=== PATIENT | male | born 1950 | race Caucasian/White ===

== ENCOUNTER → 2018-07-01 | Day surgery (SDC) | payer MEDICARE, OTHER ==
[~2018-07-01] MED LIST: ASPI-630 PO; ATEN50TA PO; IV RINGERS,LACTATED 1000ML 1,000 ML IV SCH; LIDOCAINE 1% PF 2 ML VIAL. ID PRN; LISI1TAB3 PO; METF500T16 PO; MIDAZOLAM HCL/PF 2 MG/2 ML VIAL. IV PRN; PROPOFOL 40 ML IV ONE; fentaNYL PF VIAL 100 MCG/2 ML VIAL IV PRN
--- NOTE | 2018-07-01 09:14 | HP ---
ADMIT DATE: 07/01/2018 REFERRING PHYSICIAN: Hiren Dickerson. HISTORY OF PRESENT ILLNESS: A 68-year-old male with past medical history significant for diabetes, hypertension, history of colonic polyps, seen for interval colon exam. Last exam was back in 2011. Bowel habits are regular without diarrhea or constipation. There has been no melena and/or hematochezia. Family history is positive for colon cancer with his father. He is otherwise without additional complaints. PAST MEDICAL HISTORY: Colonic polyps, diabetes, hypertension. ALLERGIES: None. MEDICATIONS: Include aspirin, atenolol, lisinopril, hydrochlorothiazide, metformin. SOCIAL HISTORY: Nonsmoker, social drinker. FAMILY HISTORY: Significant for colon cancer with his father. PAST SURGICAL HISTORY: Noncontributory. REVIEW OF SYSTEMS: Per records. PHYSICAL EXAMINATION: GENERAL: Reveals a well-nourished, well-developed male, who is alert and cooperative, no acute distress. VITAL SIGNS: Temperature 98.5, pulse 86, respirations 20. HEENT: Normocephalic and atraumatic head. Pupils and extraocular movements are not tested. Sclerae anicteric. NECK: Supple. LUNGS: Clear. CARDIOVASCULAR: Reveals S1, S2 without S3, S4 or appreciable murmur. ABDOMEN: Soft abdomen, normal bowel sounds without appreciable hepatosplenomegaly. EXTREMITIES: Reveal no cyanosis, clubbing or edema. IMPRESSION: History of colonic polyps, family history of colon cancer. Surveillance exam is warranted at this time. Risks and benefits have been previously discussed including risk of hemorrhage and perforation and is willing to proceed. NICKOLAS AUGUSTINE MD DR: SIM/kathy JOB#: [id number] / [id number] HIREN Acevedo RECORDS, MEDICAL
[2018-07-01 09:26] VITALS: BP 107/62
--- NOTE | 2018-07-02 12:10 | PATHOLOGY ---
[facility] Accession Number: [id number] . 01 Material submitted: . SIGMOID POLYP BIOPSY . 01 Clinical history: . Screening, Hx colon polyps . 02 Diagnosis: Colon biopsies, sigmoid polyp: - Hyperplastic polyp. [facility]/07/02/2018 . 02 Comment: There are no adenomatous changes or evidence of malignancy. (JPM:[facility] 07/02/2018) . 02 Electronically signed: . Renan Watters MD, Pathologist NPI- [id number] . 01 Gross description: . Received in formalin labeled "Dreorosi Jr, Jean, sigmoid polyp BX," are 2 segments of sim soft tissue measuring 0.9 x 0.3 x 0.2 cm in aggregate dimensions and ranging from 0.4 to 0.5 cm in maximum dimension. The specimen is submitted entirely in cassette A1. ([facility]; 07/01/2018) TOB/TOB . 02 Pathologist provided ICD-10: K63.5 . 02 CPT . 784949 Specimen Comment: A courtesy copy of this report has been sent to Specimen Comment: [phone], . Specimen Comment: Report sent to / DR PERKINS Performed at: 01 [facility] [address], [place], [place] [id number] MD Jero Johnson MD Phone: [phone] Performed at: 02 [facility] [address], [place] [id number] MD Renan Watters MD Phone: [phone]
== END | disposition home or self-care (01) ==
LOC: SURG 07:57
PROVIDERS: ATTEND Internal Medicine Gastroenterology
DX: Z12.11 Encounter for screening for malignant neoplasm of colon (principal); K63.5 Polyp of colon; K57.30 Diverticulosis of large intestine without perforation or abscess without bleeding; K64.0 First degree hemorrhoids; I10 Essential (primary) hypertension; E11.9 Type 2 diabetes mellitus without complications; Z80.0 Family history of malignant neoplasm of digestive organs; Z86.010 Personal history of colon polyps; Z79.82 Long term (current) use of aspirin; Z79.899 Other long term (current) drug therapy; Z79.84 Long term (current) use of oral hypoglycemic drugs
CPT/HCPCS: 45380; 88305; J2704

== ENCOUNTER 2020-06-30 22:00 | Inpatient (IN) | payer MEDICARE, OTHER ==
[~2020-06-30] VITALS: Ht 177.8 cm; Wt 93.5 kg
[~2020-06-30 22:00] MED LIST changes: -IV RINGERS,LACTATED 1000ML 1,000 ML IV SCH; -LIDOCAINE 1% PF 2 ML VIAL. ID PRN; +LISI1TAB23 PO; -LISI1TAB3 PO; -MIDAZOLAM HCL/PF 2 MG/2 ML VIAL. IV PRN; -PROPOFOL 40 ML IV ONE; +ceFAZolin 2GM PREMIX 2 GM/50 ML BAG IV ONE; -fentaNYL PF VIAL 100 MCG/2 ML VIAL IV PRN
[2020-06-30 22:10] VITALS: BP 118/79
[2020-06-30] MEDS ORDERED: ACETAMINOPHEN 325 MG TABLET. PO PRN (22:15)
[2020-06-30] MEDS ORDERED: CALCIUM CARBONATE 500 MG TAB.CHEW PO PRN (22:15)
[2020-06-30] MEDS ORDERED: BISACODYL 10 MG SUPP.RECT. PR PRN (22:15)
[2020-06-30] MEDS ORDERED: hydrALAZINE 20 MG/ML VIAL. IVP PRN (22:15)
[2020-06-30] MEDS ORDERED: ASPIRIN RECTAL 300 MG SUPP. PR PRN (22:15)
[2020-06-30] MEDS ORDERED: IV RINGERS,LACTATED 1000ML 1,000 ML IV SCH (22:30)
[2020-06-30] MEDS ORDERED: ONDANSETRON PF 4 MG/2 ML VIAL. IVP PRN (22:30)
[2020-06-30] MEDS: FAMOTIDINE 20 MG TABLET. PO SCH (22:30)
[2020-06-30] MEDS: SENNOSIDES/DOCUSATE 8.6/50MG TABLET. PO SCH (22:30)
--- NOTE | 2020-06-30 22:30 | NUR ---
Admission Note At 2200, pt admitted to room 508 via EMS cart from [facility] ER. Pt is A/Ox4, tele monitor applied, pt oriented to room and call light. Explained POC. Pt milind. At 2240, NIH stroke scale performed, score = 0. Assessment and history done at this time as well. Pt denies pain or other needs. SCD's placed as ordered. Bed alarm on, pt instructed to call if need to get OOB. Pt vu. Will monitor.
[2020-06-30] MEDS ORDERED: DEXTROSE 50% 25 GM / 50ML DISP.SYRIN. IV PRN (22:45)
[2020-06-30] MEDS: ATORVASTATIN CALCIUM 40 MG TABLET. PO SCH (23:43)
[2020-06-30] MEDS: METOPROLOL TART IMMED RELEASE 25 MG TABLET. PO SCH (23:44)
[2020-07-01 03:00] VITALS: BP 110/67
[2020-07-01 07:00] VITALS: BP 125/64
[2020-07-01] MEDS: INSULIN LISPRO 300 UNITS/3 ML VIAL. SQ SCH ×4 (08:00→21:00)
[2020-07-01] MEDS: METOPROLOL TART IMMED RELEASE 25 MG TABLET. PO SCH ×2 (08:20→21:02)
[2020-07-01] MEDS: FAMOTIDINE 20 MG TABLET. PO SCH ×2 (08:20→21:00)
[2020-07-01] MEDS: ASPIRIN ENTERIC COATED 325 MG TABLET.DR. PO SCH (08:20)
[2020-07-01] MEDS: SENNOSIDES/DOCUSATE 8.6/50MG TABLET. PO SCH ×2 (08:20→21:02)
--- NOTE | 2020-07-01 09:32 | RAD ---
PQRS Compliance Statement - Stenosis calculations for CT, MR and conventional angiography are based u david measurement of the distal ICA diameter in accordance with the NASCET methodology. Stenosis calcu lations for carotid ultrasound studies are derived from validated velocity criteria which are known t o correlate with the NASCET methodology. Duplex ultrasound carotid arteries. HISTORY: Multiple brain lesions, headaches, dizziness, possible multifocal CVAs versus metastatic dis ease. Duplex ultrasound was used to evaluate the carotid arteries. Real-time imaging, color-flow imaging an d Doppler were utilized for evaluation. There is no significant plaque at the right carotid bifurcati on. Peak velocity in the right internal carotid artery was 79 cm/s with end-diastolic velocity of 27 cm/s and a systolic velocity ratio of 0.75. There is antegrade flow in the right vertebral. There is no significant plaque at the left carotid bifurcation. Peak velocity in the left internal ca rotid artery was 82 centimeters per second with an end-diastolic velocity of 17 cm/s and a systolic v elocity ratio of 0.8. There is antegrade flow in the left vertebral. IMPRESSION: 1. No hemodynamically significant stenosis noted at the carotid bifurcations. 2. Antegrade flow in each vertebral. Electronically signed by: Tahir Littlejohn MD (07/01/2020 9:29 AM) [facility]
--- NOTE | 2020-07-01 09:58 | PDOC1 ---
History and Physical Date of Admission Date of Admission 07/01/2020 Identification/Chief Complaint Chief Complaint Altered mental status Source Source: Chart review, Patient History of Present Illness History of Present Illness Patient is a 70 year old male with past medical history of diabetes who was in his usual state of health until approximately 5 days prior to his admission when he started complaining of sensation of fogginess in his mind. Patient also complained of headache according to his daughter who is at bedside helping with the history taking. He also had some hearing loss worse than usual over his right ear and patient seeks attention to his doctor and had a cleanout done more or less 2 days prior to his admission and evaluation at [place]. Patient denies any headaches no loss of vision he recently had his prescription change and apparently his securities settlement processor told him that they need to do some changes since its "too strong in "of a prescription. Patient denies any vision loss no dysphagia odynophagia no slurred speech no hemiparesis no hemiplegia, no chest pain palpitations or shortness of breath, no neck stiffness noticed no fever or chills no meningismus no abdominal pain nausea vomiting or diarrhea. The patient has had proper oral intake over the last couple days. Orthostatic at outside facility were recorded as folllows blood pressures as follows lying: Heart rate 70, 137/79, sitting: Heart rate 72, 131/80, standing: Heart rate 70, 113/73, Outside facility H&P is as follows: Patient is a 70-year-old male patient presents emergency department complaining that he has felt lightheaded for the past week or so. Patient also states that he feels like he cannot hear very well and describes that it seems his right ear is plugged up and his left ear is only partially plugged up. Patient reports that his hearing loss for the past week as well. Patient's son states that he was with him a few days ago and noticed that the patient had been speaking l ouder than normal. The patient's son also reports that he has noticed some periods of confusion from the patient over the last day or 2. Patient reports seeing his eye doctor yesterday and stated his eye doctor told him that he needs a different prescription for his eyes stating that his eyes are getting better now and this could have caused some of his dizziness sensations because he is wearing his old glasses. Patient reports taking daily puffs of albuterol, takes Metformin 500 mg twice daily, and takes an unknown dose of lisinopril daily. Patient reports that he seen his primary care provider RADHA Dickerson this past week who took labs but has not gotten back with him yet. Patient denies any other physical complaints or physical symptoms. Patient son is at bedside and provided partial HPI. We were asked to admit the patient for neurological evaluation and higher level of care. He is in hemodynamically stable condition plan of care has been explained detail all of his concerns were addressed to the best of my abilities Past Medical History Endocrine: Diabetes Family History Family History: No Significant Social History Smoke: No ALCOHOL: none Drugs: None Current Medications Current Medications Current Medications Medications (Trade) Dose Ordered Sig/Desiree Start Time Stop Time Status Last Admin Dose Admin Acetaminophen (Tylenol) 650 mg PRN Q6HRS PRN 06/30/20 22:15 Aspirin (Aspirin Rectal Supp) 300 mg PRN DAILY PRN 06/30/20 22:15 Aspirin (Ecotrin) 325 mg DAILYWBKFT 07/01/20 08:00 07/01/20 08:20 325 MG Atorvastatin Calcium (Lipitor) 80 mg QHS 06/30/20 22:30 06/30/20 23:43 80 MG Bisacodyl (Dulcolax Supp) 10 mg PRN DAILY PRN 06/30/20 22:15 Calcium Carbonate/ Glycine (Tums) 500 mg PRN Q3HRS PRN 06/30/20 22:15 Dextrose (Dextrose 50%-Water Syringe) 12.5 gm PRN Q15MIN PRN 06/30/20 22:45 Famotidine (Pepcid) 20 mg BID 06/30/20 22:30 07/01/20 08:20 20 MG Hydralazine HCl (Apresoline Inj) 10 mg PRN Q4HRS PRN 06/30/20 22:15 Insulin Human Lispro (HumaLOG) 0-7 UNITS TIDWMEALHC 07/01/20 08:00 Metoprolol Tartrate (Lopressor) 25 mg BID 06/30/20 22:30 07/01/20 08:20 25 MG Ondansetron HCl (Zofran) 4 mg PRN Q6HRS PRN 06/30/20 22:30 Ringer's Solution 1,000 ml @ 100 mls/hr Q10H 06/30/20 22:30 07/01/20 08:29 DC 06/30/20 23:44 100 MLS/HR Senna/Docusate Sodium (Senna Plus) 1 tab BID 06/30/20 22:30 07/01/20 08:20 1 TAB Allergies Allergies Allergies Coded Allergies Type Severity Reaction Last Updated Verified No Known Drug Allergies 07/01/18 No ROS Review of System 14 body systems of review of systems have been reviewed. See HPI for pertinent positives and negative responses, otherwise all other systems are negative, nonpertinent or noncontributory. Physical Exam Physical Exam Constitutional: Well developed, well nourished, no acute distress, non-toxic appearance. HENT: Normocephalic, atraumatic, bilateral external ears normal, oropharynx moist, no oral exudates, nose normal. Bilateral cerumen impaction, unable to appreciate visualization of tympanic membrane of either ear. Eyes: PERRLA, EOMI, conjunctiva normal, no discharge. Neck: Normal range of motion, no tenderness, supple, no stridor. Cardiovascular:Heart rate regular rhythm, no murmur Lungs & Thorax: Bilateral breath sounds clear to auscultation Abdomen: Bowel sounds normal, soft, no tenderness, no masses, no pulsatile masses. Skin: Warm, dry, no erythema, no rash. Back: No tenderness, no CVA tenderness. Extremities: No tenderness, no cyanosis, no clubbing, ROM intact, no edema. Neurologic: Alert and oriented X 3, normal motor function, normal sensory function, no focal deficits noted. NIHSS score 0, negative Rocío-Hallpike maneuver. patient did not complain of dizziness or other neuro deficits during orthostatic blood pressures. Psychologic: Affect normal, judgement normal, mood normal. Vitals Vitals Vital Signs Date Time Temp Pulse Resp B/P (MAP) Pulse Ox O2 Delivery O2 Flow Rate FiO2 07/01/20 08:20 68 125/64 07/01/20 07:00 98.0 16 98 Room Air 98.0 Labs Labs Laboratory Tests Test 07/01/20 07:43 Glucose (Fingerstick) 140 mg/dL (70-99) Laboratory Tests Test 07/01/20 07:43 Glucose (Fingerstick) 140 mg/dL (70-99) Images Images IMAGING REPORT Signed PATIENT: AL COOPERCOUNT: [id number] : 1950 LOCATION: ER AGE: 70 SEX: M EXAM STATUS: PRE ER ORD. PHYSICIAN: AWA MOORE APRN REASON: LIGHTHEADED WITH HEADACHE ONSET A FEW WEEKS AGO PROCEDURE: CT HEAD WO CONTRAST STUDY: CT head without contrast INDICATION: Lightheadedness. Headache. COMPARISON: None. TECHNIQUE: Axial CT imaging through the head without the use of intravenous contrast. Sagittal and coronal reformats were obtained. One or more of the following individualized dose reduction techniques were utilized for this examination: 1. Automated exposure control 2. Adjustment of the mA and/or kV according to patient size 3. Use of iterative reconstruction technique. FINDINGS: Multifocal parenchymal low-attenuation involving both cerebral hemispheres and most pronounced within the posterior right temporal lobe and bilateral occipital lobes. Much of this low-attenuation is subcortical but there is some cortical involvement such as left occipital. Asymmetric low attenuation and soft tissue prominence involving and adjacent to the right aspect of the splenium of the corpus callosum with associated localized effacement of the right lateral ventricle, image 17 series 2. The left lateral ventricule is more prominent than the right but there is no shift and only minimal asymmetry of the temporal horns. There appears to be faint low-attenuation within the left aspect of the midbrain on image 11 series 2. No acute intracranial hemorrhage. No focal calvarial abnormality. IMPRESSION: Abnormal cortical and subcortical low-attenuation at several locations throug hout both cerebral hemispheres. The right aspect of the splenium of the corpus callosum is asymmetrically prominent relative to the left and there is partial effacement of the adjacent right lateral ventricle. Possible low-attenuation within the left aspect of the midbrain (image 11 series 2). Multifocal infarcts need to be excluded but the distribution is unusual as is the provided history for ischemic events. Metastatic disease should be considered and MRI with and without contrast will allow for differentiation. EKG EKG EKG performed 1723 by [facility] shows a normal sinus rhythm with a heart rate of 71 bpm, NC interval 0.160, QTc interval 0.431, no acute STEMI, no ACS, no acute ischemia noted, EKG interpreted by ED attending physician Dr. Lewis (AWA MOORE APRN) VTE Prophylaxis Ordered VTE Prophylaxis Devices: Yes VTE Pharmacological Prophylaxi: No Assessment/Plan Assessment/Plan Assessment and plan Abnormal CAT scan History of diabetes mellitus type 2 Overweight with a BMI of 29 Hearing impaired History of essential hypertension We will resume home medications once available for review Hold Metformin Neurology consultation has been requested Further imaging studies as per security system sales consultant Fall precaution Further commendations based on the clinical course DVT prophylaxis Lovenox Course & Med Decision Making Course & Med Decision Making Pertinent Labs and Imaging studies reviewed. (See chart for details) 70-year-old patient presents emergency department with complaints of dizziness, hard of hearing over the past week. The patient's son was at bedside and also gave concerns of the patient has had an acute change of mental status noting that he has been forgetful for the past day or so. The patient does have a history of diabetes, fingerstick blood sugar was performed equaling 113. An immediate bedside NIHSS was performed equaling 0. Serum labs and imaging of the head was ordered. Pending at this time Patient is orthostatic blood pressures concerning for dehydration, 1 L normal saline bolus initiated. Patient serum labs were equivocal, however CT head was concerning for abnormal cortical and subcortical low attenuation in several locations throughout the cerebral hemispheres. Multiple infarcts need to be excluded per house radiologist interpretation. Recommended MRI with and without contrast. House radiologist Dr. Martino spoke with the ED attending Dr. Lewis on the phone regarding this abnormal CT. Related to the abnormal CT, ED attending Dr. Lewis recommended I contact inpatient services for admission to [facility] for follow-up of abnormal head CT. Discussed case with [facility] inpatient physician Dr. Simpson who agreed to assume patient care and transfer from [facility] emergency department to [facility] inpatient med telemetry unit. Discussed admission to [facility] under the care of Dr. Simpson with patient who is amendable to this plan. Transfer forms initiated awaiting transfer from [facility] ER to [facility]. Discussed with patient past medical history regarding cancer screening. Patient states that he has had a normal colonoscopy starting at age 52, again at age 62, and again at age 67. Patient also reports that he has had yearly physicals with his primary care provider who does a manual prostate exam along with PSA testing, patient reports that his primary care provider has not told him of any abnormalities with either of these tests. Patient does reveal being a smoker greater than 50 years ago when he was in the [employer] and considered himself a recreational smoker and smoked only a few cigarettes per week or month while he was in the [employer]. (AWA MOORE APRN) Course & Med Decision Making I oversaw on the above date of service of this patient and discussed the care with the OUTPATIENT FACILITY PHYSICAL THERAPIST. I reviewed the case, saw patient he was hemodynamically stable but with concerning CT head imaging findings that require continued work-up in an inpatient setting. Patient to be transferred to facility with neurologist/MRI capabilities. I agree with the findings, plan of care, and disposition as documented. Justifications for Admission TIA Indications Persistent neurologic signs?: Yes Justification for admission: There is persistence of patient's focal neurologic signs or symptoms or there is concern for recurrence of patient's neurological signs and symptoms. Other Justification ROSEANNA GUZMAN MD Jul 01, 2020 09:58
[2020-07-01 10:09] LABS: BASO # 0.1 x10^3/uL (0.0-0.2); BASO % 1 % (0-3); EOS # 0.3 x10^3/uL (0.0-0.7); EOS % 3 % (0-3); HEMOGLOBIN 13.7 g/dL (13.0-17.5); LYMPH # 1.4 x10^3/uL (1.0-4.8); LYMPH % 15 % (24-48); MEAN CORPUSCULAR HEMOGLOBIN 33 pg (25-35); MEAN CORPUSCULAR HGB CONC 35 g/dL (31-37); MEAN CORPUSCULAR VOLUME 95 fL (79-100); MONO # 0.5 x10^3/uL (0.0-1.1); MONO % 6 % (0-9); NEUT # 7.1 x10^3/uL (1.8-7.7); NEUT % 76 % (31-73); PLATELET COUNT 280 x10^3/uL (140-400); RED CELL DISTRIBUTION WIDTH 13.9 % (11.5-14.5); WHITE BLOOD COUNT 9.3 x10^3/uL (4.0-11.0)
[2020-07-01 10:23] LABS: ALBUMIN/GLOBULIN RATIO 0.8 (1.0-1.7); CALCIUM 8.3 mg/dL (8.5-10.1); CREATININE 1.1 mg/dL (0.7-1.3); GFR 66.6; POTASSIUM 4.1 mmol/L (3.5-5.1); TOTAL BILIRUBIN 0.6 mg/dL (0.2-1.0); TOTAL PROTEIN 6.7 g/dL (6.4-8.2)
[2020-07-01 10:31] LABS: CHOLESTEROL/HDL RATIO 6.7
[2020-07-01 11:00] VITALS: BP 124/83
[2020-07-01 15:00] VITALS: BP 111/71
[2020-07-01 19:00] VITALS: BP 113/68
[2020-07-01] MEDS: ATORVASTATIN CALCIUM 40 MG TABLET. PO SCH (21:03)
--- NOTE | 2020-07-01 21:13 | PDOC2 ---
CONSULT Date of Consult Date of Consult DATE: 07/01/20 TIME: 21:13 Reason for Consult Reason for Consult: Diziness Identification/Chief Complaint Chief Complaint Dizziness History of Present Illness Reason for Visit: This patient is 70-year-old man with past medical history of multiple medical problems information obtained from patient, patient's multiple family members at bedside. They report patient was not feeling well over 1 week prior to presentation patient was having some episode of lightheaded, dizziness. Patient was also having some difficulty with his ears. Patient was having some difficulty hearing he had wax removal from his year. Patient currently denies any complaint of headache nausea or vomiting chest pain shortness of breath. Patient denied any focal extremity weakness. Patient does have some history of memory and difficulty with word finding, he will be forgetful. Patient currently denies any complaint of fever headache chest pain shortness of breath. Past Medical History Endocrine: Diabetes Family History Family History: No Significant Social History No ALCOHOL: none Drugs: None Current Medications Current Medications Current Medications Ringer's Solution 1,000 ml @ 100 mls/hr Q10H IV Last administered on 06/30/20at 23:44; Start 06/30/20 at 22:30; Stop 07/01/20 at 08:29; Status DC Ondansetron HCl (Zofran) 4 mg PRN Q6HRS PRN IVP NAUSEA/VOMITING; Start 06/30/20 at 22:30 Calcium Carbonate/ Glycine (Tums) 500 mg PRN Q3HRS PRN PO UPSET STOMACH; Start 06/30/20 at 22:15 Acetaminophen (Tylenol) 650 mg PRN Q6HRS PRN PO Headaches, Temp > 101.5F; Start 06/30/20 at 22:15 Senna/Docusate Sodium (Senna Plus) 1 tab BID PO Last administered on 07/01/20at 21:02; Start 06/30/20 at 22:30 Bisacodyl (Dulcolax Supp) 10 mg PRN DAILY PRN SD CONSTIPATION; Start 06/30/20 at 22:15 Atorvastatin Calcium (Lipitor) 80 mg QHS PO Last administered on 07/01/20at 21:03; Start 06/30/20 at 22:30 Famotidine (Pepcid) 20 mg BID PO Last administered on 07/01/20at 08:20; Start 06/30/20 at 22:30 Aspirin (Ecotrin) 325 mg DAILYWBKFT PO Last administered on 07/01/20at 08:20; Start 07/01/20 at 08:00 Aspirin (Aspirin Rectal Supp) 300 mg PRN DAILY PRN SD IF UNABLE TO TAKE PO; Start 06/30/20 at 22:15 Metoprolol Tartrate (Lopressor) 25 mg BID PO Last administered on 07/01/20at 21:02; Start 06/30/20 at 22:30 Hydralazine HCl (Apresoline Inj) 10 mg PRN Q4HRS PRN IVP ELEVATED BP, SEE COMMENTS; Start 06/30/20 at 22:15 Insulin Human Lispro (HumaLOG) 0-7 UNITS TIDWMEALHC SQ ; Start 07/01/20 at 08:00 Dextrose (Dextrose 50%-Water Syringe) 12.5 gm PRN Q15MIN PRN IV SEE COMMENTS; Start 06/30/20 at 22:45 Active Scripts Active Reported Aspirin 81 Mg Tab.chew 81 Mg PO DAILY Metformin Hcl 500 Mg Tablet 500 Mg PO BIDWMEALS Atenolol 50 Mg Tablet 50 Mg PO DAILY Allergies Allergies: Coded Allergies: No Known Drug Allergies (Unverified , 07/01/18) Physical Exam Physical Exam General no acute distress. HEENT: Normocephalic and atraumatic. NECK: Supple without bruit Respiratory: Clear to auscultation bilaterally Heart: Regular rate and rhythm, S1S2 normal NEUROLOGIC: Mental status Alert oriented. Word finding difficulty Cranial nerve equally reactive pupils, and intact extraocular movements. No facial asymmetry. Difficulty hearing Palate elevates and tongue protrudes in midline. Reflexes are 1-2 with flexor plantar responses. Coordination no dysmetria Strength able to move all exts equally. Sensory exam is intact for light touch and pinprick. Gait in bed. A 10-point review of systems was obtained. Other than the history of present illness the remainder of the review of systems is negative. Vitals VITALS Vital Signs Date Time Temp Pulse Resp B/P (MAP) Pulse Ox O2 Delivery O2 Flow Rate FiO2 07/01/20 21:02 68 113/68 07/01/20 19:00 98.7 20 97 Room Air 98.7 Labs Labs Laboratory Tests Test 07/01/20 07:43 07/01/20 08:47 07/01/20 12:07 1/9/21 16:48 Glucose (Fingerstick) 140 mg/dL (70-99) 129 mg/dL (70-99) 111 mg/dL (70-99) White Blood Count 9.3 x10^3/uL (4.0-11.0) Red Blood Count 4.10 x10^6/uL (4.30-5.70) Hemoglobin 13.7 g/dL (13.0-17.5) Hematocrit 39.0 % (39.0-53.0) Mean Corpuscular Volume 95 fL (79-100) Mean Corpuscular Hemoglobin 33 pg (25-35) Mean Corpuscular Hemoglobin Concent 35 g/dL (31-37) Red Cell Distribution Width 13.9 % (11.5-14.5) Platelet Count 280 x10^3/uL (140-400) Neutrophils (%) (Auto) 76 % (31-73) Lymphocytes (%) (Auto) 15 % (24-48) Monocytes (%) (Auto) 6 % (0-9) Eosinophils (%) (Auto) 3 % (0-3) Basophils (%) (Auto) 1 % (0-3) Neutrophils # (Auto) 7.1 x10^3/uL (1.8-7.7) Lymphocytes # (Auto) 1.4 x10^3/uL (1.0-4.8) Monocytes # (Auto) 0.5 x10^3/uL (0.0-1.1) Eosinophils # (Auto) 0.3 x10^3/uL (0.0-0.7) Basophils # (Auto) 0.1 x10^3/uL (0.0-0.2) Sodium Level 140 mmol/L (136-145) Potassium Level 4.1 mmol/L (3.5-5.1) Chloride Level 105 mmol/L (98-107) Carbon Dioxide Level 26 mmol/L (21-32) Anion Gap 9 (6-14) Blood Urea Nitrogen 16 mg/dL (8-26) Creatinine 1.1 mg/dL (0.7-1.3) Estimated GFR (Cockcroft-Gault) 66.6 BUN/Creatinine Ratio 15 (6-20) Glucose Level 181 mg/dL (70-99) Calcium Level 8.3 mg/dL (8.5-10.1) Total Bilirubin 0.6 mg/dL (0.2-1.0) Aspartate Amino Transf (AST/SGOT) 50 U/L (15-37) Alanine Aminotransferase (ALT/SGPT) 75 U/L (16-63) Alkaline Phosphatase 48 U/L (46-116) Total Protein 6.7 g/dL (6.4-8.2) Albumin 3.0 g/dL (3.4-5.0) Albumin/Globulin Ratio 0.8 (1.0-1.7) Triglycerides Level 220 mg/dL (0-150) Cholesterol Level 154 mg/dL (0-200) LDL Cholesterol, Calculated 87 mg/dL (0-100) VLDL Cholesterol, Calculated 44 mg/dL (0-40) Non-HDL Cholesterol Calculated 131 mg/dL (0-129) HDL Cholesterol 23 mg/dL (40-60) Cholesterol/HDL Ratio 6.7 Thyroid Stimulating Hormone (TSH) 1.097 uIU/mL (0.358-3.74) Test 07/01/20 20:36 Glucose (Fingerstick) 108 mg/dL (70-99) Laboratory Tests Test 07/01/20 07:43 07/01/20 08:47 07/01/20 12:07 07/01/20 16:48 Glucose (Fingerstick) 140 mg/dL (70-99) 129 mg/dL (70-99) 111 mg/dL (70-99) White Blood Count 9.3 x10^3/uL (4.0-11.0) Red Blood Count 4.10 x10^6/uL (4.30-5.70) Hemoglobin 13.7 g/dL (13.0-17.5) Hematocrit 39.0 % (39.0-53.0) Mean Corpuscular Volume 95 fL (79-100) Mean Corpuscular Hemoglobin 33 pg (25-35) Mean Corpuscular Hemoglobin Concent 35 g/dL (31-37) Red Cell Distribution Width 13.9 % (11.5-14.5) Platelet Count 280 x10^3/uL (140-400) Neutrophils (%) (Auto) 76 % (31-73) Lymphocytes (%) (Auto) 15 % (24-48) Monocytes (%) (Auto) 6 % (0-9) Eosinophils (%) (Auto) 3 % (0-3) Basophils (%) (Auto) 1 % (0-3) Neutrophils # (Auto) 7.1 x10^3/uL (1.8-7.7) Lymphocytes # (Auto) 1.4 x10^3/uL (1.0-4.8) Monocytes # (Auto) 0.5 x10^3/uL (0.0-1.1) Eosinophils # (Auto) 0.3 x10^3/uL (0.0-0.7) Basophils # (Auto) 0.1 x10^3/uL (0.0-0.2) Sodium Level 140 mmol/L (136-145) Potassium Level 4.1 mmol/L (3.5-5.1) Chloride Level 105 mmol/L (98-107) Carbon Dioxide Level 26 mmol/L (21-32) Anion Gap 9 (6-14) Blood Urea Nitrogen 16 mg/dL (8-26) Creatinine 1.1 mg/dL (0.7-1.3) Estimated GFR (Cockcroft-Gault) 66.6 BUN/Creatinine Ratio 15 (6-20) Glucose Level 181 mg/dL (70-99) Calcium Level 8.3 mg/dL (8.5-10.1) Total Bilirubin 0.6 mg/dL (0.2-1.0) Aspartate Amino Transf (AST/SGOT) 50 U/L (15-37) Alanine Aminotransferase (ALT/SGPT) 75 U/L (16-63) Alkaline Phosphatase 48 U/L (46-116) Total Protein 6.7 g/dL (6.4-8.2) Albumin 3.0 g/dL (3.4-5.0) Albumin/Globulin Ratio 0.8 (1.0-1.7) Triglycerides Level 220 mg/dL (0-150) Cholesterol Level 154 mg/dL (0-200) LDL Cholesterol, Calculated 87 mg/dL (0-100) VLDL Cholesterol, Calculated 44 mg/dL (0-40) Non-HDL Cholesterol Calculated 131 mg/dL (0-129) HDL Cholesterol 23 mg/dL (40-60) Cholesterol/HDL Ratio 6.7 Thyroid Stimulating Hormone (TSH) 1.097 uIU/mL (0.358-3.74) Test 07/01/20 20:36 Glucose (Fingerstick) 108 mg/dL (70-99) Assessment/Plan Assessment/Plan This patient is 70-year-old man with past medical history of multiple medical problems information obtained from patient, patient's multiple family members at bedside. They report patient was not feeling well over 1 week prior to presentation patient was having some episode of lightheaded, dizziness. Patient was also having some difficulty with his ears. Patient was having some difficulty hearing he had wax removal from his year. Patient currently denies any complaint of headache nausea or vomiting chest pain shortness of breath. Patient denied any focal extremity weakness. Patient does have some history of memory and difficulty with word finding, he will be forgetful. Patient currently denies any complaint of fever headache chest pain shortness of breath. With the symptoms of dizziness, lightheadedness patient was orthostatic patient required IV fluids. Patient had a CT scan done brain at outside facility with the hypodensities noted in cortical, sub cortical area, with some question of a lesion per radiologist's report, will get a MRI of brain with and without contrast to evaluate for any acute intracranial etiology. Further workup depending on initial test results. Continue aspirin for stroke prevention. Check carotid Doppler, PT OT speech evaluation. Diabetes continue treat and monitor. Continue medical management. Plan discussed at length with patient, patient's family member at bedside Thank you for allowing me to take part in this patient's care. Please not hesitate to contact me with questions. Transcribed using dictation device. The dictation could contain irregularities inherent in the voice to text conversion software, which may not be detected du ring the document review process. Please contact our office in case of any confusion or for any clarification, as needed. KANDY RIOS MD Jul 01, 2020 21:13
[2020-07-01 23:00] VITALS: BP 120/72
[2020-07-02 03:08] VITALS: BP 121/76
[2020-07-02 07:00] VITALS: BP 123/81
--- NOTE | 2020-07-02 07:46 | PDOC ---
PROGRESS NOTES Date of Service: DATE: 07/02/20 TIME: 07:43 Chief Complaint Chief Complaint Assessment and plan Abnormal CAT scan History of diabetes mellitus type 2 Overweight with a BMI of 29 Hearing impaired History of essential hypertension Plan: Hold Metformin Neurology consultation has been noted and recommendations greatly appreciated Carotid Doppler done with normal findings MRI head pending as per data warehouse consultant Fall precaution Further commendations based on the clinical course DVT prophylaxis Lovenox History of Present Illness History of Present Illness History of Present Illness Patient is a 70 year old male with past medical history of diabetes who was in his usual state of health until approximately 5 days prior to his admission when he started complaining of sensation of fogginess in his mind. Patient also complained of headache according to his daughter who is at bedside helping with the history taking. He also had some hearing loss worse than usual over his right ear and patient seeks attention to his doctor and had a cleanout done more or less 2 days prior to his admission and evaluation at [facility]. Patient denies any headaches no loss of vision he recently had his prescription change and apparently his box blank machine operator told him that they need to do some changes since its "too strong in "of a prescription. Patient denies any vision loss no dysphagia odynophagia no slurred speech no hemiparesis no hemiplegia, no chest pain palpitations or shortness of breath, no neck stiffness noticed no fever or chills no meningismus no abdominal pain nausea vomiting or diarrhea. The patient has had proper oral intake over the last couple days. Orthostatic at outside facility were recorded as folllows blood pressures as follows lying: Heart rate 70, 137/79, sitting: Heart rate 72, 131/80, standing: Heart rate 70, 113/73, Outside facility H&P is as follows: Patient is a 70-year-old male patient presents emergency department complaining that he has felt lightheaded for the past week or so. Patient also states that he feels like he cannot hear very well and describes that it seems his right ear is plugged up and his left ear is only partially plugged up. Patient reports that his hearing loss for the past week as well. Patient's son states that he was with him a few days ago and noticed that the patient had been speaking louder than normal. The patient's son also reports that he has noticed some periods of confusion from the patient over the last day or 2. Patient reports seeing his eye doctor yesterday and stated his eye doctor told him that he needs a different prescription for his eyes stating that his eyes are getting better now and this could have caused some of his dizziness sensations because he is wearing his old glasses. Patient reports taking daily puffs of albuterol, takes Metformin 500 mg twice daily, and takes an unknown dose of lisinopril daily. Patient reports that he seen his primary care provider RADHA Dickerson this past week who took labs but has not gotten back with him yet. Patient denies any other physical complaints or physical symptoms. Patient son is at bedside and provided partial HPI. We were asked to admit the patient for neurological evaluation and higher level of care. He is in hemodynamically stable condition plan of care has been explained detail all of his concerns were addressed to the best of my abilities 07/02: No acute events reported overnight, case discussed with nursing staff patient in no acute distress no complaints during my visit. MRI pending. D iscussed with son at bedside. Recommended outpatient audiometry hearing loss seems to be worse on his right ear compared to left Vitals Vitals Vital Signs Date Time Temp Pulse Resp B/P (MAP) Pulse Ox O2 Delivery O2 Flow Rate FiO2 07/02/20 03:08 97.9 67 20 121/76 (91) 96 Room Air 97.9 Labs LABS Laboratory Tests Test 07/01/20 08:47 07/01/20 12:07 07/01/20 16:48 07/01/20 20:36 White Blood Count 9.3 x10^3/uL (4.0-11.0) Red Blood Count 4.10 x10^6/uL (4.30-5.70) Hemoglobin 13.7 g/dL (13.0-17.5) Hematocrit 39.0 % (39.0-53.0) Mean Corpuscular Volume 95 fL (79-100) Mean Corpuscular Hemoglobin 33 pg (25-35) Mean Corpuscular Hemoglobin Concent 35 g/dL (31-37) Red Cell Distribution Width 13.9 % (11.5-14.5) Platelet Count 280 x10^3/uL (140-400) Neutrophils (%) (Auto) 76 % (31-73) Lymphocytes (%) (Auto) 15 % (24-48) Monocytes (%) (Auto) 6 % (0-9) Eosinophils (%) (Auto) 3 % (0-3) Basophils (%) (Auto) 1 % (0-3) Neutrophils # (Auto) 7.1 x10^3/uL (1.8-7.7) Lymphocytes # (Auto) 1.4 x10^3/uL (1.0-4.8) Monocytes # (Auto) 0.5 x10^3/uL (0.0-1.1) Eosinophils # (Auto) 0.3 x10^3/uL (0.0-0.7) Basophils # (Auto) 0.1 x10^3/uL (0.0-0.2) Sodium Level 140 mmol/L (136-145) Potassium Level 4.1 mmol/L (3.5-5.1) Chloride Level 105 mmol/L (98-107) Carbon Dioxide Level 26 mmol/L (21-32) Anion Gap 9 (6-14) Blood Urea Nitrogen 16 mg/dL (8-26) Creatinine 1.1 mg/dL (0.7-1.3) Estimated GFR (Cockcroft-Gault) 66.6 BUN/Creatinine Ratio 15 (6-20) Glucose Level 181 mg/dL (70-99) Calcium Level 8.3 mg/dL (8.5-10.1) Total Bilirubin 0.6 mg/dL (0.2-1.0) Aspartate Amino Transf (AST/SGOT) 50 U/L (15-37) Alanine Aminotransferase (ALT/SGPT) 75 U/L (16-63) Alkaline Phosphatase 48 U/L (46-116) Total Protein 6.7 g/dL (6.4-8.2) Albumin 3.0 g/dL (3.4-5.0) Albumin/Globulin Ratio 0.8 (1.0-1.7) Triglycerides Level 220 mg/dL (0-150) Cholesterol Level 154 mg/dL (0-200) LDL Cholesterol, Calculated 87 mg/dL (0-100) VLDL Cholesterol, Calculated 44 mg/dL (0-40) Non-HDL Cholesterol Calculated 131 mg/dL (0-129) HDL Cholesterol 23 mg/dL (40-60) Cholesterol/HDL Ratio 6.7 Thyroid Stimulating Hormone (TSH) 1.097 uIU/mL (0.358-3.74) Glucose (Fingerstick) 129 mg/dL (70-99) 111 mg/dL (70-99) 108 mg/dL (70-99) Review of Systems Review of Systems Review of systems pertinent as per HPI otherwise 14 point review of system is negative Comment Review of Relevant I have reviewed the following items bashir (where applicable) has been applied. Labs Laboratory Tests Test 07/01/20 07:43 07/01/20 08:47 07/01/20 12:07 07/01/20 16:48 Glucose (Fingerstick) 140 mg/dL (70-99) 129 mg/dL (70-99) 111 mg/dL (70-99) White Blood Count 9.3 x10^3/uL (4.0-11.0) Red Blood Count 4.10 x10^6/uL (4.30-5.70) Hemoglobin 13.7 g/dL (13.0-17.5) Hematocrit 39.0 % (39.0-53.0) Mean Corpuscular Volume 95 fL (79-100) Mean Corpuscular Hemoglobin 33 pg (25-35) Mean Corpuscular Hemoglobin Concent 35 g/dL (31-37) Red Cell Distribution Width 13.9 % (11.5-14.5) Platelet Count 280 x10^3/uL (140-400) Neutrophils (%) (Auto) 76 % (31-73) Lymphocytes (%) (Auto) 15 % (24-48) Monocytes (%) (Auto) 6 % (0-9) Eosinophils (%) (Auto) 3 % (0-3) Basophils (%) (Auto) 1 % (0-3) Neutrophils # (Auto) 7.1 x10^3/uL (1.8-7.7) Lymphocytes # (Auto) 1.4 x10^3/uL (1.0-4.8) Monocytes # (Auto) 0.5 x10^3/uL (0.0-1.1) Eosinophils # (Auto) 0.3 x10^3/uL (0.0-0.7) Basophils # (Auto) 0.1 x10^3/uL (0.0-0.2) Sodium Level 140 mmol/L (136-145) Potassium Level 4.1 mmol/L (3.5-5.1) Chloride Level 105 mmol/L (98-107) Carbon Dioxide Level 26 mmol/L (21-32) Anion Gap 9 (6-14) Blood Urea Nitrogen 16 mg/dL (8-26) Creatinine 1.1 mg/dL (0.7-1.3) Estimated GFR (Cockcroft-Gault) 66.6 BUN/Creatinine Ratio 15 (6-20) Glucose Level 181 mg/dL (70-99) Calcium Level 8.3 mg/dL (8.5-10.1) Total Bilirubin 0.6 mg/dL (0.2-1.0) Aspartate Amino Transf (AST/SGOT) 50 U/L (15-37) Alanine Aminotransferase (ALT/SGPT) 75 U/L (16-63) Alkaline Phosphatase 48 U/L (46-116) Total Protein 6.7 g/dL (6.4-8.2) Albumin 3.0 g/dL (3.4-5.0) Albumin/Globulin Ratio 0.8 (1.0-1.7) Triglycerides Level 220 mg/dL (0-150) Cholesterol Level 154 mg/dL (0-200) LDL Cholesterol, Calculated 87 mg/dL (0-100) VLDL Cholesterol, Calculated 44 mg/dL (0-40) Non-HDL Cholesterol Calculated 131 mg/dL (0-129) HDL Cholesterol 23 mg/dL (40-60) Cholesterol/HDL Ratio 6.7 Thyroid Stimulating Hormone (TSH) 1.097 uIU/mL (0.358-3.74) Test 07/01/20 20:36 Glucose (Fingerstick) 108 mg/dL (70-99) Laboratory Tests Test 07/01/20 08:47 07/01/20 12:07 07/01/20 16:48 07/01/20 20:36 White Blood Count 9.3 x10^3/uL (4.0-11.0) Red Blood Count 4.10 x10^6/uL (4.30-5.70) Hemoglobin 13.7 g/dL (13.0-17.5) Hematocrit 39.0 % (39.0-53.0) Mean Corpuscular Volume 95 fL (79-100) Mean Corpuscular Hemoglobin 33 pg (25-35) Mean Corpuscular Hemoglobin Concent 35 g/dL (31-37) Red Cell Distribution Width 13.9 % (11.5-14.5) Platelet Count 280 x10^3/uL (140-400) Neutrophils (%) (Auto) 76 % (31-73) Lymphocytes (%) (Auto) 15 % (24-48) Monocytes (%) (Auto) 6 % (0-9) Eosinophils (%) (Auto) 3 % (0-3) Basophils (%) (Auto) 1 % (0-3) Neutrophils # (Auto) 7.1 x10^3/uL (1.8-7.7) Lymphocytes # (Auto) 1.4 x10^3/uL (1.0-4.8) Monocytes # (Auto) 0.5 x10^3/uL (0.0-1.1) Eosinophils # (Auto) 0.3 x10^3/uL (0.0-0.7) Basophils # (Auto) 0.1 x10^3/uL (0.0-0.2) Sodium Level 140 mmol/L (136-145) Potassium Level 4.1 mmol/L (3.5-5.1) Chloride Level 105 mmol/L (98-107) Carbon Dioxide Level 26 mmol/L (21-32) Anion Gap 9 (6-14) Blood Urea Nitrogen 16 mg/dL (8-26) Creatinine 1.1 mg/dL (0.7-1.3) Estimated GFR (Cockcroft-Gault) 66.6 BUN/Creatinine Ratio 15 (6-20) Glucose Level 181 mg/dL (70-99) Calcium Level 8.3 mg/dL (8.5-10.1) Total Bilirubin 0.6 mg/dL (0.2-1.0) Aspartate Amino Transf (AST/SGOT) 50 U/L (15-37) Alanine Aminotransferase (ALT/SGPT) 75 U/L (16-63) Alkaline Phosphatase 48 U/L (46-116) Total Protein 6.7 g/dL (6.4-8.2) Albumin 3.0 g/dL (3.4-5.0) Albumin/Globulin Ratio 0.8 (1.0-1.7) Triglycerides Level 220 mg/dL (0-150) Cholesterol Level 154 mg/dL (0-200) LDL Cholesterol, Calculated 87 mg/dL (0-100) VLDL Cholesterol, Calculated 44 mg/dL (0-40) Non-HDL Cholesterol Calculated 131 mg/dL (0-129) HDL Cholesterol 23 mg/dL (40-60) Cholesterol/HDL Ratio 6.7 Thyroid Stimulating Hormone (TSH) 1.097 uIU/mL (0.358-3.74) Glucose (Fingerstick) 129 mg/dL (70-99) 111 mg/dL (70-99) 108 mg/dL (70-99) Medications Current Medications Ringer's Solution 1,000 ml @ 100 mls/hr Q10H IV Last administered on 06/30/20at 23:44; Start 06/30/20 at 22:30; Stop 07/01/20 at 08:29; Status DC Ondansetron HCl (Zofran) 4 mg PRN Q6HRS PRN IVP NAUSEA/VOMITING; Start 06/30/20 at 22:30 Calcium Carbonate/ Glycine (Tums) 500 mg PRN Q3HRS PRN PO UPSET STOMACH; Start 06/30/20 at 22:15 Acetaminophen (Tylenol) 650 mg PRN Q6HRS PRN PO Headaches, Temp > 101.5F; Start 06/30/20 at 22:15 Senna/Docusate Sodium (Senna Plus) 1 tab BID PO Last administered on 07/01/20at 21:02; Start 06/30/20 at 22:30 Bisacodyl (Dulcolax Supp) 10 mg PRN DAILY PRN DE CONSTIPATION; Start 06/30/20 at 22:15 Atorvastatin Calcium (Lipitor) 80 mg QHS PO Last administered on 07/01/20at 21:03; Start 06/30/20 at 22:30 Famotidine (Pepcid) 20 mg BID PO Last administered on 07/01/20at 08:20; Start 06/30/20 at 22:30 Aspirin (Ecotrin) 325 mg DAILYWBKFT PO Last administered on 07/01/20at 08:20; Start 07/01/20 at 08:00 Aspirin (Aspirin Rectal Supp) 300 mg PRN DAILY PRN DE IF UNABLE TO TAKE PO; Start 06/30/20 at 22:15 Metoprolol Tartrate (Lopressor) 25 mg BID PO Last administered on 07/01/20at 21:02; Start 06/30/20 at 22:30 Hydralazine HCl (Apresoline Inj) 10 mg PRN Q4HRS PRN IVP ELEVATED BP, SEE COMM ENTS; Start 06/30/20 at 22:15 Insulin Human Lispro (HumaLOG) 0-7 UNITS TIDWMEALHC SQ ; Start 07/01/20 at 08:00 Dextrose (Dextrose 50%-Water Syringe) 12.5 gm PRN Q15MIN PRN IV SEE COMMENTS; Start 06/30/20 at 22:45 Active Scripts Active Reported Aspirin 81 Mg Tab.chew 81 Mg PO DAILY Metformin Hcl 500 Mg Tablet 500 Mg PO BIDWMEALS Atenolol 50 Mg Tablet 50 Mg PO DAILY Vitals/I & O Vital Sign - Last 24 Hours 07/01/20 07/01/20 07/01/20 07/01/20 08:00 08:20 11:00 15:00 Temp 98.5 97.8 98.5 97.8 Pulse 68 73 71 Resp 18 16 B/P (MAP) 125/64 124/83 (97) 111/71 (84) Pulse Ox 99 97 O2 Delivery Room Air Room Air Room Air 07/01/20 07/01/20 07/01/20 07/01/20 19:00 20:20 21:02 23:00 Temp 98.7 98.0 98.7 98.0 Pulse 68 68 66 Resp 20 18 B/P (MAP) 113/68 (83) 113/68 120/72 (88) Pulse Ox 97 97 O2 Delivery Room Air Room Air Room Air 07/02/20 03:08 Temp 97.9 97.9 Pulse 67 Resp 20 B/P (MAP) 121/76 (91) Pulse Ox 96 O2 Delivery Room Air Intake and Output 07/01/20 07/01/20 07/02/20 15:00 23:00 07:00 Intake Total 240 ml 340 ml Output Total 0 ml Balance 240 ml 340 ml 0 ml Justicifation of Admission Dx: Justifications for Admission: Justification of Admission Dx: Comment: (Higher level of care requested by [facility] for neurology evaluation) ROSEANNA GUZMAN MD Jul 02, 2020 07:46
[2020-07-02] MEDS: INSULIN LISPRO 300 UNITS/3 ML VIAL. SQ SCH ×4 (08:00→20:54)
[2020-07-02] MEDS: ASPIRIN ENTERIC COATED 325 MG TABLET.DR. PO SCH (08:11)
[2020-07-02] MEDS: SENNOSIDES/DOCUSATE 8.6/50MG TABLET. PO SCH ×3 (08:11→21:00)
[2020-07-02] MEDS: METOPROLOL TART IMMED RELEASE 25 MG TABLET. PO SCH ×2 (08:12→20:56)
[2020-07-02] MEDS: FAMOTIDINE 20 MG TABLET. PO SCH ×2 (08:12→20:56)
[2020-07-02 11:00] VITALS: BP 125/79
[2020-07-02 15:00] VITALS: BP 126/78
[2020-07-02 19:00] VITALS: BP 117/71
--- NOTE | 2020-07-02 20:16 | PDOC ---
PROGRESS NOTES DOS: DATE: 07/02/20 TIME: 20:15 Plan This patient is 70-year-old man with past medical history of multiple medical problems information obtained from patient, patient's multiple family members at bedside. They report patient was not feeling well over 1 week prior to presentation patient was having some episode of lightheaded, dizziness. Patient was also having some difficulty with his ears. Patient was having some difficulty hearing he had wax removal from his year. Patient currently denies any complaint of headache nausea or vomiting chest pain shortness of breath. Patient denied any focal extremity weakness. Patient does have some history of memory and difficulty with word finding, he will be forgetful. Patient currently denies any complaint of fever headache chest pain shortness of breath. With the symptoms of dizziness, lightheaded patient was orthostatic patient required IV fluids. Patient had a CT scan done brain at outside facility with the hypodensities noted in cortical, sub cortical area, with some question of a lesion per radiologist's report, will get a MRI of brain with and without contrast to evaluate for any acute intracranial etiology. Further workup depending on initial test results. Continue aspirin for stroke prevention. Check carotid Doppler, PT OT speech evaluation. MRI brain pending. Diabetes continue treat and monitor. Continue medical management. Plan discussed at length with patient, patient's family member at bedside Subjective Patient is resting in bed. Family at bedside. He is feeling better. He denies any complaint of headache nausea or vomiting chest pain shortness of breath. Objective Vital Signs Date Time Temp Pulse Resp B/P (MAP) Pulse Ox O2 Delivery O2 Flow Rate FiO2 07/02/20 19:53 Room Air 07/02/20 19:00 98.5 71 20 117/71 (86) 100 98.5 Intake and Output 07/02/20 07:00 Intake Total 580 ml Output Total 0 ml Balance 580 ml Intake Oral 580 ml Output Urine Total 0 ml # Voids 1 PHYSICAL EXAM General no acute distress. HEENT: Normocephalic and atraumatic. NECK: Supple without bruit Respiratory: Clear to auscultation bilaterally Heart: Regular rate and rhythm, S1S2 normal NEUROLOGIC: Mental status Alert oriented. Word finding difficulty Cranial nerve equally reactive pupils, and intact extraocular movements. No facial asymmetry. Difficulty hearing Palate elevates and tongue protrudes in midline. Reflexes are 1-2 with flexor plantar responses. Coordination no dysmetria Strength able to move all exts equally. Sensory exam is intact for light touch and pinprick. Gait in bed. A 10-point review of systems was obtained. Other than the history of present illness the remainder of the review of systems is negative. Review of Relevant I have reviewed the following items bashir (where applicable) has been applied. Labs Laboratory Tests Test 07/01/20 07:43 07/01/20 08:47 07/01/20 12:07 07/01/20 16:48 Glucose (Fingerstick) 140 mg/dL (70-99) 129 mg/dL (70-99) 111 mg/dL (70-99) White Blood Count 9.3 x10^3/uL (4.0-11.0) Red Blood Count 4.10 x10^6/uL (4.30-5.70) Hemoglobin 13.7 g/dL (13.0-17.5) Hematocrit 39.0 % (39.0-53.0) Mean Corpuscular Volume 95 fL (79-100) Mean Corpuscular Hemoglobin 33 pg (25-35) Mean Corpuscular Hemoglobin Concent 35 g/dL (31-37) Red Cell Distribution Width 13.9 % (11.5-14.5) Platelet Count 280 x10^3/uL (140-400) Neutrophils (%) (Auto) 76 % (31-73) Lymphocytes (%) (Auto) 15 % (24-48) Monocytes (%) (Auto) 6 % (0-9) Eosinophils (%) (Auto) 3 % (0-3) Basophils (%) (Auto) 1 % (0-3) Neutrophils # (Auto) 7.1 x10^3/uL (1.8-7.7) Lymphocytes # (Auto) 1.4 x10^3/uL (1.0-4.8) Monocytes # (Auto) 0.5 x10^3/uL (0.0-1.1) Eosinophils # (Auto) 0.3 x10^3/uL (0.0-0.7) Basophils # (Auto) 0.1 x10^3/uL (0.0-0.2) Sodium Level 140 mmol/L (136-145) Potassium Level 4.1 mmol/L (3.5-5.1) Chloride Level 105 mmol/L (98-107) Carbon Dioxide Level 26 mmol/L (21-32) Anion Gap 9 (6-14) Blood Urea Nitrogen 16 mg/dL (8-26) Creatinine 1.1 mg/dL (0.7-1.3) Estimated GFR (Cockcroft-Gault) 66.6 BUN/Creatinine Ratio 15 (6-20) Glucose Level 181 mg/dL (70-99) Calcium Level 8.3 mg/dL (8.5-10.1) Total Bilirubin 0.6 mg/dL (0.2-1.0) Aspartate Amino Transf (AST/SGOT) 50 U/L (15-37) Alanine Aminotransferase (ALT/SGPT) 75 U/L (16-63) Alkaline Phosphatase 48 U/L (46-116) Total Protein 6.7 g/dL (6.4-8.2) Albumin 3.0 g/dL (3.4-5.0) Albumin/Globulin Ratio 0.8 (1.0-1.7) Triglycerides Level 220 mg/dL (0-150) Cholesterol Level 154 mg/dL (0-200) LDL Cholesterol, Calculated 87 mg/dL (0-100) VLDL Cholesterol, Calculated 44 mg/dL (0-40) Non-HDL Cholesterol Calculated 131 mg/dL (0-129) HDL Cholesterol 23 mg/dL (40-60) Cholesterol/HDL Ratio 6.7 Thyroid Stimulating Hormone (TSH) 1.097 uIU/mL (0.358-3.74) Test 07/01/20 20:36 07/02/20 07:37 07/02/20 11:42 07/02/20 16:57 Glucose (Fingerstick) 108 mg/dL (70-99) 128 mg/dL (70-99) 151 mg/dL (70-99) 102 mg/dL (70-99) Laboratory Tests Test 07/01/20 20:36 07/02/20 07:37 07/02/20 11:42 07/02/20 16:57 Glucose (Fingerstick) 108 mg/dL (70-99) 128 mg/dL (70-99) 151 mg/dL (70-99) 102 mg/dL (70-99) Medications Current Medications Ringer's Solution 1,000 ml @ 100 mls/hr Q10H IV Last administered on 06/30/20at 23:44; Start 06/30/20 at 22:30; Stop 07/01/20 at 08:29; Status DC Ondansetron HCl (Zofran) 4 mg PRN Q6HRS PRN IVP NAUSEA/VOMITING; Start 06/30/20 at 22:30 Calcium Carbonate/ Glycine (Tums) 500 mg PRN Q3HRS PRN PO UPSET STOMACH; Start 06/30/20 at 22:15 Acetaminophen (Tylenol) 650 mg PRN Q6HRS PRN PO Headaches, Temp > 101.5F; Start 06/30/20 at 22:15 Senna/Docusate Sodium (Senna Plus) 1 tab BID PO Last administered on 07/02/20at 08:11; Start 06/30/20 at 22:30 Bisacodyl (Dulcolax Supp) 10 mg PRN DAILY PRN [place] CONSTIPATION; Start 06/30/20 at 22:15 Atorvastatin Calcium (Lipitor) 80 mg QHS PO Last administered on 07/01/20at 21:03; Start 06/30/20 at 22:30 Famotidine (Pepcid) 20 mg BID PO Last administered on 07/01/20at 08:20; Start 06/30/20 at 22:30 Aspirin (Ecotrin) 325 mg DAILYWBKFT PO Last administered on 07/02/20at 08:11; Start 07/01/20 at 08:00 Aspirin (Aspirin Rectal Supp) 300 mg PRN DAILY PRN PA IF UNABLE TO TAKE PO; Start 06/30/20 at 22:15 Metoprolol Tartrate (Lopressor) 25 mg BID PO Last administered on 07/02/20at 08:12; Start 06/30/20 at 22:30 Hydralazine HCl (Apresoline Inj) 10 mg PRN Q4HRS PRN IVP ELEVATED BP, SEE COMMENTS; Start 06/30/20 at 22:15 Insulin Human Lispro (HumaLOG) 0-7 UNITS TIDWMEALHC SQ ; Start 07/01/20 at 08:00 Dextrose (Dextrose 50%-Water Syringe) 12.5 gm PRN Q15MIN PRN IV SEE COMMENTS; Start 06/30/20 at 22:45 Active Scripts Active Reported Aspirin 81 Mg Tab.chew 81 Mg PO DAILY Metformin Hcl 500 Mg Tablet 500 Mg PO BIDWMEALS Atenolol 50 Mg Tablet 50 Mg PO DAILY Vitals/I & O Vital Sign - Last 24 Hours 07/01/20 07/01/20 07/01/20 07/02/20 20:20 21:02 23:00 03:08 Temp 98.0 97.9 98.0 97.9 Pulse 68 66 67 Resp 18 20 B/P (MAP) 113/68 120/72 (88) 121/76 (91) Pulse Ox 97 96 O2 Delivery Room Air Room Air Room Air 07/02/20 07/02/20 07/02/20 07/02/20 07:00 08:00 08:12 11:00 Temp 97.8 97.8 97.8 97.8 Pulse 66 66 73 Resp 18 18 B/P (MAP) 123/81 (95) 123/81 125/79 (94) Pulse Ox 97 99 O2 Delivery Room Air Room Air Room Air 07/02/20 07/02/20 07/02/20 15:00 19:00 19:53 Temp 97.7 98.5 97.7 98.5 Pulse 82 71 Resp 16 20 B/P (MAP) 126/78 (94) 117/71 (86) Pulse Ox 95 100 O2 Delivery Room Air Room Air Room Air Intake and Output 07/01/20 07/01/20 07/02/20 15:00 23:00 07:00 Intake Total 240 ml 340 ml Output Total 0 ml Balance 240 ml 340 ml 0 ml Justicifation of Admission Dx: Justifications for Admission: Justification of Admission Dx: Comment: (Higher level of care requested by [place] for neurology evaluation) KANDY RIOS MD Jul 02, 2020 20:16
[2020-07-02] MEDS: ATORVASTATIN CALCIUM 40 MG TABLET. PO SCH (20:56)
[2020-07-02 23:00] VITALS: BP 126/76
[2020-07-03 03:03] VITALS: BP 121/75
[2020-07-03 07:00] VITALS: BP 124/78
[2020-07-03] MEDS: INSULIN LISPRO 300 UNITS/3 ML VIAL. SQ SCH ×4 (07:34→21:00)
[2020-07-03] MEDS: ASPIRIN ENTERIC COATED 325 MG TABLET.DR. PO SCH (08:21)
[2020-07-03] MEDS: FAMOTIDINE 20 MG TABLET. PO SCH ×2 (08:21→20:06)
[2020-07-03] MEDS: SENNOSIDES/DOCUSATE 8.6/50MG TABLET. PO SCH ×2 (08:21→20:06)
[2020-07-03] MEDS: METOPROLOL TART IMMED RELEASE 25 MG TABLET. PO SCH ×2 (08:21→20:06)
--- NOTE | 2020-07-03 10:59 | PDOC ---
PROGRESS NOTES Date of Service DATE: 07/03/20 TIME: 10:[address], multiple infarcts versus metastatic disease. Dizziness, bilateral hearing loss hearing loss, no other evidence of intracranial problem, this may be peripheral vestibular problems Removal of cerumen last week Memory loss Diabetes, hypertension Plan Await MRI Further investigations depending on the results We do not have ENT at this facility Discussed with patient and son Subjective Denies pain Objective Vital Signs Date Time Temp Pulse Resp B/P (MAP) Pulse Ox O2 Delivery O2 Flow Rate FiO2 07/03/20 08:21 72 124/78 07/03/20 08:00 Room Air 07/03/20 07:00 97.5 18 97 97.5 Intake and Output 07/03/20 07:00 Intake Total 480 ml Balance 480 ml Intake Oral 480 ml # Voids 2 # Bowel Movements 1 PHYSICAL EXAM Alert. Oriented to time, place and person. PERRL. EOMI. CN: Bilateral hearing loss, otherwise no focal findings. Muscle tone: normal. Muscle strength: 5/5 DTR: 2+ Plantar reflex: Flexor Gait: not examined in bed. Sensory exam: no abnormal findings. No cerebellar signs elicited. Review of Relevant I have reviewed the following items bashir (where applicable) has been applied. Labs Laboratory Tests Test 07/01/20 12:07 07/01/20 16:48 07/01/20 20:36 07/02/20 07:37 Glucose (Fingerstick) 129 mg/dL (70-99) 111 mg/dL (70-99) 108 mg/dL (70-99) 128 mg/dL (70-99) Test 07/02/20 11:42 07/02/20 16:57 07/02/20 20:28 07/03/20 07:31 Glucose (Fingerstick) 151 mg/dL (70-99) 102 mg/dL (70-99) 152 mg/dL (70-99) 111 mg/dL (70-99) Laboratory Tests Test 07/02/20 11:42 07/02/20 16:57 07/02/20 20:28 07/03/20 07:31 Glucose (Fingerstick) 151 mg/dL (70-99) 102 mg/dL (70-99) 152 mg/dL (70-99) 111 mg/dL (70-99) Medications Current Medications Ringer's Solution 1,000 ml @ 100 mls/hr Q10H IV Last administered on 06/30/20at 23:44; Start 06/30/20 at 22:30; Stop 07/01/20 at 08:29; Status DC Ondansetron HCl (Zofran) 4 mg PRN Q6HRS PRN IVP NAUSEA/VOMITING; Start 06/30/20 at 22:30 Calcium Carbonate/ Glycine (Tums) 500 mg PRN Q3HRS PRN PO UPSET STOMACH; Start 06/30/20 at 22:15 Acetaminophen (Tylenol) 650 mg PRN Q6HRS PRN PO Headaches, Temp > 101.5F; Start 06/30/20 at 22:15 Senna/Docusate Sodium (Senna Plus) 1 tab BID PO Last administered on 07/03/20at 08:21; Start 06/30/20 at 22:30 Bisacodyl (Dulcolax Supp) 10 mg PRN DAILY PRN [place] CONSTIPATION; Start 06/30/20 at 22:15 Atorvastatin Calcium (Lipitor) 80 mg QHS PO Last administered on 07/02/20at 20:56; Start 06/30/20 at 22:30 Famotidine (Pepcid) 20 mg BID PO Last administered on 07/03/20at 08:21; Start 06/30/20 at 22:30 Aspirin (Ecotrin) 325 mg DAILYWBKFT PO Last administered on 07/03/20at 08:21; Start 07/01/20 at 08:00 Aspirin (Aspirin Rectal Supp) 300 mg PRN DAILY PRN GA IF UNABLE TO TAKE PO; Start 06/30/20 at 22:15 Metoprolol Tartrate (Lopressor) 25 mg BID PO Last administered on 07/03/20at 08:21; Start 06/30/20 at 22:30 Hydralazine HCl (Apresoline Inj) 10 mg PRN Q4HRS PRN IVP ELEVATED BP, SEE COMMENTS; Start 06/30/20 at 22:15 Insulin Human Lispro (HumaLOG) 0-7 UNITS TIDWMEALHC SQ ; Start 07/01/20 at 08:00 Dextrose (Dextrose 50%-Water Syringe) 12.5 gm PRN Q15MIN PRN IV SEE COMMENTS; Start 06/30/20 at 22:45 Active Scripts Active Reported Aspirin 81 Mg Tab.chew 81 Mg PO DAILY Metformin Hcl 500 Mg Tablet 500 Mg PO BIDWMEALS Atenolol 50 Mg Tablet 50 Mg PO DAILY Vitals/I & O Vital Sign - Last 24 Hours 07/02/20 07/02/20 07/02/20 07/02/20 11:00 15:00 19:00 19:53 Temp 97.8 97.7 98.5 97.8 97.7 98.5 Pulse 73 82 71 Resp 18 16 20 B/P (MAP) 125/79 (94) 126/78 (94) 117/71 (86) Pulse Ox 99 95 100 O2 Delivery Room Air Room Air Room Air Room Air 07/02/20 07/02/20 07/03/20 07/03/20 20:56 23:00 03:03 07:00 Temp 98.3 97.9 97.5 98.3 97.9 97.5 Pulse 71 70 71 72 Resp 20 20 18 B/P (MAP) 117/71 126/76 (93) 121/75 (90) 124/78 (93) Pulse Ox 96 98 97 O2 Delivery Room Air Room Air Room Air 07/03/20 07/03/20 08:00 08:21 Pulse 72 B/P (MAP) 124/78 O2 Delivery Room Air Intake and Output 07/02/20 07/02/20 07/03/20 15:00 23:00 07:00 Intake Total 200 ml 280 ml Balance 200 ml 280 ml Images DOPPLER CAROTID [facility], 07/01 Duplex ultrasound was used to evaluate the carotid arteries. Real-time imaging, color-flow imaging and Doppler were utilized for evaluation. There is no significant plaque at the right carotid bifurcation. Peak velocity in the right internal carotid artery was 79 cm/s with end-diastolic velocity of 27 cm/s and a systolic velocity ratio of 0.75. There is antegrade flow in the right vertebral. There is no significant plaque at the left carotid bifurcation. Peak velocity in the left internal carotid artery was 82 centimeters per second with an end- diastolic velocity of 17 cm/s and a systolic velocity ratio of 0.8. There is antegrade flow in the left vertebral. IMPRESSION: 1. No hemodynamically significant stenosis noted at the carotid bifurcations. 2. Antegrade flow in each vertebral. CT head without contrast, [facility], 1/8 Multifocal parenchymal low-attenuation involving both cerebral hemispheres and most pronounced within the posterior right temporal lobe and bilateral occipital lobes. Much of this low-attenuation is subcortical but there is some cortical involvement such as left occipital. Asymmetric low attenuation and soft tissue prominence involving and adjacent to the right aspect of the splenium of the corpus callosum with associated localized effacement of the right lateral ventricle, image 17 series 2. The left lateral ventricule is more prominent than the right but there is no shift and only minimal asymmetry of the temporal horns. There appears to be faint low-attenuation within the left aspect of the midbrain on image 11 series 2. No acute intracranial hemorrhage. No focal calvarial abnormality. IMPRESSION: Abnormal cortical and subcortical low-attenuation at several locations throughout both cerebral hemispheres. The right aspect of the splenium of the corpus callosum is asymmetrically prominent relative to the left and there is partial effacement of the adjacent right lateral ventricle. Possible low- attenuation within the left aspect of the midbrain (image 11 series 2). Multifocal infarcts need to be excluded but the distribution is unusual as is the provided history for ischemic events. Metastatic disease should be cons idered and MRI with and without contrast will allow for differentiation. Justicifation of Admission Dx: Justifications for Admission: Justification of Admission Dx: Comment: (Higher level of care requested by [place] for neurology evaluation) MAURY SIMMS MD Jul 03, 2020 10:59
[2020-07-03 11:00] VITALS: BP 145/88
--- NOTE | 2020-07-03 11:23 | CARD ---
MR#: [id number] Date of Study: 07/03/2020 Ordering Physician: KEN MACIEL, Referring Physician: KEN MACIEL, Tech: Radhika Oliva APPROVED REPORT EXAM: Two-dimensional and M-mode echocardiogram with Doppler and color Doppler. Other Information Quality : AverageHR: 79bpm INDICATION CVA/TIA Echo Enhancing Agent Indication: Rule Out Septal Defect Agent/Amount Used: Agitated Saline 20mL RISK FACTORS Hypertension Hyperlipidemia 2D DIMENSIONS RVDd3.4 (2.9-3.5cm)Left Atrium(2D)3.8 (1.6-4.0cm) IVSd0.8 (0.7-1.1cm)Aortic Root(2D)3.2 (2.0-3.7cm) LVDd5.4 (3.9-5.9cm)LVOT Diameter2.1 (1.8-2.4cm) PWd1.1 (0.7-1.1cm)LVDs3.0 (2.5-4.0cm) FS (%) 45.1 %SV106.8 ml LVEF(%)76.0 (>50%) Aortic Valve AoV Peak Bossman.106.0cm/sAoV VTI19.3cm AO Peak GR.4.5mmHgLVOT Peak Bossman.87.4cm/s LVOT VTI 17.14cmAO Mean GR.3mmHg ELIAS (VMAX)2.07yo8HJU (VTI)3.15cm2 Mitral Valve MV E Yvushqit12.6cm/sMV DECEL FVNL107er MV A Gufqjoix49.9cm/sMV TTO64gt E/A Ratio0.6MVA (PHT)2.96cm2 TDI E/Lateral E'5.5E/Medial E'6.1 Pulmonary Valve PV Peak Mvclejad88.9cm/sPV Peak Grad.3mmHg Tricuspid Valve TR P. Rxgyzycu666kr/sRAP YIODFHGZ1evXa TR Peak Gr.57ecBvUHQT63htKr Pulmonary Vein S1 Ybckfmfa28.8cm/sD2 Mbkjikrm49.4cm/s PVa [id number] LEFT VENTRICLE The left ventricle is normal size. There is borderline to mild concentric left ventricular hypertroph y. The left ventricular systolic function is normal and the ejection fraction is within normal range. The Ejection Fraction is 60-65%. There is normal LV segmental wall motion. Transmitral Doppler flow pattern is Grade I-abnormal relaxation pattern. RIGHT VENTRICLE The right ventricle is normal size. There is normal right ventricular wall thickness. The right ventr icular systolic function is normal. ATRIA The left atrium size is normal. The right atrium size is normal. Trivial right to left shunting noted with agitated saline contrast. The images are suboptimal, if there is concern for cryptogenic stroke , could consider DIMITRIS for further evaluation. AORTIC VALVE The aortic valve is thickened but opens well. Doppler and Color Flow revealed no significant aortic r egurgitation. There is no significant aortic valvular stenosis. Calculated aortic valve area is 3.16 cm2 with maximum pressure gradient of 5 mmHg and mean pressure gradient of 3 mmHg. MITRAL VALVE The mitral valve is normal in structure and function. There is no evidence of mitral valve prolapse. There is no mitral valve stenosis. Doppler and Color-flow revealed trace mitral regurgitation. TRICUSPID VALVE The tricuspid valve is normal in structure and function. Doppler and Color Flow revealed trace tricus pid regurgitation with an estimated PAP of 31 mmHg. There is no tricuspid valve stenosis. PULMONIC VALVE Doppler and Color Flow revealed no pulmonic valvular regurgitation. There is no pulmonic valvular ian nosis. GREAT VESSELS The aortic root is normal in size. The ascending aorta is normal in size. The IVC is normal in size a nd collapses >50% with inspiration. PERICARDIAL EFFUSION There is no evidence of significant pericardial effusion. Critical Notification Critical Value: No <Conclusion> The left ventricular systolic function is normal and the ejection fraction is within normal range. Th e Ejection Fraction is 60-65%. There is normal LV segmental wall motion. Trivial right to left shunting noted with agitated saline contrast. The images are suboptimal, if the re is concern for cryptogenic stroke, could consider DIMITRIS for further evaluation. Signed by : Kp Hughes, Electronically Approved : 07/03/2020 11:23:03
[2020-07-03] MEDS ORDERED: GADOTERATE 5 MMOL/10ML VIAL. IVP ONE ×4 (11:45)
[2020-07-03 15:00] VITALS: BP 137/75
--- NOTE | 2020-07-03 15:14 | NUR ---
SW following for discharge planning. Spoke with RN and reviewed chart. Pt from home. SW consulted per pt having a stoke. SW met with pt this morning. Pt very [employer]. PT/OT recommendation is for home with HH/assistance. Pt is considering having his son move in with him and provide some assistance. Pt on room air. Pt stated no preference in HH provider. Patient choice of vendor form completed. HH referral provided to Lidia with [facility]. SW following.
--- NOTE | 2020-07-03 15:20 | RAD ---
MRI BRAIN WO, MRI BRAIN WO+W Date: 07/03/2020 11:04 AM Indication: cva. Multiple brain lesions concerning for metastatic disease Comparison: CT head 06/30/2020. MRI Brain Technique: Multiplanar multisequence MRI of the brain was performed with and without intrav enous contrast using the standard protocol. 18 cc Dotarem contrast was administered intravenously dur ing the exam. MRA Head Technique: Axial 3-D [id number]-lc-[id number] images of the intracranial vessels without contrast. 3D reformatted images were performed on a separate workstation and reviewed. Findings: MRI brain: Multifocal bilateral predominantly cystic peripherally enhancing lesions involving the cerebrum, with additional small lesion involving the left dorsal brainstem and superior cerebellar peduncle. Promin ent lesion involves the right periventricular occipital lobe with extension into and across the splen ium of the corpus callosum. Solid components of the lesions demonstrate DWI hyperintensity. No centra l DWI hyperintensity in the cystic components. No acute hemorrhage. Small amount of T2/FLAIR hyperint ensity surrounding the lesions. No mild mass effect with partial effacement of the right lateral vent ricle. No midline shift. Patent basilar cisterns. The scalp and calvarium are normal. The pituitary and sella are normal. No Chiari malformation. The v isualized upper cervical spine is normal. The visualized orbits and globes are normal. The visualized paranasal sinuses are clear. The mastoid air cells are clear. MRA head: Anterior Circulation: The visualized distal internal carotid arteries are patent with no stenosis or aneurysm. The visualized anterior cerebral and middle cerebral arteries show no significant stenosis or aneurysm. Posterior Circulation: The visualized vertebral arteries, basilar artery, and posterior cerebral roni davonte show no significant stenosis or aneurysm. No arteriovenous malformation is seen. IMPRESSION: 1. Multifocal bilateral peripherally enhancing lesions. Primary considerations would be metastatic di sease or multicentric glioblastoma multiforme. Other less common entities which can have a similar ap pearance would include an aggressive/tumefactive demyelinating process and ENGLISH TEACHER lymphoma (if the patie nt were immunocompromised). No acute hemorrhage or midline shift. Patent basilar cisterns. 2. No intracranial stenosis, aneurysm or arteriovenous malformation. Electronically signed by: Bladimir Carvalho MD (07/03/2020 3:18 PM) [id number]
--- NOTE | 2020-07-03 15:20 | RAD ---
MRI BRAIN WO, MRI BRAIN WO+W Date: 07/03/2020 11:04 AM Indication: cva. Multiple brain lesions concerning for metastatic disease Comparison: CT head 06/30/2020. MRI Brain Technique: Multiplanar multisequence MRI of the brain was performed with and without intrav enous contrast using the standard protocol. 18 cc Dotarem contrast was administered intravenously dur ing the exam. MRA Head Technique: Axial 3-D [id number]-cy-werwej images of the intracranial vessels without contrast. 3D reformatted images were performed on a separate workstation and reviewed. Findings: MRI brain: Multifocal bilateral predominantly cystic peripherally enhancing lesions involving the cerebrum, with additional small lesion involving the left dorsal brainstem and superior cerebellar peduncle. Promin ent lesion involves the right periventricular occipital lobe with extension into and across the splen ium of the corpus callosum. Solid components of the lesions demonstrate DWI hyperintensity. No centra l DWI hyperintensity in the cystic components. No acute hemorrhage. Small amount of T2/FLAIR hyperint ensity surrounding the lesions. No mild mass effect with partial effacement of the right lateral vent ricle. No midline shift. Patent basilar cisterns. The scalp and calvarium are normal. The pituitary and sella are normal. No Chiari malformation. The v isualized upper cervical spine is normal. The visualized orbits and globes are normal. The visualized paranasal sinuses are clear. The mastoid air cells are clear. MRA head: Anterior Circulation: The visualized distal internal carotid arteries are patent with no stenosis or aneurysm. The visualized anterior cerebral and middle cerebral arteries show no significant stenosis or aneurysm. Posterior Circulation: The visualized vertebral arteries, basilar artery, and posterior cerebral roni davonte show no significant stenosis or aneurysm. No arteriovenous malformation is seen. IMPRESSION: 1. Multifocal bilateral peripherally enhancing lesions. Primary considerations would be metastatic di sease or multicentric glioblastoma multiforme. Other less common entities which can have a similar ap pearance would include an aggressive/tumefactive demyelinating process and PROPERTY INSURANCE INSPECTOR lymphoma (if the patie nt were immunocompromised). No acute hemorrhage or midline shift. Patent basilar cisterns. 2. No intracranial stenosis, aneurysm or arteriovenous malformation. Electronically signed by: Bladimir Carvalho MD (07/03/2020 3:18 PM) [id number]
[2020-07-03] MEDS ORDERED: IOHEXOL 240 MG/ML 50ML VIAL. PO ONE (15:45)
[2020-07-03] MEDS ORDERED: CONTRAST GIVEN. MC PRN (15:45)
[2020-07-03] MEDS ORDERED: IOHEXOL 300 MG/ML 100ML VIAL. IV ONE (15:45)
--- NOTE | 2020-07-03 16:47 | PDOC ---
[employer] PROGRESS NOTE Date of Service DOS: DATE: 07/03/20 TIME: 16:46 Chief Complaint Chief Complaint Assessment and plan Multifocal bilateral peripherally enhancing lesions. Primary considerations would be metastatic disease or multicentric glioblastoma multiforme. History of diabetes mellitus type 2 Overweight with a BMI of 29 Hearing impaired History of essential hypertension Plan: Hold Metformin Neurology consultation has been noted and recommendations greatly appreciated Carotid Doppler done with normal findings Fall precaution Further commendations based on the clinical course DVT prophylaxis Lovenox History of Present Illness History of Present Illness History of Present Illness Patient is a 70 year old male with past medical history of diabetes who was in his usual state of health until approximately 5 days prior to his admission when he started complaining of sensation of fogginess in his mind. Patient also complained of headache according to his daughter who is at bedside helping with the history taking. He also had some hearing loss worse than usual over his right ear and patient seeks attention to his doctor and had a cleanout done more or less 2 days prior to his admission and evaluation at [facility]. Patient denies any headaches no loss of vision he recently had his prescription change and apparently his wire cutter told him that they need to do some changes since its "too strong in "of a prescription. Patient denies any vision loss no dysphagia odynophagia no slurred speech no hemiparesis no hemiplegia, no chest pain palpitations or shortness of breath, no neck stiffness noticed no fever or chills no meningismus no abdominal pain nausea vomiting or diarrhea. The patient has had proper oral intake over the last couple days. Orthostatic at outside facility were recorded as folllows blood pressures as follows lying: Heart rate 70, 137/79, sitting: Heart rate 72, 131/80, standing: Heart rate 70, 113/73, Outside facility H&P is as follows: Patient is a 70-year-old male patient presents emergency department complaining that he has felt lightheaded for the past week or so. Patient also states that he feels like he cannot hear very well and describes that it seems his right ear is plugged up and his left ear is only partially plugged up. Patient reports that his hearing loss for the past week as well. Patient's son states that he was with him a few days ago and noticed that the patient had been speaking louder than normal. The patient's son also reports that he has noticed some periods of confusion from the patient over the last day or 2. Patient reports seeing his eye doctor yesterday and stated his eye doctor told him that he needs a different prescription for his eyes stating that his eyes are getting better n ow and this could have caused some of his dizziness sensations because he is wearing his old glasses. Patient reports taking daily puffs of albuterol, takes Metformin 500 mg twice daily, and takes an unknown dose of lisinopril daily. Patient reports that he seen his primary care provider RADHA Dickerson this past week who took labs but has not gotten back with him yet. Patient denies any other physical complaints or physical symptoms. Patient son is at bedside and provided partial HPI. We were asked to admit the patient for neurological evaluation and higher level of care. He is in hemodynamically stable condition plan of care has been explained detail all of his concerns were addressed to the best of my abilities 07/02: No acute events reported overnight, case discussed with nursing staff patient in no acute distress no complaints during my visit. MRI pending. Discussed with son at bedside. Recommended outpatient audiometry hearing loss seems to be worse on his right ear compared to left 07/03/2020 No acute events overnight. Patient seen and examined bedside. We will hold off steroids at this time after MRI completed showing multiple bilateral peripherally enhancing lesions. Patient's chart, labs, images were reviewed and discussed with RN Vitals/I&O Vitals/I&O: Vital Signs Date Time Temp Pulse Resp B/P (MAP) Pulse Ox O2 Delivery O2 Flow Rate FiO2 07/03/20 15:00 98.3 80 18 137/75 (95) 97 Room Air 98.3 I & O 07/02/20 07/02/20 07/03/20 15:00 23:00 07:00 Intake Total 200 ml 280 ml Balance 200 ml 280 ml Physical Exam General: Alert, No acute distress Abdomen: No tenderness Extremities: No edema Skin: No significant lesion Labs Labs: Laboratory Tests Test 07/02/20 16:57 07/02/20 20:28 07/03/20 07:31 07/03/20 12:23 Glucose (Fingerstick) 102 mg/dL (70-99) 152 mg/dL (70-99) 111 mg/dL (70-99) 114 mg/dL (70-99) Test 07/03/20 16:32 Glucose (Fingerstick) 121 mg/dL (70-99) Comment Review of Relevant I have reviewed the following items bashir (where applicable) has been applied. Medications: Current Medications Medications (Trade) Dose Ordered Sig/Desiree Route PRN Reason Start Time Stop Time Status Last Admin Dose Admin Gadoterate Meglumine (Clariscan) 10 ml 1X ONCE IVP 07/03/20 11:45 07/03/20 11:48 DC 07/03/20 11:56 Gadoterate Meglumine (Clariscan) 8 ml 1X ONCE IVP 07/03/20 11:45 07/03/20 11:48 DC 07/03/20 11:56 Iohexol (Omnipaque 300 Mg/ml) 75 ml 1X ONCE IV 07/03/20 15:45 07/03/20 15:46 DC 07/03/20 15:51 Iohexol (Omnipaque 240 Mg/ml) 50 ml 1X ONCE PO 07/03/20 15:45 07/03/20 15:46 DC 07/03/20 15:51 Justifications for Admission TIA Indications Persistent neurologic signs?: Yes Justification for admission: There is persistence of patient's focal neurologic signs or symptoms or there is concern for recurrence of patient's neurological signs and symptoms. Other Justification NICOLASA VILLAR MD Jul 03, 2020 16:47
--- NOTE | 2020-07-03 18:52 | RAD ---
EXAM: CT Abdomen and Pelvis with IV contrast INDICATION: Reason: brain mets / Spl. Instructions: iv omni 300 75 mls and po omni 240 50 mls / Histo ry: TECHNIQUE: Multi-detector row CT images were acquired from the lung bases through the abdomen and pel vis with the use of IV contrast. Sagittal and coronal images were acquired from the transaxial data. All CT scans performed at this facility utilize dose optimization techniques as appropriate to the ex am, including the following: Automated exposure control and adjustment of the mA and/or KV according to patient size (this includes techniques or standardized protocols for targeted exams where dose is indication/reason for exam). IV CONTRAST: Administered ORAL CONTRAST: Administered COMPARISON: MRI brain of 07/03/2020 FINDINGS: LOWER CHEST: Unremarkable LIVER: 9 mm left hepatic lobe hypodensity statistically likely to be a cyst. Liver is otherwise unre markable. No abnormal enhancement suspicious for metastatic deposits. BILIARY SYSTEM: Gallbladder is unremarkable. Bile ducts are not dilated. PANCREAS: Unremarkable SPLEEN: Unremarkable ADRENALS: Unremarkable KIDNEYS & URETERS: Unremarkable BLADDER: Unremarkable REPRODUCTIVE ORGANS: Prostate is mildly enlarged measuring 5.7 cm in transverse diameter. GASTROINTESTINAL: The stomach, small bowel, and colon are unremarkable. The appendix is normal. MESENTERY/PERITONEUM/RETROPERITONEUM: Unremarkable VASCULAR: Unremarkable LYMPH NODES: No adenopathy OSSEOUS & SOFT TISSUES: Unremarkable IMPRESSION: A primary malignancy in the chest abdomen or pelvis is not clearly apparent to explain the multiple r ing-enhancing lesions seen intracranially on same day brain MRI. 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 Consider correlation with CSF sampling. Electronically signed by: Alexander Marrero MD (07/03/2020 6:49 PM) [id number]
[2020-07-03 19:00] VITALS: BP 128/74
[2020-07-03] MEDS: ATORVASTATIN CALCIUM 40 MG TABLET. PO SCH (20:06)
[2020-07-03 23:00] VITALS: BP 126/70
[2020-07-04 03:00] VITALS: BP 142/83
[2020-07-04 07:00] VITALS: BP 142/82
[2020-07-04] MEDS: INSULIN LISPRO 300 UNITS/3 ML VIAL. SQ SCH ×4 (08:00→20:51)
[2020-07-04] MEDS: FAMOTIDINE 20 MG TABLET. PO SCH ×2 (08:11→21:31)
[2020-07-04] MEDS: SENNOSIDES/DOCUSATE 8.6/50MG TABLET. PO SCH ×2 (08:11→21:31)
[2020-07-04] MEDS: ASPIRIN ENTERIC COATED 325 MG TABLET.DR. PO SCH (08:11)
[2020-07-04] MEDS: METOPROLOL TART IMMED RELEASE 25 MG TABLET. PO SCH ×2 (08:11→21:31)
--- NOTE | 2020-07-04 10:17 | PDOC ---
PROGRESS NOTES Date of Service DATE: 07/04/20 TIME: 10:15 Assessment Multiple brain masses, consider primary brain neoplasm including glioma, central nervous system lymphoma Dizziness, bilateral hearing loss hearing loss, no other evidence of intracranial problem, this may be peripheral vestibular problems Removal of cerumen last week Memory loss Diabetes, hypertension Plan I consulted oncology and neurosurgery He will need biopsy of one of the brain lesions Holding off on Decadron given his clinical status No need for prophylactic anticonvulsants Subjective No complaints Objective Vital Signs Date Time Temp Pulse Resp B/P (MAP) Pulse Ox O2 Delivery O2 Flow Rate FiO2 07/04/20 08:11 77 142/82 07/04/20 08:00 Room Air 07/04/20 07:00 97.8 17 97 97.8 Intake and Output 07/04/20 07:00 Intake Total 1920 ml Balance 1920 ml Intake Oral 1920 ml # Voids 7 PHYSICAL EXAM Alert. Oriented to time, place and person. PERRL. EOMI. CN: Bilateral hearing loss, some dysarthria, otherwise no focal findings. Muscle tone: normal. Muscle strength: 5/5 DTR: 2+ Plantar reflex: Flexor Gait: not examined in bed. Sensory exam: no abnormal findings. No cerebellar signs elicited. Review of Relevant I have reviewed the following items bashir (where applicable) has been applied. Labs Laboratory Tests Test 07/02/20 11:42 07/02/20 16:57 07/02/20 20:28 07/03/20 07:31 Glucose (Fingerstick) 151 mg/dL (70-99) 102 mg/dL (70-99) 152 mg/dL (70-99) 111 mg/dL (70-99) Test 07/03/20 12:23 07/03/20 16:32 07/03/20 21:05 Glucose (Fingerstick) 114 mg/dL (70-99) 121 mg/dL (70-99) 123 mg/dL (70-99) Laboratory Tests Test 07/03/20 12:23 07/03/20 16:32 07/03/20 21:05 Glucose (Fingerstick) 114 mg/dL (70-99) 121 mg/dL (70-99) 123 mg/dL (70-99) Medications Current Medications Ringer's Solution 1,000 ml @ 100 mls/hr Q10H IV Last administered on 06/30/20at 23:44; Start 06/30/20 at 22:30; Stop 07/01/20 at 08:29; Status DC Ondansetron HCl (Zofran) 4 mg PRN Q6HRS PRN IVP NAUSEA/VOMITING; Start 06/30/20 at 22:30 Calcium Carbonate/ Glycine (Tums) 500 mg PRN Q3HRS PRN PO UPSET STOMACH; Start 06/30/20 at 22:15 Acetaminophen (Tylenol) 650 mg PRN Q6HRS PRN PO Headaches, Temp > 101.5F; Start 06/30/20 at 22:15 Senna/Docusate Sodium (Senna Plus) 1 tab BID PO Last administered on 07/04/20at 08:11; Start 06/30/20 at 22:30 Bisacodyl (Dulcolax Supp) 10 mg PRN DAILY PRN [place] CONSTIPATION; Start 06/30/20 at 22:15 Atorvastatin Calcium (Lipitor) 80 mg QHS PO Last administered on 07/03/20at 20:06; Start 06/30/20 at 22:30 Famotidine (Pepcid) 20 mg BID PO Last administered on 07/04/20at 08:11; Start 06/30/20 at 22:30 Aspirin (Ecotrin) 325 mg DAILYWBKFT PO Last administered on 07/04/20at 08:11; Start 07/01/20 at 08:00 Aspirin (Aspirin Rectal Supp) 300 mg PRN DAILY PRN [place] IF UNABLE TO TAKE PO; Start 06/30/20 at 22:15 Metoprolol Tartrate (Lopressor) 25 mg BID PO Last administered on 07/04/20at 08 :11; Start 06/30/20 at 22:30 Hydralazine HCl (Apresoline Inj) 10 mg PRN Q4HRS PRN IVP ELEVATED BP, SEE COMMENTS; Start 06/30/20 at 22:15 Insulin Human Lispro (HumaLOG) 0-7 UNITS TIDWMEALHC SQ ; Start 07/01/20 at 08:00 Dextrose (Dextrose 50%-Water Syringe) 12.5 gm PRN Q15MIN PRN IV SEE COMMENTS; Start 06/30/20 at 22:45 Gadoterate Meglumine (Clariscan) 10 ml 1X ONCE IVP ; Start 07/03/20 at 11:45; Stop 07/03/20 at 11:46; Status DC Gadoterate Meglumine (Clariscan) 8 ml 1X ONCE IVP ; Start 07/03/20 at 11:45; S top 07/03/20 at 11:46; Status DC Gadoterate Meglumine (Clariscan) 10 ml 1X ONCE IVP Last administered on 07/03/20at 11:56; Start 07/03/20 at 11:45; Stop 07/03/20 at 11:48; Status DC Gadoterate Meglumine (Clariscan) 8 ml 1X ONCE IVP Last administered on 07/03/20at 11:56; Start 07/03/20 at 11:45; Stop 07/03/20 at 11:48; Status DC Iohexol (Omnipaque 300 Mg/ml) 75 ml 1X ONCE IV Last administered on 07/03/20at 15:51; Start 07/03/20 at 15:45; Stop 07/03/20 at 15:46; Status DC Iohexol (Omnipaque 240 Mg/ml) 50 ml 1X ONCE PO Last administered on 07/03/20at 15:51; Start 07/03/20 at 15:45; Stop 07/03/20 at 15:46; Status DC Info (CONTRAST GIVEN -- Rx MONITORING) 1 each PRN DAILY PRN MC SEE COMMENTS; Start 07/03/20 at 15:45; Stop 07/05/20 at 15:44 Active Scripts Active Reported Aspirin 81 Mg Tab.chew 81 Mg PO DAILY Metformin Hcl 500 Mg Tablet 500 Mg PO BIDWMEALS Atenolol 50 Mg Tablet 50 Mg PO DAILY Vitals/I & O Vital Sign - Last 24 Hours 07/03/20 07/03/20 07/03/20 07/03/20 11:00 15:00 19:00 20:00 Temp 98.2 98.3 98.4 98.2 98.3 98.4 Pulse 80 80 80 Resp 20 18 20 B/P (MAP) 145/88 (107) 137/75 (95) 128/74 (92) Pulse Ox 99 97 97 O2 Delivery Room Air Room Air Room Air Room Air 07/03/20 07/03/20 07/04/20 07/04/20 20:06 23:00 03:00 07:00 Temp 98.6 97.9 97.8 98.6 97.9 97.8 Pulse 78 79 72 77 Resp 20 20 17 B/P (MAP) 141/74 126/70 (88) 142/83 (102) 142/82 (102) Pulse Ox 98 98 97 O2 Delivery Room Air Room Air Room Air 07/04/20 07/04/20 08:00 08:11 Pulse 77 B/P (MAP) 142/82 O2 Delivery Room Air Intake and Output 07/03/20 07/03/20 07/04/20 15:00 23:00 07:00 Intake Total 480 ml 600 ml 840 ml Balance 480 ml 600 ml 840 ml Images MRI BRAIN WO, MRI BRAIN WO+W Date: 07/03/2020 11:04 AM Indication: cva. Multiple brain lesions concerning for metastatic disease Comparison: CT head 06/30/2020. MRI Brain Technique: Multiplanar multisequence MRI of the brain was performed with and without intravenous contrast using the standard protocol. 18 cc Dotarem contrast was administered intravenously during the exam. MRA Head Technique: Axial 3-D [id number] images of the intracranial vessels without contrast. 3D reformatted images were performed on a separate workstation and reviewed. Findings: MRI brain: Multifocal bilateral predominantly cystic peripherally enhancing lesions involving the cerebrum, with additional small lesion involving the left dorsal brainstem and superior cerebellar peduncle. Prominent lesion involves the right periventricular occipital lobe with extension into and across the splenium of the corpus callosum. Solid components of the lesions demonstrate DWI hyperintensity. No central DWI hyperintensity in the cystic components. No acute hemorrhage. Small amount of T2/FLAIR hyperintensity surrounding the lesions. No mild mass effect with partial effacement of the right lateral ventricle. No midline shift. Patent basilar cisterns. The scalp and calvarium are normal. The pituitary and sella are normal. No Chiari malformation. The visualized upper cervical spine is normal. The visualized orbits and globes are normal. The visualized paranasal sinuses a re clear. The mastoid air cells are clear. MRA head: Anterior Circulation: The visualized distal internal carotid arteries are patent with no stenosis or aneurysm. The visualized anterior cerebral and middle cerebral arteries show no significant stenosis or aneurysm. Posterior Circulation: The visualized vertebral arteries, basilar artery, and posterior cerebral arteries show no significant stenosis or aneurysm. No arteriovenous malformation is seen. IMPRESSION: 1. Multifocal bilateral peripherally enhancing lesions. Primary considerations would be metastatic disease or multicentric glioblastoma multiforme. Other less common entities which can have a similar appearance would include an aggressive/tumefactive demyelinating process and HERBARIUM CURATOR lymphoma (if the patient were immunocompromised). No acute hemorrhage or midline shift. Patent basilar cisterns. 2. No intracranial stenosis, aneurysm or arteriovenous malformation. CT Abdomen and Pelvis with IV contrast INDICATION: Reason: brain mets / Spl. Instructions: iv omni 300 75 mls and po omni 240 50 mls / History: TECHNIQUE: Multi-detector row CT images were acquired from the lung bases through the abdomen and pelvis with the use of IV contrast. Sagittal and coronal images were acquired from the transaxial data. All CT scans performed at this facility utilize dose optimization techniques as appropriate to the exam, including the following: Automated exposure control and adjustment of the mA and/or KV according to patient size (this includes techniques or standardized protocols for targeted exams where dose is indication/reason for exam). IV CONTRAST: Administered ORAL CONTRAST: Administered COMPARISON: MRI brain of 07/03/2020 FINDINGS: LOWER CHEST: Unremarkable LIVER: 9 mm left hepatic lobe hypodensity statistically likely to be a cyst. Liver is otherwise unremarkable. No abnormal enhancement suspicious for metastatic deposits. BILIARY SYSTEM: Gallbladder is unremarkable. Bile ducts are not dilated. PANCREAS: Unremarkable SPLEEN: Unremarkable ADRENALS: Unremarkable KIDNEYS & URETERS: Unremarkable BLADDER: Unremarkable REPRODUCTIVE ORGANS: Prostate is mildly enlarged measuring 5.7 cm in transverse diameter. GASTROINTESTINAL: The stomach, small bowel, and colon are unremarkable. The appendix is normal. MESENTERY/PERITONEUM/RETROPERITONEUM: Unremarkable VASCULAR: Unremarkable LYMPH NODES: No adenopathy OSSEOUS & SOFT TISSUES: Unremarkable IMPRESSION: A primary malignancy in the chest abdomen or pelvis is not clearly apparent to explain the multiple ring-enhancing lesions seen intracranially on same day brain MRI. Although involvement of large white matter tracts is more classically associated with gliomas and HERBARIUM CURATOR lymphoma than with metastatic disease, mets are still possible. Consider correlation with CSF sampling. Justicifation of Admission Dx: Justifications for Admission: Justification of Admission Dx: Comment: (Higher level of care requested by [facility] for neurology evaluation) MAURY SIMMS MD Jul 04, 2020 10:17
[2020-07-04 11:00] VITALS: BP 118/66
--- NOTE | 2020-07-04 12:19 | PDOC2 ---
CONSULT Date of Consult Date of Consult DATE: 07/04/20 TIME: 12:13 Reason for Consult Reason for Consult: Multifocal brain lesions Referring Physician Referring Physician: Dr. Rivera Identification/Chief Complaint Chief Complaint Dizziness and hearing loss Source Source: Caregiver, Chart review History of Present Illness Reason for Visit: Jean Rodriguez Jr is a 70-year-old male with no prior medical history who has been admitted to the hospital after presenting with dizziness. Patient is accompanied by his daughter. She reports that he lives by himself. He had been reporting fatigue last week. On Friday, he experienced sudden onset dizziness, worsening fatigue and hearing loss. He was taken to the emergency room at [facility] where he received a CT head. This showed multiple brain lesions. He has been transferred to [facility] for further evaluation. He has received a CT of the chest, abdomen and pelvis which has not shown any additional signs of malignancy. He received brain MRI and MRA of the head and neck which showed multifocal brain lesions with reported differential diagnosis of malignancy, demyelinating disorder possibly infection. Neurology and neurosurgical consultation has been requested. A medical oncology consultation has been sought due to suspected malignancy. Patient is extremely hard of hearing and is unable to contribute to history or provide a full review of systems. He denies pain anywhere. He denies recent weight loss. Past Medical History Endocrine: Diabetes Family History Family History: No Significant Social History No ALCOHOL: none Drugs: None Current Medications Current Medications Current Medications Ringer's Solution 1,000 ml @ 100 mls/hr Q10H IV Last administered on 06/30/20at 23:44; Start 06/30/20 at 22:30; Stop 07/01/20 at 08:29; Status DC Ondansetron HCl (Zofran) 4 mg PRN Q6HRS PRN IVP NAUSEA/VOMITING; Start 06/30/20 at 22:30 Calcium Carbonate/ Glycine (Tums) 500 mg PRN Q3HRS PRN PO UPSET STOMACH; Start 06/30/20 at 22:15 Acetaminophen (Tylenol) 650 mg PRN Q6HRS PRN PO Headaches, Temp > 101.5F; Start 06/30/20 at 22:15 Senna/Docusate Sodium (Senna Plus) 1 tab BID PO Last administered on 07/04/20at 08:11; Start 06/30/20 at 22:30 Bisacodyl (Dulcolax Supp) 10 mg PRN DAILY PRN [place] CONSTIPATION; Start 06/30/20 at 22:15 Atorvastatin Calcium (Lipitor) 80 mg QHS PO Last administered on 07/03/20at 20:06; Start 06/30/20 at 22:30 Famotidine (Pepcid) 20 mg BID PO Last administered on 07/04/20at 08:11; Start 06/30/20 at 22:30 Aspirin (Ecotrin) 325 mg DAILYWBKFT PO Last administered on 07/04/20at 08:11; Start 07/01/20 at 08:00 Aspirin (Aspirin Rectal Supp) 300 mg PRN DAILY PRN [place] IF UNABLE TO TAKE PO; Start 06/30/20 at 22:15 Metoprolol Tartrate (Lopressor) 25 mg BID PO Last administered on 07/04/20at 08:11; Start 06/30/20 at 22:30 Hydralazine HCl (Apresoline Inj) 10 mg PRN Q4HRS PRN IVP ELEVATED BP, SEE COMMENTS; Start 06/30/20 at 22:15 Insulin Human Lispro (HumaLOG) 0-7 UNITS TIDWMEALHC SQ ; Start 07/01/20 at 08:00 Dextrose (Dextrose 50%-Water Syringe) 12.5 gm PRN Q15MIN PRN IV SEE COMMENTS; Start 06/30/20 at 22:45 Gadoterate Meglumine (Clariscan) 10 ml 1X ONCE IVP ; Start 07/03/20 at 11:45; Stop 07/03/20 at 11:46; Status DC Gadoterate Meglumine (Clariscan) 8 ml 1X ONCE IVP ; Start 07/03/20 at 11:45; Stop 07/03/20 at 11:46; Status DC Gadoterate Meglumine (Clariscan) 10 ml 1X ONCE IVP Last administered on 07/03/20at 11:56; Start 07/03/20 at 11:45; Stop 07/03/20 at 11:48; Status DC Gadoterate Meglumine (Clariscan) 8 ml 1X ONCE IVP Last administered on 07/03/20at 11:56; Start 07/03/20 at 11:45; Stop 07/03/20 at 11:48; Status DC Iohexol (Omnipaque 300 Mg/ml) 75 ml 1X ONCE IV Last administered on 07/03/20at 15:51; Start 07/03/20 at 15:45; Stop 07/03/20 at 15:46; Status DC Iohexol (Omnipaque 240 Mg/ml) 50 ml 1X ONCE PO Last administered on 07/03/20at 15:51; Start 07/03/20 at 15:45; Stop 07/03/20 at 15:46; Status DC Info (CONTRAST GIVEN -- Rx MONITORING) 1 each PRN DAILY PRN MC SEE COMMENTS; Start 07/03/20 at 15:45; Stop 07/05/20 at 15:44 Active Scripts Active Reported Aspirin 81 Mg Tab.chew 81 Mg PO DAILY Metformin Hcl 500 Mg Tablet 500 Mg PO BIDWMEALS Atenolol 50 Mg Tablet 50 Mg PO DAILY Allergies Allergies: Coded Allergies: No Known Drug Allergies (Unverified , 07/01/18) ROS Review of System Limited by patient's hearing impairment as noted above. Positive for head ache, dizziness, hearing loss and fatigue. Negative for pain anywhere else Physical Exam General: Alert, Oriented X3 HEENT: Atraumatic Lungs: Clear to auscultation Heart: Regular rate, Normal S1 Abdomen: Soft, Other (No splenomegaly) Skin: No rashes Neuro: Other (Unable to assess due to the patient's inability to cooperate) MUSCULOSKELETAL: No swelling Vitals VITALS Vital Signs Date Time Temp Pulse Resp B/P (MAP) Pulse Ox O2 Delivery O2 Flow Rate FiO2 07/04/20 08:11 77 142/82 07/04/20 08:00 Room Air 07/04/20 07:00 97.8 17 97 97.8 Labs Labs Laboratory Tests Test 07/02/20 16:57 07/02/20 20:28 07/03/20 07:31 07/03/20 12:23 Glucose (Fingerstick) 102 mg/dL (70-99) 152 mg/dL (70-99) 111 mg/dL (70-99) 114 mg/dL (70-99) Test 07/03/20 16:32 07/03/20 21:05 07/04/20 07:54 Glucose (Fingerstick) 121 mg/dL (70-99) 123 mg/dL (70-99) 132 mg/dL (70-99) Laboratory Tests Test 07/03/20 12:23 07/03/20 16:32 07/03/20 21:05 07/04/20 07:54 Glucose (Fingerstick) 114 mg/dL (70-99) 121 mg/dL (70-99) 123 mg/dL (70-99) 132 mg/dL (70-99) Assessment/Plan Assessment/Plan Assessment: Multifocal brain lesions Dizziness likely secondary to above Hearing loss, likely secondary to the above Recommendations: -Reviewed brain MRI and discussed with Dr. Muñoz -Would recommend biopsy of one of the brain lesions for further evaluation -Hold steroids until after completion of biopsy and preliminary results are available -Check LDH, SPEP, free light chains, HIV, B12 and uric acid level -Plan bone marrow biopsy if lymphoma is noted on brain biopsy -Will follow Panchito Amanda MD Medical Oncology/Hematology Ph: [phone] MAQRUITA AMANDA MD Jul 04, 2020 12:19
--- NOTE | 2020-07-04 13:31 | NUR ---
[facility] following for discharge planning. Spoke with RN and reviewed chart. Possible discharge home today, 07/04 with [facility] and out-patient follow up at . Pt has been accepted by [facility] on discharge. [facility] following. Addendum: 07/04/20 at 1356 by RHIANNA SHIELDS Pt to have a brain biopsy per RN. No discharge today.
[2020-07-04 15:00] VITALS: BP 135/77
[2020-07-04 15:08] LABS: URIC ACID 7.4 mg/dL (3.5-7.2)
--- NOTE | 2020-07-04 15:13 | PDOC ---
[employer] PROGRESS NOTE Date of Service DOS: DATE: 07/04/20 TIME: 15:12 Chief Complaint Chief Complaint Assessment and plan Multifocal bilateral peripherally enhancing lesions. Primary considerations would be metastatic disease or multicentric glioblastoma multiforme. History of diabetes mellitus type 2 Overweight with a BMI of 29 Hearing impaired History of essential hypertension Plan: Hold Metformin Neurology consultation has been noted and recommendations greatly appreciated Carotid Doppler done with normal findings Fall precaution Further commendations based on the clinical course DVT prophylaxis Lovenox History of Present Illness History of Present Illness History of Present Illness Patient is a 70 year old male with past medical history of diabetes who was in his usual state of health until approximately 5 days prior to his admission when he started complaining of sensation of fogginess in his mind. Patient also complained of headache according to his daughter who is at bedside helping with the history taking. He also had some hearing loss worse than usual over his right ear and patient seeks attention to his doctor and had a cleanout done more or less 2 days prior to his admission and evaluation at [facility] [place]. Patient denies any headaches no loss of vision he recently had his prescription change and apparently his echometer engineer told him that they need to do some changes since its "too strong in "of a prescription. Patient denies any vision loss no dysphagia odynophagia no slurred speech no hemiparesis no hemiplegia, no chest pain palpitations or shortness of breath, no neck stiffness noticed no fever or chills no meningismus no abdominal pain nausea vomiting or diarrhea. The patient has had proper oral intake over the last couple days. Orthostatic at outside facility were recorded as folllows blood pressures as follows lying: Heart rate 70, 137/79, sitting: Heart rate 72, 131/80, standing: Heart rate 70, 113/73, Outside facility H&P is as follows: Patient is a 70-year-old male patient presents emergency department complaining that he has felt lightheaded for the past week or so. Patient also states that he feels like he cannot hear very well and describes that it seems his right ear is plugged up and his left ear is only partially plugged up. Patient reports that his hearing loss for the past week as well. Patient's son states that he was with him a few days ago and noticed that the patient had been speaking louder than normal. The patient's son also reports that he has noticed some periods of confusion from the patient over the last day or 2. Patient reports seeing his eye doctor yesterday and stated his eye doctor told him that he needs a different prescription for his eyes stating that his eyes are getting better n ow and this could have caused some of his dizziness sensations because he is wearing his old glasses. Patient reports taking daily puffs of albuterol, takes Metformin 500 mg twice daily, and takes an unknown dose of lisinopril daily. Patient reports that he seen his primary care provider RADHA Dickerson this past week who took labs but has not gotten back with him yet. Patient denies any other physical complaints or physical symptoms. Patient son is at bedside and provided partial HPI. We were asked to admit the patient for neurological evaluation and higher level of care. He is in hemodynamically stable condition plan of care has been explained detail all of his concerns were addressed to the best of my abilities 07/02: No acute events reported overnight, case discussed with nursing staff patient in no acute distress no complaints during my visit. MRI pending. Discussed with son at bedside. Recommended outpatient audiometry hearing loss seems to be worse on his right ear compared to left 07/03/2020 No acute events overnight. Patient seen and examined bedside. We will hold off steroids at this time after MRI completed showing multiple bilateral peripherally enhancing lesions. Patient's chart, labs, images were reviewed and discussed with RN Vitals/I&O Vitals/I&O: Vital Signs Date Time Temp Pulse Resp B/P (MAP) Pulse Ox O2 Delivery O2 Flow Rate FiO2 07/04/20 11:00 98.5 72 17 118/66 (83) 97 Room Air 98.5 I & O 07/03/20 07/03/20 07/04/20 15:00 23:00 07:00 Intake Total 480 ml 600 ml 840 ml Balance 480 ml 600 ml 840 ml Physical Exam General: Alert, Oriented X3 Heart: Regular rate, Normal S1 Abdomen: Soft, Other (No splenomegaly) Extremities: No edema Skin: No rashes Labs Labs: Laboratory Tests Test 07/03/20 16:32 07/03/20 21:05 07/04/20 07:54 07/04/20 11:34 Glucose (Fingerstick) 121 mg/dL (70-99) 123 mg/dL (70-99) 132 mg/dL (70-99) 157 mg/dL (70-99) Comment Review of Relevant I have reviewed the following items bashir (where applicable) has been applied. Medications: Current Medications Medications (Trade) Dose Ordered Sig/Desiree Route PRN Reason Start Time Stop Time Status Last Admin Dose Admin Iohexol (Omnipaque 300 Mg/ml) 75 ml 1X ONCE IV 07/03/20 15:45 07/03/20 15:46 DC 07/03/20 15:51 Iohexol (Omnipaque 240 Mg/ml) 50 ml 1X ONCE PO 07/03/20 15:45 07/03/20 15:46 DC 07/03/20 15:51 Justifications for Admission TIA Indications Persistent neurologic signs?: Yes Justification for admission: There is persistence of patient's focal neurologic signs or symptoms or there is concern for recurrence of patient's neurological signs and symptoms. Other Justification NICOLASA VILLAR MD Jul 04, 2020 15:13
--- NOTE | 2020-07-04 16:35 | PDOC ---
Provider Note Date of Service: DATE: 07/04/20 TIME: 16:18 Provider Note Patient seen and examined at 1245 consulted for multiple brain lesions difficulty hearing, dizziness, vision changes since Friday per family Alert. Oriented to time, place and person.PERRL.Bilateral hearing loss, some dysarthria, otherwise no focal findings. Muscle strength: / MRI brain reviewed, there are multiple cystic peripherally enhancing lesions of the brain and post fossa CT C/A/P negative for a source doubt multifocal glioblastoma possible lymphoma D/W oncology, D/W family at bedside plan for biopsy Friday Justifications for Admission TIA Indications Persistent neurologic signs?: Yes Justification for admission: There is persistence of patient's focal neurologic signs or symptoms or there is concern for recurrence of patient's neurological signs and symptoms. Other Justification KRISTIE PEARCE MD Jul 04, 2020 16:35
[2020-07-04 19:00] VITALS: BP 121/72
[2020-07-04] MEDS: ATORVASTATIN CALCIUM 40 MG TABLET. PO SCH (21:31)
[2020-07-04 23:05] VITALS: BP 118/65
[2020-07-05 03:00] VITALS: BP 125/69
[2020-07-05 07:00] VITALS: BP 127/72
[2020-07-05] MEDS: INSULIN LISPRO 300 UNITS/3 ML VIAL. SQ SCH ×4 (09:23→21:00)
[2020-07-05] MEDS: ASPIRIN ENTERIC COATED 325 MG TABLET.DR. PO SCH (09:28)
[2020-07-05] MEDS: METOPROLOL TART IMMED RELEASE 25 MG TABLET. PO SCH ×2 (09:28→22:15)
[2020-07-05] MEDS: SENNOSIDES/DOCUSATE 8.6/50MG TABLET. PO SCH ×2 (09:28→22:15)
[2020-07-05] MEDS: FAMOTIDINE 20 MG TABLET. PO SCH ×2 (09:28→22:16)
[2020-07-05 11:00] VITALS: BP 117/72
--- NOTE | 2020-07-05 11:12 | PDOC ---
PROGRESS NOTES Date of Service DATE: 07/05/20 TIME: 11:11 Assessment Multiple brain masses, consider primary brain neoplasm including glioma, central nervous system lymphoma Dizziness, bilateral hearing loss hearing loss, no other evidence of intracranial problem, this may be peripheral vestibular problems Removal of cerumen last week Memory loss Diabetes, hypertension Plan Oncology and neurosurgery consults appreciated Brain biopsy scheduled for 07/07 Holding off on Decadron given debility of clinical status and to increase diagnostic yield for lymphoma No need for prophylactic anticonvulsants Subjective No complaints Objective Vital Signs Date Time Temp Pulse Resp B/P (MAP) Pulse Ox O2 Delivery O2 Flow Rate FiO2 07/05/20 09:28 72 125/69 07/05/20 07:55 Room Air 07/05/20 07:00 98.6 16 99 98.6 Intake and Output 07/05/20 07:00 Intake Total 860 ml Balance 860 ml Intake Oral 860 ml # Voids 4 PHYSICAL EXAM Alert. Oriented to time, place and person. PERRL. EOMI. CN: Bilateral hearing loss, some dysarthria, otherwise no focal findings. Muscle tone: normal. Muscle strength: 5/5 DTR: 2+ Plantar reflex: Flexor Gait: not examined in bed. Sensory exam: no abnormal findings. No cerebellar signs elicited. Review of Relevant I have reviewed the following items bashir (where applicable) has been applied. Labs Laboratory Tests Test 07/03/20 12:23 07/03/20 16:32 07/03/20 21:05 07/04/20 07:54 Glucose (Fingerstick) 114 mg/dL (70-99) 121 mg/dL (70-99) 123 mg/dL (70-99) 132 mg/dL (70-99) Test 07/04/20 11:34 07/04/20 14:30 07/04/20 17:00 07/04/20 20:44 Glucose (Fingerstick) 157 mg/dL (70-99) 97 mg/dL (70-99) 125 mg/dL (70-99) Uric Acid 7.4 mg/dL (3.5-7.2) Lactate Dehydrogenase 228 U/L (85-227) Vitamin B12 Level 485 pg/mL (247-911) HIV (1&2) Antibody Screen Nonreactive (Nonreactive) Test 07/05/20 09:09 Glucose (Fingerstick) 124 mg/dL (70-99) Laboratory Tests Test 07/04/20 11:34 07/04/20 14:30 07/04/20 17:00 07/04/20 20:44 Glucose (Fingerstick) 157 mg/dL (70-99) 97 mg/dL (70-99) 125 mg/dL (70-99) Uric Acid 7.4 mg/dL (3.5-7.2) Lactate Dehydrogenase 228 U/L (85-227) Vitamin B12 Level 485 pg/mL (247-911) HIV (1&2) Antibody Screen Nonreactive (Nonreactive) Test 07/05/20 09:09 Glucose (Fingerstick) 124 mg/dL (70-99) Medications Current Medications Ringer's Solution 1,000 ml @ 100 mls/hr Q10H IV Last administered on 06/30/20at 23:44; Start 06/30/20 at 22:30; Stop 07/01/20 at 08:29; Status DC Ondansetron HCl (Zofran) 4 mg PRN Q6HRS PRN IVP NAUSEA/VOMITING; Start 06/30/20 at 22:30 Calcium Carbonate/ Glycine (Tums) 500 mg PRN Q3HRS PRN PO UPSET STOMACH; Start 06/30/20 at 22:15 Acetaminophen (Tylenol) 650 mg PRN Q6HRS PRN PO Headaches, Temp > 101.5F; Start 06/30/20 at 22:15 Senna/Docusate Sodium (Senna Plus) 1 tab BID PO Last administered on 07/05/20at 09:28; Start 06/30/20 at 22:30 Bisacodyl (Dulcolax Supp) 10 mg PRN DAILY PRN MD CONSTIPATION; Start 06/30/20 at 22:15 Atorvastatin Calcium (Lipitor) 80 mg QHS PO Last administered on 07/04/20at 21:31; Start 06/30/20 at 22:30 Famotidine (Pepcid) 20 mg BID PO Last administered on 07/05/20at 09:28; Start 06/30/20 at 22:30 Aspirin (Ecotrin) 325 mg DAILYWBKFT PO Last administered on 07/05/20at 09:28; Start 07/01/20 at 08:00 Aspirin (Aspirin Rectal Supp) 300 mg PRN DAILY PRN MD IF UNABLE TO TAKE PO; Start 06/30/20 at 22:15 Metoprolol Tartrate (Lopressor) 25 mg BID PO Last administered on 07/05/20at 09:28; Start 06/30/20 at 22:30 Hydralazine HCl (Apresoline Inj) 10 mg PRN Q4HRS PRN IVP ELEVATED BP, SEE COMMENTS; Start 06/30/20 at 22:15 Insulin Human Lispro (HumaLOG) 0-7 UNITS TIDWMEALHC SQ ; Start 07/01/20 at 08:00 Dextrose (Dextrose 50%-Water Syringe) 12.5 gm PRN Q15MIN PRN IV SEE COMMENTS; Start 06/30/20 at 22:45 Gadoterate Meglumine (Clariscan) 10 ml 1X ONCE IVP ; Start 07/03/20 at 11:45; Stop 07/03/20 at 11:46; Status DC Gadoterate Meglumine (Clariscan) 8 ml 1X ONCE IVP ; Start 07/03/20 at 11:45; Stop 07/03/20 at 11:46; Status DC Gadoterate Meglumine (Clariscan) 10 ml 1X ONCE IVP Last administered on 07/03/20at 11:56; Start 07/03/20 at 11:45; Stop 07/03/20 at 11:48; Status DC Gadoterate Meglumine (Clariscan) 8 ml 1X ONCE IVP Last administered on 07/03/20at 11:56; Start 07/03/20 at 11:45; Stop 07/03/20 at 11:48; Status DC Iohexol (Omnipaque 300 Mg/ml) 75 ml 1X ONCE IV Last administered on 07/03/20at 15:51; Start 07/03/20 at 15:45; Stop 07/03/20 at 15:46; Status DC Iohexol (Omnipaque 240 Mg/ml) 50 ml 1X ONCE PO Last administered on 07/03/20at 15:51; Start 07/03/20 at 15:45; Stop 07/03/20 at 15:46; Status DC Info (CONTRAST GIVEN -- Rx MONITORING) 1 each PRN DAILY PRN MC SEE COMMENTS; Start 07/03/20 at 15:45; Stop 07/05/20 at 15:44 Active Scripts Active Reported Aspirin 81 Mg Tab.chew 81 Mg PO DAILY Metformin Hcl 500 Mg Tablet 500 Mg PO BIDWMEALS Atenolol 50 Mg Tablet 50 Mg PO DAILY Vitals/I & O Vital Sign - Last 24 Hours 07/04/20 07/04/20 07/04/20 07/04/20 15:00 19:00 19:30 21:31 Temp 98.6 98.0 98.6 98.0 Pulse 76 79 79 Resp 17 18 B/P (MAP) 135/77 (96) 121/72 (88) 121/72 Pulse Ox 96 95 O2 Delivery Room Air Room Air Room Air 07/04/20 07/05/20 07/05/20 07/05/20 23:05 03:00 07:00 07:55 Temp 97.9 97.8 98.6 97.9 97.8 98.6 Pulse 64 72 67 Resp 18 18 16 B/P (MAP) 118/65 (82) 125/69 (87) 127/72 (90) Pulse Ox 95 96 99 O2 Delivery Room Air Room Air Room Air Room Air 07/05/20 09:28 Pulse 72 B/P (MAP) 125/69 Intake and Output 07/04/20 07/04/20 07/05/20 15:00 23:00 07:00 Intake Total 260 ml 200 ml 400 ml Balance 260 ml 200 ml 400 ml Justicifation of Admission Dx: Justifications for Admission: Justification of Admission Dx: Comment: (Higher level of care requested by [place] for neurology evaluation) MAURY SIMMS MD Jul 05, 2020 11:12
--- NOTE | 2020-07-05 13:10 | NUR ---
SW following for discharge planning. Spoke with RN and reviewed chart. Pt to have a biopsy on 07/07. SW awaiting results of the biopsy, but at this time the discharge plan remains home with [facility]. Pt's son also considering moving in to help pt. SW following.
--- NOTE | 2020-07-05 13:32 | PDOC ---
[employer] PROGRESS NOTE Date of Service DOS: DATE: 07/05/20 TIME: 13:31 Chief Complaint Chief Complaint Assessment and plan Multifocal bilateral peripherally enhancing lesions. Primary considerations would be metastatic disease or multicentric glioblastoma multiforme. History of diabetes mellitus type 2 Overweight with a BMI of 29 Hearing impaired History of essential hypertension Plan: Hold Metformin Neurology consultation has been noted and recommendations greatly appreciated Carotid Doppler done with normal findings Fall precaution Further commendations based on the clinical course DVT prophylaxis Lovenox History of Present Illness History of Present Illness History of Present Illness Patient is a 70 year old male with past medical history of diabetes who was in his usual state of health until approximately 5 days prior to his admission when he started complaining of sensation of fogginess in his mind. Patient also complained of headache according to his daughter who is at bedside helping with the history taking. He also had some hearing loss worse than usual over his right ear and patient seeks attention to his doctor and had a cleanout done more or less 2 days prior to his admission and evaluation at [place]. Patient denies any headaches no loss of vision he recently had his prescription change and apparently his liturgical music director told him that they need to do some changes since its "too strong in "of a prescription. Patient denies any vision loss no dysphagia odynophagia no slurred speech no hemiparesis no hemiplegia, no chest pain palpitations or shortness of breath, no neck stiffness noticed no fever or chills no meningismus no abdominal pain nausea vomiting or diarrhea. The patient has had proper oral intake over the last couple days. Orthostatic at outside facility were recorded as folllows blood pressures as follows lying: Heart rate 70, 137/79, sitting: Heart rate 72, 131/80, standing: Heart rate 70, 113/73, Outside facility H&P is as follows: Patient is a 70-year-old male patient presents emergency department complaining that he has felt lightheaded for the past week or so. Patient also states that he feels like he cannot hear very well and describes that it seems his right ear is plugged up and his left ear is only partially plugged up. Patient reports that his hearing loss for the past week as well. Patient's son states that he was with him a few days ago and noticed that the patient had been speaking louder than normal. The patient's son also reports that he has noticed some periods of confusion from the patient over the last day or 2. Patient reports seeing his eye doctor yesterday and stated his eye doctor told him that he needs a different prescription for his eyes stating that his eyes are getting better n ow and this could have caused some of his dizziness sensations because he is wearing his old glasses. Patient reports taking daily puffs of albuterol, takes Metformin 500 mg twice daily, and takes an unknown dose of lisinopril daily. Patient reports that he seen his primary care provider RADHA Dickerson this past week who took labs but has not gotten back with him yet. Patient denies any other physical complaints or physical symptoms. Patient son is at bedside and provided partial HPI. We were asked to admit the patient for neurological evaluation and higher level of care. He is in hemodynamically stable condition plan of care has been explained detail all of his concerns were addressed to the best of my abilities 07/02: No acute events reported overnight, case discussed with nursing staff patient in no acute distress no complaints during my visit. MRI pending. Discussed with son at bedside. Recommended outpatient audiometry hearing loss seems to be worse on his right ear compared to left 07/03/2020 No acute events overnight. Patient seen and examined bedside. We will hold off steroids at this time after MRI completed showing multiple bilateral peripherally enhancing lesions. Patient's chart, labs, images were reviewed and discussed with RN 07/05/2020 No acute events overnight. Patient ambulating to the bathroom on his own. Pending brain biopsy this Friday with neurosurgery. No further recommendations from oncology at this time except needing the tissue from biopsy to further guide management. Patient's chart, labs, images were reviewed and discussed with RN Vitals/I&O Vitals/I&O: Vital Signs Date Time Temp Pulse Resp B/P (MAP) Pulse Ox O2 Delivery O2 Flow Rate FiO2 07/05/20 11:00 98.0 66 18 117/72 (87) 98 98.0 07/05/20 07:55 Room Air I & O 07/04/20 07/04/20 07/05/20 15:00 23:00 07:00 Intake Total 260 ml 200 ml 400 ml Balance 260 ml 200 ml 400 ml Physical Exam General: Alert, Oriented X3 Heart: Regular rate, Normal S1 Abdomen: Soft, Other (No splenomegaly) Extremities: No edema Skin: No rashes Labs Labs: Laboratory Tests Test 1/12/21 14:30 07/04/20 17:00 07/04/20 20:44 07/05/20 09:09 Uric Acid 7.4 mg/dL (3.5-7.2) Lactate Dehydrogenase 228 U/L (85-227) Vitamin B12 Level 485 pg/mL (247-911) HIV (1&2) Antibody Screen Nonreactive (Nonreactive) Glucose (Fingerstick) 97 mg/dL (70-99) 125 mg/dL (70-99) 124 mg/dL (70-99) Test 07/05/20 11:38 Glucose (Fingerstick) 149 mg/dL (70-99) Comment Review of Relevant I have reviewed the following items bashir (where applicable) has been applied. Justifications for Admission TIA Indications Persistent neurologic signs?: Yes Justification for admission: There is persistence of patient's focal neurologic signs or symptoms or there is concern for recurrence of patient's neurological signs and symptoms. Other Justification NICOLASA VILLAR MD Jul 05, 2020 13:32
[2020-07-05 15:00] VITALS: BP 111/77
[2020-07-05 16:14] LABS: KAPPA FREE 35.5 mg/L (3.3-19.4); LAMBDA FREE 22.2 mg/L (5.7-26.3)
--- NOTE | 2020-07-05 17:12 | PDOC ---
Provider Note Date of Service: DATE: 07/05/20 TIME: 17:09 Provider Note Patient seen resting family reports no significant change plan for brain lesion biopsy Friday morning discussed technique, risks and expected post op course answered all questions Justifications for Admission TIA Indications Persistent neurologic signs?: Yes Justification for admission: There is persistence of patient's focal neurologic signs or symptoms or there is concern for recurrence of patient's neurological signs and symptoms. Other Justification LUCA GOTTI [employer]EDGE [employer] BARGE Jul 05, 2020 17:12
[2020-07-05 19:00] VITALS: BP 118/73
[2020-07-05] MEDS: ATORVASTATIN CALCIUM 40 MG TABLET. PO SCH (22:16)
[2020-07-05 23:00] VITALS: BP 127/79
[2020-07-06 03:00] VITALS: BP 122/72
[2020-07-06 07:00] VITALS: BP 150/71
[2020-07-06] MEDS: INSULIN LISPRO 300 UNITS/3 ML VIAL. SQ SCH ×4 (08:00→21:00)
[2020-07-06] MEDS: SENNOSIDES/DOCUSATE 8.6/50MG TABLET. PO SCH ×2 (08:45→21:00)
[2020-07-06] MEDS: METOPROLOL TART IMMED RELEASE 25 MG TABLET. PO SCH ×2 (08:45→21:42)
[2020-07-06] MEDS: FAMOTIDINE 20 MG TABLET. PO SCH ×2 (08:45→21:00)
[2020-07-06] MEDS: ASPIRIN ENTERIC COATED 325 MG TABLET.DR. PO SCH (08:45)
[2020-07-06 09:29] LABS: BASO # 0.1 x10^3/uL (0.0-0.2); BASO % 1 % (0-3); EOS # 0.3 x10^3/uL (0.0-0.7); EOS % 3 % (0-3); HEMATOCRIT 42.9 % (39.0-53.0); LYMPH # 1.5 x10^3/uL (1.0-4.8); LYMPH % 14 % (24-48); MEAN CORPUSCULAR HEMOGLOBIN 33 pg (25-35); MEAN CORPUSCULAR HGB CONC 35 g/dL (31-37); MEAN CORPUSCULAR VOLUME 94 fL (79-100); MONO # 0.6 x10^3/uL (0.0-1.1); MONO % 5 % (0-9); NEUT # 8.6 x10^3/uL (1.8-7.7); NEUT % 78 % (31-73); PLATELET COUNT 286 x10^3/uL (140-400); RED BLOOD COUNT 4.54 x10^6/uL (4.30-5.70); RED CELL DISTRIBUTION WIDTH 13.6 % (11.5-14.5); WHITE BLOOD COUNT 11.1 x10^3/uL (4.0-11.0)
[2020-07-06 09:46] LABS: PROTHROMBIN TIME PATIENT 13.7 SEC (11.7-14.0)
[2020-07-06 10:13] LABS: ALBUMIN 3.2 g/dL (3.4-5.0); ALBUMIN/GLOBULIN RATIO 0.8 (1.0-1.7); GFR 74.3; TOTAL BILIRUBIN 0.7 mg/dL (0.2-1.0); TOTAL PROTEIN 7.4 g/dL (6.4-8.2)
[2020-07-06 11:00] VITALS: BP 132/73
--- NOTE | 2020-07-06 11:39 | NUR ---
ALYSON following for discharge planning. Spoke with RN and reviewed chart. Pt to have a biopsy on 07/07. SW met with pt again today. Pt's daughter Caren at bedside. Pt requesting referral to [facility] acute rehab. Patient choice of vendor form completed. Referral faxed. Spoke with [facility] who stated they will not be able to take pt if he is doing radiation. Pt requesting coordination of care with family member Kathleen ([phone]). ALYSON spoke with Kathleen. Fred to speak with Kathleen. Discharge plan is either home with family and [facility] or to [facility] acute rehab pending results of biopsy. Pt will likely be admitted through the weekend. SW following.
--- NOTE | 2020-07-06 12:06 | PDOC ---
[facility] [facility] PROGRESS NOTE Date of Service DOS: DATE: 07/06/20 TIME: 12:05 Chief Complaint Chief Complaint Assessment and plan Multifocal bilateral peripherally enhancing lesions. Primary considerations would be metastatic disease or multicentric glioblastoma multiforme. History of diabetes mellitus type 2 Overweight with a BMI of 29 Hearing impaired History of essential hypertension Plan: Hold Metformin Neurology consultation has been noted and recommendations greatly appreciated Plan for brain biopsy Friday morning with Dr. Muñoz Carotid Doppler done with normal findings Fall precaution Further commendations based on the clinical course DVT prophylaxis Lovenox History of Present Illness History of Present Illness History of Present Illness Patient is a 70 year old male with past medical history of diabetes who was in his usual state of health until approximately 5 days prior to his admission when he started complaining of sensation of fogginess in his mind. Patient also complained of headache according to his daughter who is at bedside helping with the history taking. He also had some hearing loss worse than usual over his right ear and patient seeks attention to his doctor and had a cleanout done more or less 2 days prior to his admission and evaluation at [facility]. 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 Patient denies any vision loss no dy sphagia odynophagia no slurred speech no hemiparesis no hemiplegia, no chest pain palpitations or shortness of breath, no neck stiffness noticed no fever or chills no meningismus no abdominal pain nausea vomiting or diarrhea. The patient has had proper oral intake over the last couple days. Orthostatic at outside facility were recorded as folllows blood pressures as follows lying: Heart rate 70, 137/79, sitting: Heart rate 72, 131/80, standing: Heart rate 70, 113/73, Outside facility H&P is as follows: Patient is a 70-year-old male patient presents emergency department complaining that he has felt lightheaded for the past week or so. Patient also states that he feels like he cannot hear very well and describes that it seems his right ear is plugged up and his left ear is only partially plugged up. Patient reports that his hearing loss for the past week as well. Patient's son states that he was with him a few days ago and noticed that the patient had been speaking louder than normal. The patient's son also reports that he has noticed some periods of confusion from the patient over the last day or 2. Patient reports seeing his eye doctor yesterday and stated his eye doctor told him that he needs a different prescription for his eyes stating that his eyes are getting better now and this could have caused some of his dizziness sensations because he is wearing his old glasses. Patient reports taking daily puffs of albuterol, takes Metformin 500 mg twice daily, and takes an unknown dose of lisinopril daily. Patient reports that he seen his primary care provider RADHA Dickerson this past week who took labs but has not gotten back with him yet. Patient denies any other physical complaints or physical symptoms. Patient son is at bedside and provided partial HPI. We were asked to admit the patient for neurological evaluation and higher level of care. He is in hemodynamically stable condition plan of care has been explained detail all of his concerns were addressed to the best of my abilities 07/02: No acute events reported overnight, case discussed with nursing staff patient in no acute distress no complaints during my visit. MRI pending. Discussed with son at bedside. Recommended outpatient audiometry hearing loss seems to be worse on his right ear compared to left 07/03/2020 No acute events overnight. Patient seen and examined bedside. We will hold off steroids at this time after MRI completed showing multiple bilateral peripherally enhancing lesions. Patient's chart, labs, images were reviewed and discussed with RN 07/05/2020 No acute events overnight. Patient ambulating to the bathroom on his own. Pending brain biopsy this Friday with neurosurgery. No further recommendations from oncology at this time except needing the tissue from biopsy to further guide management. Patient's chart, labs, images were reviewed and discussed with RN 07/06/2020 No acute events overnight. Patient is tolerating diet and has no complaints voiced at this time. Patient is confused and is hard of hearing. Explained to patient that he was having a biopsy but he was unable to hear clearly what was going on. Patient's chart, labs, images were reviewed and discussed with RN Vitals/I&O Vitals/I&O: Vital Signs Date Time Temp Pulse Resp B/P (MAP) Pulse Ox O2 Delivery O2 Flow Rate FiO2 07/06/20 11:00 98.5 60 18 132/73 (92) 98 Room Air 98.5 I & O 07/05/20 07/05/20 07/06/20 15:00 23:00 07:00 Intake Total 100 ml Balance 100 ml Physical Exam General: Alert, Oriented X3 Heart: Regular rate, Normal S1 Abdomen: Soft, Other (No splenomegaly) Extremities: No edema Skin: No rashes Labs Labs: Laboratory Tests Test 07/05/20 16:49 07/05/20 21:23 07/06/20 01:05 07/06/20 07:21 Glucose (Fingerstick) 124 mg/dL (70-99) 111 mg/dL (70-99) 115 mg/dL (70-99) SARS-CoV-2 Antigen (Rapid) Negative (NEGATIVE) Test 07/06/20 09:10 07/06/20 10:42 White Blood Count 11.1 x10^3/uL (4.0-11.0) Red Blood Count 4.54 x10^6/uL (4.30-5.70) Hemoglobin 15.0 g/dL (13.0-17.5) Hematocrit 42.9 % (39.0-53.0) Mean Corpuscular Volume 94 fL (79-100) Mean Corpuscular Hemoglobin 33 pg (25-35) Mean Corpuscular Hemoglobin Concent 35 g/dL (31-37) Red Cell Distribution Width 13.6 % (11.5-14.5) Platelet Count 286 x10^3/uL (140-400) Neutrophils (%) (Auto) 78 % (31-73) Lymphocytes (%) (Auto) 14 % (24-48) Monocytes (%) (Auto) 5 % (0-9) Eosinophils (%) (Auto) 3 % (0-3) Basophils (%) (Auto) 1 % (0-3) Neutrophils # (Auto) 8.6 x10^3/uL (1.8-7.7) Lymphocytes # (Auto) 1.5 x10^3/uL (1.0-4.8) Monocytes # (Auto) 0.6 x10^3/uL (0.0-1.1) Eosinophils # (Auto) 0.3 x10^3/uL (0.0-0.7) Basophils # (Auto) 0.1 x10^3/uL (0.0-0.2) Prothrombin Time 13.7 SEC (11.7-14.0) Prothromb Time International Ratio 1.1 (0.8-1.1) Sodium Level 141 mmol/L (136-145) Potassium Level 4.0 mmol/L (3.5-5.1) Chloride Level 107 mmol/L (98-107) Carbon Dioxide Level 25 mmol/L (21-32) Anion Gap 9 (6-14) Blood Urea Nitrogen 20 mg/dL (8-26) Creatinine 1.0 mg/dL (0.7-1.3) Estimated GFR (Cockcroft-Gault) 74.3 BUN/Creatinine Ratio 20 (6-20) Glucose Level 122 mg/dL (70-99) Calcium Level 9.0 mg/dL (8.5-10.1) Total Bilirubin 0.7 mg/dL (0.2-1.0) Aspartate Amino Transf (AST/SGOT) 42 U/L (15-37) Alanine Aminotransferase (ALT/SGPT) 65 U/L (16-63) Alkaline Phosphatase 63 U/L (46-116) Total Protein 7.4 g/dL (6.4-8.2) Albumin 3.2 g/dL (3.4-5.0) Albumin/Globulin Ratio 0.8 (1.0-1.7) Glucose (Fingerstick) 130 mg/dL (70-99) Comment Review of Relevant I have reviewed the following items bashir (where applicable) has been applied. Justifications for Admission TIA Indications Persistent neurologic signs?: Yes Justification for admission: There is persistence of patient's focal neurologic signs or symptoms or there is concern for recurrence of patient's neurological signs and symptoms. Other Justification NICOLASA VILLAR MD Jul 06, 2020 12:06
--- NOTE | 2020-07-06 13:20 | PDOC ---
PROGRESS NOTES Date of Service DATE: 07/06/20 TIME: 13:19 Assessment Multiple brain masses, consider primary brain neoplasm including glioma, central nervous system lymphoma Dizziness, bilateral hearing loss hearing loss, no other evidence of intracranial problem, this may be peripheral vestibular problems Removal of cerumen last week Memory loss Diabetes, hypertension Plan Oncology and neurosurgery consults appreciated Brain biopsy scheduled for 07/07 Holding off on Decadron given debility of clinical status and to increase diagnostic yield for lymphoma No need for prophylactic anticonvulsants Subjective No complaints Objective Vital Signs Date Time Temp Pulse Resp B/P (MAP) Pulse Ox O2 Delivery O2 Flow Rate FiO2 07/06/20 11:00 98.5 60 18 132/73 (92) 98 Room Air 98.5 Intake and Output 07/06/20 07:00 Intake Total 100 ml Balance 100 ml Intake Oral 100 ml # Voids 4 PHYSICAL EXAM Alert. Oriented to time, place and person. Has trouble with reading PERRL. EOMI. CN: Bilateral hearing loss, some dysarthria, otherwise no focal findings. Muscle tone: normal. Muscle strength: 5/5 DTR: 2+ Plantar reflex: Flexor Gait: not examined in bed. Sensory exam: no abnormal findings. No cerebellar signs elicited. Review of Relevant I have reviewed the following items bashir (where applicable) has been applied. Labs Laboratory Tests Test 07/04/20 14:30 07/04/20 17:00 07/04/20 20:44 07/05/20 09:09 Uric Acid 7.4 mg/dL (3.5-7.2) Lactate Dehydrogenase 228 U/L (85-227) Vitamin B12 Level 485 pg/mL (247-911) Immunoglobulin [place]/Lambda Ratio 1.60 (0.26-1.65) Free [place] Light Chains 35.5 mg/L (3.3-19.4) Free Lambda Light Chains 22.2 mg/L (5.7-26.3) HIV (1&2) Antibody Screen Nonreactive (Nonreactive) Glucose (Fingerstick) 97 mg/dL (70-99) 125 mg/dL (70-99) 124 mg/dL (70-99) Test 07/05/20 11:38 07/05/20 16:49 07/05/20 21:23 07/06/20 01:05 Glucose (Fingerstick) 149 mg/dL (70-99) 124 mg/dL (70-99) 111 mg/dL (70-99) SARS-CoV-2 Antigen (Rapid) Negative (NEGATIVE) Test 07/06/20 07:21 07/06/20 09:10 07/06/20 10:42 Glucose (Fingerstick) 115 mg/dL (70-99) 130 mg/dL (70-99) White Blood Count 11.1 x10^3/uL (4.0-11.0) Red Blood Count 4.54 x10^6/uL (4.30-5.70) Hemoglobin 15.0 g/dL (13.0-17.5) Hematocrit 42.9 % (39.0-53.0) Mean Corpuscular Volume 94 fL (79-100) Mean Corpuscular Hemoglobin 33 pg (25-35) Mean Corpuscular Hemoglobin Concent 35 g/dL (31-37) Red Cell Distribution Width 13.6 % (11.5-14.5) Platelet Count 286 x10^3/uL (140-400) Neutrophils (%) (Auto) 78 % (31-73) Lymphocytes (%) (Auto) 14 % (24-48) Monocytes (%) (Auto) 5 % (0-9) Eosinophils (%) (Auto) 3 % (0-3) Basophils (%) (Auto) 1 % (0-3) Neutrophils # (Auto) 8.6 x10^3/uL (1.8-7.7) Lymphocytes # (Auto) 1.5 x10^3/uL (1.0-4.8) Monocytes # (Auto) 0.6 x10^3/uL (0.0-1.1) Eosinophils # (Auto) 0.3 x10^3/uL (0.0-0.7) Basophils # (Auto) 0.1 x10^3/uL (0.0-0.2) Prothrombin Time 13.7 SEC (11.7-14.0) Prothromb Time International Ratio 1.1 (0.8-1.1) Sodium Level 141 mmol/L (136-145) Potassium Level 4.0 mmol/L (3.5-5.1) Chloride Level 107 mmol/L (98-107) Carbon Dioxide Level 25 mmol/L (21-32) Anion Gap 9 (6-14) Blood Urea Nitrogen 20 mg/dL (8-26) Creatinine 1.0 mg/dL (0.7-1.3) Estimated GFR (Cockcroft-Gault) 74.3 BUN/Creatinine Ratio 20 (6-20) Glucose Level 122 mg/dL (70-99) Calcium Level 9.0 mg/dL (8.5-10.1) Total Bilirubin 0.7 mg/dL (0.2-1.0) Aspartate Amino Transf (AST/SGOT) 42 U/L (15-37) Alanine Aminotransferase (ALT/SGPT) 65 U/L (16-63) Alkaline Phosphatase 63 U/L (46-116) Total Protein 7.4 g/dL (6.4-8.2) Albumin 3.2 g/dL (3.4-5.0) Albumin/Globulin Ratio 0.8 (1.0-1.7) Laboratory Tests Test 07/05/20 16:49 07/05/20 21:23 07/06/20 01:05 07/06/20 07:21 Glucose (Fingerstick) 124 mg/dL (70-99) 111 mg/dL (70-99) 115 mg/dL (70-99) SARS-CoV-2 Antigen (Rapid) Negative (NEGATIVE) Test 07/06/20 09:10 07/06/20 10:42 White Blood Count 11.1 x10^3/uL (4.0-11.0) Red Blood Count 4.54 x10^6/uL (4.30-5.70) Hemoglobin 15.0 g/dL (13.0-17.5) Hematocrit 42.9 % (39.0-53.0) Mean Corpuscular Volume 94 fL (79-100) Mean Corpuscular Hemoglobin 33 pg (25-35) Mean Corpuscular Hemoglobin Concent 35 g/dL (31-37) Red Cell Distribution Width 13.6 % (11.5-14.5) Platelet Count 286 x10^3/uL (140-400) Neutrophils (%) (Auto) 78 % (31-73) Lymphocytes (%) (Auto) 14 % (24-48) Monocytes (%) (Auto) 5 % (0-9) Eosinophils (%) (Auto) 3 % (0-3) Basophils (%) (Auto) 1 % (0-3) Neutrophils # (Auto) 8.6 x10^3/uL (1.8-7.7) Lymphocytes # (Auto) 1.5 x10^3/uL (1.0-4.8) Monocytes # (Auto) 0.6 x10^3/uL (0.0-1.1) Eosinophils # (Auto) 0.3 x10^3/uL (0.0-0.7) Basophils # (Auto) 0.1 x10^3/uL (0.0-0.2) Prothrombin Time 13.7 SEC (11.7-14.0) Prothromb Time International Ratio 1.1 (0.8-1.1) Sodium Level 141 mmol/L (136-145) Potassium Level 4.0 mmol/L (3.5-5.1) Chloride Level 107 mmol/L (98-107) Carbon Dioxide Level 25 mmol/L (21-32) Anion Gap 9 (6-14) Blood Urea Nitrogen 20 mg/dL (8-26) Creatinine 1.0 mg/dL (0.7-1.3) Estimated GFR (Cockcroft-Gault) 74.3 BUN/Creatinine Ratio 20 (6-20) Glucose Level 122 mg/dL (70-99) Calcium Level 9.0 mg/dL (8.5-10.1) Total Bilirubin 0.7 mg/dL (0.2-1.0) Aspartate Amino Transf (AST/SGOT) 42 U/L (15-37) Alanine Aminotransferase (ALT/SGPT) 65 U/L (16-63) Alkaline Phosphatase 63 U/L (46-116) Total Protein 7.4 g/dL (6.4-8.2) Albumin 3.2 g/dL (3.4-5.0) Albumin/Globulin Ratio 0.8 (1.0-1.7) Glucose (Fingerstick) 130 mg/dL (70-99) Medications Current Medications Ringer's Solution 1,000 ml @ 100 mls/hr Q10H IV Last administered on 06/30/20at 23:44; Start 06/30/20 at 22:30; Stop 07/01/20 at 08:29; Status DC Ondansetron HCl (Zofran) 4 mg PRN Q6HRS PRN IVP NAUSEA/VOMITING; Start 06/30/20 at 22:30 Calcium Carbonate/ Glycine (Tums) 500 mg PRN Q3HRS PRN PO UPSET STOMACH; Start 06/30/20 at 22:15 Acetaminophen (Tylenol) 650 mg PRN Q6HRS PRN PO Headaches, Temp > 101.5F; Start 06/30/20 at 22:15 Senna/Docusate Sodium (Senna Plus) 1 tab BID PO Last administered on 07/06/20at 08:45; Start 06/30/20 at 22:30 Bisacodyl (Dulcolax Supp) 10 mg PRN DAILY PRN [place] CONSTIPATION; Start 06/30/20 at 22:15 Atorvastatin Calcium (Lipitor) 80 mg QHS PO Last administered on 07/05/20at 22:16; Start 06/30/20 at 22:30 Famotidine (Pepcid) 20 mg BID PO Last administered on 07/06/20at 08:45; Start 06/30/20 at 22:30 Aspirin (Ecotrin) 325 mg DAILYWBKFT PO Last administered on 07/06/20at 08:45; Start 07/01/20 at 08:00 Aspirin (Aspirin Rectal Supp) 300 mg PRN DAILY PRN [place] IF UNABLE TO TAKE PO; Start 06/30/20 at 22:15 Metoprolol Tartrate (Lopressor) 25 mg BID PO Last administered on 07/06/20at 08:45; Start 06/30/20 at 22:30 Hydralazine HCl (Apresoline Inj) 10 mg PRN Q4HRS PRN IVP ELEVATED BP, SEE COMMENTS; Start 06/30/20 at 22:15 Insulin Human Lispro (HumaLOG) 0-7 UNITS TIDWMEALHC SQ ; Start 07/01/20 at 08:00 Dextrose (Dextrose 50%-Water Syringe) 12.5 gm PRN Q15MIN PRN IV SEE COMMENTS; Start 06/30/20 at 22:45 Gadoterate Meglumine (Clariscan) 10 ml 1X ONCE IVP ; Start 07/03/20 at 11:45; Stop 07/03/20 at 11:46; Status DC Gadoterate Meglumine (Clariscan) 8 ml 1X ONCE IVP ; Start 07/03/20 at 11:45; Stop 07/03/20 at 11:46; Status DC Gadoterate Meglumine (Clariscan) 10 ml 1X ONCE IVP Last administered on 07/03/20at 11:56; Start 07/03/20 at 11:45; Stop 07/03/20 at 11:48; Status DC Gadoterate Meglumine (Clariscan) 8 ml 1X ONCE IVP Last administered on 07/03/20at 11:56; Start 07/03/20 at 11:45; Stop 07/03/20 at 11:48; Status DC Iohexol (Omnipaque 300 Mg/ml) 75 ml 1X ONCE IV Last administered on 07/03/20at 15:51; Start 07/03/20 at 15:45; Stop 07/03/20 at 15:46; Status DC Iohexol (Omnipaque 240 Mg/ml) 50 ml 1X ONCE PO Last administered on 07/03/20at 15:51; Start 07/03/20 at 15:45; Stop 07/03/20 at 15:46; Status DC Info (CONTRAST GIVEN -- Rx MONITORING) 1 each PRN DAILY PRN MC SEE COMMENTS; Start 07/03/20 at 15:45; Stop 07/05/20 at 15:44; Status DC Bacitracin 01615 unit/Sodium Chloride 1,000 ml @ 1,000 mls/hr 1X ONCE IRR ; Start 07/07/20 at 06:00; Stop 07/07/20 at 06:59 Cefazolin Sodium/ Dextrose 50 ml @ 100 mls/hr 1X PREOP PRN IV PRIOR TO PROCEDURE; Start 07/07/20 at 06:00; Stop 07/07/20 at 18:00 Active Scripts Active Reported Aspirin 81 Mg Tab.chew 81 Mg PO DAILY Metformin Hcl 500 Mg Tablet 500 Mg PO BIDWMEALS Atenolol 50 Mg Tablet 50 Mg PO DAILY Vitals/I & O Vital Sign - Last 24 Hours 07/05/20 07/05/20 07/05/20 07/05/20 15:00 19:00 20:00 22:15 Temp 98.0 97.9 98.0 97.9 Pulse 74 77 77 Resp 18 18 B/P (MAP) 111/77 (88) 118/73 (88) 118/73 Pulse Ox 98 97 O2 Delivery Room Air Room Air Room Air 07/05/20 07/06/20 07/06/20 07/06/20 23:00 03:00 07:00 07:55 Temp 97.9 98.2 97.8 97.9 98.2 97.8 Pulse 69 71 64 Resp 20 20 18 B/P (MAP) 127/79 (95) 122/72 (89) 150/71 (97) Pulse Ox 97 98 96 O2 Delivery Room Air Room Air Room Air Room Air 07/06/20 07/06/20 08:45 11:00 Temp 98.5 98.5 Pulse 64 60 Resp 18 B/P (MAP) 150/71 132/73 (92) Pulse Ox 98 O2 Delivery Room Air Intake and Output 07/05/20 07/05/20 07/06/20 15:00 23:00 07:00 Intake Total 100 ml Balance 100 ml Justicifation of Admission Dx: Justifications for Admission: Justification of Admission Dx: Comment: (Higher level of care requested by [facility] for neurology evaluation) MAURY SIMMS MD Jul 06, 2020 13:20
[2020-07-06 14:17] LABS: ALBUM 3.5 g/dL (2.9-4.4); ALPHA 1 0.2 g/dL (0.0-0.4); ALPHA 2 0.7 g/dL (0.4-1.0); GAMMA 1.3 g/dL (0.4-1.8); PROTEIN TOTAL 6.7 g/dL (6.0-8.5); SPEP AG RATIO 1.1 (0.7-1.7)
[2020-07-06 15:00] VITALS: BP 129/82
[2020-07-06 19:00] VITALS: BP 134/77
[2020-07-06] MEDS: ATORVASTATIN CALCIUM 40 MG TABLET. PO SCH (21:00)
[2020-07-06 23:00] VITALS: BP 131/72
[2020-07-07] VITALS (13 sets, daily range): BP systolic 98–172; BP diastolic 48–97
[2020-07-07] MEDS ORDERED: BACITRACIN 50,000 UNIT in IV NORMAL SALINE 1000ML BAG 1,000 ML IRR ONE (06:00)
[2020-07-07] MEDS ORDERED: IV RINGERS,LACTATED 1000ML 1,000 ML IV SCH (07:00)
[2020-07-07] MEDS ORDERED: LIDOCAINE 1% PF 2 ML VIAL. ID PRN (07:00)
[2020-07-07] MEDS ORDERED: ONDANSETRON PF 4 MG/2 ML VIAL. IV PRN (07:00)
[2020-07-07] MEDS ORDERED: HYDROmorphone 2 MG/ML VIAL IV PRN (07:00)
[2020-07-07] MEDS ORDERED: fentaNYL PF VIAL 100 MCG/2 ML VIAL IV PRN ×2 (07:00)
[2020-07-07] MEDS ORDERED: MORPHINE SULFATE 2 MG/ML VIAL. IV PRN (07:00)
[2020-07-07] MEDS ORDERED: PROCHLORPERAZINE 10 MG/2 ML VIAL. IV PRN (07:00)
[2020-07-07] MEDS ORDERED: LIDOCAINE 2%/EPI 1:100,000 20 ML VIAL. ONE (07:37)
[2020-07-07] MEDS ORDERED: POVIDONE-IODINE 10% TOPICAL OINTMENT 28GM TUBE. TP ONE (07:37)
[2020-07-07] MEDS ORDERED: GELATIN SPONGE SIZE 100. ONE (07:37)
[2020-07-07] MEDS ORDERED: THROMBIN TOPICAL 20,000 UNIT SPRAY.SYRN KIT TP ONE (07:37)
[2020-07-07] MEDS ORDERED: SURGICEL HEMOSTAT 4X8 EACH. ONE (07:37)
[2020-07-07] MEDS: ASPIRIN ENTERIC COATED 325 MG TABLET.DR. PO SCH (08:00)
[2020-07-07] MEDS: INSULIN LISPRO 300 UNITS/3 ML VIAL. SQ SCH ×4 (08:00→21:00)
[2020-07-07] MEDS ORDERED: GADOTERATE 5 MMOL/10ML VIAL. IVP ONE ×2 (08:30)
--- NOTE | 2020-07-07 08:47 | PDOC ---
PROGRESS NOTES Date of Service DATE: 07/07/20 TIME: 08:45 Assessment Multiple brain masses, consider primary brain neoplasm including glioma, central nervous system lymphoma Dizziness, bilateral hearing loss hearing loss, no other evidence of intracranial problem, this may be peripheral vestibular problems Removal of cerumen last week Memory loss Diabetes, hypertension Plan Oncology and neurosurgery consults appreciated Brain biopsy scheduled for 07/07 Start Decadron tomorrow No need for prophylactic anticonvulsants Discussed with family Subjective Denies pain Objective Vital Signs Date Time Temp Pulse Resp B/P (MAP) Pulse Ox O2 Delivery O2 Flow Rate FiO2 07/07/20 07:00 97.8 66 18 154/83 (106) 100 Room Air 97.8 Intake and Output 07/07/20 07:00 Intake Total 290 ml Balance 290 ml Intake Oral 290 ml # Voids 3 PHYSICAL EXAM Alert. Oriented to person. Has trouble with reading. Tearful PERRL. EOMI. CN: Bilateral severe hearing loss, some dysarthria, otherwise no focal findings. Muscle tone: normal. Muscle strength: 5/5 DTR: 2+ Plantar reflex: Flexor Gait: not examined in bed. Sensory exam: no abnormal findings. No cerebellar signs elicited. Review of Relevant I have reviewed the following items bashir (where applicable) has been applied. Labs Laboratory Tests Test 07/05/20 09:09 07/05/20 11:38 07/05/20 16:49 07/05/20 21:23 Glucose (Fingerstick) 124 mg/dL (70-99) 149 mg/dL (70-99) 124 mg/dL (70-99) 111 mg/dL (70-99) Test 07/06/20 01:05 07/06/20 07:21 07/06/20 09:10 07/06/20 10:42 SARS-CoV-2 Antigen (Rapid) Negative (NEGATIVE) Glucose (Fingerstick) 115 mg/dL (70-99) 130 mg/dL (70-99) White Blood Count 11.1 x10^3/uL (4.0-11.0) Red Blood Count 4.54 x10^6/uL (4.30-5.70) Hemoglobin 15.0 g/dL (13.0-17.5) Hematocrit 42.9 % (39.0-53.0) Mean Corpuscular Volume 94 fL (79-100) Mean Corpuscular Hemoglobin 33 pg (25-35) Mean Corpuscular Hemoglobin Concent 35 g/dL (31-37) Red Cell Distribution Width 13.6 % (11.5-14.5) Platelet Count 286 x10^3/uL (140-400) Neutrophils (%) (Auto) 78 % (31-73) Lymphocytes (%) (Auto) 14 % (24-48) Monocytes (%) (Auto) 5 % (0-9) Eosinophils (%) (Auto) 3 % (0-3) Basophils (%) (Auto) 1 % (0-3) Neutrophils # (Auto) 8.6 x10^3/uL (1.8-7.7) Lymphocytes # (Auto) 1.5 x10^3/uL (1.0-4.8) Monocytes # (Auto) 0.6 x10^3/uL (0.0-1.1) Eosinophils # (Auto) 0.3 x10^3/uL (0.0-0.7) Basophils # (Auto) 0.1 x10^3/uL (0.0-0.2) Prothrombin Time 13.7 SEC (11.7-14.0) Prothromb Time International Ratio 1.1 (0.8-1.1) Sodium Level 141 mmol/L (136-145) Potassium Level 4.0 mmol/L (3.5-5.1) Chloride Level 107 mmol/L (98-107) Carbon Dioxide Level 25 mmol/L (21-32) Anion Gap 9 (6-14) Blood Urea Nitrogen 20 mg/dL (8-26) Creatinine 1.0 mg/dL (0.7-1.3) Estimated GFR (Cockcroft-Gault) 74.3 BUN/Creatinine Ratio 20 (6-20) Glucose Level 122 mg/dL (70-99) Calcium Level 9.0 mg/dL (8.5-10.1) Total Bilirubin 0.7 mg/dL (0.2-1.0) Aspartate Amino Transf (AST/SGOT) 42 U/L (15-37) Alanine Aminotransferase (ALT/SGPT) 65 U/L (16-63) Alkaline Phosphatase 63 U/L (46-116) Total Protein 7.4 g/dL (6.4-8.2) Albumin 3.2 g/dL (3.4-5.0) Albumin/Globulin Ratio 0.8 (1.0-1.7) Test 07/06/20 17:03 07/06/20 21:46 07/07/20 07:29 Glucose (Fingerstick) 120 mg/dL (70-99) 144 mg/dL (70-99) 123 mg/dL (70-99) Laboratory Tests Test 07/06/20 09:10 07/06/20 10:42 07/06/20 17:03 07/06/20 21:46 White Blood Count 11.1 x10^3/uL (4.0-11.0) Red Blood Count 4.54 x10^6/uL (4.30-5.70) Hemoglobin 15.0 g/dL (13.0-17.5) Hematocrit 42.9 % (39.0-53.0) Mean Corpuscular Volume 94 fL (79-100) Mean Corpuscular Hemoglobin 33 pg (25-35) Mean Corpuscular Hemoglobin Concent 35 g/dL (31-37) Red Cell Distribution Width 13.6 % (11.5-14.5) Platelet Count 286 x10^3/uL (140-400) Neutrophils (%) (Auto) 78 % (31-73) Lymphocytes (%) (Auto) 14 % (24-48) Monocytes (%) (Auto) 5 % (0-9) Eosinophils (%) (Auto) 3 % (0-3) Basophils (%) (Auto) 1 % (0-3) Neutrophils # (Auto) 8.6 x10^3/uL (1.8-7.7) Lymphocytes # (Auto) 1.5 x10^3/uL (1.0-4.8) Monocytes # (Auto) 0.6 x10^3/uL (0.0-1.1) Eosinophils # (Auto) 0.3 x10^3/uL (0.0-0.7) Basophils # (Auto) 0.1 x10^3/uL (0.0-0.2) Prothrombin Time 13.7 SEC (11.7-14.0) Prothromb Time International Ratio 1.1 (0.8-1.1) Sodium Level 141 mmol/L (136-145) Potassium Level 4.0 mmol/L (3.5-5.1) Chloride Level 107 mmol/L (98-107) Carbon Dioxide Level 25 mmol/L (21-32) Anion Gap 9 (6-14) Blood Urea Nitrogen 20 mg/dL (8-26) Creatinine 1.0 mg/dL (0.7-1.3) Estimated GFR (Cockcroft-Gault) 74.3 BUN/Creatinine Ratio 20 (6-20) Glucose Level 122 mg/dL (70-99) Calcium Level 9.0 mg/dL (8.5-10.1) Total Bilirubin 0.7 mg/dL (0.2-1.0) Aspartate Amino Transf (AST/SGOT) 42 U/L (15-37) Alanine Aminotransferase (ALT/SGPT) 65 U/L (16-63) Alkaline Phosphatase 63 U/L (46-116) Total Protein 7.4 g/dL (6.4-8.2) Albumin 3.2 g/dL (3.4-5.0) Albumin/Globulin Ratio 0.8 (1.0-1.7) Glucose (Fingerstick) 130 mg/dL (70-99) 120 mg/dL (70-99) 144 mg/dL (70-99) Test 07/07/20 07:29 Glucose (Fingerstick) 123 mg/dL (70-99) Medications Current Medications Ringer's Solution 1,000 ml @ 100 mls/hr Q10H IV Last administered on 06/30/20at 23:44; Start 06/30/20 at 22:30; Stop 07/01/20 at 08:29; Status DC Ondansetron HCl (Zofran) 4 mg PRN Q6HRS PRN IVP NAUSEA/VOMITING; Start 06/30/20 at 22:30 Calcium Carbonate/ Glycine (Tums) 500 mg PRN Q3HRS PRN PO UPSET STOMACH; Start 06/30/20 at 22:15 Acetaminophen (Tylenol) 650 mg PRN Q6HRS PRN PO Headaches, Temp > 101.5F; Start 06/30/20 at 22:15 Senna/Docusate Sodium (Senna Plus) 1 tab BID PO Last administered on 07/06/20at 08:45; Start 06/30/20 at 22:30 Bisacodyl (Dulcolax Supp) 10 mg PRN DAILY PRN CO CONSTIPATION; Start 06/30/20 at 22:15 Atorvastatin Calcium (Lipitor) 80 mg QHS PO Last administered on 07/05/20at 22:16; Start 06/30/20 at 22:30 Famotidine (Pepcid) 20 mg BID PO Last administered on 07/06/20at 08:45; Start 06/30/20 at 22:30 Aspirin (Ecotrin) 325 mg DAILYWBKFT PO Last administered on 07/06/20at 08:45; Start 07/01/20 at 08:00 Aspirin (Aspirin Rectal Supp) 300 mg PRN DAILY PRN CO IF UNABLE TO TAKE PO; Start 06/30/20 at 22:15 Metoprolol Tartrate (Lopressor) 25 mg BID PO Last administered on 07/06/20at 21: 42; Start 06/30/20 at 22:30 Hydralazine HCl (Apresoline Inj) 10 mg PRN Q4HRS PRN IVP ELEVATED BP, SEE COMMENTS; Start 06/30/20 at 22:15 Insulin Human Lispro (HumaLOG) 0-7 UNITS TIDWMEALHC SQ ; Start 07/01/20 at 08:00 Dextrose (Dextrose 50%-Water Syringe) 12.5 gm PRN Q15MIN PRN IV SEE COMMENTS; Start 06/30/20 at 22:45 Gadoterate Meglumine (Clariscan) 10 ml 1X ONCE IVP ; Start 07/03/20 at 11:45; Stop 07/03/20 at 11:46; Status DC Gadoterate Meglumine (Clariscan) 8 ml 1X ONCE IVP ; Start 07/03/20 at 11:45; Stop 07/03/20 at 11:46; Status DC Gadoterate Meglumine (Clariscan) 10 ml 1X ONCE IVP Last administered on 07/03/20at 11:56; Start 07/03/20 at 11:45; Stop 07/03/20 at 11:48; Status DC Gadoterate Meglumine (Clariscan) 8 ml 1X ONCE IVP Last administered on 07/03/20at 11:56; Start 07/03/20 at 11:45; Stop 07/03/20 at 11:48; Status DC Iohexol (Omnipaque 300 Mg/ml) 75 ml 1X ONCE IV Last administered on 07/03/20at 15:51; Start 07/03/20 at 15:45; Stop 07/03/20 at 15:46; Status DC Iohexol (Omnipaque 240 Mg/ml) 50 ml 1X ONCE PO Last administered on 07/03/20at 15:51; Start 07/03/20 at 15:45; Stop 07/03/20 at 15:46; Status DC Info (CONTRAST GIVEN -- Rx MONITORING) 1 each PRN DAILY PRN MC SEE COMMENTS; Start 07/03/20 at 15:45; Stop 07/05/20 at 15:44; Status DC Bacitracin 91497 unit/Sodium Chloride 1,000 ml @ 1,000 mls/hr 1X ONCE IRR ; Start 07/07/20 at 06:00; Stop 07/07/20 at 06:59; Status DC Cefazolin Sodium/ Dextrose 50 ml @ 100 mls/hr 1X PREOP PRN IV PRIOR TO PROCEDURE; Start 07/07/20 at 06:00; Stop 07/07/20 at 18:00 Ondansetron HCl (Zofran) 4 mg PRN Q6HRS PRN IV NAUSEA/VOMITING; Start 07/07/20 at 07:00; Stop 07/07/20 at 19:00 Fentanyl Citrate (Fentanyl 2ml Vial) 25 mcg PRN Q5MIN PRN IV MILD PAIN 1-3; Start 07/07/20 at 07:00; Stop 07/07/20 at 19:00 Fentanyl Citrate (Fentanyl 2ml Vial) 50 mcg PRN Q5MIN PRN IV MODERATE TO SEVERE PAIN; Start 07/07/20 at 07:00; Stop 07/07/20 at 19:00 Morphine Sulfate (Morphine Sulfate) 1 mg PRN Q10MIN PRN IV SEVERE PAIN 7-10; Start 07/07/20 at 07:00; Stop 07/07/20 at 19:00 Ringer's Solution 1,000 ml @ 30 mls/hr Q24H IV ; Start 07/07/20 at 07:00; Stop 07/07/20 at 18:59 Lidocaine HCl (Xylocaine-Mpf 1% 2ml Vial) 2 ml PRN 1X PRN ID PRIOR TO IV START; Start 07/07/20 at 07:00; Stop 07/07/20 at 19:00 Hydromorphone HCl (Dilaudid) 0.5 mg PRN Q10MIN PRN IV SEV PAIN, Second choice; Start 07/07/20 at 07:00; Stop 07/07/20 at 19:00 Prochlorperazine Edisylate (Compazine) 5 mg PACU PRN PRN IV NAUSEA, MRX1; Start 07/07/20 at 07:00; Stop 07/07/20 at 19:00 Gelatin (Gelfoam Size 100) 1 each STK-MED ONCE .ROUTE ; Start 07/07/20 at 07:37; Stop 07/07/20 at 07:37; Status DC Povidone Iodine (Betadine Oint) 28 nazario STK-MED ONCE TP ; Start 07/07/20 at 07:37; Stop 07/07/20 at 07:37; Status DC Lidocaine/ Epinephrine (LIDOCAINE 2%-EPI 1:100,000 multi-dose) 20 ml STK-MED ONCE .ROUTE ; Start 07/07/20 at 07:37; Stop 07/07/20 at 07:37; Status DC Cellulose (Surgicel Hemostat 4x8) 1 each STK-MED ONCE .ROUTE ; Start 07/07/20 at 07:37; Stop 07/07/20 at 07:37; Status DC Thrombin 20,000 unit STK-MED ONCE TP ; Start 07/07/20 at 07:37; Stop 07/07/20 at 07:37; Status DC Gadoterate Meglumine (Clariscan) 10 ml 1X ONCE IVP ; Start 07/07/20 at 08:30; Stop 07/07/20 at 08:31; Status DC Gadoterate Meglumine (Clariscan) 8 ml 1X ONCE IVP ; Start 07/07/20 at 08:30; Stop 07/07/20 at 08:31; Status DC Active Scripts Active Reported Aspirin 81 Mg Tab.chew 81 Mg PO DAILY Metformin Hcl 500 Mg Tablet 500 Mg PO BIDWMEALS Atenolol 50 Mg Tablet 50 Mg PO DAILY Vitals/I & O Vital Sign - Last 24 Hours 07/06/20 07/06/20 07/06/20 07/06/20 11:00 15:00 19:00 20:00 Temp 98.5 98.9 98.7 98.5 98.9 98.7 Pulse 60 74 87 Resp 18 18 18 B/P (MAP) 132/73 (92) 129/82 (98) 134/77 (96) Pulse Ox 98 95 95 O2 Delivery Room Air Room Air Room Air Room Air 07/06/20 07/06/20 07/07/20 07/07/20 21:42 23:00 03:00 07:00 Temp 98.7 98.6 97.8 98.7 98.6 97.8 Pulse 87 67 80 66 Resp 18 18 18 B/P (MAP) 134/77 131/72 (91) 137/65 (89) 154/83 (106) Pulse Ox 95 94 100 O2 Delivery Room Air Room Air Room Air Intake and Output 07/06/20 07/06/20 07/07/20 15:00 23:00 07:00 Intake Total 290 ml Balance 290 ml Justicifation of Admission Dx: Justifications for Admission: Justification of Admission Dx: Comment: (Higher level of care requested by [place] for neurology evaluation) MAURY SIMMS MD Jul 07, 2020 08:47
[2020-07-07] MEDS ORDERED: ROCURONIUM 50 MG/5 ML VIAL. ONE (08:57)
[2020-07-07] MEDS ORDERED: REMIFENTANIL 2 MG VIAL. IV ONE (08:57)
[2020-07-07] MEDS ORDERED: DEXAMETHASONE SOD PHOS 20 MG/5 ML VIAL. ONE (09:00)
[2020-07-07] MEDS ORDERED: LIDOCAINE 2% PF 5 ML VIAL. ONE ×2 (09:00→13:06)
[2020-07-07] MEDS ORDERED: PROPOFOL 10 MG/ML (20ML) VIAL. IV ONE (09:00)
[2020-07-07] MEDS: FAMOTIDINE 20 MG TABLET. PO SCH ×2 (09:00→20:15)
[2020-07-07] MEDS ORDERED: ONDANSETRON PF 4 MG/2 ML VIAL. ONE (09:00)
[2020-07-07] MEDS: METOPROLOL TART IMMED RELEASE 25 MG TABLET. PO SCH ×2 (09:00→20:15)
[2020-07-07] MEDS: SENNOSIDES/DOCUSATE 8.6/50MG TABLET. PO SCH ×2 (09:00→20:15)
[2020-07-07] MEDS ORDERED: PHENYLEPHRINE 10 MG/ML VIAL. ONE (09:01)
[2020-07-07] MEDS ORDERED: DESFLURANE > 120 MINUTES IH ONE (09:04)
[2020-07-07] MEDS ORDERED: MANNITOL 25% 12.5 G/50 ML VIAL. ONE (09:17)
[2020-07-07] MEDS ORDERED: EPINEPHrine 1 MG/ML VIAL INJ ONE (10:00)
[2020-07-07] MEDS ORDERED: LIDOCAINE 1% PF 30 ML VIAL. INJ ONE (10:00)
--- NOTE | 2020-07-07 11:57 | RAD ---
MRI BRAIN LAB W CONTRAST 07/07/2020 8:40 AM INDICATION: Brain lesion, preoperative COMPARISON: None available. TECHNIQUE: Axial T1 post contrast MR imaging was performed without administration of gadolinium-base d contrast. FINDINGS: Stable rim enhancing mass in the left frontal operculum measuring 2.3 x 1.5 cm (series 4, image 125). There is a left parietotemporal lesion measuring 1.5 x 1.3 cm, stable (series 4, image 116). Medial left occipital lesion is stable measuring 2.3 x 2.0 cm. Left periatrial enhancing lesion has increase d in size measuring 2.9 x 2.0 cm, previously measuring 1.9 x 1.7 cm. Right posterior frontal lesion m easures 6 mm (series 4, image 132). Lesion involving the right splenium of the corpus callosum has in creased in size measuring 4.2 x 2.3 cm, previously measuring 3.5 x 1.4 cm there is increased mass eff ect on the atria of the right lateral ventricle as well as the occipital horn right lateral ventricle . This finding is contiguous with a medial right occipital lesion which measures approximately 2.2 x 2.2 cm, stable. There is a enhancing lesion involving the left superior cerebellar peduncle measuring 7 mm, stable. IMPRESSION: There is increase in size of left periatrial white matter lesion and right splenial lesion as describ ed in detail above. Otherwise, no enhancing masses are stable with similar degree of vasogenic edema. Electronically signed by: Leeanne Jeffries MD (07/07/2020 11:55 AM) [id number]
[2020-07-07] MEDS ORDERED: REMIFENTANIL 1 MG VIAL. IV ONE (12:01)
[2020-07-07] MEDS ORDERED: GLYCOPYRROLATE 1 MG/5 ML VIAL. ONE (12:02)
[2020-07-07] MEDS ORDERED: NEOSTIGMINE METHYLSULFATE 5 MG/5 ML SYRINGE. ONE (12:03)
[2020-07-07] MEDS ORDERED: fentaNYL PF VIAL 100 MCG/2 ML VIAL ONE (12:45)
[2020-07-07] MEDS ORDERED: niCARdipine INJ. IV ONE (12:47)
[2020-07-07] MEDS ORDERED: PROPOFOL 50 ML IV ONE (13:30)
--- NOTE | 2020-07-07 13:55 | NUR ---
ALYSON following for discharge planning. Pt transferred to ICU. Pt to have brain biopsy today. Discharge plan remains to [facility] acute rehab. Pt will likely be here through the weekend. SW following. Addendum: 07/10/20 at 0906 by RHIANNA DYE SW Pt remains in ICU. No further needs from this SW.
--- NOTE | 2020-07-07 14:01 | OP ---
DATE OF SURGERY: 07/07/2020 PREOPERATIVE DIAGNOSES: Multiple intracerebral lesions. POSTOPERATIVE DIAGNOSIS: Demyelinating disease. SURGEON: Riaz Pearce M.D. OPERATION PERFORMED: Right posterior temporal craniotomy with biopsy of intraparenchymal lesion, which was demyelinating disease by frozen section. OPERATIVE INDICATIONS: The patient is a pleasant 70-year-old man who developed problems with confusion, dizziness and hearing loss and was found to have multiple abnormal regions intracerebrally. I reviewed these films with Lorenzo Hawkins, at [facility] and we considered biopsy sites after his chest, abdomen and pelvis CT and workup otherwise was negative. Thus, we felt the safest was the right posterior temporal lesion and we made arrangements for this. I did discuss this with the family who understood and wished for me to go ahead. DESCRIPTION OF PROCEDURE: Following general endotracheal anesthesia, the patient was positioned in Corea pins. The BrainLAB image guidance system was initialized. We were careful and made sure that there was excellent accuracy. An incision was made slight posterior to the right external auditory meatus and I used Tana clips along the skin edge, hemostasis was excellent. I made 2 small bur holes and left a small flap and opened the dura in a cruciate fashion. There was a large vein, which crossed centrally across the exposure. I was careful to avoid this. Posterior to the vein, I then made a small corticotomy and using BrainLAB, I dropped down into the brain with brain ribbons and came to an area of loose or more edematous appearing brain. I did not see a riaz cyst, but there was more of an edematous, slight discoloration to the brain and I obtained several biopsies. We then waited for frozen section and during that time, we obtained a few more biopsies. Hemostasis was excellent. The pathologist felt this was a demyelinating disease. I took the remaining specimens, then I did lay small amounts of Gelfoam over the corticotomy opening and then hemostasis was perfect. I reapproximated and tacked the dura, placed Duragen over this. We placed the bone and secured with microplates and then closed the wound with absorbable suture, skin with skin gautam. The operation went very well. RIAZ PEARCE MD DR: EUGENIE/kathy JOB#: [id number] / [id number] MARVIN
--- NOTE | 2020-07-07 14:39 | PDOC ---
[employer] PROGRESS NOTE Date of Service DOS: DATE: 07/07/20 TIME: 14:38 Chief Complaint Chief Complaint Assessment and plan Multifocal bilateral peripherally enhancing lesions. Primary considerations would be metastatic disease or multicentric glioblastoma multiforme. Status post craniotomy and brain biopsyawait for pathology History of diabetes mellitus type 2 Overweight with a BMI of 29 Hearing impaired History of essential hypertension Plan: Hold Metformin Neurology consultation has been noted and recommendations greatly appreciated Carotid Doppler done with normal findings Fall precaution Further commendations based on the clinical course DVT prophylaxis Lovenox History of Present Illness History of Present Illness History of Present Illness Patient is a 70 year old male with past medical history of diabetes who was in his usual state of health until approximately 5 days prior to his admission when he started complaining of sensation of fogginess in his mind. Patient also complained of headache according to his daughter who is at bedside helping with the history taking. He also had some hearing loss worse than usual over his rig ht ear and patient seeks attention to his doctor and had a cleanout done more or less 2 days prior to his admission and evaluation at [place]. Patient denies any headaches no loss of vision he recently had his prescription change and apparently his finance lecturer told him that they need to do some changes since its "too strong in "of a prescription. Patient denies any vision loss no dysphagia odynophagia no slurred speech no hemiparesis no hemiplegia, no chest pain palpitations or shortness of breath, no neck stiffness noticed no fever or chills no meningismus no abdominal pain nausea vomiting or diarrhea. The patient has had proper oral intake over the last couple days. Orthostatic at outside facility were recorded as folllows blood pressures as follows lying: Heart rate 70, 137/79, sitting: Heart rate 72, 131/80, standing: Heart rate 70, 113/73, Outside facility H&P is as follows: Patient is a 70-year-old male patient presents emergency department complaining that he has felt lightheaded for the past week or so. Patient also states that he feels like he cannot hear very well and describes that it seems his right ear is plugged up and his left ear is only partially plugged up. Patient reports that his hearing loss for the past week as well. Patient's son states that he was with him a few days ago and noticed that the patient had been speaking louder than normal. The patient's son also reports that he has noticed some periods of confusion from the patient over the last day or 2. Patient reports seeing his eye doctor yesterday and stated his eye doctor told him that he needs a different prescription for his eyes stating that his eyes are getting better now and this could have caused some of his dizziness sensations because he is wearing his old glasses. Patient reports taking daily puffs of albuterol, takes Metformin 500 mg twice daily, and takes an unknown dose of lisinopril daily. Patient reports that he seen his primary care provider RADHA Dickerson this past week who took labs but has not gotten back with him yet. Patient denies any other physical complaints or physical symptoms. Patient son is at bedside and provided partial HPI. We were asked to admit the patient for neurological evaluation and higher level of care. He is in hemodynamically stable condition plan of care has been explained detail all of his concerns were addressed to the best of my abilities 07/02: No acute events reported overnight, case discussed with nursing staff robyn ramosnt in no acute distress no complaints during my visit. MRI pending. Discussed with son at bedside. Recommended outpatient audiometry hearing loss seems to be worse on his right ear compared to left 07/03/2020 No acute events overnight. Patient seen and examined bedside. We will hold off steroids at this time after MRI completed showing multiple bilateral peripheral ly enhancing lesions. Patient's chart, labs, images were reviewed and discussed with RN 07/05/2020 No acute events overnight. Patient ambulating to the bathroom on his own. Pending brain biopsy this Friday with neurosurgery. No further recommendations from oncology at this time except needing the tissue from biopsy to further guide management. Patient's chart, labs, images were reviewed and discussed with RN 07/06/2020 No acute events overnight. Patient is tolerating diet and has no complaints voiced at this time. Patient is confused and is hard of hearing. Explained to patient that he was having a biopsy but he was unable to hear clearly what was going on. Patient's chart, labs, images were reviewed and discussed with RN 07/07/2020 No acute events overnight. Continues to have altered mental status. Patient seen status post craniotomy and biopsy in the ICU. Currently sedated and intubated. Patient's chart, labs, images were reviewed and discussed with RN Vitals/I&O Vitals/I&O: Vital Signs Date Time Temp Pulse Resp B/P (MAP) Pulse Ox O2 Delivery O2 Flow Rate FiO2 07/07/20 13:43 97.9 84 24 172/94 100 Simple Mask 6 97.9 I & O 07/06/20 07/06/20 07/07/20 15:00 23:00 07:00 Intake Total 290 ml Balance 290 ml Physical Exam General: Alert, Oriented X3 Heart: Regular rate, Normal S1 Abdomen: Soft, Other (No splenomegaly) Extremities: No edema Skin: No rashes Labs Labs: Laboratory Tests Test 07/06/20 17:03 07/06/20 21:46 07/07/20 07:29 Glucose (Fingerstick) 120 mg/dL (70-99) 144 mg/dL (70-99) 123 mg/dL (70-99) Comment Review of Relevant I have reviewed the following items bashir (where applicable) has been applied. Medications: Current Medications Medications (Trade) Dose Ordered Sig/Desiree Route PRN Reason Start Time Stop Time Status Last Admin Dose Admin Bacitracin 72501 unit/Sodium Chloride 1,000 ml @ 1,000 mls/hr 1X ONCE IRR 07/07/20 06:00 07/07/20 06:59 DC 07/07/20 11:28 Ringer's Solution 1,000 ml @ 30 mls/hr Q24H IV 07/07/20 07:00 07/07/20 18:59 07/07/20 09:45 Gelatin (Gelfoam Size 100) 1 each STK-MED ONCE .ROUTE 07/07/20 07:37 07/07/20 07:37 DC 07/07/20 11:28 Thrombin 20,000 unit STK-MED ONCE TP 07/07/20 07:37 07/07/20 07:37 DC 07/07/20 11:28 Gadoterate Meglumine (Clariscan) 10 ml 1X ONCE IVP 07/07/20 08:30 07/07/20 08:31 DC 07/07/20 08:52 Gadoterate Meglumine (Clariscan) 8 ml 1X ONCE IVP 07/07/20 08:30 07/07/20 08:31 DC 07/07/20 08:52 Lidocaine HCl (Xylocaine 1% Pf 30ml Vial) 30 ml 1X ONCE INJ 07/07/20 10:00 07/07/20 10:01 DC 07/07/20 11:28 Justifications for Admission TIA Indications Persistent neurologic signs?: Yes Justification for admission: There is persistence of patient's focal neurologic signs or symptoms or there is concern for recurrence of patient's neurological signs and symptoms. Other Justification NICOLASA VILLAR MD Jul 07, 2020 14:39
[2020-07-07] MEDS ORDERED: ATROPINE 0.5 MG/5 ML DISP.SYRINGE. IV PRN (14:45)
[2020-07-07] MEDS ORDERED: IV NORMAL SALINE 500ML BAG 500 ML IV PRN (14:45)
[2020-07-07] MEDS ORDERED: IV DEXTROSE 5% - 0.9 % NACL 1,000 ML IV SCH (15:00)
[2020-07-07] MEDS: DEXMEDETOMIDINE 400 MCG in IV NORMAL SALINE 100ML 96 ML IV PRN (15:28)
[2020-07-07] MEDS ORDERED: IV DEXTROSE 5% 1,000 ML IV SCH (16:00)
[2020-07-07] MEDS: IV NORMAL SALINE 1000ML BAG 1,000 ML IV SCH (17:45)
[2020-07-07] MEDS: ATORVASTATIN CALCIUM 40 MG TABLET. PO SCH (20:15)
[2020-07-08] VITALS (24 sets, daily range): BP systolic 96–164; BP diastolic 56–84
[2020-07-08] MEDS: DEXMEDETOMIDINE 400 MCG in IV NORMAL SALINE 100ML 96 ML IV PRN ×3 (00:05→18:14)
[2020-07-08] MEDS: DEXAMETHASONE SOD PHOS 4 MG/ML VIAL IVP SCH ×3 (05:47→18:08)
[2020-07-08] MEDS: INSULIN LISPRO 300 UNITS/3 ML VIAL. SQ SCH ×4 (08:00→20:48)
[2020-07-08] MEDS: ASPIRIN ENTERIC COATED 325 MG TABLET.DR. PO SCH (08:00)
[2020-07-08] MEDS: SENNOSIDES/DOCUSATE 8.6/50MG TABLET. PO SCH ×2 (08:56→20:48)
[2020-07-08] MEDS: FAMOTIDINE 20 MG TABLET. PO SCH ×2 (08:56→20:48)
[2020-07-08] MEDS: METOPROLOL TART IMMED RELEASE 25 MG TABLET. PO SCH ×2 (08:56→20:48)
[2020-07-08] MEDS: IV NORMAL SALINE 1000ML BAG 1,000 ML IV SCH (12:36)
--- NOTE | 2020-07-08 13:17 | PDOC ---
GENERAL General: Patient examined chart reviewed seen daughter at bedside. She tells me that she finds her dad a little bit more interactive today. He was started on dexamethasone earlier today and already they are seen positive effect from that. Today's hospital day 9 for this patient admitted with encephalopathy. Prior to a week ago he was vigorous and completely normal and asymptomatic. He has been found to have multiple brain masses with mass-effect. Frozen section on brain biopsy yesterday demonstrated demyelinating disease. Final pathology is pending we appreciate neurology and neurosurgery support. Daughter is asking about next steps in treatment. I reassured her that we should hopefully have more answers once the final pathology returns and that we should see some improvement in treatment with the steroids. She tells me that he was born in [facility] and emigrated at age 6. He has had a healthy life. His father young in his 40s of colon cancer and his sister also young of Hodgkin's lymphoma. Otherwise his siblings are healthy and his mother of old age recently. Patient was raised in [place] after immigration and then moved to [place] later in life. There were no health events during his life and he has stayed vigorous and healthy until now. All other systems reviewed and negative. Total time today is 30 minutes with greater than 50% in counseling and coordination of care most of which in discussion with daughter. Problems: (1) Brain lesion (2) Acute encephalopathy (3) Demyelinating lesion VITAL SIGNS Vital Signs/I&O: Vital Signs Date Time Temp Pulse Resp B/P (MAP) Pulse Ox O2 Delivery O2 Flow Rate FiO2 07/08/20 09:00 97.3 48 15 128/62 (84) 98 Room Air 97.3 07/07/20 14:25 6 I & O 07/07/20 07/07/20 07/08/20 15:00 23:00 07:00 Intake Total 850 ml 1076.9 ml Output Total 250 ml 250 ml 250 ml Balance 600 ml -250 ml 826.9 ml Patient is sleeping throughout most of the evaluation. He does arouse and slowly follows commands. He is monosyllabic and then falls back to sleep HEENT exam is unremarkable for acute abnormality Neck is soft and supple no adenopathy or thyromegaly noted Chest is clear to auscultation Heart S1-S2 normal regular rate and rhythm no murmurs or gallops are noted Abdomen soft nontender nondistended no masses organomegaly noted Extremity exam is unremarkable for acute abnormality. Strength testing could not be done ALLERGIES Allergies: Allergies Coded Allergies Type Severity Reaction Last Updated Verified No Known Drug Allergies 07/01/18 No MEDS Medications: Current Medications Medications (Trade) Dose Ordered Sig/Desiree Route PRN Reason Start Time Stop Time Status Last Admin Dose Admin Dexamethasone Sodium Phosphate (Decadron) 4 mg Q6H IVP 07/08/20 06:00 07/08/20 12:36 Lorazepam (Ativan Inj) 2 mg PRN Q4HRS PRN IVP ANXIETY / AGITATION 07/07/20 14:15 07/07/20 14:56 Dexmedetomidine HCl 400 mcg/ Sodium Chloride 100 ml @ 0 mls/hr CONT PRN IV PER PROTOCOL 07/07/20 14:45 07/08/20 05:47 Dextrose 1,000 ml @ 50 mls/hr Q20H IV 07/07/20 16:00 07/07/20 17:39 DC 07/07/20 15:11 Sodium Chloride 1,000 ml @ 50 mls/hr Q20H IV 07/07/20 18:00 07/08/20 12:36 ASSESSMENT & PLAN A&P Plan as noted above This note was created using Arthena and may have omissions and/or errors due to the nature of real-time voice curriculum and assessment director. Justifications for Admission TIA Indications Persistent neurologic signs?: Yes Justification for admission: There is persistence of patient's focal neurologic signs or symptoms or there is concern for recurrence of patient's neurological signs and symptoms. Other Justification Nutrition Consultation Dietary Evaluation: Recommendations by RD: Dietary education by RD, Increase Calorie Intake, Protein supplementation Comments: clarified diet to ADA/ Cardiac per PMH and lipid panel added Glucerna supplements to help pt meet his nutrition needs Expected Outcomes/Goals: to meet >75% est nutr needs Malnutrition Findings: Food and Nutrition Intake (Mod: <75% est energy req 7days Malnutrition related to morbid: Yes Weight Status: Overweight GIA LEDBETTER MD Jul 08, 2020 13:17
--- NOTE | 2020-07-08 17:58 | PDOC ---
PROGRESS NOTES Date of Service DATE: 07/08/20 TIME: 17:53 Assessment 1. Multiple brain masses of unclear etiology. She underwent a biopsy. The preliminary frozen section reveals the possibility of demyelinating disease rather than malignancy. 2. Dizziness and hearing loss likely related to the central nervous system process. He had removal of cerumen last week. 3. Memory loss which may be related to the central nervous system process. 4. Diabetes with a glucose fairly well controlled. 5. Hypertension with the blood pressures mildly elevated. 6. He appears encephalopathic which may be the anesthesia as well as the medications being used to control the agitation. We will need to try to mini candice the medicines used for sedation so that he might wake up. He currently is moving both sides but perhaps the left side is not moving quite as well. Plan We will continue with close observation in the intensive care unit. Sedating medicine should be limited. If he still appears to be moving his right side better than his left side on July 09, 2020 and we can arrange for a CT scan of his head to make sure there was no evidence of intracranial hemorrhage. He does not appear to be in pain or complaining of headache. He is currently on intravenous dexamethasone 4 mg every 6 hours. I will continue with the steroid at the present time. If the final pathology report does reveal demyelinating disease we can increase to a higher dose steroid. Subjective Nonverbal Objective Vital Signs Date Time Temp Pulse Resp B/P (MAP) Pulse Ox O2 Delivery O2 Flow Rate FiO2 07/08/20 16:08 07/08/20 16:00 97.3 73 18 97 Room Air 97.3 07/07/20 14:25 6 Intake and Output 07/08/20 07:00 Intake Total 1926.9 ml Output Total 750 ml Balance 1176.9 ml Intake Oral 0 ml IV Total 1926.9 ml Output Urine Total 725 ml Estimated Blood Loss 25 ml PHYSICAL EXAM His daughter was at bedside and quite attentive. Patient had his eyes closed sleeping. Stimulation produced some agitation and movement. He followed some simple command with holding his arms up in the air. When held in the air there did not appear to be arm drift. Plantar stimulation provoked vigorous withdrawal of both legs. When I attempted to open his eyes, eye closure was symmetrically powerful. I was able to hold open the eyes and pupils were 3 mm. Oculocephalic reflex was intact. Nailbed pressure in the upper extremities provoked withdrawal. Tone was not spastic or rigid. Review of Relevant I have reviewed the following items bashir (where applicable) has been applied. Labs Laboratory Tests Test 07/06/20 21:46 07/07/20 07:29 Glucose (Fingerstick) 144 mg/dL (70-99) 123 mg/dL (70-99) Medications Current Medications Ringer's Solution 1,000 ml @ 100 mls/hr Q10H IV Last administered on 06/30/20at 23:44; Start 06/30/20 at 22:30; Stop 07/01/20 at 08:29; Status DC Ondansetron HCl (Zofran) 4 mg PRN Q6HRS PRN IVP NAUSEA/VOMITING; Start 06/30/20 at 22:30 Calcium Carbonate/ Glycine (Tums) 500 mg PRN Q3HRS PRN PO UPSET STOMACH; Start 06/30/20 at 22:15 Acetaminophen (Tylenol) 650 mg PRN Q6HRS PRN PO Headaches, Temp > 101.5F; Start 06/30/20 at 22:15 Senna/Docusate Sodium (Senna Plus) 1 tab BID PO Last administered on 07/06/20at 08:45; Start 06/30/20 at 22:30 Bisacodyl (Dulcolax Supp) 10 mg PRN DAILY PRN CA CONSTIPATION; Start 06/30/20 at 22:15 Atorvastatin Calcium (Lipitor) 80 mg QHS PO Last administered on 07/05/20at 22:16; Start 06/30/20 at 22:30 Famotidine (Pepcid) 20 mg BID PO Last administered on 07/06/20at 08:45; Start 06/30/20 at 22:30 Aspirin (Ecotrin) 325 mg DAILYWBKFT PO Last administered on 07/06/20at 08:45; Start 07/01/20 at 08:00 Aspirin (Aspirin Rectal Supp) 300 mg PRN DAILY PRN CA IF UNABLE TO TAKE PO; Start 06/30/20 at 22:15 Metoprolol Tartrate (Lopressor) 25 mg BID PO Last administered on 07/06/20at 21:42; Start 06/30/20 at 22:30 Hydralazine HCl (Apresoline Inj) 10 mg PRN Q4HRS PRN IVP ELEVATED BP, SEE COMMENTS; Start 06/30/20 at 22:15 Insulin Human Lispro (HumaLOG) 0-7 UNITS TIDWMEALHC SQ ; Start 07/01/20 at 08:00 Dextrose (Dextrose 50%-Water Syringe) 12.5 gm PRN Q15MIN PRN IV SEE COMMENTS; Start 06/30/20 at 22:45 Gadoterate Meglumine (Clariscan) 10 ml 1X ONCE IVP ; Start 07/03/20 at 11:45; Stop 07/03/20 at 11:46; Status DC Gadoterate Meglumine (Clariscan) 8 ml 1X ONCE IVP ; Start 07/03/20 at 11:45; Stop 07/03/20 at 11:46; Status DC Gadoterate Meglumine (Clariscan) 10 ml 1X ONCE IVP Last administered on 07/03/20at 11:56; Start 07/03/20 at 11:45; Stop 07/03/20 at 11:48; Status DC Gadoterate Meglumine (Clariscan) 8 ml 1X ONCE IVP Last administered on 07/03/20at 11:56; Start 07/03/20 at 11:45; Stop 07/03/20 at 11:48; Status DC Iohexol (Omnipaque 300 Mg/ml) 75 ml 1X ONCE IV Last administered on 07/03/20at 15:51; Start 07/03/20 at 15:45; Stop 07/03/20 at 15:46; Status DC Iohexol (Omnipaque 240 Mg/ml) 50 ml 1X ONCE PO Last administered on 07/03/20at 15:51; Start 07/03/20 at 15:45; Stop 07/03/20 at 15:46; Status DC Info (CONTRAST GIVEN -- Rx MONITORING) 1 each PRN DAILY PRN MC SEE COMMENTS; Start 07/03/20 at 15:45; Stop 07/05/20 at 15:44; Status DC Bacitracin 97349 unit/Sodium Chloride 1,000 ml @ 1,000 mls/hr 1X ONCE IRR L ast administered on 07/07/20at 11:28; Start 07/07/20 at 06:00; Stop 07/07/20 at 06:59; Status DC Cefazolin Sodium/ Dextrose 50 ml @ 100 mls/hr 1X PREOP PRN IV PRIOR TO PROCEDURE Last administered on 07/07/20at 10:30; Start 07/07/20 at 06:00; Stop 07/07/20 at 18:00; Status DC Ondansetron HCl (Zofran) 4 mg PRN Q6HRS PRN IV NAUSEA/VOMITING; Start 07/07/20 at 07:00; Stop 07/07/20 at 19:00; Status DC Fentanyl Citrate (Fentanyl 2ml Vial) 25 mcg PRN Q5MIN PRN IV MILD PAIN 1-3; Start 07/07/20 at 07:00; Stop 07/07/20 at 19:00; Status DC Fentanyl Citrate (Fentanyl 2ml Vial) 50 mcg PRN Q5MIN PRN IV MODERATE TO SEVERE PAIN; Start 07/07/20 at 07:00; Stop 07/07/20 at 19:00; Status DC Morphine Sulfate (Morphine Sulfate) 1 mg PRN Q10MIN PRN IV SEVERE PAIN 7-10; Start 07/07/20 at 07:00; Stop 07/07/20 at 19:00; Status DC Ringer's Solution 1,000 ml @ 30 mls/hr Q24H IV Last administered on 07/07/20at 09:45; Start 07/07/20 at 07:00; Stop 07/07/20 at 18:59; Status DC Lidocaine HCl (Xylocaine-Mpf 1% 2ml Vial) 2 ml PRN 1X PRN ID PRIOR TO IV START; Start 07/07/20 at 07:00; Stop 07/07/20 at 19:00; Status DC Hydromorphone HCl (Dilaudid) 0.5 mg PRN Q10MIN PRN IV SEV PAIN, Second choice; Start 07/07/20 at 07:00; Stop 07/07/20 at 19:00; Status DC Prochlorperazine Edisylate (Compazine) 5 mg PACU PRN PRN IV NAUSEA, MRX1; Start 07/07/20 at 07:00; Stop 07/07/20 at 19:00; Status DC Gelatin (Gelfoam Size 100) 1 each STK-MED ONCE .ROUTE Last administered on 07/07/20at 11:28; Start 07/07/20 at 07:37; Stop 07/07/20 at 07:37; Status DC Povidone Iodine (Betadine Oint) 28 nazario STK-MED ONCE TP ; Start 07/07/20 at 07:37; Stop 07/07/20 at 07:37; Status DC Lidocaine/ Epinephrine (LIDOCAINE 2%-EPI 1:100,000 multi-dose) 20 ml STK-MED ONCE .ROUTE ; Start 07/07/20 at 07:37; Stop 07/07/20 at 07:37; Status DC Cellulose (Surgicel Hemostat 4x8) 1 each STK-MED ONCE .ROUTE ; Start 07/07/20 at 07:37; Stop 07/07/20 at 07:37; Status DC Thrombin 20,000 unit STK-MED ONCE TP Last administered on 07/07/20at 11:28; Start 07/07/20 at 07:37; Stop 07/07/20 at 07:37; Status DC Gadoterate Meglumine (Clariscan) 10 ml 1X ONCE IVP Last administered on 07/07/20at 08:52; Start 07/07/20 at 08:30; Stop 07/07/20 at 08:31; Status DC Gadoterate Meglumine (Clariscan) 8 ml 1X ONCE IVP Last administered on 07/07/20at 08:52; Start 07/07/20 at 08:30; Stop 07/07/20 at 08:31; Status DC Dexamethasone Sodium Phosphate (Decadron) 4 mg Q6H IVP Last administered on 07/08/20at 12:36; Start 07/08/20 at 06:00 Rocuronium [place] (Zemuron) 50 mg STK-MED ONCE .ROUTE ; Start 07/07/20 at 08:57; Stop 07/07/20 at 08:57; Status DC Remifentanil HCl (Ultiva) 2 mg STK-MED ONCE IV ; Start 07/07/20 at 08:57; Stop 07/07/20 at 08:58; Status DC Propofol (Diprivan) 200 mg STK-MED ONCE IV ; Start 07/07/20 at 09:00; Stop 07/07/20 at 09:01; Status DC Dexamethasone Sodium Phosphate (Decadron) 20 mg STK-MED ONCE .ROUTE ; Start 07/07/20 at 09:00; Stop 07/07/20 at 09:01; Status DC Lidocaine HCl (Lidocaine Pf 2% Vial) 5 ml STK-MED ONCE .ROUTE ; Start 07/07/20 at 09:00; Stop 07/07/20 at 09:01; Status DC Ondansetron HCl (Zofran) 4 mg STK-MED ONCE .ROUTE ; Start 07/07/20 at 09:00; Stop 07/07/20 at 09:01; Status DC Phenylephrine HCl (Mamadou-Synephrine Inj) 10 mg STK-MED ONCE .ROUTE ; Start 07/07/20 at 09:01; Stop 07/07/20 at 09:01; Status DC Desflurane (Suprane) 90 ml STK-MED ONCE IH ; Start 07/07/20 at 09:04; Stop 07/07/20 at 09:04; Status DC Mannitol (Mannitol) 12.5 g STK-MED ONCE .ROUTE ; Start 07/07/20 at 09:17; Stop 07/07/20 at 09:17; Status DC Lidocaine HCl (Xylocaine 1% Pf 30ml Vial) 30 ml 1X ONCE INJ Last administered on 07/07/20at 11:28; Start 07/07/20 at 10:00; Stop 07/07/20 at 10:01; Status DC Epinephrine HCl (Adrenalin) 0.15 mg 1X ONCE INJ ; Start 07/07/20 at 10:00; Stop 07/07/20 at 10:01; Status DC Remifentanil HCl (Ultiva) 1 mg STK-MED ONCE IV ; Start 07/07/20 at 12:01; Stop 07/07/20 at 12:02; Status DC Glycopyrrolate (Robinul) 1 mg STK-MED ONCE .ROUTE ; Start 07/07/20 at 12:02; Stop 07/07/20 at 12:03; Status DC Neostigmine [place] (Neostigmine Methylsulfate) 5 mg STK-MED ONCE .ROUTE ; St art 07/07/20 at 12:03; Stop 07/07/20 at 12:03; Status DC Fentanyl Citrate (Fentanyl 2ml Vial) 100 mcg STK-MED ONCE .ROUTE ; Start 07/07/20 at 12:45; Stop 07/07/20 at 12:45; Status DC Nicardipine HCl (Cardene) 25 mg STK-MED ONCE IV ; Start 07/07/20 at 12:47; Stop 07/07/20 at 12:48; Status DC Lidocaine HCl (Lidocaine Pf 2% Vial) 5 ml STK-MED ONCE .ROUTE ; Start 07/07/20 at 13:06; Stop 07/07/20 at 13:07; Status DC Propofol 50 ml @ As Directed STK-MED ONCE IV ; Start 07/07/20 at 13:30; Stop 07/07/20 at 13:30; Status DC Lorazepam (Ativan Inj) 2 mg PRN Q4HRS PRN IVP ANXIETY / AGITATION Last administered on 07/07/20at 14:56; Start 07/07/20 at 14:15 Dexmedetomidine HCl 400 mcg/ Sodium Chloride 100 ml @ 0 mls/hr CONT PRN IV PER PROTOCOL Last administered on 07/08/20at 05:47; Start 07/07/20 at 14:45 Sodium Chloride 500 ml @ 500 mls/hr 1X PRN PRN IV SEE COMMENTS; Start 07/07/20 at 14:45 Atropine Sulfate (ATROPINE 0.5mg SYRINGE) 0.5 mg PRN Q5MIN PRN IV SEE COMMENTS; Start 07/07/20 at 14:45 Dextrose/Sodium Chloride 2,500 ml @ 50 mls/hr Q24H IV ; Start 07/07/20 at 15:00; Stop 07/09/20 at 17:00; Status UNV Dextrose/Sodium Chloride 0 ml @ 50 mls/hr Q0M IV ; Start 07/09/20 at 17:00; Stop 07/09/20 at 17:00; Status UNV Dextrose 1,000 ml @ 50 mls/hr Q20H IV Last administered on 07/07/20at 15:11; Start 07/07/20 at 16:00; Stop 07/07/20 at 17:39; Status DC Sodium Chloride 1,000 ml @ 50 mls/hr Q20H IV Last administered on 07/08/20at 12:36; Start 07/07/20 at 18:00 Active Scripts Active Reported Aspirin 81 Mg Tab.chew 81 Mg PO DAILY Metformin Hcl 500 Mg Tablet 500 Mg PO BIDWMEALS Atenolol 50 Mg Tablet 50 Mg PO DAILY Vitals/I & O Vital Sign - Last 24 Hours 07/07/20 07/07/20 07/07/20 07/07/20 19:00 20:00 20:00 21:00 Temp 97.8 97.8 Pulse 57 70 73 Resp 20 16 19 B/P (MAP) 112/54 (73) 150/76 (100) 143/73 (96) Pulse Ox 95 96 91 O2 Delivery Room Air Room Air Room Air 07/07/20 07/07/20 07/08/20 07/08/20 22:00 23:00 00:00 00:00 Temp 98.0 98.0 Pulse 60 53 56 Resp 17 15 18 B/P (MAP) 147/74 (98) 135/65 (88) 156/73 (100) Pulse Ox 96 98 97 O2 Delivery Room Air Room Air Room Air 07/08/20 07/08/20 07/08/20 07/08/20 01:00 02:00 03:00 04:00 Pulse 53 56 53 Resp 14 15 13 B/P (MAP) 124/63 (83) 150/70 (96) 128/75 (92) Pulse Ox 95 97 96 O2 Delivery Room Air Room Air Room Air 07/08/20 07/08/20 07/08/20 07/08/20 04:00 05:00 06:00 07:00 Temp 97.6 97.6 Pulse 51 51 48 50 Resp 14 15 22 13 B/P (MAP) 151/70 (97) 127/63 (84) 138/64 (88) 130/64 (86) Pulse Ox 96 98 99 98 O2 Delivery Room Air Room Air Room Air Room Air 07/08/20 07/08/20 07/08/20 07/08/20 08:00 08:00 08:00 09:00 Temp 97.3 97.3 Pulse 46 48 Resp 16 15 B/P (MAP) 146/70 (95) 128/62 (84) Pulse Ox 99 98 O2 Delivery Room Air Room Air Room Air 07/08/20 07/08/20 07/08/20 07/08/20 10:00 11:00 12:00 12:00 Temp 96.9 96.9 Pulse 48 48 54 Resp 13 22 20 B/P (MAP) 138/68 (91) 122/64 (83) 116/62 (80) Pulse Ox 99 97 98 O2 Delivery Room Air Room Air Room Air 07/08/20 07/08/20 07/08/2021 13:00 14:14 15:00 16:00 Temp 97.3 97.3 Pulse 50 66 73 73 Resp 21 15 18 B/P (MAP) 116/62 (80) 132/72 (92) 135/68 (90) 144/77 (99) Pulse Ox 99 97 96 97 O2 Delivery Room Air Room Air Room Air Room Air 07/08/20 16:08 B/P (MAP) Intake and Output 07/07/20 07/07/20 07/08/20 15:00 23:00 07:00 Intake Total 850 ml 1076.9 ml Output Total 250 ml 250 ml 250 ml Balance 600 ml -250 ml 826.9 ml Justicifation of Admission Dx: Justifications for Admission: Justification of Admission Dx: Comment: (Higher level of care requested by [facility] [place] for neurology evaluation) JOSE OLGUIN MD Jul 08, 2020 17:57
--- NOTE | 2020-07-08 18:33 | NUR ---
pt had been off precedex gtt since 1207 this afternoon, pt all of a sudden began being very agitated, trying to climb out of bed, unable d/t hearing and vision loss to redirect. pt precedex restarted and ativan given. Pt started to calm down after about 10 minutes with family and nurses trying to help redirect.
--- NOTE | 2020-07-08 20:04 | PDOC ---
PROGRESS NOTES Date of Service DATE: 07/08/20 TIME: 19:59 Subjective Subjective seen at 1400 POD #1 S/P biopsy awake, alert off Precedex for 2 hours Objective Objective Vital Signs Date Time Temp Pulse Resp B/P (MAP) Pulse Ox O2 Delivery O2 Flow Rate FiO2 07/08/20 19:00 63 20 101/56 (71) 93 Room Air 07/08/20 16:00 97.3 97.3 07/07/20 14:25 6 Intake and Output 07/08/20 07:00 Intake Total 1926.9 ml Output Total 750 ml Balance 1176.9 ml Intake Oral 0 ml IV Total 1926.9 ml Output Urine Total 725 ml Estimated Blood Loss 25 ml Physical Exam General: Cooperative, No acute distress MUSCULOSKELETAL: Other (HENAO) Skin: Other (dressing dry and intact) Plan Plan of Care frozen section with demyelinating disease keep in ICU today minimize sedation ok to feed ok to be out of bed SCDS Neurology following D/W RN Comment Review of Relevant I have reviewed the following items bashir (where applicable) has been applied. Labs Laboratory Tests Test 07/06/20 21:46 07/07/20 07:29 Glucose (Fingerstick) 144 mg/dL (70-99) 123 mg/dL (70-99) Medications Current Medications Ringer's Solution 1,000 ml @ 100 mls/hr Q10H IV Last administered on 06/30/20at 23:44; Start 06/30/20 at 22:30; Stop 07/01/20 at 08:29; Status DC Ondansetron HCl (Zofran) 4 mg PRN Q6HRS PRN IVP NAUSEA/VOMITING; Start 06/30/20 at 22:30 Calcium Carbonate/ Glycine (Tums) 500 mg PRN Q3HRS PRN PO UPSET STOMACH; Start 06/30/20 at 22:15 Acetaminophen (Tylenol) 650 mg PRN Q6HRS PRN PO Headaches, Temp > 101.5F; Start 06/30/20 at 22:15 Senna/Docusate Sodium (Senna Plus) 1 tab BID PO Last administered on 07/06/20at 08:45; Start 06/30/20 at 22:30 Bisacodyl (Dulcolax Supp) 10 mg PRN DAILY PRN [place] CONSTIPATION; Start 06/30/20 at 22:15 Atorvastatin Calcium (Lipitor) 80 mg QHS PO Last administered on 07/05/20at 22:16; Start 06/30/20 at 22:30 Famotidine (Pepcid) 20 mg BID PO Last administered on 07/06/20at 08:45; Start 06/30/20 at 22:30 Aspirin (Ecotrin) 325 mg DAILYWBKFT PO Last administered on 07/06/20at 08:45; Start 07/01/20 at 08:00 Aspirin (Aspirin Rectal Supp) 300 mg PRN DAILY PRN WA IF UNABLE TO TAKE PO; Start 06/30/20 at 22:15 Metoprolol Tartrate (Lopressor) 25 mg BID PO Last administered on 07/06/20at 21:42; Start 06/30/20 at 22:30 Hydralazine HCl (Apresoline Inj) 10 mg PRN Q4HRS PRN IVP ELEVATED BP, SEE COMMENTS; Start 06/30/20 at 22:15 Insulin Human Lispro (HumaLOG) 0-7 UNITS TIDWMEALHC SQ ; Start 07/01/20 at 08:00 Dextrose (Dextrose 50%-Water Syringe) 12.5 gm PRN Q15MIN PRN IV SEE COMMENTS; Start 06/30/20 at 22:45 Gadoterate Meglumine (Clariscan) 10 ml 1X ONCE IVP ; Start 07/03/20 at 11:45; Stop 07/03/20 at 11:46; Status DC Gadoterate Meglumine (Clariscan) 8 ml 1X ONCE IVP ; Start 07/03/20 at 11:45; Stop 07/03/20 at 11:46; Status DC Gadoterate Meglumine (Clariscan) 10 ml 1X ONCE IVP Last administered on 07/03/20at 11:56; Start 07/03/20 at 11:45; Stop 07/03/20 at 11:48; Status DC Gadoterate Meglumine (Clariscan) 8 ml 1X ONCE IVP Last administered on 07/03/20at 11:56; Start 07/03/20 at 11:45; Stop 07/03/20 at 11:48; Status DC Iohexol (Omnipaque 300 Mg/ml) 75 ml 1X ONCE IV Last administered on 07/03/20at 15:51; Start 07/03/20 at 15:45; Stop 07/03/20 at 15:46; Status DC Iohexol (Omnipaque 240 Mg/ml) 50 ml 1X ONCE PO Last administered on 07/03/20at 15:51; Start 07/03/20 at 15:45; Stop 07/03/20 at 15:46; Status DC Info (CONTRAST GIVEN -- Rx MONITORING) 1 each PRN DAILY PRN MC SEE COMMENTS; Start 07/03/20 at 15:45; Stop 07/05/20 at 15:44; Status DC Bacitracin 54434 unit/Sodium Chloride 1,000 ml @ 1,000 mls/hr 1X ONCE IRR Last administered on 07/07/20at 11:28; Start 07/07/20 at 06:00; Stop 07/07/20 at 06:59; Status DC Cefazolin Sodium/ Dextrose 50 ml @ 100 mls/hr 1X PREOP PRN IV PRIOR TO PROCEDURE Last administered on 07/07/20at 10:30; Start 07/07/20 at 06:00; Stop 07/07/20 at 18:00; Status DC Ondansetron HCl (Zofran) 4 mg PRN Q6HRS PRN IV NAUSEA/VOMITING; Start 07/07/20 at 07:00; Stop 07/07/20 at 19:00; Status DC Fentanyl Citrate (Fentanyl 2ml Vial) 25 mcg PRN Q5MIN PRN IV MILD PAIN 1-3; Start 07/07/20 at 07:00; Stop 07/07/20 at 19:00; Status DC Fentanyl Citrate (Fentanyl 2ml Vial) 50 mcg PRN Q5MIN PRN IV MODERATE TO SEVERE PAIN; Start 07/07/20 at 07:00; Stop 07/07/20 at 19:00; Status DC Morphine Sulfate (Morphine Sulfate) 1 mg PRN Q10MIN PRN IV SEVERE PAIN 7-10; Start 07/07/20 at 07:00; Stop 07/07/20 at 19:00; Status DC Ringer's Solution 1,000 ml @ 30 mls/hr Q24H IV Last administered on 07/07/20at 09:45; Start 07/07/20 at 07:00; Stop 07/07/20 at 18:59; Status DC Lidocaine HCl (Xylocaine-Mpf 1% 2ml Vial) 2 ml PRN 1X PRN ID PRIOR TO IV START; Start 07/07/20 at 07:00; Stop 07/07/20 at 19:00; Status DC Hydromorphone HCl (Dilaudid) 0.5 mg PRN Q10MIN PRN IV SEV PAIN, Second choice; Start 07/07/20 at 07:00; Stop 07/07/20 at 19:00; Status DC Prochlorperazine Edisylate (Compazine) 5 mg PACU PRN PRN IV NAUSEA, MRX1; Start 07/07/20 at 07:00; Stop 07/07/20 at 19:00; Status DC Gelatin (Gelfoam Size 100) 1 each STK-MED ONCE .ROUTE Last administered on 07/07/20at 11:28; Start 07/07/20 at 07:37; Stop 07/07/20 at 07:37; Status DC Povidone Iodine (Betadine Oint) 28 nazario STK-MED ONCE TP ; Start 07/07/20 at 07:37; Stop 07/07/20 at 07:37; Status DC Lidocaine/ Epinephrine (LIDOCAINE 2%-EPI 1:100,000 multi-dose) 20 ml STK-MED ONCE .ROUTE ; Start 07/07/20 at 07:37; Stop 07/07/20 at 07:37; Status DC Cellulose (Surgicel Hemostat 4x8) 1 each STK-MED ONCE .ROUTE ; Start 07/07/20 at 07:37; Stop 07/07/20 at 07:37; Status DC Thrombin 20,000 unit STK-MED ONCE TP Last administered on 07/07/20at 11:28; Start 07/07/20 at 07:37; Stop 07/07/20 at 07:37; Status DC Gadoterate Meglumine (Clariscan) 10 ml 1X ONCE IVP Last administered on 07/07/20at 08:52; Start 07/07/20 at 08:30; Stop 07/07/20 at 08:31; Status DC Gadoterate Meglumine (Clariscan) 8 ml 1X ONCE IVP Last administered on 07/07/20at 08:52; Start 07/07/20 at 08:30; Stop 07/07/20 at 08:31; Status DC Dexamethasone Sodium Phosphate (Decadron) 4 mg Q6H IVP Last administered on 07/08/20at 18:08; Start 07/08/20 at 06:00 Rocuronium Fife (Zemuron) 50 mg STK-MED ONCE .ROUTE ; Start 07/07/20 at 08:57; Stop 07/07/20 at 08:57; Status DC Remifentanil HCl (Ultiva) 2 mg STK-MED ONCE IV ; Start 07/07/20 at 08:57; Stop 07/07/20 at 08:58; Status DC Propofol (Diprivan) 200 mg STK-MED ONCE IV ; Start 07/07/20 at 09:00; Stop 07/07/20 at 09:01; Status DC Dexamethasone Sodium Phosphate (Decadron) 20 mg STK-MED ONCE .ROUTE ; Start 07/07/20 at 09:00; Stop 07/07/20 at 09:01; Status DC Lidocaine HCl (Lidocaine Pf 2% Vial) 5 ml STK-MED ONCE .ROUTE ; Start 07/07/20 at 09:00; Stop 07/07/20 at 09:01; Status DC Ondansetron HCl (Zofran) 4 mg STK-MED ONCE .ROUTE ; Start 07/07/20 at 09:00; Stop 07/07/20 at 09:01; Status DC Phenylephrine HCl (Mamadou-Synephrine Inj) 10 mg STK-MED ONCE .ROUTE ; Start 07/07/20 at 09:01; Stop 07/07/20 at 09:01; Status DC Desflurane (Suprane) 90 ml STK-MED ONCE IH ; Start 07/07/20 at 09:04; Stop 07/07/20 at 09:04; Status DC Mannitol (Mannitol) 12.5 g STK-MED ONCE .ROUTE ; Start 07/07/20 at 09:17; Stop 07/07/20 at 09:17; Status DC Lidocaine HCl (Xylocaine 1% Pf 30ml Vial) 30 ml 1X ONCE INJ Last administered on 07/07/20at 11:28; Start 07/07/20 at 10:00; Stop 07/07/20 at 10:01; Status DC Epinephrine HCl (Adrenalin) 0.15 mg 1X ONCE INJ ; Start 07/07/20 at 10:00; Stop 07/07/20 at 10:01; Status DC Remifentanil HCl (Ultiva) 1 mg STK-MED ONCE IV ; Start 07/07/20 at 12:01; Stop 07/07/20 at 12:02; Status DC Glycopyrrolate (Robinul) 1 mg STK-MED ONCE .ROUTE ; Start 07/07/20 at 12:02; Stop 07/07/20 at 12:03; Status DC Neostigmine Fife (Neostigmine Methylsulfate) 5 mg STK-MED ONCE .ROUTE ; Start 07/07/20 at 12:03; Stop 07/07/20 at 12:03; Status DC Fentanyl Citrate (Fentanyl 2ml Vial) 100 mcg STK-MED ONCE .ROUTE ; Start 07/07/20 at 12:45; Stop 07/07/20 at 12:45; Status DC Nicardipine HCl (Cardene) 25 mg STK-MED ONCE IV ; Start 07/07/20 at 12:47; Stop 07/07/20 at 12:48; Status DC Lidocaine HCl (Lidocaine Pf 2% Vial) 5 ml STK-MED ONCE .ROUTE ; Start 07/07/20 at 13:06; Stop 07/07/20 at 13:07; Status DC Propofol 50 ml @ As Directed STK-MED ONCE IV ; Start 07/07/20 at 13:30; Stop 07/07/20 at 13:30; Status DC Lorazepam (Ativan Inj) 2 mg PRN Q4HRS PRN IVP ANXIETY / AGITATION Last administered on 07/08/20at 18:08; Start 07/07/20 at 14:15 Dexmedetomidine HCl 400 mcg/ Sodium Chloride 100 ml @ 0 mls/hr CONT PRN IV PER PROTOCOL Last administered on 07/08/20at 18:14; Start 07/07/20 at 14:45 Sodium Chloride 500 ml @ 500 mls/hr 1X PRN PRN IV SEE COMMENTS; Start 07/07/20 at 14:45 Atropine Sulfate (ATROPINE 0.5mg SYRINGE) 0.5 mg PRN Q5MIN PRN IV SEE COMMENTS; Start 07/07/20 at 14:45 Dextrose/Sodium Chloride 2,500 ml @ 50 mls/hr Q24H IV ; Start 07/07/20 at 15:00; Stop 07/09/20 at 17:00; Status UNV Dextrose/Sodium Chloride 0 ml @ 50 mls/hr Q0M IV ; Start 07/09/20 at 17:00; Stop 07/09/20 at 17:00; Status UNV Dextrose 1,000 ml @ 50 mls/hr Q20H IV Last administered on 07/07/20at 15:11; Start 07/07/20 at 16:00; Stop 07/07/20 at 17:39; Status DC Sodium Chloride 1,000 ml @ 50 mls/hr Q20H IV Last administered on 07/08/20at 12:36; Start 07/07/20 at 18:00 Active Scripts Active Reported Aspirin 81 Mg Tab.chew 81 Mg PO DAILY Metformin Hcl 500 Mg Tablet 500 Mg PO BIDWMEALS Atenolol 50 Mg Tablet 50 Mg PO DAILY Vitals/I & O Vital Sign - Last 24 Hours 07/07/20 07/07/20 07/07/20 07/07/20 20:00 20:00 21:00 22:00 Temp 97.8 97.8 Pulse 70 73 60 Resp 16 19 17 B/P (MAP) 150/76 (100) 143/73 (96) 147/74 (98) Pulse Ox 96 91 96 O2 Delivery Room Air Room Air Room Air 07/07/20 07/08/20 07/08/20 07/08/20 23:00 00:00 00:00 01:00 Temp 98.0 98.0 Pulse 53 56 53 Resp 15 18 14 B/P (MAP) 135/65 (88) 156/73 (100) 124/63 (83) Pulse Ox 98 97 95 O2 Delivery Room Air Room Air Room Air 07/08/20 07/08/20 07/08/20 07/08/20 02:00 03:00 04:00 04:00 Temp 97.6 97.6 Pulse 56 53 51 Resp 15 13 14 B/P (MAP) 150/70 (96) 128/75 (92) 151/70 (97) Pulse Ox 97 96 96 O2 Delivery Room Air Room Air Room Air 07/08/20 07/08/20 07/08/20 07/08/20 05:00 06:00 07:00 08:00 Pulse 51 48 50 Resp 15 22 13 B/P (MAP) 127/63 (84) 138/64 (88) 130/64 (86) Pulse Ox 98 99 98 O2 Delivery Room Air Room Air Room Air Room Air 07/08/20 07/08/20 07/08/20 07/08/20 08:00 08:00 09:00 10:00 Temp 97.3 97.3 Pulse 46 48 48 Resp 16 15 13 B/P (MAP) 146/70 (95) 128/62 (84) 138/68 (91) Pulse Ox 99 98 99 O2 Delivery Room Air Room Air Room Air 07/08/20 07/08/20 07/08/20 07/08/20 11:00 12:00 12:00 13:00 Temp 96.9 96.9 Pulse 48 54 50 Resp 20 21 B/P (MAP) 122/64 (83) 116/62 (80) 116/62 (80) Pulse Ox 97 98 99 O2 Delivery Room Air Room Air Room Air 07/08/20 07/08/20 07/08/20 07/08/20 14:14 15:00 16:00 16:08 Temp 97.3 97.3 Pulse 66 73 73 Resp 15 18 B/P (MAP) 132/72 (92) 135/68 (90) 144/77 (99) Pulse Ox 97 96 97 O2 Delivery Room Air Room Air Room Air 07/08/20 07/08/20 07/08/20 17:00 18:00 19:00 Pulse 74 84 63 Resp 18 21 20 B/P (MAP) 152/74 (100) 164/84 (110) 101/56 (71) Pulse Ox 98 98 93 O2 Delivery Room Air Room Air Room Air Intake and Output 07/07/20 07/07/20 07/08/20 15:00 23:00 07:00 Intake Total 850 ml 1076.9 ml Output Total 250 ml 250 ml 250 ml Balance 600 ml -250 ml 826.9 ml Justifications for Admission TIA Indications Persistent neurologic signs?: Yes Justification for admission: There is persistence of patient's focal neurologic signs or symptoms or there is concern for recurrence of patient's neurological signs and symptoms. Other Justification Nutrition Consultation Dietary Evaluation: Recommendations by RD: Dietary education by RD, Increase Calorie Intake, Protein supplementation Comments: clarified diet to ADA/ Cardiac per PMH and lipid panel added Glucerna supplements to help pt meet his nutrition needs Expected Outcomes/Goals: to meet >75% est nutr needs Malnutrition Findings: Food and Nutrition Intake (Mod: <75% est energy req 7days Malnutrition related to morbid: Yes Weight Status: Overweight KRISTIE PEARCE MD Jul 08, 2020 20:03
[2020-07-08] MEDS: ATORVASTATIN CALCIUM 40 MG TABLET. PO SCH (20:48)
[2020-07-09] VITALS (24 sets, daily range): BP systolic 101–165; BP diastolic 61–96
[2020-07-09] MEDS: DEXAMETHASONE SOD PHOS 4 MG/ML VIAL IVP SCH ×3 (00:15→12:08)
[2020-07-09 05:59] LABS: BASO % 0 % (0-3); EOS % 0 % (0-3); HEMATOCRIT 42.1 % (39.0-53.0); HEMOGLOBIN 14.3 g/dL (13.0-17.5); LYMPH # 0.9 x10^3/uL (1.0-4.8); LYMPH % 4 % (24-48); MEAN CORPUSCULAR HEMOGLOBIN 32 pg (25-35); MEAN CORPUSCULAR HGB CONC 34 g/dL (31-37); MEAN CORPUSCULAR VOLUME 95 fL (79-100); MONO # 0.4 x10^3/uL (0.0-1.1); MONO % 2 % (0-9); NEUT # 22.2 x10^3/uL (1.8-7.7); NEUT % 94 % (31-73); PLATELET COUNT 294 x10^3/uL (140-400); RED BLOOD COUNT 4.43 x10^6/uL (4.30-5.70); RED CELL DISTRIBUTION WIDTH 13.4 % (11.5-14.5); WHITE BLOOD COUNT 23.5 x10^3/uL (4.0-11.0)
[2020-07-09] MEDS: DEXMEDETOMIDINE 400 MCG in IV NORMAL SALINE 100ML 96 ML IV PRN ×2 (06:17→22:05)
[2020-07-09] MEDS: IV NORMAL SALINE 1000ML BAG 1,000 ML IV SCH (06:18)
[2020-07-09 06:25] LABS: ALBUMIN/GLOBULIN RATIO 0.7 (1.0-1.7); CALCIUM 8.9 mg/dL (8.5-10.1); GFR 74.3; POTASSIUM 4.1 mmol/L (3.5-5.1); TOTAL BILIRUBIN 0.4 mg/dL (0.2-1.0); TOTAL PROTEIN 7.2 g/dL (6.4-8.2)
[2020-07-09] MEDS: INSULIN LISPRO 300 UNITS/3 ML VIAL. SQ SCH ×4 (08:00→21:00)
[2020-07-09] MEDS: ASPIRIN ENTERIC COATED 325 MG TABLET.DR. PO SCH (08:00)
[2020-07-09] MEDS: SENNOSIDES/DOCUSATE 8.6/50MG TABLET. PO SCH ×2 (09:00→21:00)
[2020-07-09] MEDS: METOPROLOL TART IMMED RELEASE 25 MG TABLET. PO SCH ×3 (09:00→21:32)
[2020-07-09] MEDS: FAMOTIDINE 20 MG TABLET. PO SCH ×2 (09:00→21:00)
[2020-07-09 11:11] LABS: % ATYL 1 % (0-0); % BANDS 7 % (0-9); % LYMPHS 1 % (24-48); % SEGS 91 % (35-66); PLT ESTIMATE ADEQUATE (ADEQUATE)
--- NOTE | 2020-07-09 13:20 | PDOC ---
PROGRESS NOTES Date of Service DATE: 07/09/20 TIME: 13:18 Subjective Subjective sleeping on precedex RN reports that he has been intermittently agitated, moving all extremities Objective Objective Vital Signs Date Time Temp Pulse Resp B/P (MAP) Pulse Ox O2 Delivery O2 Flow Rate FiO2 07/09/20 10:00 60 17 160/84 (109) 97 Room Air 07/09/20 07:00 97.6 97.6 07/07/20 14:25 6 Intake and Output 07/09/20 07:00 Intake Total 1353.9 ml Output Total 925 ml Balance 428.9 ml Intake Oral 250 ml IV Total 1103.9 ml Output Urine Total 925 ml Physical Exam General: Other (resting quietly) Skin: Other (dressing C,D,I) Plan Plan of Care wean precedex as tolerated final path pending. frozen section reveals the possibility of demyelinating disease rather than malignancy. neurology following CT head ordered will follow Comment Review of Relevant I have reviewed the following items bashir (where applicable) has been applied. Labs Laboratory Tests Test 07/09/20 05:00 07/09/20 07:49 07/09/20 12:13 White Blood Count 23.5 x10^3/uL (4.0-11.0) Red Blood Count 4.43 x10^6/uL (4.30-5.70) Hemoglobin 14.3 g/dL (13.0-17.5) Hematocrit 42.1 % (39.0-53.0) Mean Corpuscular Volume 95 fL (79-100) Mean Corpuscular Hemoglobin 32 pg (25-35) Mean Corpuscular Hemoglobin Concent 34 g/dL (31-37) Red Cell Distribution Width 13.4 % (11.5-14.5) Platelet Count 294 x10^3/uL (140-400) Neutrophils (%) (Auto) 94 % (31-73) Lymphocytes (%) (Auto) 4 % (24-48) Monocytes (%) (Auto) 2 % (0-9) Eosinophils (%) (Auto) 0 % (0-3) Basophils (%) (Auto) 0 % (0-3) Neutrophils # (Auto) 22.2 x10^3/uL (1.8-7.7) Lymphocytes # (Auto) 0.9 x10^3/uL (1.0-4.8) Monocytes # (Auto) 0.4 x10^3/uL (0.0-1.1) Eosinophils # (Auto) 0.0 x10^3/uL (0.0-0.7) Basophils # (Auto) 0.0 x10^3/uL (0.0-0.2) Segmented Neutrophils % 91 % (35-66) Band Neutrophils % 7 % (0-9) Lymphocytes % 1 % (24-48) Atypical Lymphocytes % (Manual) 1 % (0-0) Platelet Estimate Adequate (ADEQUATE) Sodium Level 141 mmol/L (136-145) Potassium Level 4.1 mmol/L (3.5-5.1) Chloride Level 107 mmol/L (98-107) Carbon Dioxide Level 24 mmol/L (21-32) Anion Gap 10 (6-14) Blood Urea Nitrogen 26 mg/dL (8-26) Creatinine 1.0 mg/dL (0.7-1.3) Estimated GFR (Cockcroft-Gault) 74.3 BUN/Creatinine Ratio 26 (6-20) Glucose Level 174 mg/dL (70-99) Calcium Level 8.9 mg/dL (8.5-10.1) Total Bilirubin 0.4 mg/dL (0.2-1.0) Aspartate Amino Transf (AST/SGOT) 18 U/L (15-37) Alanine Aminotransferase (ALT/SGPT) 46 U/L (16-63) Alkaline Phosphatase 64 U/L (46-116) Total Protein 7.2 g/dL (6.4-8.2) Albumin 3.0 g/dL (3.4-5.0) Albumin/Globulin Ratio 0.7 (1.0-1.7) Glucose (Fingerstick) 180 mg/dL (70-99) 206 mg/dL (70-99) Laboratory Tests Test 07/09/20 05:00 07/09/20 07:49 07/09/20 12:13 White Blood Count 23.5 x10^3/uL (4.0-11.0) Red Blood Count 4.43 x10^6/uL (4.30-5.70) Hemoglobin 14.3 g/dL (13.0-17.5) Hematocrit 42.1 % (39.0-53.0) Mean Corpuscular Volume 95 fL (79-100) Mean Corpuscular Hemoglobin 32 pg (25-35) Mean Corpuscular Hemoglobin Concent 34 g/dL (31-37) Red Cell Distribution Width 13.4 % (11.5-14.5) Platelet Count 294 x10^3/uL (140-400) Neutrophils (%) (Auto) 94 % (31-73) Lymphocytes (%) (Auto) 4 % (24-48) Monocytes (%) (Auto) 2 % (0-9) Eosinophils (%) (Auto) 0 % (0-3) Basophils (%) (Auto) 0 % (0-3) Neutrophils # (Auto) 22.2 x10^3/uL (1.8-7.7) Lymphocytes # (Auto) 0.9 x10^3/uL (1.0-4.8) Monocytes # (Auto) 0.4 x10^3/uL (0.0-1.1) Eosinophils # (Auto) 0.0 x10^3/uL (0.0-0.7) Basophils # (Auto) 0.0 x10^3/uL (0.0-0.2) Segmented Neutrophils % 91 % (35-66) Band Neutrophils % 7 % (0-9) Lymphocytes % 1 % (24-48) Atypical Lymphocytes % (Manual) 1 % (0-0) Platelet Estimate Adequate (ADEQUATE) Sodium Level 141 mmol/L (136-145) Potassium Level 4.1 mmol/L (3.5-5.1) Chloride Level 107 mmol/L (98-107) Carbon Dioxide Level 24 mmol/L (21-32) Anion Gap 10 (6-14) Blood Urea Nitrogen 26 mg/dL (8-26) Creatinine 1.0 mg/dL (0.7-1.3) Estimated GFR (Cockcroft-Gault) 74.3 BUN/Creatinine Ratio 26 (6-20) Glucose Level 174 mg/dL (70-99) Calcium Level 8.9 mg/dL (8.5-10.1) Total Bilirubin 0.4 mg/dL (0.2-1.0) Aspartate Amino Transf (AST/SGOT) 18 U/L (15-37) Alanine Aminotransferase (ALT/SGPT) 46 U/L (16-63) Alkaline Phosphatase 64 U/L (46-116) Total Protein 7.2 g/dL (6.4-8.2) Albumin 3.0 g/dL (3.4-5.0) Albumin/Globulin Ratio 0.7 (1.0-1.7) Glucose (Fingerstick) 180 mg/dL (70-99) 206 mg/dL (70-99) Medications Current Medications Ringer's Solution 1,000 ml @ 100 mls/hr Q10H IV Last administered on 06/30/20at 23:44; Start 06/30/20 at 22:30; Stop 07/01/20 at 08:29; Status DC Ondansetron HCl (Zofran) 4 mg PRN Q6HRS PRN IVP NAUSEA/VOMITING; Start 06/30/20 at 22:30 Calcium Carbonate/ Glycine (Tums) 500 mg PRN Q3HRS PRN PO UPSET STOMACH; Start 06/30/20 at 22:15 Acetaminophen (Tylenol) 650 mg PRN Q6HRS PRN PO Headaches, Temp > 101.5F; Start 06/30/20 at 22:15 Senna/Docusate Sodium (Senna Plus) 1 tab BID PO Last administered on 07/06/20at 08:45; Start 06/30/20 at 22:30 Bisacodyl (Dulcolax Supp) 10 mg PRN DAILY PRN [place] CONSTIPATION; Start 06/30/20 at 22:15 Atorvastatin Calcium (Lipitor) 80 mg QHS PO Last administered on 07/05/20at 22:16; Start 06/30/20 at 22:30 Famotidine (Pepcid) 20 mg BID PO Last administered on 07/06/20at 08:45; Start 06/30/20 at 22:30 Aspirin (Ecotrin) 325 mg DAILYWBKFT PO Last administered on 07/06/20at 08:45; Start 07/01/20 at 08:00 Aspirin (Aspirin Rectal Supp) 300 mg PRN DAILY PRN KS IF UNABLE TO TAKE PO; Start 06/30/20 at 22:15 Metoprolol Tartrate (Lopressor) 25 mg BID PO Last administered on 07/06/20at 21:42; Start 06/30/20 at 22:30 Hydralazine HCl (Apresoline Inj) 10 mg PRN Q4HRS PRN IVP ELEVATED BP, SEE COMMENTS; Start 06/30/20 at 22:15 Insulin Human Lispro (HumaLOG) 0-7 UNITS TIDWMEALHC SQ Last administered on 07/09/20at 12:18; Start 07/01/20 at 08:00 Dextrose (Dextrose 50%-Water Syringe) 12.5 gm PRN Q15MIN PRN IV SEE COMMENTS; Start 06/30/20 at 22:45 Gadoterate Meglumine (Clariscan) 10 ml 1X ONCE IVP ; Start 07/03/20 at 11:45; Stop 07/03/20 at 11:46; Status DC Gadoterate Meglumine (Clariscan) 8 ml 1X ONCE IVP ; Start 07/03/20 at 11:45; Stop 07/03/20 at 11:46; Status DC Gadoterate Meglumine (Clariscan) 10 ml 1X ONCE IVP Last administered on 07/03/20at 11:56; Start 07/03/20 at 11:45; Stop 07/03/20 at 11:48; Status DC Gadoterate Meglumine (Clariscan) 8 ml 1X ONCE IVP Last administered on 07/03/20at 11:56; Start 07/03/20 at 11:45; Stop 07/03/20 at 11:48; Status DC Iohexol (Omnipaque 300 Mg/ml) 75 ml 1X ONCE IV Last administered on 07/03/20at 15:51; Start 07/03/20 at 15:45; Stop 07/03/20 at 15:46; Status DC Iohexol (Omnipaque 240 Mg/ml) 50 ml 1X ONCE PO Last administered on 07/03/20at 15:51; Start 07/03/20 at 15:45; Stop 07/03/20 at 15:46; Status DC Info (CONTRAST GIVEN -- Rx MONITORING) 1 each PRN DAILY PRN MC SEE COMMENTS; Start 07/03/20 at 15:45; Stop 07/05/20 at 15:44; Status DC Bacitracin 77261 unit/Sodium Chloride 1,000 ml @ 1,000 mls/hr 1X ONCE IRR Last administered on 07/07/20at 11:28; Start 07/07/20 at 06:00; Stop 07/07/20 at 06:59; Status DC Cefazolin Sodium/ Dextrose 50 ml @ 100 mls/hr 1X PREOP PRN IV PRIOR TO PROCEDURE Last administered on 07/07/20at 10:30; Start 07/07/20 at 06:00; Stop 07/07/20 at 18:00; Status DC Ondansetron HCl (Zofran) 4 mg PRN Q6HRS PRN IV NAUSEA/VOMITING; Start 07/07/20 at 07:00; Stop 07/07/20 at 19:00; Status DC Fentanyl Citrate (Fentanyl 2ml Vial) 25 mcg PRN Q5MIN PRN IV MILD PAIN 1-3; Start 07/07/20 at 07:00; Stop 07/07/20 at 19:00; Status DC Fentanyl Citrate (Fentanyl 2ml Vial) 50 mcg PRN Q5MIN PRN IV MODERATE TO SEVERE PAIN; Start 07/07/20 at 07:00; Stop 07/07/20 at 19:00; Status DC Morphine Sulfate (Morphine Sulfate) 1 mg PRN Q10MIN PRN IV SEVERE PAIN 7-10; Start 07/07/20 at 07:00; Stop 07/07/20 at 19:00; Status DC Ringer's Solution 1,000 ml @ 30 mls/hr Q24H IV Last administered on 07/07/20at 09:45; Start 07/07/20 at 07:00; Stop 07/07/20 at 18:59; Status DC Lidocaine HCl (Xylocaine-Mpf 1% 2ml Vial) 2 ml PRN 1X PRN ID PRIOR TO IV START; Start 07/07/20 at 07:00; Stop 07/07/20 at 19:00; Status DC Hydromorphone HCl (Dilaudid) 0.5 mg PRN Q10MIN PRN IV SEV PAIN, Second choice; Start 07/07/20 at 07:00; Stop 07/07/20 at 19:00; Status DC Prochlorperazine Edisylate (Compazine) 5 mg PACU PRN PRN IV NAUSEA, MRX1; Start 07/07/20 at 07:00; Stop 07/07/20 at 19:00; Status DC Gelatin (Gelfoam Size 100) 1 each STK-MED ONCE .ROUTE Last administered on 07/07/20at 11:28; Start 07/07/20 at 07:37; Stop 07/07/20 at 07:37; Status DC Povidone Iodine (Betadine Oint) 28 nazario STK-MED ONCE TP ; Start 07/07/20 at 07:37; Stop 07/07/20 at 07:37; Status DC Lidocaine/ Epinephrine (LIDOCAINE 2%-EPI 1:100,000 multi-dose) 20 ml STK-MED ONCE .ROUTE ; Start 07/07/20 at 07:37; Stop 07/07/20 at 07:37; Status DC Cellulose (Surgicel Hemostat 4x8) 1 each STK-MED ONCE .ROUTE ; Start 07/07/20 at 07:37; Stop 07/07/20 at 07:37; Status DC Thrombin 20,000 unit STK-MED ONCE TP Last administered on 07/07/20at 11:28; Start 07/07/20 at 07:37; Stop 07/07/20 at 07:37; Status DC Gadoterate Meglumine (Clariscan) 10 ml 1X ONCE IVP Last administered on 07/07/20at 08:52; Start 07/07/20 at 08:30; Stop 07/07/20 at 08:31; Status DC Gadoterate Meglumine (Clariscan) 8 ml 1X ONCE IVP Last administered on 07/07/20at 08:52; Start 07/07/20 at 08:30; Stop 07/07/20 at 08:31; Status DC Dexamethasone Sodium Phosphate (Decadron) 4 mg Q6H IVP Last administered on 07/09/20at 12:08; Start 07/08/20 at 06:00 Rocuronium Dougherty (Zemuron) 50 mg STK-MED ONCE .ROUTE ; Start 07/07/20 at 08:57; Stop 07/07/20 at 08:57; Status DC Remifentanil HCl (Ultiva) 2 mg STK-MED ONCE IV ; Start 07/07/20 at 08:57; Stop 07/07/20 at 08:58; Status DC Propofol (Diprivan) 200 mg STK-MED ONCE IV ; Start 07/07/20 at 09:00; Stop 07/07/20 at 09:01; Status DC Dexamethasone Sodium Phosphate (Decadron) 20 mg STK-MED ONCE .ROUTE ; Start 07/07/20 at 09:00; Stop 07/07/20 at 09:01; Status DC Lidocaine HCl (Lidocaine Pf 2% Vial) 5 ml STK-MED ONCE .ROUTE ; Start 07/07/20 at 09:00; Stop 07/07/20 at 09:01; Status DC Ondansetron HCl (Zofran) 4 mg STK-MED ONCE .ROUTE ; Start 07/07/20 at 09:00; Stop 07/07/20 at 09:01; Status DC Phenylephrine HCl (Mamadou-Synephrine Inj) 10 mg STK-MED ONCE .ROUTE ; Start 07/07/20 at 09:01; Stop 07/07/20 at 09:01; Status DC Desflurane (Suprane) 90 ml STK-MED ONCE IH ; Start 07/07/20 at 09:04; Stop 07/07/20 at 09:04; Status DC Mannitol (Mannitol) 12.5 g STK-MED ONCE .ROUTE ; Start 07/07/20 at 09:17; Stop 07/07/20 at 09:17; Status DC Lidocaine HCl (Xylocaine 1% Pf 30ml Vial) 30 ml 1X ONCE INJ Last administered on 07/07/20at 11:28; Start 07/07/20 at 10:00; Stop 07/07/20 at 10:01; Status DC Epinephrine HCl (Adrenalin) 0.15 mg 1X ONCE INJ ; Start 07/07/20 at 10:00; Stop 07/07/20 at 10:01; Status DC Remifentanil HCl (Ultiva) 1 mg STK-MED ONCE IV ; Start 07/07/20 at 12:01; Stop 07/07/20 at 12:02; Status DC Glycopyrrolate (Robinul) 1 mg STK-MED ONCE .ROUTE ; Start 07/07/20 at 12:02; Stop 07/07/20 at 12:03; Status DC Neostigmine Dougherty (Neostigmine Methylsulfate) 5 mg STK-MED ONCE .ROUTE ; Start 07/07/20 at 12:03; Stop 07/07/20 at 12:03; Status DC Fentanyl Citrate (Fentanyl 2ml Vial) 100 mcg STK-MED ONCE .ROUTE ; Start 07/07/20 at 12:45; Stop 07/07/20 at 12:45; Status DC Nicardipine HCl (Cardene) 25 mg STK-MED ONCE IV ; Start 07/07/20 at 12:47; Stop 07/07/20 at 12:48; Status DC Lidocaine HCl (Lidocaine Pf 2% Vial) 5 ml STK-MED ONCE .ROUTE ; Start 07/07/20 at 13:06; Stop 07/07/20 at 13:07; Status DC Propofol 50 ml @ As Directed STK-MED ONCE IV ; Start 07/07/20 at 13:30; Stop 07/07/20 at 13:30; Status DC Lorazepam (Ativan Inj) 2 mg PRN Q4HRS PRN IVP ANXIETY / AGITATION Last administered on 07/09/20at 10:20; Start 07/07/20 at 14:15 Dexmedetomidine HCl 400 mcg/ Sodium Chloride 100 ml @ 0 mls/hr CONT PRN IV PER PROTOCOL Last administered on 07/09/20at 06:17; Start 07/07/20 at 14:45 Sodium Chloride 500 ml @ 500 mls/hr 1X PRN PRN IV SEE COMMENTS; Start 07/07/20 at 14:45 Atropine Sulfate (ATROPINE 0.5mg SYRINGE) 0.5 mg PRN Q5MIN PRN IV SEE COMMENTS; Start 07/07/20 at 14:45 Dextrose/Sodium Chloride 2,500 ml @ 50 mls/hr Q24H IV ; Start 07/07/20 at 15:00; Stop 07/09/20 at 17:00; Status UNV Dextrose/Sodium Chloride 0 ml @ 50 mls/hr Q0M IV ; Start 07/09/20 at 17:00; Stop 07/09/20 at 17:00; Status UNV Dextrose 1,000 ml @ 50 mls/hr Q20H IV Last administered on 07/07/20at 15:11; Start 07/07/20 at 16:00; Stop 07/07/20 at 17:39; Status DC Sodium Chloride 1,000 ml @ 50 mls/hr Q20H IV Last administered on 07/09/20at 06:18; Start 07/07/20 at 18:00 Active Scripts Active Reported Aspirin 81 Mg Tab.chew 81 Mg PO DAILY Metformin Hcl 500 Mg Tablet 500 Mg PO BIDWMEALS Atenolol 50 Mg Tablet 50 Mg PO DAILY Vitals/I & O Vital Sign - Last 24 Hours 07/08/20 07/08/20 07/08/20 07/08/20 14:14 15:00 16:00 16:08 Temp 97.3 97.3 Pulse 66 73 73 Resp 21 15 18 B/P (MAP) 132/72 (92) 135/68 (90) 144/77 (99) Pulse Ox 97 96 97 O2 Delivery Room Air Room Air Room Air 07/08/20 07/08/20 07/08/20 07/08/20 17:00 18:00 19:00 20:00 Temp 98.3 98.3 Pulse 74 84 63 67 Resp 18 21 20 19 B/P (MAP) 152/74 (100) 164/84 (110) 101/56 (71) 107/80 (89) Pulse Ox 98 98 93 97 O2 Delivery Room Air Room Air Room Air Room Air 07/08/20 07/08/20 07/08/20 07/08/20 20:00 21:00 22:00 23:00 Pulse 58 59 65 Resp 31 19 24 B/P (MAP) 96/67 (77) 122/75 (91) 111/70 (84) Pulse Ox 96 95 96 O2 Delivery Room Air Room Air Room Air 07/09/20 07/09/20 07/09/20 07/09/20 00:00 00:00 01:00 02:00 Temp 98.0 98.0 Pulse 67 70 65 Resp 18 15 24 B/P (MAP) 103/61 (75) 133/71 (91) 114/69 (84) Pulse Ox 96 97 96 O2 Delivery Room Air Room Air Room Air 07/09/20 07/09/20 07/09/20 07/09/20 03:00 04:00 05:00 06:00 Temp 98.7 98.7 Pulse 58 62 72 106 Resp 14 15 18 19 B/P (MAP) 119/66 (83) 118/67 (84) 135/76 (95) 140/67 (91) Pulse Ox 98 97 97 98 O2 Delivery Room Air Room Air Room Air Room Air 07/09/20 07/09/20 07/09/20 07/09/20 07:00 08:00 08:00 09:00 Temp 97.6 97.6 Pulse 64 68 62 Resp 19 19 18 B/P (MAP) 117/75 (89) 101/76 (84) 138/84 (102) Pulse Ox 92 92 95 O2 Delivery Room Air Room Air Room Air Room Air 07/09/20 10:00 Pulse 60 Resp 17 B/P (MAP) 160/84 (109) Pulse Ox 97 O2 Delivery Room Air Intake and Output 07/08/20 07/08/20 07/09/20 15:00 23:00 07:00 Intake Total 708 ml 645.9 ml Output Total 825 ml 100 ml Balance -117 ml 545.9 ml Justifications for Admission TIA Indications Persistent neurologic signs?: Yes Justification for admission: There is persistence of patient's focal neurologic signs or symptoms or there is concern for recurrence of patient's neurological signs and symptoms. Other Justification Nutrition Consultation Dietary Evaluation: Recommendations by RD: Dietary education by RD, Increase Calorie Intake, Protein supplementation Comments: clarified diet to ADA/ Cardiac per PMH and lipid panel added Glucerna supplements to help pt meet his nutrition needs Expected Outcomes/Goals: to meet >75% est nutr needs Malnutrition Findings: Food and Nutrition Intake (Mod: <75% est energy req 7days Malnutrition related to morbid: Yes Weight Status: Overweight LUCA GOTTI [employer] Jul 09, 2020 13:20
--- NOTE | 2020-07-09 13:25 | PDOC ---
GENERAL General: Patient examined chart reviewed seen with daughter and friends at bedside. One very close family friend is on the phone. Daughter is crying and very upset today because she feels that the sedation is slowing her dad's progress. Apparently last night his sedation was lifted and she was able to talk to him a little bit which was very reassuring but then he became agitated and sedation needed to be restarted. She is very angry about this and feels that his progress is not coming along as quickly as possible. neurology manager came in and visited with this and his assistance is appreciated. We will get in touch with neurology, lighten sedation, and reassess his neurologic status [place]. Brain mass pathology is pending. I tried to explain to the daughter that his underlying neurologic process may be causing agitation along with the steroid treatment and potentially ICU psychosis. She is understandably very upset given her dad's severe illness. Total time today is 35 minutes with greater than 50% in counseling and coordination of care most of which in discussion with neurosurgery nurse practitioner at bedside, friends, daughter, and nursing home manager. Problems: (1) Demyelinating lesion (2) Acute encephalopathy (3) Brain lesion VITAL SIGNS Vital Signs/I&O: Vital Signs Date Time Temp Pulse Resp B/P (MAP) Pulse Ox O2 Delivery O2 Flow Rate FiO2 07/09/20 10:00 60 17 160/84 (109) 97 Room Air 07/09/20 07:00 97.6 97.6 I & O 07/08/20 07/08/20 07/09/20 15:00 23:00 07:00 Intake Total 708 ml 645.9 ml Output Total 825 ml 100 ml Balance -117 ml 545.9 ml Patient is sedated unresponsive today Chest is clear to auscultation Heart S1-S2 normal regular rate and rhythm no murmurs or gallops are noted Abdomen soft nontender nondistended no masses organomegaly noted Extremity exam is unremarkable for acute abnormality. Strength testing could not be done due to sedation ALLERGIES Allergies: Allergies Coded Allergies Type Severity Reaction Last Updated Verified No Known Drug Allergies 07/01/18 No MEDS Medications: Current Medications Medications (Trade) Dose Ordered Sig/Desiree Start Time Stop Time Status Last Admin Dose Admin Acetaminophen (Tylenol) 650 mg PRN Q6HRS PRN 06/30/20 22:15 Aspirin (Aspirin Rectal Supp) 300 mg PRN DAILY PRN 06/30/20 22:15 Aspirin (Ecotrin) 325 mg DAILYWBKFT 07/01/20 08:00 07/06/20 08:45 Atorvastatin Calcium (Lipitor) 80 mg QHS 06/30/20 22:30 07/05/20 22:16 Atropine Sulfate (ATROPINE 0.5mg SYRINGE) 0.5 mg PRN Q5MIN PRN 07/07/20 14:45 Bacitracin 96062 unit/Sodium Chloride 1,000 ml @ 1,000 mls/hr 1X ONCE 07/07/20 06:00 07/07/20 06:59 DC 07/07/20 11:28 Bisacodyl (Dulcolax Supp) 10 mg PRN DAILY PRN 06/30/20 22:15 Calcium Carbonate/ Glycine (Tums) 500 mg PRN Q3HRS PRN 06/30/20 22:15 Cefazolin Sodium/ Dextrose 50 ml @ 100 mls/hr 1X PREOP PRN 07/07/20 06:00 07/07/20 18:00 DC 07/07/20 10:30 Cellulose (Surgicel Hemostat 4x8) 1 each STK-MED ONCE 07/07/20 07:37 07/07/20 07:37 DC Desflurane (Suprane) 90 ml STK-MED ONCE 07/07/20 09:04 07/07/20 09:04 DC Dexamethasone Sodium Phosphate (Decadron) 20 mg STK-MED ONCE 07/07/20 09:00 07/07/20 09:01 DC Dexmedetomidine HCl 400 mcg/ Sodium Chloride 100 ml @ 0 mls/hr CONT PRN 07/07/20 14:45 07/09/20 06:17 Dextrose 1,000 ml @ 50 mls/hr Q20H 07/07/20 16:00 07/07/20 17:39 DC 07/07/20 15:11 Dextrose (Dextrose 50%-Water Syringe) 12.5 gm PRN Q15MIN PRN 06/30/20 22:45 Dextrose/Sodium Chloride 0 ml @ 50 mls/hr Q0M 07/09/20 17:00 07/09/20 17:00 UNV Epinephrine HCl (Adrenalin) 0.15 mg 1X ONCE 07/07/20 10:00 07/07/20 10:01 DC Famotidine (Pepcid) 20 mg BID 06/30/20 22:30 07/06/20 08:45 Fentanyl Citrate (Fentanyl 2ml Vial) 100 mcg STK-MED ONCE 07/07/20 12:45 07/07/20 12:45 DC Gadoterate Meglumine (Clariscan) 8 ml 1X ONCE 07/07/20 08:30 07/07/20 08:31 DC 07/07/20 08:52 Gelatin (Gelfoam Size 100) 1 each STK-MED ONCE 07/07/20 07:37 07/07/20 07:37 DC 07/07/20 11:28 Glycopyrrolate (Robinul) 1 mg STK-MED ONCE 07/07/20 12:02 07/07/20 12:03 DC Hydralazine HCl (Apresoline Inj) 10 mg PRN Q4HRS PRN 06/30/20 22:15 Hydromorphone HCl (Dilaudid) 0.5 mg PRN Q10MIN PRN 07/07/20 07:00 07/07/20 19:00 DC Info (CONTRAST GIVEN -- Rx MONITORING) 1 each PRN DAILY PRN 07/03/20 15:45 07/05/20 15:44 DC Insulin Human Lispro (HumaLOG) 0-7 UNITS TIDWMEALHC 07/01/20 08:00 07/09/20 12:18 Iohexol (Omnipaque 240 Mg/ml) 50 ml 1X ONCE 07/03/20 15:45 07/03/20 15:46 DC 07/03/20 15:51 Iohexol (Omnipaque 300 Mg/ml) 75 ml 1X ONCE 07/03/20 15:45 07/03/20 15:46 DC 07/03/20 15:51 Lidocaine HCl (Lidocaine Pf 2% Vial) 5 ml STK-MED ONCE 07/07/20 13:06 07/07/20 13:07 DC Lidocaine HCl (Xylocaine 1% Pf 30ml Vial) 30 ml 1X ONCE 07/07/20 10:00 07/07/20 10:01 DC 07/07/20 11:28 Lidocaine HCl (Xylocaine-Mpf 1% 2ml Vial) 2 ml PRN 1X PRN 07/07/20 07:00 07/07/20 19:00 DC Lidocaine/ Epinephrine (LIDOCAINE 2%-EPI 1:100,000 multi-dose) 20 ml STK-MED ONCE 07/07/20 07:37 07/07/20 07:37 DC Lorazepam (Ativan Inj) 2 mg PRN Q4HRS PRN 07/07/20 14:15 07/09/20 10:20 Mannitol (Mannitol) 12.5 g STK-MED ONCE 07/07/20 09:17 07/07/20 09:17 DC Metoprolol Tartrate (Lopressor) 25 mg BID 06/30/20 22:30 07/06/20 21:42 Morphine Sulfate (Morphine Sulfate) 1 mg PRN Q10MIN PRN 07/07/20 07:00 07/07/20 19:00 DC Neostigmine Bim (Neostigmine Methylsulfate) 5 mg STK-MED ONCE 07/07/20 12:03 07/07/20 12:03 DC Nicardipine HCl (Cardene) 25 mg STK-MED ONCE 07/07/20 12:47 07/07/20 12:48 DC Ondansetron HCl (Zofran) 4 mg STK-MED ONCE 07/07/20 09:00 07/07/20 09:01 DC Phenylephrine HCl (Mamadou-Synephrine Inj) 10 mg STK-MED ONCE 07/07/20 09:01 07/07/20 09:01 DC Povidone Iodine (Betadine Oint) 28 nazario STK-MED ONCE 07/07/20 07:37 07/07/20 07:37 DC Prochlorperazine Edisylate (Compazine) 5 mg PACU PRN PRN 07/07/20 07:00 07/07/20 19:00 DC Propofol 50 ml @ As Directed STK-MED ONCE 07/07/20 13:30 07/07/20 13:30 DC Propofol (Diprivan) 200 mg STK-MED ONCE 07/07/20 09:00 07/07/20 09:01 DC Remifentanil HCl (Ultiva) 1 mg STK-MED ONCE 07/07/20 12:01 07/07/20 12:02 DC Ringer's Solution 1,000 ml @ 30 mls/hr Q24H 07/07/20 07:00 07/07/20 18:59 DC 07/07/20 09:45 Rocuronium Bim (Zemuron) 50 mg STK-MED ONCE 07/07/20 08:57 07/07/20 08:57 DC Senna/Docusate Sodium (Senna Plus) 1 tab BID 06/30/20 22:30 07/06/20 08:45 Sodium Chloride 1,000 ml @ 50 mls/hr Q20H 07/07/20 18:00 07/09/20 06:18 Thrombin 20,000 unit STK-MED ONCE 07/07/20 07:37 07/07/20 07:37 DC 07/07/20 11:28 LAB Lab: Laboratory Tests Test 07/09/20 05:00 07/09/20 07:49 07/09/20 12:13 White Blood Count 23.5 x10^3/uL (4.0-11.0) H Red Blood Count 4.43 x10^6/uL (4.30-5.70) Hemoglobin 14.3 g/dL (13.0-17.5) Hematocrit 42.1 % (39.0-53.0) Mean Corpuscular Volume 95 fL (79-100) Mean Corpuscular Hemoglobin 32 pg (25-35) Mean Corpuscular Hemoglobin Concent 34 g/dL (31-37) Red Cell Distribution Width 13.4 % (11.5-14.5) Platelet Count 294 x10^3/uL (140-400) Neutrophils (%) (Auto) 94 % (31-73) H Lymphocytes (%) (Auto) 4 % (24-48) L Monocytes (%) (Auto) 2 % (0-9) Eosinophils (%) (Auto) 0 % (0-3) Basophils (%) (Auto) 0 % (0-3) Neutrophils # (Auto) 22.2 x10^3/uL (1.8-7.7) H Lymphocytes # (Auto) 0.9 x10^3/uL (1.0-4.8) L Monocytes # (Auto) 0.4 x10^3/uL (0.0-1.1) Eosinophils # (Auto) 0.0 x10^3/uL (0.0-0.7) Basophils # (Auto) 0.0 x10^3/uL (0.0-0.2) Segmented Neutrophils % 91 % (35-66) H Band Neutrophils % 7 % (0-9) Lymphocytes % 1 % (24-48) L Atypical Lymphocytes % (Manual) 1 % (0-0) H Platelet Estimate Adequate (ADEQUATE) Sodium Level 141 mmol/L (136-145) Potassium Level 4.1 mmol/L (3.5-5.1) Chloride Level 107 mmol/L (98-107) Carbon Dioxide Level 24 mmol/L (21-32) Anion Gap 10 (6-14) Blood Urea Nitrogen 26 mg/dL (8-26) Creatinine 1.0 mg/dL (0.7-1.3) Estimated GFR (Cockcroft-Gault) 74.3 BUN/Creatinine Ratio 26 (6-20) H Glucose Level 174 mg/dL (70-99) H Calcium Level 8.9 mg/dL (8.5-10.1) Total Bilirubin 0.4 mg/dL (0.2-1.0) Aspartate Amino Transferase (AST) 18 U/L (15-37) Alanine Aminotransferase (ALT) 46 U/L (16-63) Alkaline Phosphatase 64 U/L (46-116) Total Protein 7.2 g/dL (6.4-8.2) Albumin 3.0 g/dL (3.4-5.0) L Albumin/Globulin Ratio 0.7 (1.0-1.7) L Glucose (Fingerstick) 180 mg/dL (70-99) H 206 mg/dL (70-99) H Laboratory Tests 07/09/20 05:00 Laboratory Tests 07/09/20 05:00 ASSESSMENT & PLAN A&P Plan as noted above This note was created using [employer] and may have omissions and/or errors due to the nature of real-time voice cpas. Justifications for Admission TIA Indications Persistent neurologic signs?: Yes Justification for admission: There is persistence of patient's focal neurologic signs or symptoms or there is concern for recurrence of patient's neurological signs and symptoms. Other Justification Nutrition Consultation Dietary Evaluation: Recommendations by RD: Dietary education by RD, Increase Calorie Intake, Protein supplementation Comments: clarified diet to ADA/ Cardiac per PMH and lipid panel added Glucerna supplements to help pt meet his nutrition needs Expected Outcomes/Goals: to meet >75% est nutr needs Malnutrition Findings: Food and Nutrition Intake (Mod: <75% est energy req 7days Malnutrition related to morbid: Yes Weight Status: Overweight GIA LEDBETTER MD Jul 09, 2020 13:25
--- NOTE | 2020-07-09 15:29 | RAD ---
STUDY: CT head without contrast INDICATION: Status post brain biopsy. Agitation. COMPARISON: 06/30/[address]; MRI of the brain 07/03/2020 and 07/07/2020 TECHNIQUE: Axial CT imaging through the head without the use of intravenous contrast. Sagittal and co siva reformats were obtained. One or more of the following individualized dose reduction techniques were utilized for this examinat ion: 1. Automated exposure control 2. Adjustment of the mA and/or kV according to patient size 3. Use of iterative reconstruction technique. FINDINGS: Small craniotomy defect on the right in the setting of a recent brain biopsy. Small volume hemorrhage and pneumocephalus along the biopsy tract in addition to a trace amount of subdural blood products e xtend along the posterior right temporal lobe. Greater degree of mass effect on the posterior aspect of the right lateral ventricle the degree of which is not entirely unexpected given proximity to the biopsy. No overt dilatation of the bilateral ventricle temporal horn and there is no midline shift. N oting differences in patient positioning the dimensions of the left lateral ventricle have not signif icant changed. Low-attenuation corresponding to numerous lesions are redemonstrated in nature better characterized o n the recent MRI. IMPRESSION: 1. Pneumocephalus and a small amount of hemorrhage along the right-sided biopsy tract. These finding s in addition to more pronounced mass effect on the posterior aspect of the right lateral ventricle a re not beyond what would be expected given proximity to the biopsy. No midline shift or increase in v olume of the ventricular system to suggest hydrocephalus. If there is ongoing concern consider short- term follow-up. 2. Numerous parenchymal lesions fully characterized on the recent MRI. Electronically signed by: TAYLOR HERNANDEZ MD (07/09/2020 3:27 PM) [facility]
--- NOTE | 2020-07-09 16:10 | PDOC ---
PROGRESS NOTES Date of Service DATE: 07/09/20 TIME: 16:05 Assessment 1. Multiple brain masses of unclear etiology. He underwent a biopsy. The preliminary frozen section reveals the possibility of demyelinating disease rather than malignancy. Not clear when the final path report will be available. If this is tumefactive demyelination then two thirds of people can respond to high-dose steroid in a favorable fashion. 2. Dizziness and hearing loss likely related to the central nervous system process. He had removal of cerumen last week. 3. Memory loss which may be related to the central nervous system process. 4. Diabetes with a glucose fairly well controlled. 5. Hypertension with the blood pressures mildly elevated. 6. He appears encephalopathic which may be the anesthesia as well as the medications being used to control the agitation. We will need to try to minimize the medicines used for sedation so that he might wake up. He currently is moving both sides but perhaps the left side is not moving quite as well. I spoke with the daughter at bedside, another family member and another member on the phone. They are quite concerned about the use of sedation for agitation. They feel it is perpetuating his confusion. Plan He is currently receiving Decadron 4 mg every 6 hours. I will switch this over to Solu-Medrol 1 g daily for 5 days. If the agitation is provoked by the steroid then the agitation will continue. The nurses will try to keep sedation to a minimum. Precedex is a better choice as it can calm without heavy sedation. The family will work to keep him calm when he wakes up. Dr. Nuñez will be back on service July 10, 2020. Subjective Nonverbal Objective Vital Signs Date Time Temp Pulse Resp B/P (MAP) Pulse Ox O2 Delivery O2 Flow Rate FiO2 07/09/20 13:00 64 18 130/71 (90) 92 Room Air 07/09/20 11:00 97.6 97.6 Intake and Output 07/09/20 07:00 Intake Total 1353.9 ml Output Total 925 ml Balance 428.9 ml Intake Oral 250 ml IV Total 1103.9 ml Output Urine Total 925 ml PHYSICAL EXAM He was lying in bed with his eyes closed. Precedex had been discontinued 15 minutes prior to my evaluation. He did not alert very well to noxious st imulation. When held open his eyes still seem to deviate to the right. Oculocephalic reflex was intact. Tone appeared symmetric. At this point he did not spontaneously move. In discussion with nurses when he would wake up he would try to climb out of bed and had good movement. Review of Relevant I have reviewed the following items bashir (where applicable) has been applied. Labs Laboratory Tests Test 07/09/20 05:00 07/09/20 07:49 07/09/20 12:13 White Blood Count 23.5 x10^3/uL (4.0-11.0) Red Blood Count 4.43 x10^6/uL (4.30-5.70) Hemoglobin 14.3 g/dL (13.0-17.5) Hematocrit 42.1 % (39.0-53.0) Mean Corpuscular Volume 95 fL (79-100) Mean Corpuscular Hemoglobin 32 pg (25-35) Mean Corpuscular Hemoglobin Concent 34 g/dL (31-37) Red Cell Distribution Width 13.4 % (11.5-14.5) Platelet Count 294 x10^3/uL (140-400) Neutrophils (%) (Auto) 94 % (31-73) Lymphocytes (%) (Auto) 4 % (24-48) Monocytes (%) (Auto) 2 % (0-9) Eosinophils (%) (Auto) 0 % (0-3) Basophils (%) (Auto) 0 % (0-3) Neutrophils # (Auto) 22.2 x10^3/uL (1.8-7.7) Lymphocytes # (Auto) 0.9 x10^3/uL (1.0-4.8) Monocytes # (Auto) 0.4 x10^3/uL (0.0-1.1) Eosinophils # (Auto) 0.0 x10^3/uL (0.0-0.7) Basophils # (Auto) 0.0 x10^3/uL (0.0-0.2) Segmented Neutrophils % 91 % (35-66) Band Neutrophils % 7 % (0-9) Lymphocytes % 1 % (24-48) Atypical Lymphocytes % (Manual) 1 % (0-0) Platelet Estimate Adequate (ADEQUATE) Sodium Level 141 mmol/L (136-145) Potassium Level 4.1 mmol/L (3.5-5.1) Chloride Level 107 mmol/L (98-107) Carbon Dioxide Level 24 mmol/L (21-32) Anion Gap 10 (6-14) Blood Urea Nitrogen 26 mg/dL (8-26) Creatinine 1.0 mg/dL (0.7-1.3) Estimated GFR (Cockcroft-Gault) 74.3 BUN/Creatinine Ratio 26 (6-20) Glucose Level 174 mg/dL (70-99) Calcium Level 8.9 mg/dL (8.5-10.1) Total Bilirubin 0.4 mg/dL (0.2-1.0) Aspartate Amino Transf (AST/SGOT) 18 U/L (15-37) Alanine Aminotransferase (ALT/SGPT) 46 U/L (16-63) Alkaline Phosphatase 64 U/L (46-116) Total Protein 7.2 g/dL (6.4-8.2) Albumin 3.0 g/dL (3.4-5.0) Albumin/Globulin Ratio 0.7 (1.0-1.7) Glucose (Fingerstick) 180 mg/dL (70-99) 206 mg/dL (70-99) Laboratory Tests Test 07/09/20 05:00 07/09/20 07:49 07/09/20 12:13 White Blood Count 23.5 x10^3/uL (4.0-11.0) Red Blood Count 4.43 x10^6/uL (4.30-5.70) Hemoglobin 14.3 g/dL (13.0-17.5) Hematocrit 42.1 % (39.0-53.0) Mean Corpuscular Volume 95 fL (79-100) Mean Corpuscular Hemoglobin 32 pg (25-35) Mean Corpuscular Hemoglobin Concent 34 g/dL (31-37) Red Cell Distribution Width 13.4 % (11.5-14.5) Platelet Count 294 x10^3/uL (140-400) Neutrophils (%) (Auto) 94 % (31-73) Lymphocytes (%) (Auto) 4 % (24-48) Monocytes (%) (Auto) 2 % (0-9) Eosinophils (%) (Auto) 0 % (0-3) Basophils (%) (Auto) 0 % (0-3) Neutrophils # (Auto) 22.2 x10^3/uL (1.8-7.7) Lymphocytes # (Auto) 0.9 x10^3/uL (1.0-4.8) Monocytes # (Auto) 0.4 x10^3/uL (0.0-1.1) Eosinophils # (Auto) 0.0 x10^3/uL (0.0-0.7) Basophils # (Auto) 0.0 x10^3/uL (0.0-0.2) Segmented Neutrophils % 91 % (35-66) Band Neutrophils % 7 % (0-9) Lymphocytes % 1 % (24-48) Atypical Lymphocytes % (Manual) 1 % (0-0) Platelet Estimate Adequate (ADEQUATE) Sodium Level 141 mmol/L (136-145) Potassium Level 4.1 mmol/L (3.5-5.1) Chloride Level 107 mmol/L (98-107) Carbon Dioxide Level 24 mmol/L (21-32) Anion Gap 10 (6-14) Blood Urea Nitrogen 26 mg/dL (8-26) Creatinine 1.0 mg/dL (0.7-1.3) Estimated GFR (Cockcroft-Gault) 74.3 BUN/Creatinine Ratio 26 (6-20) Glucose Level 174 mg/dL (70-99) Calcium Level 8.9 mg/dL (8.5-10.1) Total Bilirubin 0.4 mg/dL (0.2-1.0) Aspartate Amino Transf (AST/SGOT) 18 U/L (15-37) Alanine Aminotransferase (ALT/SGPT) 46 U/L (16-63) Alkaline Phosphatase 64 U/L (46-116) Total Protein 7.2 g/dL (6.4-8.2) Albumin 3.0 g/dL (3.4-5.0) Albumin/Globulin Ratio 0.7 (1.0-1.7) Glucose (Fingerstick) 180 mg/dL (70-99) 206 mg/dL (70-99) Medications Current Medications Ringer's Solution 1,000 ml @ 100 mls/hr Q10H IV Last administered on 06/30/20at 23:44; Start 06/30/20 at 22:30; Stop 07/01/20 at 08:29; Status DC Ondansetron HCl (Zofran) 4 mg PRN Q6HRS PRN IVP NAUSEA/VOMITING; Start 06/30/20 at 22:30 Calcium Carbonate/ Glycine (Tums) 500 mg PRN Q3HRS PRN PO UPSET STOMACH; Start 06/30/20 at 22:15 Acetaminophen (Tylenol) 650 mg PRN Q6HRS PRN PO Headaches, Temp > 101.5F; Start 06/30/20 at 22:15 Senna/Docusate Sodium (Senna Plus) 1 tab BID PO Last administered on 07/06/20at 08:45; Start 06/30/20 at 22:30 Bisacodyl (Dulcolax Supp) 10 mg PRN DAILY PRN NM CONSTIPATION; Start 06/30/20 at 22:15 Atorvastatin Calcium (Lipitor) 80 mg QHS PO Last administered on 07/05/20at 22:16; Start 06/30/20 at 22:30 Famotidine (Pepcid) 20 mg BID PO Last administered on 07/06/20at 08:45; Start 06/30/20 at 22:30 Aspirin (Ecotrin) 325 mg DAILYWBKFT PO Last administered on 07/06/20at 08:45; Start 07/01/20 at 08:00 Aspirin (Aspirin Rectal Supp) 300 mg PRN DAILY PRN NM IF UNABLE TO TAKE PO; Start 06/30/20 at 22:15 Metoprolol Tartrate (Lopressor) 25 mg BID PO Last administered on 07/06/20at 21:42; Start 06/30/20 at 22:30 Hydralazine HCl (Apresoline Inj) 10 mg PRN Q4HRS PRN IVP ELEVATED BP, SEE COMMENTS; Start 06/30/20 at 22:15 Insulin Human Lispro (HumaLOG) 0-7 UNITS TIDWMEALHC SQ Last administered on 07/09/20at 12:18; Start 07/01/20 at 08:00 Dextrose (Dextrose 50%-Water Syringe) 12.5 gm PRN Q15MIN PRN IV SEE COMMENTS; Start 06/30/20 at 22:45 Gadoterate Meglumine (Clariscan) 10 ml 1X ONCE IVP ; Start 07/03/20 at 11:45; Stop 07/03/20 at 11:46; Status DC Gadoterate Meglumine (Clariscan) 8 ml 1X ONCE IVP ; Start 07/03/20 at 11:45; Stop 07/03/20 at 11:46; Status DC Gadoterate Meglumine (Clariscan) 10 ml 1X ONCE IVP Last administered on 07/03/20at 11:56; Start 07/03/20 at 11:45; Stop 07/03/20 at 11:48; Status DC Gadoterate Meglumine (Clariscan) 8 ml 1X ONCE IVP Last administered on 07/03/20at 11:56; Start 07/03/20 at 11:45; Stop 07/03/20 at 11:48; Status DC Iohexol (Omnipaque 300 Mg/ml) 75 ml 1X ONCE IV Last administered on 07/03/20at 15:51; Start 07/03/20 at 15:45; Stop 07/03/20 at 15:46; Status DC Iohexol (Omnipaque 240 Mg/ml) 50 ml 1X ONCE PO Last administered on 07/03/20at 15:51; Start 07/03/20 at 15:45; Stop 07/03/20 at 15:46; Status DC Info (CONTRAST GIVEN -- Rx MONITORING) 1 each PRN DAILY PRN MC SEE COMMENTS; Start 07/03/20 at 15:45; Stop 07/05/20 at 15:44; Status DC Bacitracin 96701 unit/Sodium Chloride 1,000 ml @ 1,000 mls/hr 1X ONCE IRR Last administered on 07/07/20at 11:28; Start 07/07/20 at 06:00; Stop 07/07/20 at 06:59; Status DC Cefazolin Sodium/ Dextrose 50 ml @ 100 mls/hr 1X PREOP PRN IV PRIOR TO PROCEDURE Last administered on 07/07/20at 10:30; Start 07/07/20 at 06:00; Stop 07/07/20 at 18:00; Status DC Ondansetron HCl (Zofran) 4 mg PRN Q6HRS PRN IV NAUSEA/VOMITING; Start 07/07/20 at 07:00; Stop 07/07/20 at 19:00; Status DC Fentanyl Citrate (Fentanyl 2ml Vial) 25 mcg PRN Q5MIN PRN IV MILD PAIN 1-3; Start 07/07/20 at 07:00; Stop 07/07/20 at 19:00; Status DC Fentanyl Citrate (Fentanyl 2ml Vial) 50 mcg PRN Q5MIN PRN IV MODERATE TO SEVERE PAIN; Start 07/07/20 at 07:00; Stop 07/07/20 at 19:00; Status DC Morphine Sulfate (Morphine Sulfate) 1 mg PRN Q10MIN PRN IV SEVERE PAIN 7-10; Start 07/07/20 at 07:00; Stop 07/07/20 at 19:00; Status DC Ringer's Solution 1,000 ml @ 30 mls/hr Q24H IV Last administered on 07/07/20at 09:45; Start 07/07/20 at 07:00; Stop 07/07/20 at 18:59; Status DC Lidocaine HCl (Xylocaine-Mpf 1% 2ml Vial) 2 ml PRN 1X PRN ID PRIOR TO IV START; Start 07/07/20 at 07:00; Stop 07/07/20 at 19:00; Status DC Hydromorphone HCl (Dilaudid) 0.5 mg PRN Q10MIN PRN IV SEV PAIN, Second choice; Start 07/07/20 at 07:00; Stop 07/07/20 at 19:00; Status DC Prochlorperazine Edisylate (Compazine) 5 mg PACU PRN PRN IV NAUSEA, MRX1; Start 07/07/20 at 07:00; Stop 07/07/20 at 19:00; Status DC Gelatin (Gelfoam Size 100) 1 each STK-MED ONCE .ROUTE Last administered on 07/07/20at 11:28; Start 07/07/20 at 07:37; Stop 07/07/20 at 07:37; Status DC Povidone Iodine (Betadine Oint) 28 nazario STK-MED ONCE TP ; Start 07/07/20 at 07:37; Stop 07/07/20 at 07:37; Status DC Lidocaine/ Epinephrine (LIDOCAINE 2%-EPI 1:100,000 multi-dose) 20 ml STK-MED ONCE .ROUTE ; Start 07/07/20 at 07:37; Stop 07/07/20 at 07:37; Status DC Cellulose (Surgicel Hemostat 4x8) 1 each STK-MED ONCE .ROUTE ; Start 07/07/20 at 07:37; Stop 07/07/20 at 07:37; Status DC Thrombin 20,000 unit STK-MED ONCE TP Last administered on 07/07/20at 11:28; Start 07/07/20 at 07:37; Stop 07/07/20 at 07:37; Status DC Gadoterate Meglumine (Clariscan) 10 ml 1X ONCE IVP Last administered on 07/07/20at 08:52; Start 07/07/20 at 08:30; Stop 07/07/20 at 08:31; Status DC Gadoterate Meglumine (Clariscan) 8 ml 1X ONCE IVP Last administered on 07/07/20at 08:52; Start 07/07/20 at 08:30; Stop 07/07/20 at 08:31; Status DC Dexamethasone Sodium Phosphate (Decadron) 4 mg Q6H IVP Last administered on 07/09/20at 12:08; Start 07/08/20 at 06:00; Stop 07/09/20 at 15:54; Status DC Rocuronium [place] (Zemuron) 50 mg STK-MED ONCE .ROUTE ; Start 07/07/20 at 08:57; Stop 07/07/20 at 08:57; Status DC Remifentanil HCl (Ultiva) 2 mg STK-MED ONCE IV ; Start 07/07/20 at 08:57; Stop 07/07/20 at 08:58; Status DC Propofol (Diprivan) 200 mg STK-MED ONCE IV ; Start 07/07/20 at 09:00; Stop 07/07/20 at 09:01; Status DC Dexamethasone Sodium Phosphate (Decadron) 20 mg STK-MED ONCE .ROUTE ; Start 07/07/20 at 09:00; Stop 07/07/20 at 09:01; Status DC Lidocaine HCl (Lidocaine Pf 2% Vial) 5 ml STK-MED ONCE .ROUTE ; Start 07/07/20 at 09:00; Stop 07/07/20 at 09:01; Status DC Ondansetron HCl (Zofran) 4 mg STK-MED ONCE .ROUTE ; Start 07/07/20 at 09:00; Stop 07/07/20 at 09:01; Status DC Phenylephrine HCl (Mamadou-Synephrine Inj) 10 mg STK-MED ONCE .ROUTE ; Start 07/07/20 at 09:01; Stop 07/07/20 at 09:01; Status DC Desflurane (Suprane) 90 ml STK-MED ONCE IH ; Start 07/07/20 at 09:04; Stop 07/07/20 at 09:04; Status DC Mannitol (Mannitol) 12.5 g STK-MED ONCE .ROUTE ; Start 07/07/20 at 09:17; Stop 07/07/20 at 09:17; Status DC Lidocaine HCl (Xylocaine 1% Pf 30ml Vial) 30 ml 1X ONCE INJ Last administered on 07/07/20at 11:28; Start 07/07/20 at 10:00; Stop 07/07/20 at 10:01; Status DC Epinephrine HCl (Adrenalin) 0.15 mg 1X ONCE INJ ; Start 07/07/20 at 10:00; Stop 07/07/20 at 10:01; Status DC Remifentanil HCl (Ultiva) 1 mg STK-MED ONCE IV ; Start 07/07/20 at 12:01; Stop 07/07/20 at 12:02; Status DC Glycopyrrolate (Robinul) 1 mg STK-MED ONCE .ROUTE ; Start 07/07/20 at 12:02; Stop 07/07/20 at 12:03; Status DC Neostigmine [place] (Neostigmine Methylsulfate) 5 mg STK-MED ONCE .ROUTE ; Start 07/07/20 at 12:03; Stop 07/07/20 at 12:03; Status DC Fentanyl Citrate (Fentanyl 2ml Vial) 100 mcg STK-MED ONCE .ROUTE ; Start 07/07/20 at 12:45; Stop 07/07/20 at 12:45; Status DC Nicardipine HCl (Cardene) 25 mg STK-MED ONCE IV ; Start 07/07/20 at 12:47; Stop 07/07/20 at 12:48; Status DC Lidocaine HCl (Lidocaine Pf 2% Vial) 5 ml STK-MED ONCE .ROUTE ; Start 07/07/20 at 13:06; Stop 07/07/20 at 13:07; Status DC Propofol 50 ml @ As Directed STK-MED ONCE IV ; Start 07/07/20 at 13:30; Stop 07/07/20 at 13:30; Status DC Lorazepam (Ativan Inj) 2 mg PRN Q4HRS PRN IVP ANXIETY / AGITATION Last administered on 07/09/20at 10:20; Start 1/15/21 at 14:15 Dexmedetomidine HCl 400 mcg/ Sodium Chloride 100 ml @ 0 mls/hr CONT PRN IV PER PROTOCOL Last administered on 07/09/20at 06:17; Start 07/07/20 at 14:45 Sodium Chloride 500 ml @ 500 mls/hr 1X PRN PRN IV SEE COMMENTS; Start 07/07/20 at 14:45 Atropine Sulfate (ATROPINE 0.5mg SYRINGE) 0.5 mg PRN Q5MIN PRN IV SEE COMMENTS; Start 07/07/20 at 14:45 Dextrose/Sodium Chloride 2,500 ml @ 50 mls/hr Q24H IV ; Start 07/07/20 at 15:00; Stop 07/09/20 at 17:00; Status UNV Dextrose/Sodium Chloride 0 ml @ 50 mls/hr Q0M IV ; Start 07/09/20 at 17:00; Stop 07/09/20 at 17:00; Status UNV Dextrose 1,000 ml @ 50 mls/hr Q20H IV Last administered on 07/07/20at 15:11; Start 07/07/20 at 16:00; Stop 07/07/20 at 17:39; Status DC Sodium Chloride 1,000 ml @ 50 mls/hr Q20H IV Last administered on 07/09/20at 06:18; Start 07/07/20 at 18:00 Insulin Glargine (Lantus Syringe) 10 unit QHS SQ ; Start 07/09/20 at 21:00 Methylprednisolone Sodium Succinate 1000 mg/Sodium Chloride 100 ml @ 100 mls/hr DAILY IV ; Start 07/09/20 at 16:00; Stop 07/13/20 at 22:00 Active Scripts Active Reported Aspirin 81 Mg Tab.chew 81 Mg PO DAILY Metformin Hcl 500 Mg Tablet 500 Mg PO BIDWMEALS Atenolol 50 Mg Tablet 50 Mg PO DAILY Vitals/I & O Vital Sign - Last 24 Hours 07/08/20 07/08/20 07/08/20 07/08/20 16:08 17:00 18:00 19:00 Pulse 74 84 63 Resp 18 21 20 B/P (MAP) 152/74 (100) 164/84 (110) 101/56 (71) Pulse Ox 98 98 93 O2 Delivery Room Air Room Air Room Air 1/16/07/08/20 07/08/20 07/08/20 20:00 20:00 21:00 22:00 Temp 98.3 98.3 Pulse 67 58 59 Resp 19 31 19 B/P (MAP) 107/80 (89) 96/67 (77) 122/75 (91) Pulse Ox 97 96 95 O2 Delivery Room Air Room Air Room Air 07/08/20 07/09/20 07/09/20 07/09/20 23:00 00:00 00:00 01:00 Temp 98.0 98.0 Pulse 65 67 70 Resp 24 18 15 B/P (MAP) 111/70 (84) 103/61 (75) 133/71 (91) Pulse Ox 96 96 97 O2 Delivery Room Air Room Air Room Air 07/09/20 07/09/20 07/09/20 07/09/20 02:00 03:00 04:00 05:00 Temp 98.7 98.7 Pulse 65 58 62 72 Resp 24 14 15 18 B/P (MAP) 114/69 (84) 119/66 (83) 118/67 (84) 135/76 (95) Pulse Ox 96 98 97 97 O2 Delivery Room Air Room Air Room Air Room Air 07/09/20 07/09/20 07/09/20 07/09/20 06:00 07:00 08:00 08:00 Temp 97.6 97.6 Pulse 106 64 68 Resp 19 19 19 B/P (MAP) 140/67 (91) 117/75 (89) 101/76 (84) Pulse Ox 98 92 92 O2 Delivery Room Air Room Air Room Air Room Air 07/09/20 07/09/20 07/09/20 07/09/20 09:00 10:00 11:00 12:00 Temp 97.6 97.6 Pulse 62 60 62 72 Resp 18 17 18 19 B/P (MAP) 138/84 (102) 160/84 (109) 104/67 (79) 129/78 (95) Pulse Ox 95 97 94 96 O2 Delivery Room Air Room Air Room Air Room Air 07/09/20 13:00 Pulse 64 Resp 18 B/P (MAP) 130/71 (90) Pulse Ox 92 O2 Delivery Room Air Intake and Output 07/08/20 07/08/20 07/09/20 15:00 23:00 07:00 Intake Total 708 ml 645.9 ml Output Total 825 ml 100 ml Balance -117 ml 545.9 ml Justicifation of Admission Dx: Justifications for Admission: Justification of Admission Dx: Comment: (Higher level of care requested by [facility] for neurology evaluation) JOSE OLGUIN MD Jul 09, 2020 16:10
[2020-07-09] MEDS: methylPREDNISolone SOD SUCC 1,000 MG in IV NORMAL SALINE 100ML 100 ML IV SCH (16:23)
[2020-07-09] MEDS ORDERED: IV DEXTROSE 5% - 0.9 % NACL 1,000 ML IV SCH (17:00)
[2020-07-09] MEDS: ATORVASTATIN CALCIUM 40 MG TABLET. PO SCH (21:00)
[2020-07-09] MEDS ORDERED: INSULIN GLARGINE SYRINGE. SQ SCH (21:00)
[2020-07-10] VITALS (24 sets, daily range): BP systolic 105–175; BP diastolic 70–97
[2020-07-10] MEDS: DEXMEDETOMIDINE 400 MCG in IV NORMAL SALINE 100ML 96 ML IV PRN (03:07)
--- NOTE | 2020-07-10 03:26 | NUR ---
Nursing note: Patient continued to be confused during shift. Trying to get out of bed constantly while awake, I had to place precedex gtt back on for patient safety. [place] alarm placed, will try to titrate precedex down or off as tolerated.
[2020-07-10 04:33] LABS: BASO % 0 % (0-3); EOS % 0 % (0-3); HEMATOCRIT 39.9 % (39.0-53.0); HEMOGLOBIN 14.1 g/dL (13.0-17.5); LYMPH # 0.7 x10^3/uL (1.0-4.8); LYMPH % 3 % (24-48); MEAN CORPUSCULAR HEMOGLOBIN 33 pg (25-35); MEAN CORPUSCULAR HGB CONC 36 g/dL (31-37); MEAN CORPUSCULAR VOLUME 93 fL (79-100); MONO # 0.3 x10^3/uL (0.0-1.1); MONO % 1 % (0-9); NEUT # 20.3 x10^3/uL (1.8-7.7); NEUT % 95 % (31-73); PLATELET COUNT 299 x10^3/uL (140-400); RED BLOOD COUNT 4.27 x10^6/uL (4.30-5.70); RED CELL DISTRIBUTION WIDTH 13.8 % (11.5-14.5); WHITE BLOOD COUNT 21.4 x10^3/uL (4.0-11.0)
[2020-07-10 04:52] LABS: ALBUMIN 2.6 g/dL (3.4-5.0); ALBUMIN/GLOBULIN RATIO 0.7 (1.0-1.7); CALCIUM 8.3 mg/dL (8.5-10.1); CREATININE 1.1 mg/dL (0.7-1.3); GFR 66.6; POTASSIUM 3.8 mmol/L (3.5-5.1); TOTAL BILIRUBIN 0.4 mg/dL (0.2-1.0); TOTAL PROTEIN 6.5 g/dL (6.4-8.2)
[2020-07-10] MEDS: IV NORMAL SALINE 1000ML BAG 1,000 ML IV SCH (05:54)
[2020-07-10] MEDS: ASPIRIN ENTERIC COATED 325 MG TABLET.DR. PO SCH (08:00)
[2020-07-10] MEDS ORDERED: OLANZapine IM 10 MG VIAL. IM ONE (08:45)
[2020-07-10] MEDS: SENNOSIDES/DOCUSATE 8.6/50MG TABLET. PO SCH ×2 (09:00→20:21)
[2020-07-10] MEDS: FAMOTIDINE 20 MG TABLET. PO SCH ×2 (09:00→20:20)
[2020-07-10] MEDS: METOPROLOL TART IMMED RELEASE 25 MG TABLET. PO SCH ×2 (09:00→17:15)
[2020-07-10] MEDS: methylPREDNISolone SOD SUCC 1,000 MG in IV NORMAL SALINE 100ML 100 ML IV SCH (09:25)
[2020-07-10] MEDS: INSULIN LISPRO 300 UNITS/3 ML VIAL. SQ SCH ×4 (09:29→21:00)
--- NOTE | 2020-07-10 09:50 | PDOC ---
PROGRESS NOTES Date of Service DATE: 07/10/20 TIME: 09:40 Assessment Multiple brain masses,preliminary frozen section reveals the possibility of demyelinating disease rather than malignancy. Encephalopathic which may be the anesthesia as well as the medications being used to control the agitation. Memory loss Diabetes, hypertension Plan Trial of Zyprexa to see if we can spare the sedatives Await brain biopsy final path Decadron switched to Solu-Medrol No need for prophylactic anticonvulsants Discussed with daughter Subjective None Objective Vital Signs Date Time Temp Pulse Resp B/P (MAP) Pulse Ox O2 Delivery O2 Flow Rate FiO2 07/10/20 07:41 97.8 50 136/77 (96) 96 Room Air 97.8 07/10/20 06:00 14 Intake and Output 07/10/20 07:00 Intake Total 1728 ml Output Total 1185 ml Balance 543 ml Intake Oral 360 ml IV Total 1368 ml Output Urine Total 1185 ml PHYSICAL EXAM Alert. Oriented to person. Has trouble with reading. Tearful PERRL. EOMI. CN: Bilateral severe hearing loss, some dysarthria, otherwise no focal findings. Muscle tone: normal. Muscle strength: 5/5 DTR: 2+ Plantar reflex: Flexor Gait: not examined in bed. Sensory exam: no abnormal findings. No cerebellar signs elicited. Review of Relevant I have reviewed the following items bashir (where applicable) has been applied. Labs Laboratory Tests Test 07/09/20 05:00 07/09/20 07:49 07/09/20 12:13 07/09/20 17:11 White Blood Count 23.5 x10^3/uL (4.0-11.0) Red Blood Count 4.43 x10^6/uL (4.30-5.70) Hemoglobin 14.3 g/dL (13.0-17.5) Hematocrit 42.1 % (39.0-53.0) Mean Corpuscular Volume 95 fL (79-100) Mean Corpuscular Hemoglobin 32 pg (25-35) Mean Corpuscular Hemoglobin Concent 34 g/dL (31-37) Red Cell Distribution Width 13.4 % (11.5-14.5) Platelet Count 294 x10^3/uL (140-400) Neutrophils (%) (Auto) 94 % (31-73) Lymphocytes (%) (Auto) 4 % (24-48) Monocytes (%) (Auto) 2 % (0-9) Eosinophils (%) (Auto) 0 % (0-3) Basophils (%) (Auto) 0 % (0-3) Neutrophils # (Auto) 22.2 x10^3/uL (1.8-7.7) Lymphocytes # (Auto) 0.9 x10^3/uL (1.0-4.8) Monocytes # (Auto) 0.4 x10^3/uL (0.0-1.1) Eosinophils # (Auto) 0.0 x10^3/uL (0.0-0.7) Basophils # (Auto) 0.0 x10^3/uL (0.0-0.2) Segmented Neutrophils % 91 % (35-66) Band Neutrophils % 7 % (0-9) Lymphocytes % 1 % (24-48) Atypical Lymphocytes % (Manual) 1 % (0-0) Platelet Estimate Adequate (ADEQUATE) Sodium Level 141 mmol/L (136-145) Potassium Level 4.1 mmol/L (3.5-5.1) Chloride Level 107 mmol/L (98-107) Carbon Dioxide Level 24 mmol/L (21-32) Anion Gap 10 (6-14) Blood Urea Nitrogen 26 mg/dL (8-26) Creatinine 1.0 mg/dL (0.7-1.3) Estimated GFR (Cockcroft-Gault) 74.3 BUN/Creatinine Ratio 26 (6-20) Glucose Level 174 mg/dL (70-99) Calcium Level 8.9 mg/dL (8.5-10.1) Total Bilirubin 0.4 mg/dL (0.2-1.0) Aspartate Amino Transf (AST/SGOT) 18 U/L (15-37) Alanine Aminotransferase (ALT/SGPT) 46 U/L (16-63) Alkaline Phosphatase 64 U/L (46-116) Total Protein 7.2 g/dL (6.4-8.2) Albumin 3.0 g/dL (3.4-5.0) Albumin/Globulin Ratio 0.7 (1.0-1.7) Glucose (Fingerstick) 180 mg/dL (70-99) 206 mg/dL (70-99) 138 mg/dL (70-99) Test 1/17/21 21:24 07/10/20 04:05 Glucose (Fingerstick) 194 mg/dL (70-99) White Blood Count 21.4 x10^3/uL (4.0-11.0) Red Blood Count 4.27 x10^6/uL (4.30-5.70) Hemoglobin 14.1 g/dL (13.0-17.5) Hematocrit 39.9 % (39.0-53.0) Mean Corpuscular Volume 93 fL (79-100) Mean Corpuscular Hemoglobin 33 pg (25-35) Mean Corpuscular Hemoglobin Concent 36 g/dL (31-37) Red Cell Distribution Width 13.8 % (11.5-14.5) Platelet Count 299 x10^3/uL (140-400) Neutrophils (%) (Auto) 95 % (31-73) Lymphocytes (%) (Auto) 3 % (24-48) Monocytes (%) (Auto) 1 % (0-9) Eosinophils (%) (Auto) 0 % (0-3) Basophils (%) (Auto) 0 % (0-3) Neutrophils # (Auto) 20.3 x10^3/uL (1.8-7.7) Lymphocytes # (Auto) 0.7 x10^3/uL (1.0-4.8) Monocytes # (Auto) 0.3 x10^3/uL (0.0-1.1) Eosinophils # (Auto) 0.0 x10^3/uL (0.0-0.7) Basophils # (Auto) 0.0 x10^3/uL (0.0-0.2) Sodium Level 141 mmol/L (136-145) Potassium Level 3.8 mmol/L (3.5-5.1) Chloride Level 108 mmol/L (98-107) Carbon Dioxide Level 23 mmol/L (21-32) Anion Gap 10 (6-14) Blood Urea Nitrogen 29 mg/dL (8-26) Creatinine 1.1 mg/dL (0.7-1.3) Estimated GFR (Cockcroft-Gault) 66.6 BUN/Creatinine Ratio 26 (6-20) Glucose Level 217 mg/dL (70-99) Calcium Level 8.3 mg/dL (8.5-10.1) Total Bilirubin 0.4 mg/dL (0.2-1.0) Aspartate Amino Transf (AST/SGOT) 18 U/L (15-37) Alanine Aminotransferase (ALT/SGPT) 36 U/L (16-63) Alkaline Phosphatase 61 U/L (46-116) C-Reactive Protein, Quantitative 5.2 mg/L (0-3.3) Total Protein 6.5 g/dL (6.4-8.2) Albumin 2.6 g/dL (3.4-5.0) Albumin/Globulin Ratio 0.7 (1.0-1.7) Treponema pallidum Antibody Nonreactive (Nonreactive) Laboratory Tests Test 07/09/20 12:13 07/09/20 17:11 07/09/20 21:24 07/10/20 04:05 Glucose (Fingerstick) 206 mg/dL (70-99) 138 mg/dL (70-99) 194 mg/dL (70-99) White Blood Count 21.4 x10^3/uL (4.0-11.0) Red Blood Count 4.27 x10^6/uL (4.30-5.70) Hemoglobin 14.1 g/dL (13.0-17.5) Hematocrit 39.9 % (39.0-53.0) Mean Corpuscular Volume 93 fL (79-100) Mean Corpuscular Hemoglobin 33 pg (25-35) Mean Corpuscular Hemoglobin Concent 36 g/dL (31-37) Red Cell Distribution Width 13.8 % (11.5-14.5) Platelet Count 299 x10^3/uL (140-400) Neutrophils (%) (Auto) 95 % (31-73) Lymphocytes (%) (Auto) 3 % (24-48) Monocytes (%) (Auto) 1 % (0-9) Eosinophils (%) (Auto) 0 % (0-3) Basophils (%) (Auto) 0 % (0-3) Neutrophils # (Auto) 20.3 x10^3/uL (1.8-7.7) Lymphocytes # (Auto) 0.7 x10^3/uL (1.0-4.8) Monocytes # (Auto) 0.3 x10^3/uL (0.0-1.1) Eosinophils # (Auto) 0.0 x10^3/uL (0.0-0.7) Basophils # (Auto) 0.0 x10^3/uL (0.0-0.2) Sodium Level 141 mmol/L (136-145) Potassium Level 3.8 mmol/L (3.5-5.1) Chloride Level 108 mmol/L (98-107) Carbon Dioxide Level 23 mmol/L (21-32) Anion Gap 10 (6-14) Blood Urea Nitrogen 29 mg/dL (8-26) Creatinine 1.1 mg/dL (0.7-1.3) Estimated GFR (Cockcroft-Gault) 66.6 BUN/Creatinine Ratio 26 (6-20) Glucose Level 217 mg/dL (70-99) Calcium Level 8.3 mg/dL (8.5-10.1) Total Bilirubin 0.4 mg/dL (0.2-1.0) Aspartate Amino Transf (AST/SGOT) 18 U/L (15-37) Alanine Aminotransferase (ALT/SGPT) 36 U/L (16-63) Alkaline Phosphatase 61 U/L (46-116) C-Reactive Protein, Quantitative 5.2 mg/L (0-3.3) Total Protein 6.5 g/dL (6.4-8.2) Albumin 2.6 g/dL (3.4-5.0) Albumin/Globulin Ratio 0.7 (1.0-1.7) Treponema pallidum Antibody Nonreactive (Nonreactive) Medications Current Medications Ringer's Solution 1,000 ml @ 100 mls/hr Q10H IV Last administered on 06/30/20at 23:44; Start 06/30/20 at 22:30; Stop 07/01/20 at 08:29; Status DC Ondansetron HCl (Zofran) 4 mg PRN Q6HRS PRN IVP NAUSEA/VOMITING; Start 06/30/20 at 22:30 Calcium Carbonate/ Glycine (Tums) 500 mg PRN Q3HRS PRN PO UPSET STOMACH; Start 06/30/20 at 22:15 Acetaminophen (Tylenol) 650 mg PRN Q6HRS PRN PO Headaches, Temp > 101.5F; Start 06/30/20 at 22:15 Senna/Docusate Sodium (Senna Plus) 1 tab BID PO Last administered on 07/06/20at 08:45; Start 06/30/20 at 22:30 Bisacodyl (Dulcolax Supp) 10 mg PRN DAILY PRN VT CONSTIPATION; Start 06/30/20 at 22:15 Atorvastatin Calcium (Lipitor) 80 mg QHS PO Last administered on 07/05/20at 22:16; Start 06/30/20 at 22:30 Famotidine (Pepcid) 20 mg BID PO Last administered on 07/06/20at 08:45; Start 06/30/20 at 22:30 Aspirin (Ecotrin) 325 mg DAILYWBKFT PO Last administered on 07/06/20at 08:45; Start 07/01/20 at 08:00 Aspirin (Aspirin Rectal Supp) 300 mg PRN DAILY PRN VT IF UNABLE TO TAKE PO; Start 06/30/20 at 22:15 Metoprolol Tartrate (Lopressor) 25 mg BID PO Last administered on 07/09/20at 21: 32; Start 06/30/20 at 22:30 Hydralazine HCl (Apresoline Inj) 10 mg PRN Q4HRS PRN IVP ELEVATED BP, SEE COMMENTS; Start 06/30/20 at 22:15 Insulin Human Lispro (HumaLOG) 0-7 UNITS TIDWMEALHC SQ Last administered on 07/10/20at 09:29; Start 07/01/20 at 08:00 Dextrose (Dextrose 50%-Water Syringe) 12.5 gm PRN Q15MIN PRN IV SEE COMMENTS; Start 06/30/20 at 22:45 Gadoterate Meglumine (Clariscan) 10 ml 1X ONCE IVP ; Start 07/03/20 at 11:45; Stop 07/03/20 at 11:46; Status DC Gadoterate Meglumine (Clariscan) 8 ml 1X ONCE IVP ; Start 07/03/20 at 11:45; Stop 07/03/20 at 11:46; Status DC Gadoterate Meglumine (Clariscan) 10 ml 1X ONCE IVP Last administered on 07/03/20at 11:56; Start 07/03/20 at 11:45; Stop 07/03/20 at 11:48; Status DC Gadoterate Meglumine (Clariscan) 8 ml 1X ONCE IVP Last administered on 07/03/20at 11:56; Start 07/03/20 at 11:45; Stop 07/03/20 at 11:48; Status DC Iohexol (Omnipaque 300 Mg/ml) 75 ml 1X ONCE IV Last administered on 07/03/20at 15:51; Start 07/03/20 at 15:45; Stop 07/03/20 at 15:46; Status DC Iohexol (Omnipaque 240 Mg/ml) 50 ml 1X ONCE PO Last administered on 07/03/20at 15:51; Start 07/03/20 at 15:45; Stop 07/03/20 at 15:46; Status DC Info (CONTRAST GIVEN -- Rx MONITORING) 1 each PRN DAILY PRN MC SEE COMMENTS; Start 07/03/20 at 15:45; Stop 07/05/20 at 15:44; Status DC Bacitracin 83381 unit/Sodium Chloride 1,000 ml @ 1,000 mls/hr 1X ONCE IRR Last administered on 07/07/20at 11:28; Start 07/07/20 at 06:00; Stop 07/07/20 at 06:59; Status DC Cefazolin Sodium/ Dextrose 50 ml @ 100 mls/hr 1X PREOP PRN IV PRIOR TO PROCEDURE Last administered on 07/07/20at 10:30; Start 07/07/20 at 06:00; Stop 07/07/20 at 18:00; Status DC Ondansetron HCl (Zofran) 4 mg PRN Q6HRS PRN IV NAUSEA/VOMITING; Start 07/07/20 at 07:00; Stop 07/07/20 at 19:00; Status DC Fentanyl Citrate (Fentanyl 2ml Vial) 25 mcg PRN Q5MIN PRN IV MILD PAIN 1-3; Start 07/07/20 at 07:00; Stop 07/07/20 at 19:00; Status DC Fentanyl Citrate (Fentanyl 2ml Vial) 50 mcg PRN Q5MIN PRN IV MODERATE TO SEVERE PAIN; Start 07/07/20 at 07:00; Stop 07/07/20 at 19:00; Status DC Morphine Sulfate (Morphine Sulfate) 1 mg PRN Q10MIN PRN IV SEVERE PAIN 7-10; Start 07/07/20 at 07:00; Stop 07/07/20 at 19:00; Status DC Ringer's Solution 1,000 ml @ 30 mls/hr Q24H IV Last administered on 07/07/20at 09:45; Start 07/07/20 at 07:00; Stop 07/07/20 at 18:59; Status DC Lidocaine HCl (Xylocaine-Mpf 1% 2ml Vial) 2 ml PRN 1X PRN ID PRIOR TO IV START; Start 07/07/20 at 07:00; Stop 07/07/20 at 19:00; Status DC Hydromorphone HCl (Dilaudid) 0.5 mg PRN Q10MIN PRN IV SEV PAIN, Second choice; Start 07/07/20 at 07:00; Stop 07/07/20 at 19:00; Status DC Prochlorperazine Edisylate (Compazine) 5 mg PACU PRN PRN IV NAUSEA, MRX1; Start 07/07/20 at 07:00; Stop 07/07/20 at 19:00; Status DC Gelatin (Gelfoam Size 100) 1 each STK-MED ONCE .ROUTE Last administered on 07/07/20at 11:28; Start 07/07/20 at 07:37; Stop 07/07/20 at 07:37; Status DC Povidone Iodine (Betadine Oint) 28 nazario STK-MED ONCE TP ; Start 07/07/20 at 07:37; Stop 07/07/20 at 07:37; Status DC Lidocaine/ Epinephrine (LIDOCAINE 2%-EPI 1:100,000 multi-dose) 20 ml STK-MED ONCE .ROUTE ; Start 07/07/20 at 07:37; Stop 07/07/20 at 07:37; Status DC Cellulose (Surgicel Hemostat 4x8) 1 each STK-MED ONCE .ROUTE ; Start 07/07/20 at 07:37; Stop 07/07/20 at 07:37; Status DC Thrombin 20,000 unit STK-MED ONCE TP Last administered on 07/07/20at 11:28; Start 07/07/20 at 07:37; Stop 07/07/20 at 07:37; Status DC Gadoterate Meglumine (Clariscan) 10 ml 1X ONCE IVP Last administered on 07/07/20at 08:52; Start 07/07/20 at 08:30; Stop 07/07/20 at 08:31; Status DC Gadoterate Meglumine (Clariscan) 8 ml 1X ONCE IVP Last administered on 07/07/20at 08:52; Start 07/07/20 at 08:30; Stop 07/07/20 at 08:31; Status DC Dexamethasone Sodium Phosphate (Decadron) 4 mg Q6H IVP Last administered on at 12:08; Start 07/08/20 at 06:00; Stop 07/09/20 at 15:54; Status DC Rocuronium [place] (Zemuron) 50 mg STK-MED ONCE .ROUTE ; Start 07/07/20 at 08:57; Stop 07/07/20 at 08:57; Status DC Remifentanil HCl (Ultiva) 2 mg STK-MED ONCE IV ; Start 07/07/20 at 08:57; Stop 07/07/20 at 08:58; Status DC Propofol (Diprivan) 200 mg STK-MED ONCE IV ; Start 07/07/20 at 09:00; Stop 07/07/20 at 09:01; Status DC Dexamethasone Sodium Phosphate (Decadron) 20 mg STK-MED ONCE .ROUTE ; Start 07/07/20 at 09:00; Stop 07/07/20 at 09:01; Status DC Lidocaine HCl (Lidocaine Pf 2% Vial) 5 ml STK-MED ONCE .ROUTE ; Start 07/07/20 at 09:00; Stop 07/07/20 at 09:01; Status DC Ondansetron HCl (Zofran) 4 mg STK-MED ONCE .ROUTE ; Start 07/07/20 at 09:00; Stop 07/07/20 at 09:01; Status DC Phenylephrine HCl (Mamadou-Synephrine Inj) 10 mg STK-MED ONCE .ROUTE ; Start 07/07/20 at 09:01; Stop 07/07/20 at 09:01; Status DC Desflurane (Suprane) 90 ml STK-MED ONCE IH ; Start 07/07/20 at 09:04; Stop 07/07/20 at 09:04; Status DC Mannitol (Mannitol) 12.5 g STK-MED ONCE .ROUTE ; Start 07/07/20 at 09:17; Stop 07/07/20 at 09:17; Status DC Lidocaine HCl (Xylocaine 1% Pf 30ml Vial) 30 ml 1X ONCE INJ Last administered on 07/07/20at 11:28; Start 07/07/20 at 10:00; Stop 07/07/20 at 10:01; Status DC Epinephrine HCl (Adrenalin) 0.15 mg 1X ONCE INJ ; Start 07/07/20 at 10:00; Stop 07/07/20 at 10:01; Status DC Remifentanil HCl (Ultiva) 1 mg STK-MED ONCE IV ; Start 07/07/20 at 12:01; Stop 07/07/20 at 12:02; Status DC Glycopyrrolate (Robinul) 1 mg STK-MED ONCE .ROUTE ; Start 07/07/20 at 12:02; Stop 07/07/20 at 12:03; Status DC Neostigmine [place] (Neostigmine Methylsulfate) 5 mg STK-MED ONCE .ROUTE ; Start 07/07/20 at 12:03; Stop 07/07/20 at 12:03; Status DC Fentanyl Citrate (Fentanyl 2ml Vial) 100 mcg STK-MED ONCE .ROUTE ; Start 07/07/20 at 12:45; Stop 07/07/20 at 12:45; Status DC Nicardipine HCl (Cardene) 25 mg STK-MED ONCE IV ; Start 07/07/20 at 12:47; Stop 07/07/20 at 12:48; Status DC Lidocaine HCl (Lidocaine Pf 2% Vial) 5 ml STK-MED ONCE .ROUTE ; Start 07/07/20 at 13:06; Stop 07/07/20 at 13:07; Status DC Propofol 50 ml @ As Directed STK-MED ONCE IV ; Start 07/07/20 at 13:30; Stop 07/07/20 at 13:30; Status DC Lorazepam (Ativan Inj) 2 mg PRN Q4HRS PRN IVP ANXIETY / AGITATION Last administered on 07/09/20at 21:33; Start 07/07/20 at 14:15 Dexmedetomidine HCl 400 mcg/ Sodium Chloride 100 ml @ 0 mls/hr CONT PRN IV PER PROTOCOL Last administered on 07/10/20at 03:07; Start 07/07/20 at 14:45 Sodium Chloride 500 ml @ 500 mls/hr 1X PRN PRN IV SEE COMMENTS; Start 07/07/20 at 14:45 Atropine Sulfate (ATROPINE 0.5mg SYRINGE) 0.5 mg PRN Q5MIN PRN IV SEE COMMENTS; Start 07/07/20 at 14:45 Dextrose/Sodium Chloride 2,500 ml @ 50 mls/hr Q24H IV ; Start 07/07/20 at 15:00; Stop 07/09/20 at 17:00; Status UNV Dextrose/Sodium Chloride 0 ml @ 50 mls/hr Q0M IV ; Start 07/09/20 at 17:00; Stop 07/09/20 at 17:00; Status UNV Dextrose 1,000 ml @ 50 mls/hr Q20H IV Last administered on 07/07/20at 15:11; Start 07/07/20 at 16:00; Stop 07/07/20 at 17:39; Status DC Sodium Chloride 1,000 ml @ 50 mls/hr Q20H IV Last administered on 07/10/20at 05:54; Start 07/07/20 at 18:00 Insulin Glargine (Lantus Syringe) 10 unit QHS SQ Last administered on 07/09/20at 21:26; Start 07/09/20 at 21:00 Methylprednisolone Sodium Succinate 1000 mg/Sodium Chloride 100 ml @ 100 mls/hr DAILY IV Last administered on 07/10/20at 09:25; Start 07/09/20 at 16:00; Stop 07/13/20 at 22:00 Olanzapine (ZyPREXA IM) 10 mg 1X ONCE IM Last administered on 07/10/20at 09:09; Start 07/10/20 at 08:45; Stop 07/10/20 at 09:03; Status DC Active Scripts Active Reported Aspirin 81 Mg Tab.chew 81 Mg PO DAILY Metformin Hcl 500 Mg Tablet 500 Mg PO BIDWMEALS Atenolol 50 Mg Tablet 50 Mg PO DAILY Vitals/I & O Vital Sign - Last 24 Hours 07/09/20 07/09/20 07/09/20 07/09/20 10:00 11:00 12:00 12:00 Temp 97.6 97.6 Pulse 60 62 72 Resp 17 18 19 B/P (MAP) 160/84 (109) 104/67 (79) 129/78 (95) Pulse Ox 97 94 96 O2 Delivery Room Air Room Air Room Air Room Air 07/09/20 07/09/20 07/09/20 07/09/20 13:00 14:00 15:00 16:00 Temp 97.6 97.6 Pulse 64 68 70 Resp 18 18 19 B/P (MAP) 130/71 (90) 134/70 (91) 132/80 (97) Pulse Ox 92 96 97 O2 Delivery Room Air Room Air Room Air Room Air 07/09/20 07/09/20 07/09/20 07/09/20 16:00 17:00 18:00 19:00 Pulse 82 92 85 94 Resp 17 17 18 18 B/P (MAP) 146/92 (110) 165/84 (111) 150/76 (100) 121/96 (104) Pulse Ox 97 97 97 98 O2 Delivery Room Air Room Air Room Air Room Air 07/09/20 07/09/20 07/09/20 07/09/20 20:00 20:00 21:00 21:32 Temp 97.9 97.9 Pulse 92 94 118 Resp 18 18 B/P (MAP) 155/81 (105) 155/83 (107) 155/83 Pulse Ox 96 96 O2 Delivery Room Air Room Air Room Air 07/09/20 07/09/20 07/09/20 07/10/20 22:00 23:00 23:59 00:00 Temp 98.2 98.2 Pulse 93 81 68 Resp 18 18 14 B/P (MAP) 141/94 (110) 141/75 (97) 141/75 (97) Pulse Ox 96 93 96 O2 Delivery Room Air Room Air Room Air Room Air 07/10/20 07/10/20 07/10/20 07/10/20 01:00 02:00 03:00 04:00 Temp 97.7 97.7 Pulse 70 70 73 66 Resp 14 14 14 16 B/P (MAP) 116/74 (88) 105/71 (82) 129/81 (97) 139/78 (98) Pulse Ox 93 94 97 97 O2 Delivery Room Air Room Air Room Air Room Air 07/10/20 07/10/20 07/10/20 07/10/20 04:00 05:00 06:00 07:35 Temp 97.8 97.8 Pulse 66 62 50 Resp 12 14 B/P (MAP) 151/78 (102) 118/83 (95) 136/77 (96) Pulse Ox 96 94 96 O2 Delivery Room Air Room Air Room Air Room Air 07/10/20 07/10/20 07:37 07:41 Temp 97.8 97.8 Pulse 50 B/P (MAP) 136/77 (96) Pulse Ox 96 O2 Delivery Room Air Room Air Intake and Output 07/09/20 07/09/20 07/10/20 15:00 23:00 07:00 Intake Total 240 ml 120 ml 1368 ml Output Total 240 ml 450 ml 495 ml Balance 0 ml -330 ml [address] head without contrast, 07/09/20 Small craniotomy defect on the right in the setting of a recent brain biopsy. Small volume hemorrhage and pneumocephalus along the biopsy tract in addition to a trace amount of subdural blood products extend along the posterior right temporal lobe. Greater degree of mass effect on the posterior aspect of the right lateral ventricle the degree of which is not entirely unexpected given proximity to the biopsy. No overt dilatation of the bilateral ventricle temporal horn and there is no midline shift. Noting differences in patient positioning the dimensions of the left lateral ventricle have not significant changed. Low-attenuation corresponding to numerous lesions are redemonstrated in nature better characterized on the recent MRI. IMPRESSION: 1. Pneumocephalus and a small amount of hemorrhage along the right-sided biopsy tract. These findings in addition to more pronounced mass effect on the posterior aspect of the right lateral ventricle are not beyond what would be expected given proximity to the biopsy. No midline shift or increase in volume of the ventricular system to suggest hydrocephalus. If there is ongoing concern consider short-term follow-up. 2. Numerous parenchymal lesions fully characterized on the recent MRI. Justicifation of Admission Dx: Justifications for Admission: Justification of Admission Dx: Comment: (Higher level of care requested by [facility] for neurology evaluation) MAURY SIMMS MD Jul 10, 2020 09:50
--- NOTE | 2020-07-10 10:42 | NUR ---
Precedex gtt weaned off after Zyprexa IM dose. Patient moving arms and legs in bed, will monitor.
--- NOTE | 2020-07-10 14:16 | PDOC ---
PROGRESS NOTES Date of Service: DATE: 07/10/20 TIME: 14:14 Chief Complaint Chief Complaint acute toxic encephalopathy, from sedation, anethesia, new brain lesion Multifocal bilateral peripherally enhancing lesions. appears to be demyelinating, prob MS Status post craniotomy and brain biopsy History of diabetes mellitus type 2 Hearing impaired History of essential hypertension History of Present Illness History of Present Illness History of Present Illness Patient is a 70 year old male with past medical history of diabetes who was in his usual state of health until approximately 5 days prior to his admission when he started complaining of sensation of fogginess in his mind. Patient also complained of headache according to his daughter who is at bedside helping with the history taking. He also had some hearing loss worse than usual over his right ear and patient seeks attention to his doctor and had a cleanout done more or less 2 days prior to his admission and evaluation at [facility]. 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 Patient denies any vision loss no dysphagia odynophagia no slurred speech no hemiparesis no hemiplegia, no chest pain palpitations or shortness of breath, no neck stiffness noticed no fever or chills no meningismus no abdominal pain nausea vomiting or diarrhea. The patient has had proper oral intake over the last couple days. Orthostatic at outside facility were recorded as folllows blood pressures as follows lying: Heart rate 70, 137/79, sitting: Heart rate 72, 131/80, standing: Heart rate 70, 113/73, trying to limit sedation, changed to zyprexa today, Neuro following, i agr ee with current plan, no change family and friend are here to help cont high dose steroids Vitals Vitals Vital Signs Date Time Temp Pulse Resp B/P (MAP) Pulse Ox O2 Delivery O2 Flow Rate FiO2 07/10/20 13:02 81 140/72 (94) 97 Room Air 07/10/20 11:50 97.6 20 97.6 Physical Exam General: Other (resting quietly) Heart: Regular rate, Normal S1 Abdomen: Soft, Other (No splenomegaly) Extremities: No edema Skin: Other (dressing C,D,I) Labs LABS Laboratory Tests Test 07/09/20 17:11 07/09/20 21:24 07/10/20 04:05 07/10/20 11:55 Glucose (Fingerstick) 138 mg/dL (70-99) 194 mg/dL (70-99) 193 mg/dL (70-99) White Blood Count 21.4 x10^3/uL (4.0-11.0) Red Blood Count 4.27 x10^6/uL (4.30-5.70) Hemoglobin 14.1 g/dL (13.0-17.5) Hematocrit 39.9 % (39.0-53.0) Mean Corpuscular Volume 93 fL (79-100) Mean Corpuscular Hemoglobin 33 pg (25-35) Mean Corpuscular Hemoglobin Concent 36 g/dL (31-37) Red Cell Distribution Width 13.8 % (11.5-14.5) Platelet Count 299 x10^3/uL (140-400) Neutrophils (%) (Auto) 95 % (31-73) Lymphocytes (%) (Auto) 3 % (24-48) Monocytes (%) (Auto) 1 % (0-9) Eosinophils (%) (Auto) 0 % (0-3) Basophils (%) (Auto) 0 % (0-3) Neutrophils # (Auto) 20.3 x10^3/uL (1.8-7.7) Lymphocytes # (Auto) 0.7 x10^3/uL (1.0-4.8) Monocytes # (Auto) 0.3 x10^3/uL (0.0-1.1) Eosinophils # (Auto) 0.0 x10^3/uL (0.0-0.7) Basophils # (Auto) 0.0 x10^3/uL (0.0-0.2) Sodium Level 141 mmol/L (136-145) Potassium Level 3.8 mmol/L (3.5-5.1) Chloride Level 108 mmol/L (98-107) Carbon Dioxide Level 23 mmol/L (21-32) Anion Gap 10 (6-14) Blood Urea Nitrogen 29 mg/dL (8-26) Creatinine 1.1 mg/dL (0.7-1.3) Estimated GFR (Cockcroft-Gault) 66.6 BUN/Creatinine Ratio 26 (6-20) Glucose Level 217 mg/dL (70-99) Calcium Level 8.3 mg/dL (8.5-10.1) Total Bilirubin 0.4 mg/dL (0.2-1.0) Aspartate Amino Transf (AST/SGOT) 18 U/L (15-37) Alanine Aminotransferase (ALT/SGPT) 36 U/L (16-63) Alkaline Phosphatase 61 U/L (46-116) C-Reactive Protein, Quantitative 5.2 mg/L (0-3.3) Total Protein 6.5 g/dL (6.4-8.2) Albumin 2.6 g/dL (3.4-5.0) Albumin/Globulin Ratio 0.7 (1.0-1.7) Treponema pallidum Antibody Nonreactive (Nonreactive) Comment Review of Relevant I have reviewed the following items bashir (where applicable) has been applied. Labs Laboratory Tests Test 07/09/20 05:00 07/09/20 07:49 07/09/20 12:13 07/09/20 17:11 White Blood Count 23.5 x10^3/uL (4.0-11.0) Red Blood Count 4.43 x10^6/uL (4.30-5.70) Hemoglobin 14.3 g/dL (13.0-17.5) Hematocrit 42.1 % (39.0-53.0) Mean Corpuscular Volume 95 fL (79-100) Mean Corpuscular Hemoglobin 32 pg (25-35) Mean Corpuscular Hemoglobin Concent 34 g/dL (31-37) Red Cell Distribution Width 13.4 % (11.5-14.5) Platelet Count 294 x10^3/uL (140-400) Neutrophils (%) (Auto) 94 % (31-73) Lymphocytes (%) (Auto) 4 % (24-48) Monocytes (%) (Auto) 2 % (0-9) Eosinophils (%) (Auto) 0 % (0-3) Basophils (%) (Auto) 0 % (0-3) Neutrophils # (Auto) 22.2 x10^3/uL (1.8-7.7) Lymphocytes # (Auto) 0.9 x10^3/uL (1.0-4.8) Monocytes # (Auto) 0.4 x10^3/uL (0.0-1.1) Eosinophils # (Auto) 0.0 x10^3/uL (0.0-0.7) Basophils # (Auto) 0.0 x10^3/uL (0.0-0.2) Segmented Neutrophils % 91 % (35-66) Band Neutrophils % 7 % (0-9) Lymphocytes % 1 % (24-48) Atypical Lymphocytes % (Manual) 1 % (0-0) Platelet Estimate Adequate (ADEQUATE) Sodium Level 141 mmol/L (136-145) Potassium Level 4.1 mmol/L (3.5-5.1) Chloride Level 107 mmol/L (98-107) Carbon Dioxide Level 24 mmol/L (21-32) Anion Gap 10 (6-14) Blood Urea Nitrogen 26 mg/dL (8-26) Creatinine 1.0 mg/dL (0.7-1.3) Estimated GFR (Cockcroft-Gault) 74.3 BUN/Creatinine Ratio 26 (6-20) Glucose Level 174 mg/dL (70-99) Calcium Level 8.9 mg/dL (8.5-10.1) Total Bilirubin 0.4 mg/dL (0.2-1.0) Aspartate Amino Transf (AST/SGOT) 18 U/L (15-37) Alanine Aminotransferase (ALT/SGPT) 46 U/L (16-63) Alkaline Phosphatase 64 U/L (46-116) Total Protein 7.2 g/dL (6.4-8.2) Albumin 3.0 g/dL (3.4-5.0) Albumin/Globulin Ratio 0.7 (1.0-1.7) Glucose (Fingerstick) 180 mg/dL (70-99) 206 mg/dL (70-99) 138 mg/dL (70-99) Test 07/09/20 21:24 07/10/20 04:05 07/10/20 11:55 Glucose (Fingerstick) 194 mg/dL (70-99) 193 mg/dL (70-99) White Blood Count 21.4 x10^3/uL (4.0-11.0) Red Blood Count 4.27 x10^6/uL (4.30-5.70) Hemoglobin 14.1 g/dL (13.0-17.5) Hematocrit 39.9 % (39.0-53.0) Mean Corpuscular Volume 93 fL (79-100) Mean Corpuscular Hemoglobin 33 pg (25-35) Mean Corpuscular Hemoglobin Concent 36 g/dL (31-37) Red Cell Distribution Width 13.8 % (11.5-14.5) Platelet Count 299 x10^3/uL (140-400) Neutrophils (%) (Auto) 95 % (31-73) Lymphocytes (%) (Auto) 3 % (24-48) Monocytes (%) (Auto) 1 % (0-9) Eosinophils (%) (Auto) 0 % (0-3) Basophils (%) (Auto) 0 % (0-3) Neutrophils # (Auto) 20.3 x10^3/uL (1.8-7.7) Lymphocytes # (Auto) 0.7 x10^3/uL (1.0-4.8) Monocytes # (Auto) 0.3 x10^3/uL (0.0-1.1) Eosinophils # (Auto) 0.0 x10^3/uL (0.0-0.7) Basophils # (Auto) 0.0 x10^3/uL (0.0-0.2) Sodium Level 141 mmol/L (136-145) Potassium Level 3.8 mmol/L (3.5-5.1) Chloride Level 108 mmol/L (98-107) Carbon Dioxide Level 23 mmol/L (21-32) Anion Gap 10 (6-14) Blood Urea Nitrogen 29 mg/dL (8-26) Creatinine 1.1 mg/dL (0.7-1.3) Estimated GFR (Cockcroft-Gault) 66.6 BUN/Creatinine Ratio 26 (6-20) Glucose Level 217 mg/dL (70-99) Calcium Level 8.3 mg/dL (8.5-10.1) Total Bilirubin 0.4 mg/dL (0.2-1.0) Aspartate Amino Transf (AST/SGOT) 18 U/L (15-37) Alanine Aminotransferase (ALT/SGPT) 36 U/L (16-63) Alkaline Phosphatase 61 U/L (46-116) C-Reactive Protein, Quantitative 5.2 mg/L (0-3.3) Total Protein 6.5 g/dL (6.4-8.2) Albumin 2.6 g/dL (3.4-5.0) Albumin/Globulin Ratio 0.7 (1.0-1.7) Treponema pallidum Antibody Nonreactive (Nonreactive) Laboratory Tests Test 07/09/20 17:11 07/09/20 21:24 07/10/20 04:05 07/10/20 11:55 Glucose (Fingerstick) 138 mg/dL (70-99) 194 mg/dL (70-99) 193 mg/dL (70-99) White Blood Count 21.4 x10^3/uL (4.0-11.0) Red Blood Count 4.27 x10^6/uL (4.30-5.70) Hemoglobin 14.1 g/dL (13.0-17.5) Hematocrit 39.9 % (39.0-53.0) Mean Corpuscular Volume 93 fL (79-100) Mean Corpuscular Hemoglobin 33 pg (25-35) Mean Corpuscular Hemoglobin Concent 36 g/dL (31-37) Red Cell Distribution Width 13.8 % (11.5-14.5) Platelet Count 299 x10^3/uL (140-400) Neutrophils (%) (Auto) 95 % (31-73) Lymphocytes (%) (Auto) 3 % (24-48) Monocytes (%) (Auto) 1 % (0-9) Eosinophils (%) (Auto) 0 % (0-3) Basophils (%) (Auto) 0 % (0-3) Neutrophils # (Auto) 20.3 x10^3/uL (1.8-7.7) Lymphocytes # (Auto) 0.7 x10^3/uL (1.0-4.8) Monocytes # (Auto) 0.3 x10^3/uL (0.0-1.1) Eosinophils # (Auto) 0.0 x10^3/uL (0.0-0.7) Basophils # (Auto) 0.0 x10^3/uL (0.0-0.2) Sodium Level 141 mmol/L (136-145) Potassium Level 3.8 mmol/L (3.5-5.1) Chloride Level 108 mmol/L (98-107) Carbon Dioxide Level 23 mmol/L (21-32) Anion Gap 10 (6-14) Blood Urea Nitrogen 29 mg/dL (8-26) Creatinine 1.1 mg/dL (0.7-1.3) Estimated GFR (Cockcroft-Gault) 66.6 BUN/Creatinine Ratio 26 (6-20) Glucose Level 217 mg/dL (70-99) Calcium Level 8.3 mg/dL (8.5-10.1) Total Bilirubin 0.4 mg/dL (0.2-1.0) Aspartate Amino Transf (AST/SGOT) 18 U/L (15-37) Alanine Aminotransferase (ALT/SGPT) 36 U/L (16-63) Alkaline Phosphatase 61 U/L (46-116) C-Reactive Protein, Quantitative 5.2 mg/L (0-3.3) Total Protein 6.5 g/dL (6.4-8.2) Albumin 2.6 g/dL (3.4-5.0) Albumin/Globulin Ratio 0.7 (1.0-1.7) Treponema pallidum Antibody Nonreactive (Nonreactive) Medications Current Medications Ringer's Solution 1,000 ml @ 100 mls/hr Q10H IV Last administered on 06/30/20at 23:44; Start 06/30/20 at 22:30; Stop 07/01/20 at 08:29; Status DC Ondansetron HCl (Zofran) 4 mg PRN Q6HRS PRN IVP NAUSEA/VOMITING; Start 06/30/20 at 22:30 Calcium Carbonate/ Glycine (Tums) 500 mg PRN Q3HRS PRN PO UPSET STOMACH; Start 06/30/20 at 22:15 Acetaminophen (Tylenol) 650 mg PRN Q6HRS PRN PO Headaches, Temp > 101.5F; Start 06/30/20 at 22:15 Senna/Docusate Sodium (Senna Plus) 1 tab BID PO Last administered on 07/06/20at 08:45; Start 06/30/20 at 22:30 Bisacodyl (Dulcolax Supp) 10 mg PRN DAILY PRN SC CONSTIPATION; Start 06/30/20 at 22:15 Atorvastatin Calcium (Lipitor) 80 mg QHS PO Last administered on 07/05/20at 22:16; Start 06/30/20 at 22:30 Famotidine (Pepcid) 20 mg BID PO Last administered on 07/06/20at 08:45; Start 06/30/20 at 22:30 Aspirin (Ecotrin) 325 mg DAILYWBKFT PO Last administered on 07/06/20at 08:45; Start 07/01/20 at 08:00 Aspirin (Aspirin Rectal Supp) 300 mg PRN DAILY PRN SC IF UNABLE TO TAKE PO; Start 06/30/20 at 22:15 Metoprolol Tartrate (Lopressor) 25 mg BID PO Last administered on 07/09/20at 21:32; Start 06/30/20 at 22:30 Hydralazine HCl (Apresoline Inj) 10 mg PRN Q4HRS PRN IVP ELEVATED BP, SEE COMMENTS; Start 06/30/20 at 22:15 Insulin Human Lispro (HumaLOG) 0-7 UNITS TIDWMEALHC SQ Last administered on 07/10/20at 12:01; Start 07/01/20 at 08:00 Dextrose (Dextrose 50%-Water Syringe) 12.5 gm PRN Q15MIN PRN IV SEE COMMENTS; Start 06/30/20 at 22:45 Gadoterate Meglumine (Clariscan) 10 ml 1X ONCE IVP ; Start 07/03/20 at 11:45; Stop 07/03/20 at 11:46; Status DC Gadoterate Meglumine (Clariscan) 8 ml 1X ONCE IVP ; Start 07/03/20 at 11:45; Stop 07/03/20 at 11:46; Status DC Gadoterate Meglumine (Clariscan) 10 ml 1X ONCE IVP Last administered on 07/03/20at 11:56; Start 07/03/20 at 11:45; Stop 07/03/20 at 11:48; Status DC Gadoterate Meglumine (Clariscan) 8 ml 1X ONCE IVP Last administered on 07/03/20at 11:56; Start 07/03/20 at 11:45; Stop 07/03/20 at 11:48; Status DC Iohexol (Omnipaque 300 Mg/ml) 75 ml 1X ONCE IV Last administered on 07/03/20at 15:51; Start 07/03/20 at 15:45; Stop 07/03/20 at 15:46; Status DC Iohexol (Omnipaque 240 Mg/ml) 50 ml 1X ONCE PO Last administered on 07/03/20at 15:51; Start 07/03/20 at 15:45; Stop 07/03/20 at 15:46; Status DC Info (CONTRAST GIVEN -- Rx MONITORING) 1 each PRN DAILY PRN MC SEE COMMENTS; Start 07/03/20 at 15:45; Stop 07/05/20 at 15:44; Status DC Bacitracin 24165 unit/Sodium Chloride 1,000 ml @ 1,000 mls/hr 1X ONCE IRR Last administered on 07/07/20at 11:28; Start 07/07/20 at 06:00; Stop 07/07/20 at 06:59; Status DC Cefazolin Sodium/ Dextrose 50 ml @ 100 mls/hr 1X PREOP PRN IV PRIOR TO PROCEDURE Last administered on 07/07/20at 10:30; Start 07/07/20 at 06:00; Stop 07/07/20 at 18:00; Status DC Ondansetron HCl (Zofran) 4 mg PRN Q6HRS PRN IV NAUSEA/VOMITING; Start 07/07/20 at 07:00; Stop 07/07/20 at 19:00; Status DC Fentanyl Citrate (Fentanyl 2ml Vial) 25 mcg PRN Q5MIN PRN IV MILD PAIN 1-3; Start 07/07/20 at 07:00; Stop 07/07/20 at 19:00; Status DC Fentanyl Citrate (Fentanyl 2ml Vial) 50 mcg PRN Q5MIN PRN IV MODERATE TO SEVERE PAIN; Start 07/07/20 at 07:00; Stop 07/07/20 at 19:00; Status DC Morphine Sulfate (Morphine Sulfate) 1 mg PRN Q10MIN PRN IV SEVERE PAIN 7-10; Start 07/07/20 at 07:00; Stop 07/07/20 at 19:00; Status DC Ringer's Solution 1,000 ml @ 30 mls/hr Q24H IV Last administered on 07/07/20at 09:45; Start 07/07/20 at 07:00; Stop 07/07/20 at 18:59; Status DC Lidocaine HCl (Xylocaine-Mpf 1% 2ml Vial) 2 ml PRN 1X PRN ID PRIOR TO IV START; Start 07/07/20 at 07:00; Stop 07/07/20 at 19:00; Status DC Hydromorphone HCl (Dilaudid) 0.5 mg PRN Q10MIN PRN IV SEV PAIN, Second choice; Start 07/07/20 at 07:00; Stop 07/07/20 at 19:00; Status DC Prochlorperazine Edisylate (Compazine) 5 mg PACU PRN PRN IV NAUSEA, MRX1; Start 07/07/20 at 07:00; Stop 07/07/20 at 19:00; Status DC Gelatin (Gelfoam Size 100) 1 each STK-MED ONCE .ROUTE Last administered on 07/07/20at 11:28; Start 07/07/20 at 07:37; Stop 07/07/20 at 07:37; Status DC Povidone Iodine (Betadine Oint) 28 nazario STK-MED ONCE TP ; Start 07/07/20 at 07:37; Stop 07/07/20 at 07:37; Status DC Lidocaine/ Epinephrine (LIDOCAINE 2%-EPI 1:100,000 multi-dose) 20 ml STK-MED ONCE .ROUTE ; Start 07/07/20 at 07:37; Stop 07/07/20 at 07:37; Status DC Cellulose (Surgicel Hemostat 4x8) 1 each STK-MED ONCE .ROUTE ; Start 07/07/20 at 07:37; Stop 07/07/20 at 07:37; Status DC Thrombin 20,000 unit STK-MED ONCE TP Last administered on 07/07/20at 11:28; Start 07/07/20 at 07:37; Stop 07/07/20 at 07:37; Status DC Gadoterate Meglumine (Clariscan) 10 ml 1X ONCE IVP Last administered on 07/07/20at 08:52; Start 07/07/20 at 08:30; Stop 07/07/20 at 08:31; Status DC Gadoterate Meglumine (Clariscan) 8 ml 1X ONCE IVP Last administered on 07/07/20at 08:52; Start 07/07/20 at 08:30; Stop 07/07/20 at 08:31; Status DC Dexamethasone Sodium Phosphate (Decadron) 4 mg Q6H IVP Last administered on 07/09/20at 12:08; Start 07/08/20 at 06:00; Stop 07/09/20 at 15:54; Status DC Rocuronium Colbert (Zemuron) 50 mg STK-MED ONCE .ROUTE ; Start 07/07/20 at 08:57; Stop 07/07/20 at 08:57; Status DC Remifentanil HCl (Ultiva) 2 mg STK-MED ONCE IV ; Start 07/07/20 at 08:57; Stop 07/07/20 at 08:58; Status DC Propofol (Diprivan) 200 mg STK-MED ONCE IV ; Start 07/07/20 at 09:00; Stop 07/07/20 at 09:01; Status DC Dexamethasone Sodium Phosphate (Decadron) 20 mg STK-MED ONCE .ROUTE ; Start 07/07/20 at 09:00; Stop 07/07/20 at 09:01; Status DC Lidocaine HCl (Lidocaine Pf 2% Vial) 5 ml STK-MED ONCE .ROUTE ; Start 07/07/20 at 09:00; Stop 07/07/20 at 09:01; Status DC Ondansetron HCl (Zofran) 4 mg STK-MED ONCE .ROUTE ; Start 07/07/20 at 09:00; Stop 07/07/20 at 09:01; Status DC Phenylephrine HCl (Mamadou-Synephrine Inj) 10 mg STK-MED ONCE .ROUTE ; Start 07/07/20 at 09:01; Stop 07/07/20 at 09:01; Status DC Desflurane (Suprane) 90 ml STK-MED ONCE IH ; Start 07/07/20 at 09:04; Stop 07/07/20 at 09:04; Status DC Mannitol (Mannitol) 12.5 g STK-MED ONCE .ROUTE ; Start 07/07/20 at 09:17; Stop 07/07/20 at 09:17; Status DC Lidocaine HCl (Xylocaine 1% Pf 30ml Vial) 30 ml 1X ONCE INJ Last administered on 07/07/20at 11:28; Start 07/07/20 at 10:00; Stop 07/07/20 at 10:01; Status DC Epinephrine HCl (Adrenalin) 0.15 mg 1X ONCE INJ ; Start 07/07/20 at 10:00; Stop 07/07/20 at 10:01; Status DC Remifentanil HCl (Ultiva) 1 mg STK-MED ONCE IV ; Start 07/07/20 at 12:01; Stop 07/07/20 at 12:02; Status DC Glycopyrrolate (Robinul) 1 mg STK-MED ONCE .ROUTE ; Start 07/07/20 at 12:02; Stop 07/07/20 at 12:03; Status DC Neostigmine Colbert (Neostigmine Methylsulfate) 5 mg STK-MED ONCE .ROUTE ; Start 07/07/20 at 12:03; Stop 07/07/20 at 12:03; Status DC Fentanyl Citrate (Fentanyl 2ml Vial) 100 mcg STK-MED ONCE .ROUTE ; Start 07/07/20 at 12:45; Stop 07/07/20 at 12:45; Status DC Nicardipine HCl (Cardene) 25 mg STK-MED ONCE IV ; Start 07/07/20 at 12:47; Stop 07/07/20 at 12:48; Status DC Lidocaine HCl (Lidocaine Pf 2% Vial) 5 ml STK-MED ONCE .ROUTE ; Start 07/07/20 at 13:06; Stop 07/07/20 at 13:07; Status DC Propofol 50 ml @ As Directed STK-MED ONCE IV ; Start 07/07/20 at 13:30; Stop 07/07/20 at 13:30; Status DC Lorazepam (Ativan Inj) 2 mg PRN Q4HRS PRN IVP ANXIETY / AGITATION Last administered on 07/09/20at 21:33; Start 07/07/20 at 14:15 Dexmedetomidine HCl 400 mcg/ Sodium Chloride 100 ml @ 0 mls/hr CONT PRN IV PER PROTOCOL Last administered on 07/10/20at 03:07; Start 07/07/20 at 14:45 Sodium Chloride 500 ml @ 500 mls/hr 1X PRN PRN IV SEE COMMENTS; Start 07/07/20 at 14:45 Atropine Sulfate (ATROPINE 0.5mg SYRINGE) 0.5 mg PRN Q5MIN PRN IV SEE COMMENTS; Start 07/07/20 at 14:45 Dextrose/Sodium Chloride 2,500 ml @ 50 mls/hr Q24H IV ; Start 07/07/20 at 15:00; Stop 07/09/20 at 17:00; Status UNV Dextrose/Sodium Chloride 0 ml @ 50 mls/hr Q0M IV ; Start 07/09/20 at 17:00; Stop 07/09/20 at 17:00; Status UNV Dextrose 1,000 ml @ 50 mls/hr Q20H IV Last administered on 07/07/20at 15:11; Start 07/07/20 at 16:00; Stop 07/07/20 at 17:39; Status DC Sodium Chloride 1,000 ml @ 50 mls/hr Q20H IV Last administered on 07/10/20at 05:54; Start 07/07/20 at 18:00 Insulin Glargine (Lantus Syringe) 10 unit QHS SQ Last administered on 07/09/20at 21:26; Start 07/09/20 at 21:00 Methylprednisolone Sodium Succinate 1000 mg/Sodium Chloride 100 ml @ 100 mls/hr DAILY IV Last administered on 07/10/20at 09:25; Start 07/09/20 at 16:00; Stop 07/13/20 at 22:00 Olanzapine (ZyPREXA IM) 10 mg 1X ONCE IM Last administered on 07/10/20at 09:09; Start 07/10/20 at 08:45; Stop 07/10/20 at 09:03; Status DC Active Scripts Active Reported Aspirin 81 Mg Tab.chew 81 Mg PO DAILY Metformin Hcl 500 Mg Tablet 500 Mg PO BIDWMEALS Atenolol 50 Mg Tablet 50 Mg PO DAILY Vitals/I & O Vital Sign - Last 24 Hours 07/09/20 07/09/20 07/09/20 07/09/20 15:00 16:00 16:00 17:00 Temp 97.6 97.6 Pulse 70 82 92 Resp B/P (MAP) 132/80 (97) 146/92 (110) 165/84 (111) Pulse Ox 97 97 97 O2 Delivery Room Air Room Air Room Air Room Air 07/09/20 07/09/20 07/09/20 07/09/20 18:00 19:00 20:00 20:00 Temp 97.9 97.9 Pulse 85 94 92 Resp 18 18 18 B/P (MAP) 150/76 (100) 121/96 (104) 155/81 (105) Pulse Ox 97 98 96 O2 Delivery Room Air Room Air Room Air Room Air 07/09/20 07/09/20 07/09/20 07/09/20 21:00 21:32 22:00 23:00 Pulse 94 118 93 81 Resp 18 18 18 B/P (MAP) 155/83 (107) 155/83 141/94 (110) 141/75 (97) Pulse Ox 96 96 93 O2 Delivery Room Air Room Air Room Air 07/09/20 07/10/20 07/10/20 07/10/20 23:59 00:00 01:00 02:00 Temp 98.2 98.2 Pulse 68 70 70 Resp 14 14 14 B/P (MAP) 141/75 (97) 116/74 (88) 105/71 (82) Pulse Ox 96 93 94 O2 Delivery Room Air Room Air Room Air Room Air 07/10/20 07/10/20 07/10/20 07/10/20 03:00 04:00 04:00 05:00 Temp 97.7 97.7 Pulse 73 66 66 Resp 14 16 12 B/P (MAP) 129/81 (97) 139/78 (98) 151/78 (102) Pulse Ox 97 97 96 O2 Delivery Room Air Room Air Room Air Room Air 07/10/20 07/10/20 07/10/20 07/10/20 06:00 07:35 07:37 07:41 Temp 97.8 97.8 97.8 97.8 Pulse 62 50 50 Resp 14 B/P (MAP) 118/83 (95) 136/77 (96) 136/77 (96) Pulse Ox 94 96 96 O2 Delivery Room Air Room Air Room Air Room Air 07/10/20 07/10/20 07/10/20 07/10/20 09:00 10:00 10:47 11:47 Temp 97.5 97.6 97.5 97.6 Pulse 83 83 77 Resp 20 20 B/P (MAP) 154/72 (99) 112/70 (84) 112/70 (84) Pulse Ox 96 98 97 O2 Delivery Room Air Room Air Room Air Room Air 07/10/20 07/10/20 11:50 13:02 Temp 97.6 97.6 Pulse 77 81 Resp 20 B/P (MAP) 140/77 (98) 140/72 (94) Pulse Ox 96 97 O2 Delivery Room Air Room Air Intake and Output 07/09/20 07/09/20 07/10/20 15:00 23:00 07:00 Intake Total 240 ml 120 ml 1368 ml Output Total 240 ml 450 ml 495 ml Balance 0 ml -330 ml 873 ml Nutrition Consultation Dietary Evaluation: Recommendations by RD: Dietary education by RD, Increase Calorie Intake, Protein supplementation Comments: REC resume diet (ADA/cardiac w/glucerna supplements TID) within 24 - 48 hrs pending if pt is appropriate and less combative REC PPN for short-term nutrition support needs if unable to advance to oral diet within 24 -48 hrs Expected Outcomes/Goals: to meet >75% est nutr needs - not met, new goal established New goal 07/10: diet advancement s/p brain biopsy Malnutrition Findings: Food and Nutrition Intake (Mod: <75% est energy req 7days Malnutrition related to morbid: Yes Weight Status: Overweight Justicifation of Admission Dx: Justifications for Admission: Justification of Admission Dx: Comment: (Higher level of care requested by [place] for neurology evaluation) JACQUE GAGNON MD Jul 10, 2020 14:16
[2020-07-10] MEDS ORDERED: ZIPRASIDONE IM 20 MG VIAL. IM ONE (15:30)
--- NOTE | 2020-07-10 15:30 | NUR ---
Patient is more awake but in confusion state. Patient is thrashing in the bed and screaming. Notified Dr. Uriostegui and received order.
[2020-07-10] MEDS: OLANZapine IM 10 MG VIAL. IM SCH ×2 (15:39→21:03)
--- NOTE | 2020-07-10 16:21 | PDOC ---
PROGRESS NOTES Date of Service DATE: 07/10/20 TIME: 16:16 Subjective Subjective Patient seen at 1400 off precedex family at bedside Objective Objective Vital Signs Date Time Temp Pulse Resp B/P (MAP) Pulse Ox O2 Delivery O2 Flow Rate FiO2 07/10/20 14:00 80 18 160/85 (110) 98 Room Air 07/10/20 11:50 97.6 97.6 07/07/20 14:25 6 Intake and Output 07/10/20 07:00 Intake Total 1728 ml Output Total 1185 ml Balance 543 ml Intake Oral 360 ml IV Total 1368 ml Output Urine Total 1185 ml Physical Exam General: Other (mildly agitated) MUSCULOSKELETAL: Other Neck: Other Neuro: Other (HENAO, not answering questions or following commands) Skin: Other (dressing C,D,I) Plan Plan of Care steroids per neurology final path pending Comment Review of Relevant I have reviewed the following items bashir (where applicable) has been applied. Labs Laboratory Tests Test 07/09/20 05:00 07/09/20 07:49 07/09/20 12:13 07/09/20 17:11 White Blood Count 23.5 x10^3/uL (4.0-11.0) Red Blood Count 4.43 x10^6/uL (4.30-5.70) Hemoglobin 14.3 g/dL (13.0-17.5) Hematocrit 42.1 % (39.0-53.0) Mean Corpuscular Volume 95 fL (79-100) Mean Corpuscular Hemoglobin 32 pg (25-35) Mean Corpuscular Hemoglobin Concent 34 g/dL (31-37) Red Cell Distribution Width 13.4 % (11.5-14.5) Platelet Count 294 x10^3/uL (140-400) Neutrophils (%) (Auto) 94 % (31-73) Lymphocytes (%) (Auto) 4 % (24-48) Monocytes (%) (Auto) 2 % (0-9) Eosinophils (%) (Auto) 0 % (0-3) Basophils (%) (Auto) 0 % (0-3) Neutrophils # (Auto) 22.2 x10^3/uL (1.8-7.7) Lymphocytes # (Auto) 0.9 x10^3/uL (1.0-4.8) Monocytes # (Auto) 0.4 x10^3/uL (0.0-1.1) Eosinophils # (Auto) 0.0 x10^3/uL (0.0-0.7) Basophils # (Auto) 0.0 x10^3/uL (0.0-0.2) Segmented Neutrophils % 91 % (35-66) Band Neutrophils % 7 % (0-9) Lymphocytes % 1 % (24-48) Atypical Lymphocytes % (Manual) 1 % (0-0) Platelet Estimate Adequate (ADEQUATE) Sodium Level 141 mmol/L (136-145) Potassium Level 4.1 mmol/L (3.5-5.1) Chloride Level 107 mmol/L (98-107) Carbon Dioxide Level 24 mmol/L (21-32) Anion Gap 10 (6-14) Blood Urea Nitrogen 26 mg/dL (8-26) Creatinine 1.0 mg/dL (0.7-1.3) Estimated GFR (Cockcroft-Gault) 74.3 BUN/Creatinine Ratio 26 (6-20) Glucose Level 174 mg/dL (70-99) Calcium Level 8.9 mg/dL (8.5-10.1) Total Bilirubin 0.4 mg/dL (0.2-1.0) Aspartate Amino Transf (AST/SGOT) 18 U/L (15-37) Alanine Aminotransferase (ALT/SGPT) 46 U/L (16-63) Alkaline Phosphatase 64 U/L (46-116) Total Protein 7.2 g/dL (6.4-8.2) Albumin 3.0 g/dL (3.4-5.0) Albumin/Globulin Ratio 0.7 (1.0-1.7) Glucose (Fingerstick) 180 mg/dL (70-99) 206 mg/dL (70-99) 138 mg/dL (70-99) Test 07/09/20 21:24 07/10/20 04:05 07/10/20 11:55 Glucose (Fingerstick) 194 mg/dL (70-99) 193 mg/dL (70-99) White Blood Count 21.4 x10^3/uL (4.0-11.0) Red Blood Count 4.27 x10^6/uL (4.30-5.70) Hemoglobin 14.1 g/dL (13.0-17.5) Hematocrit 39.9 % (39.0-53.0) Mean Corpuscular Volume 93 fL (79-100) Mean Corpuscular Hemoglobin 33 pg (25-35) Mean Corpuscular Hemoglobin Concent 36 g/dL (31-37) Red Cell Distribution Width 13.8 % (11.5-14.5) Platelet Count 299 x10^3/uL (140-400) Neutrophils (%) (Auto) 95 % (31-73) Lymphocytes (%) (Auto) 3 % (24-48) Monocytes (%) (Auto) 1 % (0-9) Eosinophils (%) (Auto) 0 % (0-3) Basophils (%) (Auto) 0 % (0-3) Neutrophils # (Auto) 20.3 x10^3/uL (1.8-7.7) Lymphocytes # (Auto) 0.7 x10^3/uL (1.0-4.8) Monocytes # (Auto) 0.3 x10^3/uL (0.0-1.1) Eosinophils # (Auto) 0.0 x10^3/uL (0.0-0.7) Basophils # (Auto) 0.0 x10^3/uL (0.0-0.2) Sodium Level 141 mmol/L (136-145) Potassium Level 3.8 mmol/L (3.5-5.1) Chloride Level 108 mmol/L (98-107) Carbon Dioxide Level 23 mmol/L (21-32) Anion Gap 10 (6-14) Blood Urea Nitrogen 29 mg/dL (8-26) Creatinine 1.1 mg/dL (0.7-1.3) Estimated GFR (Cockcroft-Gault) 66.6 BUN/Creatinine Ratio 26 (6-20) Glucose Level 217 mg/dL (70-99) Calcium Level 8.3 mg/dL (8.5-10.1) Total Bilirubin 0.4 mg/dL (0.2-1.0) Aspartate Amino Transf (AST/SGOT) 18 U/L (15-37) Alanine Aminotransferase (ALT/SGPT) 36 U/L (16-63) Alkaline Phosphatase 61 U/L (46-116) C-Reactive Protein, Quantitative 5.2 mg/L (0-3.3) Total Protein 6.5 g/dL (6.4-8.2) Albumin 2.6 g/dL (3.4-5.0) Albumin/Globulin Ratio 0.7 (1.0-1.7) Treponema pallidum Antibody Nonreactive (Nonreactive) Laboratory Tests Test 07/09/20 17:11 07/09/20 21:24 07/10/20 04:05 07/10/20 11:55 Glucose (Fingerstick) 138 mg/dL (70-99) 194 mg/dL (70-99) 193 mg/dL (70-99) White Blood Count 21.4 x10^3/uL (4.0-11.0) Red Blood Count 4.27 x10^6/uL (4.30-5.70) Hemoglobin 14.1 g/dL (13.0-17.5) Hematocrit 39.9 % (39.0-53.0) Mean Corpuscular Volume 93 fL (79-100) Mean Corpuscular Hemoglobin 33 pg (25-35) Mean Corpuscular Hemoglobin Concent 36 g/dL (31-37) Red Cell Distribution Width 13.8 % (11.5-14.5) Platelet Count 299 x10^3/uL (140-400) Neutrophils (%) (Auto) 95 % (31-73) Lymphocytes (%) (Auto) 3 % (24-48) Monocytes (%) (Auto) 1 % (0-9) Eosinophils (%) (Auto) 0 % (0-3) Basophils (%) (Auto) 0 % (0-3) Neutrophils # (Auto) 20.3 x10^3/uL (1.8-7.7) Lymphocytes # (Auto) 0.7 x10^3/uL (1.0-4.8) Monocytes # (Auto) 0.3 x10^3/uL (0.0-1.1) Eosinophils # (Auto) 0.0 x10^3/uL (0.0-0.7) Basophils # (Auto) 0.0 x10^3/uL (0.0-0.2) Sodium Level 141 mmol/L (136-145) Potassium Level 3.8 mmol/L (3.5-5.1) Chloride Level 108 mmol/L (98-107) Carbon Dioxide Level 23 mmol/L (21-32) Anion Gap 10 (6-14) Blood Urea Nitrogen 29 mg/dL (8-26) Creatinine 1.1 mg/dL (0.7-1.3) Estimated GFR (Cockcroft-Gault) 66.6 BUN/Creatinine Ratio 26 (6-20) Glucose Level 217 mg/dL (70-99) Calcium Level 8.3 mg/dL (8.5-10.1) Total Bilirubin 0.4 mg/dL (0.2-1.0) Aspartate Amino Transf (AST/SGOT) 18 U/L (15-37) Alanine Aminotransferase (ALT/SGPT) 36 U/L (16-63) Alkaline Phosphatase 61 U/L (46-116) C-Reactive Protein, Quantitative 5.2 mg/L (0-3.3) Total Protein 6.5 g/dL (6.4-8.2) Albumin 2.6 g/dL (3.4-5.0) Albumin/Globulin Ratio 0.7 (1.0-1.7) Treponema pallidum Antibody Nonreactive (Nonreactive) Medications Current Medications Ringer's Solution 1,000 ml @ 100 mls/hr Q10H IV Last administered on 06/30/20at 23:44; Start 06/30/20 at 22:30; Stop 07/01/20 at 08:29; Status DC Ondansetron HCl (Zofran) 4 mg PRN Q6HRS PRN IVP NAUSEA/VOMITING; Start 06/30/20 at 22:30 Calcium Carbonate/ Glycine (Tums) 500 mg PRN Q3HRS PRN PO UPSET STOMACH; Start 06/30/20 at 22:15 Acetaminophen (Tylenol) 650 mg PRN Q6HRS PRN PO Headaches, Temp > 101.5F; Start 06/30/20 at 22:15 Senna/Docusate Sodium (Senna Plus) 1 tab BID PO Last administered on 07/06/20at 08:45; Start 06/30/20 at 22:30 Bisacodyl (Dulcolax Supp) 10 mg PRN DAILY PRN SC CONSTIPATION; Start 06/30/20 at 22:15 Atorvastatin Calcium (Lipitor) 80 mg QHS PO Last administered on 07/05/20at 22:16; Start 06/30/20 at 22:30 Famotidine (Pepcid) 20 mg BID PO Last administered on 07/06/20at 08:45; Start 06/30/20 at 22:30 Aspirin (Ecotrin) 325 mg DAILYWBKFT PO Last administered on 07/06/20at 08:45; Start 07/01/20 at 08:00 Aspirin (Aspirin Rectal Supp) 300 mg PRN DAILY PRN SC IF UNABLE TO TAKE PO; Start 06/30/20 at 22:15 Metoprolol Tartrate (Lopressor) 25 mg BID PO Last administered on 07/09/20at 21:32; Start 06/30/20 at 22:30 Hydralazine HCl (Apresoline Inj) 10 mg PRN Q4HRS PRN IVP ELEVATED BP, SEE COMMENTS; Start 06/30/20 at 22:15 Insulin Human Lispro (HumaLOG) 0-7 UNITS TIDWMEALHC SQ Last administered on 07/10/20at 12:01; Start 07/01/20 at 08:00 Dextrose (Dextrose 50%-Water Syringe) 12.5 gm PRN Q15MIN PRN IV SEE COMMENTS; Start 06/30/20 at 22:45 Gadoterate Meglumine (Clariscan) 10 ml 1X ONCE IVP ; Start 07/03/20 at 11:45; Stop 07/03/20 at 11:46; Status DC Gadoterate Meglumine (Clariscan) 8 ml 1X ONCE IVP ; Start 07/03/20 at 11:45; Stop 07/03/20 at 11:46; Status DC Gadoterate Meglumine (Clariscan) 10 ml 1X ONCE IVP Last administered on 07/03/20at 11:56; Start 07/03/20 at 11:45; Stop 07/03/20 at 11:48; Status DC Gadoterate Meglumine (Clariscan) 8 ml 1X ONCE IVP Last administered on 07/03/20at 11:56; Start 07/03/20 at 11:45; Stop 07/03/20 at 11:48; Status DC Iohexol (Omnipaque 300 Mg/ml) 75 ml 1X ONCE IV Last administered on 07/03/20at 15:51; Start 07/03/20 at 15:45; Stop 07/03/20 at 15:46; Status DC Iohexol (Omnipaque 240 Mg/ml) 50 ml 1X ONCE PO Last administered on 07/03/20at 15:51; Start 07/03/20 at 15:45; Stop 07/03/20 at 15:46; Status DC Info (CONTRAST GIVEN -- Rx MONITORING) 1 each PRN DAILY PRN MC SEE COMMENTS; Start 07/03/20 at 15:45; Stop 07/05/20 at 15:44; Status DC Bacitracin 67846 unit/Sodium Chloride 1,000 ml @ 1,000 mls/hr 1X ONCE IRR Last administered on 07/07/20at 11:28; Start 07/07/20 at 06:00; Stop 07/07/20 at 06:59; Status DC Cefazolin Sodium/ Dextrose 50 ml @ 100 mls/hr 1X PREOP PRN IV PRIOR TO PROCEDURE Last administered on 07/07/20at 10:30; Start 07/07/20 at 06:00; Stop 07/07/20 at 18:00; Status DC Ondansetron HCl (Zofran) 4 mg PRN Q6HRS PRN IV NAUSEA/VOMITING; Start 07/07/20 at 07:00; Stop 07/07/20 at 19:00; Status DC Fentanyl Citrate (Fentanyl 2ml Vial) 25 mcg PRN Q5MIN PRN IV MILD PAIN 1-3; Start 07/07/20 at 07:00; Stop 07/07/20 at 19:00; Status DC Fentanyl Citrate (Fentanyl 2ml Vial) 50 mcg PRN Q5MIN PRN IV MODERATE TO SEVERE PAIN; Start 07/07/20 at 07:00; Stop 07/07/20 at 19:00; Status DC Morphine Sulfate (Morphine Sulfate) 1 mg PRN Q10MIN PRN IV SEVERE PAIN 7-10; Start 07/07/20 at 07:00; Stop 07/07/20 at 19:00; Status DC Ringer's Solution 1,000 ml @ 30 mls/hr Q24H IV Last administered on 07/07/20at 09:45; Start 07/07/20 at 07:00; Stop 07/07/20 at 18:59; Status DC Lidocaine HCl (Xylocaine-Mpf 1% 2ml Vial) 2 ml PRN 1X PRN ID PRIOR TO IV START; Start 07/07/20 at 07:00; Stop 07/07/20 at 19:00; Status DC Hydromorphone HCl (Dilaudid) 0.5 mg PRN Q10MIN PRN IV SEV PAIN, Second choice; Start 07/07/20 at 07:00; Stop 07/07/20 at 19:00; Status DC Prochlorperazine Edisylate (Compazine) 5 mg PACU PRN PRN IV NAUSEA, MRX1; Start 07/07/20 at 07:00; Stop 07/07/20 at 19:00; Status DC Gelatin (Gelfoam Size 100) 1 each STK-MED ONCE .ROUTE Last administered on 07/07/20at 11:28; Start 07/07/20 at 07:37; Stop 07/07/20 at 07:37; Status DC Povidone Iodine (Betadine Oint) 28 nazario STK-MED ONCE TP ; Start 07/07/20 at 07:37; Stop 07/07/20 at 07:37; Status DC Lidocaine/ Epinephrine (LIDOCAINE 2%-EPI 1:100,000 multi-dose) 20 ml STK-MED ONCE .ROUTE ; Start 07/07/20 at 07:37; Stop 07/07/20 at 07:37; Status DC Cellulose (Surgicel Hemostat 4x8) 1 each STK-MED ONCE .ROUTE ; Start 07/07/20 at 07:37; Stop 07/07/20 at 07:37; Status DC Thrombin 20,000 unit STK-MED ONCE TP Last administered on 07/07/20at 11:28; Start 07/07/20 at 07:37; Stop 07/07/20 at 07:37; Status DC Gadoterate Meglumine (Clariscan) 10 ml 1X ONCE IVP Last administered on 07/07/20at 08:52; Start 07/07/20 at 08:30; Stop 07/07/20 at 08:31; Status DC Gadoterate Meglumine (Clariscan) 8 ml 1X ONCE IVP Last administered on 07/07/20at 08:52; Start 07/07/20 at 08:30; Stop 07/07/20 at 08:31; Status DC Dexamethasone Sodium Phosphate (Decadron) 4 mg Q6H IVP Last administered on 07/09/20at 12:08; Start 07/08/20 at 06:00; Stop 07/09/20 at 15:54; Status DC Rocuronium Blacklick (Zemuron) 50 mg STK-MED ONCE .ROUTE ; Start 07/07/20 at 08:57; Stop 07/07/20 at 08:57; Status DC Remifentanil HCl (Ultiva) 2 mg STK-MED ONCE IV ; Start 07/07/20 at 08:57; Stop 07/07/20 at 08:58; Status DC Propofol (Diprivan) 200 mg STK-MED ONCE IV ; Start 07/07/20 at 09:00; Stop 07/07/20 at 09:01; Status DC Dexamethasone Sodium Phosphate (Decadron) 20 mg STK-MED ONCE .ROUTE ; Start 07/07/20 at 09:00; Stop 07/07/20 at 09:01; Status DC Lidocaine HCl (Lidocaine Pf 2% Vial) 5 ml STK-MED ONCE .ROUTE ; Start 07/07/20 at 09:00; Stop 07/07/20 at 09:01; Status DC Ondansetron HCl (Zofran) 4 mg STK-MED ONCE .ROUTE ; Start 07/07/20 at 09:00; Stop 07/07/20 at 09:01; Status DC Phenylephrine HCl (Mamadou-Synephrine Inj) 10 mg STK-MED ONCE .ROUTE ; Start 07/07/20 at 09:01; Stop 07/07/20 at 09:01; Status DC Desflurane (Suprane) 90 ml STK-MED ONCE IH ; Start 07/07/20 at 09:04; Stop 07/07/20 at 09:04; Status DC Mannitol (Mannitol) 12.5 g STK-MED ONCE .ROUTE ; Start 07/07/20 at 09:17; Stop 07/07/20 at 09:17; Status DC Lidocaine HCl (Xylocaine 1% Pf 30ml Vial) 30 ml 1X ONCE INJ Last administered on 07/07/20at 11:28; Start 07/07/20 at 10:00; Stop 07/07/20 at 10:01; Status DC Epinephrine HCl (Adrenalin) 0.15 mg 1X ONCE INJ ; Start 07/07/20 at 10:00; Stop 07/07/20 at 10:01; Status DC Remifentanil HCl (Ultiva) 1 mg STK-MED ONCE IV ; Start 07/07/20 at 12:01; Stop 07/07/20 at 12:02; Status DC Glycopyrrolate (Robinul) 1 mg STK-MED ONCE .ROUTE ; Start 07/07/20 at 12:02; Stop 07/07/20 at 12:03; Status DC Neostigmine Blacklick (Neostigmine Methylsulfate) 5 mg STK-MED ONCE .ROUTE ; Start 07/07/20 at 12:03; Stop 07/07/20 at 12:03; Status DC Fentanyl Citrate (Fentanyl 2ml Vial) 100 mcg STK-MED ONCE .ROUTE ; Start 07/07/20 at 12:45; Stop 07/07/20 at 12:45; Status DC Nicardipine HCl (Cardene) 25 mg STK-MED ONCE IV ; Start 07/07/20 at 12:47; Stop 07/07/20 at 12:48; Status DC Lidocaine HCl (Lidocaine Pf 2% Vial) 5 ml STK-MED ONCE .ROUTE ; Start 07/07/20 at 13:06; Stop 07/07/20 at 13:07; Status DC Propofol 50 ml @ As Directed STK-MED ONCE IV ; Start 07/07/20 at 13:30; Stop 07/07/20 at 13:30; Status DC Lorazepam (Ativan Inj) 2 mg PRN Q4HRS PRN IVP ANXIETY / AGITATION Last administered on 07/09/20at 21:33; Start 07/07/20 at 14:15 Dexmedetomidine HCl 400 mcg/ Sodium Chloride 100 ml @ 0 mls/hr CONT PRN IV PER PROTOCOL Last administered on 07/10/20at 03:07; Start 07/07/20 at 14:45 Sodium Chloride 500 ml @ 500 mls/hr 1X PRN PRN IV SEE COMMENTS; Start 07/07/20 at 14:45 Atropine Sulfate (ATROPINE 0.5mg SYRINGE) 0.5 mg PRN Q5MIN PRN IV SEE COMMENTS; Start 07/07/20 at 14:45 Dextrose/Sodium Chloride 2,500 ml @ 50 mls/hr Q24H IV ; Start 07/07/20 at 15:00; Stop 07/09/20 at 17:00; Status UNV Dextrose/Sodium Chloride 0 ml @ 50 mls/hr Q0M IV ; Start 07/09/20 at 17:00; Stop 07/09/20 at 17:00; Status UNV Dextrose 1,000 ml @ 50 mls/hr Q20H IV Last administered on 07/07/20at 15:11; S tart 07/07/20 at 16:00; Stop 07/07/20 at 17:39; Status DC Sodium Chloride 1,000 ml @ 50 mls/hr Q20H IV Last administered on 07/10/20at 05:54; Start 07/07/20 at 18:00 Insulin Glargine (Lantus Syringe) 10 unit QHS SQ Last administered on 07/09/20at 21:26; Start 07/09/20 at 21:00; Stop 07/10/20 at 14:17; Status DC Methylprednisolone Sodium Succinate 1000 mg/Sodium Chloride 100 ml @ 100 mls/hr DAILY IV Last administered on 07/10/20at 09:25; Start 07/09/20 at 16:00; Stop 07/13/20 at 22:00 Olanzapine (ZyPREXA IM) 10 mg 1X ONCE IM Last administered on 07/10/20at 09:09; Start 07/10/20 at 08:45; Stop 07/10/20 at 09:03; Status DC Insulin Glargine (Lantus Syringe) 15 unit QHS SQ ; Start 07/10/20 at 21:00 Olanzapine (ZyPREXA IM) 10 mg Q6H IM Last administered on 07/10/20at 15:39; Start 07/10/20 at 15:30 Ziprasidone (Geodon Im) 20 mg 1X ONCE IM ; Start 07/10/20 at 15:30; Stop 07/10/20 at 15:33; Status DC Active Scripts Active Reported Aspirin 81 Mg Tab.chew 81 Mg PO DAILY Metformin Hcl 500 Mg Tablet 500 Mg PO BIDWMEALS Atenolol 50 Mg Tablet 50 Mg PO DAILY Vitals/I & O Vital Sign - Last 24 Hours 07/09/20 07/09/20 07/09/20 07/09/20 17:00 18:00 19:00 20:00 Pulse 92 85 94 Resp 17 18 18 B/P (MAP) 165/84 (111) 150/76 (100) 121/96 (104) Pulse Ox 97 97 98 O2 Delivery Room Air Room Air Room Air Room Air 07/09/20 07/09/20 07/09/20 07/09/20 20:00 21:00 21:32 22:00 Temp 97.9 97.9 Pulse 92 94 118 93 Resp 18 18 18 B/P (MAP) 155/81 (105) 155/83 (107) 155/83 141/94 (110) Pulse Ox 96 96 96 O2 Delivery Room Air Room Air Room Air 07/09/20 07/09/20 07/10/20 07/10/20 23:00 23:59 00:00 01:00 Temp 98.2 98.2 Pulse 81 68 70 Resp 18 14 14 B/P (MAP) 141/75 (97) 141/75 (97) 116/74 (88) Pulse Ox 93 96 93 O2 Delivery Room Air Room Air Room Air Room Air 07/10/20 07/10/20 07/10/20 07/10/20 02:00 03:00 04:00 04:00 Temp 97.7 97.7 Pulse 70 73 66 Resp 14 14 16 B/P (MAP) 105/71 (82) 129/81 (97) 139/78 (98) Pulse Ox 94 97 97 O2 Delivery Room Air Room Air Room Air Room Air 07/10/20 07/10/20 07/10/20 07/10/20 05:00 06:00 07:35 07:37 Temp 97.8 97.8 Pulse 66 62 50 Resp 12 14 B/P (MAP) 151/78 (102) 118/83 (95) 136/77 (96) Pulse Ox 96 94 96 O2 Delivery Room Air Room Air Room Air Room Air 07/10/20 07/10/20 07/10/20 07/10/20 07:41 09:00 10:00 10:47 Temp 97.8 97.5 97.6 97.8 97.5 97.6 Pulse 50 83 83 77 Resp 20 20 B/P (MAP) 136/77 (96) 154/72 (99) 112/70 (84) 112/70 (84) Pulse Ox 96 96 98 97 O2 Delivery Room Air Room Air Room Air Room Air 07/10/20 07/10/20 07/10/20 07/10/20 11:47 11:50 13:02 14:00 Temp 97.6 97.6 Pulse 77 81 80 Resp 20 18 B/P (MAP) 140/77 (98) 140/72 (94) 160/85 (110) Pulse Ox 96 97 98 O2 Delivery Room Air Room Air Room Air Room Air Intake and Output 07/09/20 07/09/20 07/10/20 15:00 23:00 07:00 Intake Total 240 ml 120 ml 1368 ml Output Total 240 ml 450 ml 495 ml Balance 0 ml -330 ml 873 ml Justifications for Admission TIA Indications Persistent neurologic signs?: Yes Justification for admission: There is persistence of patient's focal neurologic signs or symptoms or there is concern for recurrence of patient's neurological signs and symptoms. Other Justification Nutrition Consultation Dietary Evaluation: Recommendations by RD: Dietary education by RD, Increase Calorie Intake, Protein supplementation Comments: REC resume diet (ADA/cardiac w/glucerna supplements TID) within 24 - 48 hrs pending if pt is appropriate and less combative REC PPN for short-term nutrition support needs if unable to advance to oral diet within 24 -48 hrs Expected Outcomes/Goals: to meet >75% est nutr needs - not met, new goal established New goal 07/10: diet advancement s/p brain biopsy Malnutrition Findings: Food and Nutrition Intake (Mod: <75% est energy req 7days Malnutrition related to morbid: Yes Weight Status: Overweight LUCA GOTTI BELL STAFF Jul 10, 2020 16:21
--- NOTE | 2020-07-10 16:34 | NUR ---
SS following up with discharge planning. SS reviewed pt chart and discussed with pt RN. Pt transferred to ICU. COVID19 negative. Pt having increased confusion and is calling out. Pt is currently on room air. Per RN, pt has masses on brain. Dr. Mendoza following. Per notes, most likely a neurological disorder. Pt on IV steroids and IV Zyprexa. Monitoring for improvement. Possible need for LTACH referral if no improvements. SS will continue to follow for discharge planning.
[2020-07-10] MEDS: METOPROLOL IV PUSH 5 MG/5 ML VIAL. IVP SCH (17:11)
[2020-07-10] MEDS: ATORVASTATIN CALCIUM 40 MG TABLET. PO SCH (20:20)
[2020-07-10] MEDS: INSULIN GLARGINE SYRINGE. SQ SCH (21:03)
[2020-07-11] VITALS (17 sets, daily range): BP systolic 129–167; BP diastolic 70–96
[2020-07-11 00:11] LABS: HEMOGLOBIN A1C 6.1 % (4.8-5.6)
[2020-07-11] MEDS: METOPROLOL IV PUSH 5 MG/5 ML VIAL. IVP SCH ×4 (00:21→18:03)
[2020-07-11] MEDS: IV NORMAL SALINE 1000ML BAG 1,000 ML IV SCH ×2 (03:00→16:58)
[2020-07-11] MEDS: OLANZapine IM 10 MG VIAL. IM SCH ×4 (03:12→21:32)
[2020-07-11] MEDS: ASPIRIN ENTERIC COATED 325 MG TABLET.DR. PO SCH (07:46)
[2020-07-11] MEDS: METOPROLOL TART IMMED RELEASE 25 MG TABLET. PO SCH ×2 (07:47→21:00)
[2020-07-11] MEDS: FAMOTIDINE 20 MG TABLET. PO SCH ×2 (07:47→21:00)
[2020-07-11] MEDS: SENNOSIDES/DOCUSATE 8.6/50MG TABLET. PO SCH ×2 (07:47→21:00)
[2020-07-11] MEDS: INSULIN LISPRO 300 UNITS/3 ML VIAL. SQ SCH ×4 (08:00→21:00)
[2020-07-11] MEDS: methylPREDNISolone SOD SUCC 1,000 MG in IV NORMAL SALINE 100ML 100 ML IV SCH (09:18)
--- NOTE | 2020-07-11 10:12 | PDOC ---
PROGRESS NOTES Date of Service DATE: 07/11/20 TIME: 10:10 Assessment Multiple brain masses, preliminary frozen section reveals the possibility of demyelinating disease rather than malignancy. Encephalopathic which may be the anesthesia as well as the medications being used to control the agitation, plus steroid psychosis. Memory loss Diabetes, hypertension Plan Zyprexa, spare the sedatives Await brain biopsy final path Solu-Medrol No need for prophylactic anticonvulsants Subjective None Objective Vital Signs Date Time Temp Pulse Resp B/P (MAP) Pulse Ox O2 Delivery O2 Flow Rate FiO2 07/11/20 08:00 94 22 163/96 (118) 97 Room Air 07/11/20 03:02 98.7 98.7 Intake and Output 07/11/20 07:00 Intake Total 150 ml Output Total 1420 ml Balance -1270 ml Other 150 ml Output Urine Total 1420 ml PHYSICAL EXAM Eyes closed, not yelling out, asking for son, though PERRL. EOMI. CN: Bilateral severe hearing loss, some dysarthria, otherwise no focal findings. Muscle tone: normal. Muscle strength: 5/5 DTR: 2+ Plantar reflex: Flexor Gait: not examined in bed. Sensory exam: Not cooperative. Cerebellar: Not cooperative Review of Relevant I have reviewed the following items bashir (where applicable) has been applied. Labs Laboratory Tests Test 07/09/20 12:13 07/09/20 17:11 07/09/20 21:24 07/10/20 04:05 Glucose (Fingerstick) 206 mg/dL (70-99) 138 mg/dL (70-99) 194 mg/dL (70-99) White Blood Count 21.4 x10^3/uL (4.0-11.0) Red Blood Count 4.27 x10^6/uL (4.30-5.70) Hemoglobin 14.1 g/dL (13.0-17.5) Hematocrit 39.9 % (39.0-53.0) Mean Corpuscular Volume 93 fL (79-100) Mean Corpuscular Hemoglobin 33 pg (25-35) Mean Corpuscular Hemoglobin Concent 36 g/dL (31-37) Red Cell Distribution Width 13.8 % (11.5-14.5) Platelet Count 299 x10^3/uL (140-400) Neutrophils (%) (Auto) 95 % (31-73) Lymphocytes (%) (Auto) 3 % (24-48) Monocytes (%) (Auto) 1 % (0-9) Eosinophils (%) (Auto) 0 % (0-3) Basophils (%) (Auto) 0 % (0-3) Neutrophils # (Auto) 20.3 x10^3/uL (1.8-7.7) Lymphocytes # (Auto) 0.7 x10^3/uL (1.0-4.8) Monocytes # (Auto) 0.3 x10^3/uL (0.0-1.1) Eosinophils # (Auto) 0.0 x10^3/uL (0.0-0.7) Basophils # (Auto) 0.0 x10^3/uL (0.0-0.2) Sodium Level 141 mmol/L (136-145) Potassium Level 3.8 mmol/L (3.5-5.1) Chloride Level 108 mmol/L (98-107) Carbon Dioxide Level 23 mmol/L (21-32) Anion Gap 10 (6-14) Blood Urea Nitrogen 29 mg/dL (8-26) Creatinine 1.1 mg/dL (0.7-1.3) Estimated GFR (Cockcroft-Gault) 66.6 BUN/Creatinine Ratio 26 (6-20) Glucose Level 217 mg/dL (70-99) Hemoglobin A1c 6.1 % (4.8-5.6) Calcium Level 8.3 mg/dL (8.5-10.1) Total Bilirubin 0.4 mg/dL (0.2-1.0) Aspartate Amino Transf (AST/SGOT) 18 U/L (15-37) Alanine Aminotransferase (ALT/SGPT) 36 U/L (16-63) Alkaline Phosphatase 61 U/L (46-116) C-Reactive Protein, Quantitative 5.2 mg/L (0-3.3) Total Protein 6.5 g/dL (6.4-8.2) Albumin 2.6 g/dL (3.4-5.0) Albumin/Globulin Ratio 0.7 (1.0-1.7) Treponema pallidum Antibody Nonreactive (Nonreactive) Test 07/10/20 11:55 07/10/20 21:01 07/11/20 08:40 Glucose (Fingerstick) 193 mg/dL (70-99) 172 mg/dL (70-99) 147 mg/dL (70-99) Laboratory Tests Test 07/10/20 11:55 07/10/20 21:01 07/11/20 08:40 Glucose (Fingerstick) 193 mg/dL (70-99) 172 mg/dL (70-99) 147 mg/dL (70-99) Medications Current Medications Ringer's Solution 1,000 ml @ 100 mls/hr Q10H IV Last administered on 06/30/20at 23:44; Start 06/30/20 at 22:30; Stop 07/01/20 at 08:29; Status DC Ondansetron HCl (Zofran) 4 mg PRN Q6HRS PRN IVP NAUSEA/VOMITING; Start 06/30/20 at 22:30 Calcium Carbonate/ Glycine (Tums) 500 mg PRN Q3HRS PRN PO UPSET STOMACH; Start 06/30/20 at 22:15 Acetaminophen (Tylenol) 650 mg PRN Q6HRS PRN PO Headaches, Temp > 101.5F; Start 06/30/20 at 22:15 Senna/Docusate Sodium (Senna Plus) 1 tab BID PO Last administered on 07/06/20at 08:45; Start 06/30/20 at 22:30 Bisacodyl (Dulcolax Supp) 10 mg PRN DAILY PRN [place] CONSTIPATION; Start 06/30/20 at 22:15 Atorvastatin Calcium (Lipitor) 80 mg QHS PO Last administered on 07/05/20at 22:16; Start 06/30/20 at 22:30 Famotidine (Pepcid) 20 mg BID PO Last administered on 07/06/20at 08:45; Start 06/30/20 at 22:30 Aspirin (Ecotrin) 325 mg DAILYWBKFT PO Last administered on 07/06/20at 08:45; Start 07/01/20 at 08:00 Aspirin (Aspirin Rectal Supp) 300 mg PRN DAILY PRN KS IF UNABLE TO TAKE PO; Start 06/30/20 at 22:15 Metoprolol Tartrate (Lopressor) 25 mg BID PO Last administered on 07/09/20at 21:32; Start 06/30/20 at 22:30 Hydralazine HCl (Apresoline Inj) 10 mg PRN Q4HRS PRN IVP ELEVATED BP, SEE COMMENTS; Start 06/30/20 at 22:15 Insulin Human Lispro (HumaLOG) 0-7 UNITS TIDWMEALHC SQ Last administered on 07/10/20at 12:01; Start 07/01/20 at 08:00 Dextrose (Dextrose 50%-Water Syringe) 12.5 gm PRN Q15MIN PRN IV SEE COMMENTS; Start 06/30/20 at 22:45 Gadoterate Meglumine (Clariscan) 10 ml 1X ONCE IVP ; Start 07/03/20 at 11:45; Stop 07/03/20 at 11:46; Status DC Gadoterate Meglumine (Clariscan) 8 ml 1X ONCE IVP ; Start 07/03/20 at 11:45; Stop 07/03/20 at 11:46; Status DC Gadoterate Meglumine (Clariscan) 10 ml 1X ONCE IVP Last administered on 05/13at 11:56; Start 07/03/20 at 11:45; Stop 07/03/20 at 11:48; Status DC Gadoterate Meglumine (Clariscan) 8 ml 1X ONCE IVP Last administered on 07/03/20at 11:56; Start 07/03/20 at 11:45; Stop 07/03/20 at 11:48; Status DC Iohexol (Omnipaque 300 Mg/ml) 75 ml 1X ONCE IV Last administered on 07/03/20at 15:51; Start 07/03/20 at 15:45; Stop 07/03/20 at 15:46; Status DC Iohexol (Omnipaque 240 Mg/ml) 50 ml 1X ONCE PO Last administered on 07/03/20at 15:51; Start 07/03/20 at 15:45; Stop 07/03/20 at 15:46; Status DC Info (CONTRAST GIVEN -- Rx MONITORING) 1 each PRN DAILY PRN MC SEE COMMENTS; Start 07/03/20 at 15:45; Stop 07/05/20 at 15:44; Status DC Bacitracin 79135 unit/Sodium Chloride 1,000 ml @ 1,000 mls/hr 1X ONCE IRR Last administered on 07/07/20at 11:28; Start 07/07/20 at 06:00; Stop 07/07/20 at 06:59; Status DC Cefazolin Sodium/ Dextrose 50 ml @ 100 mls/hr 1X PREOP PRN IV PRIOR TO PROCEDURE Last administered on 07/07/20at 10:30; Start 07/07/20 at 06:00; Stop 07/07/20 at 18:00; Status DC Ondansetron HCl (Zofran) 4 mg PRN Q6HRS PRN IV NAUSEA/VOMITING; Start 07/07/20 at 07:00; Stop 07/07/20 at 19:00; Status DC Fentanyl Citrate (Fentanyl 2ml Vial) 25 mcg PRN Q5MIN PRN IV MILD PAIN 1-3; Start 07/07/20 at 07:00; Stop 07/07/20 at 19:00; Status DC Fentanyl Citrate (Fentanyl 2ml Vial) 50 mcg PRN Q5MIN PRN IV MODERATE TO SEVERE PAIN; Start 07/07/20 at 07:00; Stop 07/07/20 at 19:00; Status DC Morphine Sulfate (Morphine Sulfate) 1 mg PRN Q10MIN PRN IV SEVERE PAIN 7-10; Start 07/07/20 at 07:00; Stop 07/07/20 at 19:00; Status DC Ringer's Solution 1,000 ml @ 30 mls/hr Q24H IV Last administered on 07/07/20at 09:45; Start 07/07/20 at 07:00; Stop 07/07/20 at 18:59; Status DC Lidocaine HCl (Xylocaine-Mpf 1% 2ml Vial) 2 ml PRN 1X PRN ID PRIOR TO IV START; Start 07/07/20 at 07:00; Stop 07/07/20 at 19:00; Status DC Hydromorphone HCl (Dilaudid) 0.5 mg PRN Q10MIN PRN IV SEV PAIN, Second choice; Start 07/07/20 at 07:00; Stop 07/07/20 at 19:00; Status DC Prochlorperazine Edisylate (Compazine) 5 mg PACU PRN PRN IV NAUSEA, MRX1; Start 07/07/20 at 07:00; Stop 07/07/20 at 19:00; Status DC Gelatin (Gelfoam Size 100) 1 each STK-MED ONCE .ROUTE Last administered on 07/07/20at 11:28; Start 07/07/20 at 07:37; Stop 07/07/20 at 07:37; Status DC Povidone Iodine (Betadine Oint) 28 nazario STK-MED ONCE TP ; Start 07/07/20 at 07:37; Stop 07/07/20 at 07:37; Status DC Lidocaine/ Epinephrine (LIDOCAINE 2%-EPI 1:100,000 multi-dose) 20 ml STK-MED ONCE .ROUTE ; Start 07/07/20 at 07:37; Stop 07/07/20 at 07:37; Status DC Cellulose (Surgicel Hemostat 4x8) 1 each STK-MED ONCE .ROUTE ; Start 07/07/20 at 07:37; Stop 07/07/20 at 07:37; Status DC Thrombin 20,000 unit STK-MED ONCE TP Last administered on 07/07/20at 11:28; Start 07/07/20 at 07:37; Stop 07/07/20 at 07:37; Status DC Gadoterate Meglumine (Clariscan) 10 ml 1X ONCE IVP Last administered on 07/07/20at 08:52; Start 07/07/20 at 08:30; Stop 07/07/20 at 08:31; Status DC Gadoterate Meglumine (Clariscan) 8 ml 1X ONCE IVP Last administered on 07/07/20at 08:52; Start 07/07/20 at 08:30; Stop 07/07/20 at 08:31; Status DC Dexamethasone Sodium Phosphate (Decadron) 4 mg Q6H IVP Last administered on 07/09/20at 12:08; Start 07/08/20 at 06:00; Stop 07/09/20 at 15:54; Status DC Rocuronium [place] (Zemuron) 50 mg STK-MED ONCE .ROUTE ; Start 07/07/20 at 08:57; Stop 07/07/20 at 08:57; Status DC Remifentanil HCl (Ultiva) 2 mg STK-MED ONCE IV ; Start 07/07/20 at 08:57; Stop 07/07/20 at 08:58; Status DC Propofol (Diprivan) 200 mg STK-MED ONCE IV ; Start 07/07/20 at 09:00; Stop 07/07/20 at 09:01; Status DC Dexamethasone Sodium Phosphate (Decadron) 20 mg STK-MED ONCE .ROUTE ; Start 07/07/20 at 09:00; Stop 07/07/20 at 09:01; Status DC Lidocaine HCl (Lidocaine Pf 2% Vial) 5 ml STK-MED ONCE .ROUTE ; Start 07/07/20 at 09:00; Stop 07/07/20 at 09:01; Status DC Ondansetron HCl (Zofran) 4 mg STK-MED ONCE .ROUTE ; Start 07/07/20 at 09:00; Stop 07/07/20 at 09:01; Status DC Phenylephrine HCl (Mamadou-Synephrine Inj) 10 mg STK-MED ONCE .ROUTE ; Start 07/07/20 at 09:01; Stop 07/07/20 at 09:01; Status DC Desflurane (Suprane) 90 ml STK-MED ONCE IH ; Start 07/07/20 at 09:04; Stop 07/07/20 at 09:04; Status DC Mannitol (Mannitol) 12.5 g STK-MED ONCE .ROUTE ; Start 07/07/20 at 09:17; Stop 07/07/20 at 09:17; Status DC Lidocaine HCl (Xylocaine 1% Pf 30ml Vial) 30 ml 1X ONCE INJ Last administered on 07/07/20at 11:28; Start 07/07/20 at 10:00; Stop 07/07/20 at 10:01; Status DC Epinephrine HCl (Adrenalin) 0.15 mg 1X ONCE INJ ; Start 07/07/20 at 10:00; Stop 07/07/20 at 10:01; Status DC Remifentanil HCl (Ultiva) 1 mg STK-MED ONCE IV ; Start 07/07/20 at 12:01; Stop 07/07/20 at 12:02; Status DC Glycopyrrolate (Robinul) 1 mg STK-MED ONCE .ROUTE ; Start 07/07/20 at 12:02; Stop 07/07/20 at 12:03; Status DC Neostigmine [place] (Neostigmine Methylsulfate) 5 mg STK-MED ONCE .ROUTE ; Start 07/07/20 at 12:03; Stop 07/07/20 at 12:03; Status DC Fentanyl Citrate (Fentanyl 2ml Vial) 100 mcg STK-MED ONCE .ROUTE ; Start 07/07/20 at 12:45; Stop 07/07/20 at 12:45; Status DC Nicardipine HCl (Cardene) 25 mg STK-MED ONCE IV ; Start 07/07/20 at 12:47; Stop 07/07/20 at 12:48; Status DC Lidocaine HCl (Lidocaine Pf 2% Vial) 5 ml STK-MED ONCE .ROUTE ; Start 07/07/20 at 13:06; Stop 07/07/20 at 13:07; Status DC Propofol 50 ml @ As Directed STK-MED ONCE IV ; Start 07/07/20 at 13:30; Stop 07/07/20 at 13:30; Status DC Lorazepam (Ativan Inj) 2 mg PRN Q4HRS PRN IVP ANXIETY / AGITATION Last administered on 07/09/20at 21:33; Start 07/07/20 at 14:15 Dexmedetomidine HCl 400 mcg/ Sodium Chloride 100 ml @ 0 mls/hr CONT PRN IV PER PROTOCOL Last administered on 07/10/20at 03:07; Start 07/07/20 at 14:45 Sodium Chloride 500 ml @ 500 mls/hr 1X PRN PRN IV SEE COMMENTS; Start 07/07/20 at 14:45 Atropine Sulfate (ATROPINE 0.5mg SYRINGE) 0.5 mg PRN Q5MIN PRN IV SEE COMMENTS; Start 07/07/20 at 14:45 Dextrose/Sodium Chloride 2,500 ml @ 50 mls/hr Q24H IV ; Start 07/07/20 at 15:00; Stop 07/09/20 at 17:00; Status UNV Dextrose/Sodium Chloride 0 ml @ 50 mls/hr Q0M IV ; Start 07/09/20 at 17:00; Stop 07/09/20 at 17:00; Status UNV Dextrose 1,000 ml @ 50 mls/hr Q20H IV Last administered on 07/07/20at 15:11; Start 07/07/20 at 16:00; Stop 07/07/20 at 17:39; Status DC Sodium Chloride 1,000 ml @ 50 mls/hr Q20H IV Last administered on 07/11/20at 03:00; Start 07/07/20 at 18:00 Insulin Glargine (Lantus Syringe) 10 unit QHS SQ Last administered on 07/09/20at 21:26; Start 07/09/20 at 21:00; Stop 07/10/20 at 14:17; Status DC Methylprednisolone Sodium Succinate 1000 mg/Sodium Chloride 100 ml @ 100 mls/hr DAILY IV Last administered on 07/11/20at 09:18; Start 07/09/20 at 16:00; Stop 07/13/20 at 22:00 Olanzapine (ZyPREXA IM) 10 mg 1X ONCE IM Last administered on 07/10/20at 09:09; Start 07/10/20 at 08:45; Stop 07/10/20 at 09:03; Status DC Insulin Glargine (Lantus Syringe) 15 unit QHS SQ Last administered on 07/10/20at 21:03; Start 07/10/20 at 21:00 Olanzapine (ZyPREXA IM) 10 mg Q6H IM Last administered on 07/11/20at 10:02; Start 07/10/20 at 15:30 Ziprasidone (Geodon Im) 20 mg 1X ONCE IM ; Start 07/10/20 at 15:30; Stop 07/10/20 at 15:33; Status DC Metoprolol Tartrate (Lopressor Vial) 5 mg Q6HRS IVP Last administered on 07/11/20at 05:45; Start 07/10/20 at 18:00 Active Scripts Active Reported Aspirin 81 Mg Tab.chew 81 Mg PO DAILY Metformin Hcl 500 Mg Tablet 500 Mg PO BIDWMEALS Atenolol 50 Mg Tablet 50 Mg PO DAILY Vitals/I & O Vital Sign - Last 24 Hours 07/10/20 07/10/20 07/10/20 07/10/20 10:47 11:47 11:50 13:02 Temp 97.6 97.6 97.6 97.6 Pulse 77 77 81 Resp 20 20 B/P (MAP) 112/70 (84) 140/77 (98) 140/72 (94) Pulse Ox 97 96 97 O2 Delivery Room Air Room Air Room Air Room Air 07/10/20 07/10/20 07/10/20 07/10/20 14:00 15:00 16:00 16:22 Temp 97.6 97.6 Pulse 80 109 110 Resp 18 18 B/P (MAP) 160/85 (110) 164/ 159/89 (112) Pulse Ox 98 97 97 O2 Delivery Room Air Room Air Room Air 07/10/20 07/10/20 07/10/20 07/10/20 17:11 17:19 18:13 19:00 Temp 98.6 98.6 Pulse 116 97 106 117 Resp B/P (MAP) 159/89 158/82 (107) 163/78 (106) 149/90 (109) Pulse Ox 96 96 97 O2 Delivery Room Air Room Air Room Air 07/10/20 07/10/20 07/10/20 07/10/20 20:00 20:00 21:00 22:07 Pulse 105 110 105 Resp B/P (MAP) 151/90 (110) 137/97 (110) 137/97 (110) Pulse Ox 97 96 96 O2 Delivery Room Air Room Air Room Air Room Air 07/10/20 07/10/20 07/11/20 07/11/20 23:04 23:36 00:00 00:21 Temp 98.5 98.5 Pulse 108 106 106 Resp B/P (MAP) 175/77 (109) 167/85 (112) 167/85 Pulse Ox 96 97 O2 Delivery Room Air Room Air Room Air 07/11/20 07/11/20 07/11/20 07/11/20 01:00 02:00 03:02 03:59 Temp 98.7 98.7 Pulse 99 95 93 Resp B/P (MAP) 167/85 (112) 144/79 (100) 160/70 (100) Pulse Ox 97 96 97 O2 Delivery Room Air Room Air Room Air Room Air 07/11/20 07/11/20 07/11/20 07/11/20 04:02 05:00 05:45 06:00 Pulse 97 93 93 85 Resp B/P (MAP) 162/81 (108) 159/80 (106) 159/80 163/82 (109) Pulse Ox 98 97 97 O2 Delivery Room Air Room Air Room Air 07/11/20 07/11/20 07/11/20 07:00 07:55 08:00 Pulse 85 94 Resp B/P (MAP) 165/85 (111) 163/96 (118) Pulse Ox 96 97 O2 Delivery Room Air Room Air Room Air Intake and Output 07/10/20 07/10/20 07/11/20 15:00 23:00 07:00 Intake Total 150 ml Output Total 320 ml 700 ml 400 ml Balance -170 ml -700 ml -400 ml Justicifation of Admission Dx: Justifications for Admission: Justification of Admission Dx: Comment: (Higher level of care requested by [facility] for neurology evaluation) MAURY SIMMS MD Jul 11, 2020 10:12
--- NOTE | 2020-07-11 10:34 | PDOC ---
PROGRESS NOTES Date of Service DATE: 07/11/20 TIME: 10:32 Subjective Subjective slightly agitated opens eyes intermittently Objective Objective Vital Signs Date Time Temp Pulse Resp B/P (MAP) Pulse Ox O2 Delivery O2 Flow Rate FiO2 07/11/20 08:00 94 22 163/96 (118) 97 Room Air 07/11/20 03:02 98.7 98.7 07/07/20 14:25 6 Intake and Output 07/11/20 07:00 Intake Total 150 ml Output Total 1420 ml Balance -1270 ml Other 150 ml Output Urine Total 1420 ml Physical Exam MUSCULOSKELETAL: Other (HENAO, not following commands) Skin: Other (dressing C,D,I) Plan Plan of Care ok to transfer to floor final path pending, Multiple brain masses, preliminary frozen section reveals the possibility of demyelinating disease rather than malignancy. neurology following Comment Review of Relevant I have reviewed the following items bashir (where applicable) has been applied. Labs Laboratory Tests Test 07/09/20 12:13 07/09/20 17:11 07/09/20 21:24 07/10/20 04:05 Glucose (Fingerstick) 206 mg/dL (70-99) 138 mg/dL (70-99) 194 mg/dL (70-99) White Blood Count 21.4 x10^3/uL (4.0-11.0) Red Blood Count 4.27 x10^6/uL (4.30-5.70) Hemoglobin 14.1 g/dL (13.0-17.5) Hematocrit 39.9 % (39.0-53.0) Mean Corpuscular Volume 93 fL (79-100) Mean Corpuscular Hemoglobin 33 pg (25-35) Mean Corpuscular Hemoglobin Concent 36 g/dL (31-37) Red Cell Distribution Width 13.8 % (11.5-14.5) Platelet Count 299 x10^3/uL (140-400) Neutrophils (%) (Auto) 95 % (31-73) Lymphocytes (%) (Auto) 3 % (24-48) Monocytes (%) (Auto) 1 % (0-9) Eosinophils (%) (Auto) 0 % (0-3) Basophils (%) (Auto) 0 % (0-3) Neutrophils # (Auto) 20.3 x10^3/uL (1.8-7.7) Lymphocytes # (Auto) 0.7 x10^3/uL (1.0-4.8) Monocytes # (Auto) 0.3 x10^3/uL (0.0-1.1) Eosinophils # (Auto) 0.0 x10^3/uL (0.0-0.7) Basophils # (Auto) 0.0 x10^3/uL (0.0-0.2) Sodium Level 141 mmol/L (136-145) Potassium Level 3.8 mmol/L (3.5-5.1) Chloride Level 108 mmol/L (98-107) Carbon Dioxide Level 23 mmol/L (21-32) Anion Gap 10 (6-14) Blood Urea Nitrogen 29 mg/dL (8-26) Creatinine 1.1 mg/dL (0.7-1.3) Estimated GFR (Cockcroft-Gault) 66.6 BUN/Creatinine Ratio 26 (6-20) Glucose Level 217 mg/dL (70-99) Hemoglobin A1c 6.1 % (4.8-5.6) Calcium Level 8.3 mg/dL (8.5-10.1) Total Bilirubin 0.4 mg/dL (0.2-1.0) Aspartate Amino Transf (AST/SGOT) 18 U/L (15-37) Alanine Aminotransferase (ALT/SGPT) 36 U/L (16-63) Alkaline Phosphatase 61 U/L (46-116) C-Reactive Protein, Quantitative 5.2 mg/L (0-3.3) Total Protein 6.5 g/dL (6.4-8.2) Albumin 2.6 g/dL (3.4-5.0) Albumin/Globulin Ratio 0.7 (1.0-1.7) Treponema pallidum Antibody Nonreactive (Nonreactive) Test 07/10/20 11:55 07/10/20 21:01 07/11/20 08:40 Glucose (Fingerstick) 193 mg/dL (70-99) 172 mg/dL (70-99) 147 mg/dL (70-99) Laboratory Tests Test 07/10/20 11:55 07/10/20 21:01 07/11/20 08:40 Glucose (Fingerstick) 193 mg/dL (70-99) 172 mg/dL (70-99) 147 mg/dL (70-99) Medications Current Medications Ringer's Solution 1,000 ml @ 100 mls/hr Q10H IV Last administered on 06/30/20at 23:44; Start 06/30/20 at 22:30; Stop 07/01/20 at 08:29; Status DC Ondansetron HCl (Zofran) 4 mg PRN Q6HRS PRN IVP NAUSEA/VOMITING; Start 06/30/20 at 22:30 Calcium Carbonate/ Glycine (Tums) 500 mg PRN Q3HRS PRN PO UPSET STOMACH; Start 06/30/20 at 22:15 Acetaminophen (Tylenol) 650 mg PRN Q6HRS PRN PO Headaches, Temp > 101.5F; Start 06/30/20 at 22:15 Senna/Docusate Sodium (Senna Plus) 1 tab BID PO Last administered on 07/06/20at 08:45; Start 06/30/20 at 22:30 Bisacodyl (Dulcolax Supp) 10 mg PRN DAILY PRN AR CONSTIPATION; Start 06/30/20 at 22:15 Atorvastatin Calcium (Lipitor) 80 mg QHS PO Last administered on 07/05/20at 22:16; Start 06/30/20 at 22:30 Famotidine (Pepcid) 20 mg BID PO Last administered on 07/06/20at 08:45; Start 06/30/20 at 22:30 Aspirin (Ecotrin) 325 mg DAILYWBKFT PO Last administered on 07/06/20at 08:45; Start 07/01/20 at 08:00 Aspirin (Aspirin Rectal Supp) 300 mg PRN DAILY PRN AR IF UNABLE TO TAKE PO; Start 06/30/20 at 22:15 Metoprolol Tartrate (Lopressor) 25 mg BID PO Last administered on 07/09/20at 21:32; Start 06/30/20 at 22:30 Hydralazine HCl (Apresoline Inj) 10 mg PRN Q4HRS PRN IVP ELEVATED BP, SEE COMMENTS; Start 06/30/20 at 22:15 Insulin Human Lispro (HumaLOG) 0-7 UNITS TIDWMEALHC SQ Last administered on 07/10/20at 12:01; Start 07/01/20 at 08:00 Dextrose (Dextrose 50%-Water Syringe) 12.5 gm PRN Q15MIN PRN IV SEE COMMENTS; Start 06/30/20 at 22:45 Gadoterate Meglumine (Clariscan) 10 ml 1X ONCE IVP ; Start 07/03/20 at 11:45; Stop 07/03/20 at 11:46; Status DC Gadoterate Meglumine (Clariscan) 8 ml 1X ONCE IVP ; Start 07/03/20 at 11:45; Stop 07/03/20 at 11:46; Status DC Gadoterate Meglumine (Clariscan) 10 ml 1X ONCE IVP Last administered on 07/03/20at 11:56; Start 07/03/20 at 11:45; Stop 07/03/20 at 11:48; Status DC Gadoterate Meglumine (Clariscan) 8 ml 1X ONCE IVP Last administered on 1at 11:56; Start 07/03/20 at 11:45; Stop 07/03/20 at 11:48; Status DC Iohexol (Omnipaque 300 Mg/ml) 75 ml 1X ONCE IV Last administered on 07/03/20at 15:51; Start 07/03/20 at 15:45; Stop 07/03/20 at 15:46; Status DC Iohexol (Omnipaque 240 Mg/ml) 50 ml 1X ONCE PO Last administered on 07/03/20at 15:51; Start 07/03/20 at 15:45; Stop 07/03/20 at 15:46; Status DC Info (CONTRAST GIVEN -- Rx MONITORING) 1 each PRN DAILY PRN MC SEE COMMENTS; Start 07/03/20 at 15:45; Stop 07/05/20 at 15:44; Status DC Bacitracin 30720 unit/Sodium Chloride 1,000 ml @ 1,000 mls/hr 1X ONCE IRR Last administered on 07/07/20at 11:28; Start 07/07/20 at 06:00; Stop 07/07/20 at 06:59; Status DC Cefazolin Sodium/ Dextrose 50 ml @ 100 mls/hr 1X PREOP PRN IV PRIOR TO PROCEDURE Last administered on 07/07/20at 10:30; Start 07/07/20 at 06:00; Stop 07/07/20 at 18:00; Status DC Ondansetron HCl (Zofran) 4 mg PRN Q6HRS PRN IV NAUSEA/VOMITING; Start 07/07/20 at 07:00; Stop 07/07/20 at 19:00; Status DC Fentanyl Citrate (Fentanyl 2ml Vial) 25 mcg PRN Q5MIN PRN IV MILD PAIN 1-3; Start 07/07/20 at 07:00; Stop 07/07/20 at 19:00; Status DC Fentanyl Citrate (Fentanyl 2ml Vial) 50 mcg PRN Q5MIN PRN IV MODERATE TO SEVERE PAIN; Start 07/07/20 at 07:00; Stop 07/07/20 at 19:00; Status DC Morphine Sulfate (Morphine Sulfate) 1 mg PRN Q10MIN PRN IV SEVERE PAIN 7-10; Start 07/07/20 at 07:00; Stop 07/07/20 at 19:00; Status DC Ringer's Solution 1,000 ml @ 30 mls/hr Q24H IV Last administered on 07/07/20at 09:45; Start 07/07/20 at 07:00; Stop 07/07/20 at 18:59; Status DC Lidocaine HCl (Xylocaine-Mpf 1% 2ml Vial) 2 ml PRN 1X PRN ID PRIOR TO IV START; Start 07/07/20 at 07:00; Stop 07/07/20 at 19:00; Status DC Hydromorphone HCl (Dilaudid) 0.5 mg PRN Q10MIN PRN IV SEV PAIN, Second choice; Start 07/07/20 at 07:00; Stop 07/07/20 at 19:00; Status DC Prochlorperazine Edisylate (Compazine) 5 mg PACU PRN PRN IV NAUSEA, MRX1; Start 07/07/20 at 07:00; Stop 07/07/20 at 19:00; Status DC Gelatin (Gelfoam Size 100) 1 each STK-MED ONCE .ROUTE Last administered on at 11:28; Start 07/07/20 at 07:37; Stop 07/07/20 at 07:37; Status DC Povidone Iodine (Betadine Oint) 28 nazario STK-MED ONCE TP ; Start 07/07/20 at 07:37; Stop 07/07/20 at 07:37; Status DC Lidocaine/ Epinephrine (LIDOCAINE 2%-EPI 1:100,000 multi-dose) 20 ml STK-MED ONCE .ROUTE ; Start 07/07/20 at 07:37; Stop 07/07/20 at 07:37; Status DC Cellulose (Surgicel Hemostat 4x8) 1 each STK-MED ONCE .ROUTE ; Start 07/07/20 at 07:37; Stop 07/07/20 at 07:37; Status DC Thrombin 20,000 unit STK-MED ONCE TP Last administered on 07/07/20at 11:28; Start 07/07/20 at 07:37; Stop 07/07/20 at 07:37; Status DC Gadoterate Meglumine (Clariscan) 10 ml 1X ONCE IVP Last administered on 07/07/20at 08:52; Start 07/07/20 at 08:30; Stop 07/07/20 at 08:31; Status DC Gadoterate Meglumine (Clariscan) 8 ml 1X ONCE IVP Last administered on 07/07/20at 08:52; Start 07/07/20 at 08:30; Stop 07/07/20 at 08:31; Status DC Dexamethasone Sodium Phosphate (Decadron) 4 mg Q6H IVP Last administered on 07/09/20at 12:08; Start 07/08/20 at 06:00; Stop 07/09/20 at 15:54; Status DC Rocuronium [place] (Zemuron) 50 mg STK-MED ONCE .ROUTE ; Start 07/07/20 at 08:57; Stop 07/07/20 at 08:57; Status DC Remifentanil HCl (Ultiva) 2 mg STK-MED ONCE IV ; Start 07/07/20 at 08:57; Stop 07/07/20 at 08:58; Status DC Propofol (Diprivan) 200 mg STK-MED ONCE IV ; Start 07/07/20 at 09:00; Stop 07/07/20 at 09:01; Status DC Dexamethasone Sodium Phosphate (Decadron) 20 mg STK-MED ONCE .ROUTE ; Start 07/07/20 at 09:00; Stop 07/07/20 at 09:01; Status DC Lidocaine HCl (Lidocaine Pf 2% Vial) 5 ml STK-MED ONCE .ROUTE ; Start 07/07/20 at 09:00; Stop 07/07/20 at 09:01; Status DC Ondansetron HCl (Zofran) 4 mg STK-MED ONCE .ROUTE ; Start 07/07/20 at 09:00; Stop 07/07/20 at 09:01; Status DC Phenylephrine HCl (Mamadou-Synephrine Inj) 10 mg STK-MED ONCE .ROUTE ; Start 07/07/20 at 09:01; Stop 07/07/20 at 09:01; Status DC Desflurane (Suprane) 90 ml STK-MED ONCE IH ; Start 07/07/20 at 09:04; Stop 07/07/20 at 09:04; Status DC Mannitol (Mannitol) 12.5 g STK-MED ONCE .ROUTE ; Start 07/07/20 at 09:17; Stop 07/07/20 at 09:17; Status DC Lidocaine HCl (Xylocaine 1% Pf 30ml Vial) 30 ml 1X ONCE INJ Last administered on 07/07/20at 11:28; Start 07/07/20 at 10:00; Stop 07/07/20 at 10:01; Status DC Epinephrine HCl (Adrenalin) 0.15 mg 1X ONCE INJ ; Start 07/07/20 at 10:00; Stop 07/07/20 at 10:01; Status DC Remifentanil HCl (Ultiva) 1 mg STK-MED ONCE IV ; Start 07/07/20 at 12:01; Stop 07/07/20 at 12:02; Status DC Glycopyrrolate (Robinul) 1 mg STK-MED ONCE .ROUTE ; Start 07/07/20 at 12:02; Stop 07/07/20 at 12:03; Status DC Neostigmine [place] (Neostigmine Methylsulfate) 5 mg STK-MED ONCE .ROUTE ; Start 07/07/20 at 12:03; Stop 07/07/20 at 12:03; Status DC Fentanyl Citrate (Fentanyl 2ml Vial) 100 mcg STK-MED ONCE .ROUTE ; Start 07/07/20 at 12:45; Stop 07/07/20 at 12:45; Status DC Nicardipine HCl (Cardene) 25 mg STK-MED ONCE IV ; Start 07/07/20 at 12:47; Stop 07/07/20 at 12:48; Status DC Lidocaine HCl (Lidocaine Pf 2% Vial) 5 ml STK-MED ONCE .ROUTE ; Start 07/07/20 at 13:06; Stop 07/07/20 at 13:07; Status DC Propofol 50 ml @ As Directed STK-MED ONCE IV ; Start 07/07/20 at 13:30; Stop 07/07/20 at 13:30; Status DC Lorazepam (Ativan Inj) 2 mg PRN Q4HRS PRN IVP ANXIETY / AGITATION Last administered on 07/09/20at 21:33; Start 07/07/20 at 14:15 Dexmedetomidine HCl 400 mcg/ Sodium Chloride 100 ml @ 0 mls/hr CONT PRN IV PER PROTOCOL Last administered on 07/10/20at 03:07; Start 07/07/20 at 14:45 Sodium Chloride 500 ml @ 500 mls/hr 1X PRN PRN IV SEE COMMENTS; Start 07/07/20 at 14:45 Atropine Sulfate (ATROPINE 0.5mg SYRINGE) 0.5 mg PRN Q5MIN PRN IV SEE COMMENTS; Start 07/07/20 at 14:45 Dextrose/Sodium Chloride 2,500 ml @ 50 mls/hr Q24H IV ; Start 07/07/20 at 15:00; Stop 07/09/20 at 17:00; Status UNV Dextrose/Sodium Chloride 0 ml @ 50 mls/hr Q0M IV ; Start 07/09/20 at 17:00; Stop 07/09/20 at 17:00; Status UNV Dextrose 1,000 ml @ 50 mls/hr Q20H IV Last administered on 07/07/20at 15:11; Start 07/07/20 at 16:00; Stop 07/07/20 at 17:39; Status DC Sodium Chloride 1,000 ml @ 50 mls/hr Q20H IV Last administered on 07/11/20at 03:00; Start 07/07/20 at 18:00 Insulin Glargine (Lantus Syringe) 10 unit QHS SQ Last administered on 07/09/20at 21:26; Start 07/09/20 at 21:00; Stop 07/10/20 at 14:17; Status DC Methylprednisolone Sodium Succinate 1000 mg/Sodium Chloride 100 ml @ 100 mls/hr DAILY IV Last administered on 07/11/20at 09:18; Start 07/09/20 at 16:00; Stop 07/13/20 at 22:00 Olanzapine (ZyPREXA IM) 10 mg 1X ONCE IM Last administered on 07/10/20at 09:09; Start 07/10/20 at 08:45; Stop 07/10/20 at 09:03; Status DC Insulin Glargine (Lantus Syringe) 15 unit QHS SQ Last administered on 07/10/20at 21:03; Start 07/10/20 at 21:00 Olanzapine (ZyPREXA IM) 10 mg Q6H IM Last administered on 07/11/20at 10:02; Start 07/10/20 at 15:30 Ziprasidone (Geodon Im) 20 mg 1X ONCE IM ; Start 07/10/20 at 15:30; Stop 07/10/20 at 15:33; Status DC Metoprolol Tartrate (Lopressor Vial) 5 mg Q6HRS IVP Last administered on 07/11/20at 05:45; Start 07/10/20 at 18:00 Active Scripts Active Reported Aspirin 81 Mg Tab.chew 81 Mg PO DAILY Metformin Hcl 500 Mg Tablet 500 Mg PO BIDWMEALS Atenolol 50 Mg Tablet 50 Mg PO DAILY Vitals/I & O Vital Sign - Last 24 Hours 07/10/20 07/10/20 07/10/20 07/10/20 10:47 11:47 11:50 13:02 Temp 97.6 97.6 97.6 97.6 Pulse 77 77 81 Resp 20 B/P (MAP) 112/70 (84) 140/77 (98) 140/72 (94) Pulse Ox 97 96 97 O2 Delivery Room Air Room Air Room Air Room Air 07/10/20 07/10/20 07/10/20 07/10/20 14:00 15:00 16:00 16:22 Temp 97.6 97.6 Pulse 80 109 110 Resp B/P (MAP) 160/85 (110) 164/ 159/89 (112) Pulse Ox 98 97 97 O2 Delivery Room Air Room Air Room Air 07/10/20 07/10/20 07/10/20 07/10/20 17:11 17:19 18:13 19:00 Temp 98.6 98.6 Pulse 116 97 106 117 Resp B/P (MAP) 159/89 158/82 (107) 163/78 (106) 149/90 (109) Pulse Ox 96 96 97 O2 Delivery Room Air Room Air Room Air 07/10/20 07/10/20 07/10/20 07/10/20 20:00 20:00 21:00 22:07 Pulse 105 110 105 Resp B/P (MAP) 151/90 (110) 137/97 (110) 137/97 (110) Pulse Ox 97 96 96 O2 Delivery Room Air Room Air Room Air Room Air 07/10/20 07/10/20 07/11/20 07/11/20 23:04 23:36 00:00 00:21 Temp 98.5 98.5 Pulse 108 106 106 Resp B/P (MAP) 175/77 (109) 167/85 (112) 167/85 Pulse Ox 96 97 O2 Delivery Room Air Room Air Room Air 07/11/20 07/11/20 07/11/20 07/11/20 01:00 02:00 03:02 03:59 Temp 98.7 98.7 Pulse 99 95 93 Resp B/P (MAP) 167/85 (112) 144/79 (100) 160/70 (100) Pulse Ox 97 96 97 O2 Delivery Room Air Room Air Room Air Room Air 07/11/20 07/11/20 07/11/20 07/11/20 04:02 05:00 05:45 06:00 Pulse 97 93 93 85 Resp B/P (MAP) 162/81 (108) 159/80 (106) 159/80 163/82 (109) Pulse Ox 98 97 97 O2 Delivery Room Air Room Air Room Air 07/11/20 07/11/20 07/11/20 07:00 07:55 08:00 Pulse 85 94 Resp B/P (MAP) 165/85 (111) 163/96 (118) Pulse Ox 96 97 O2 Delivery Room Air Room Air Room Air Intake and Output 07/10/20 07/10/20 07/11/20 15:00 23:00 07:00 Intake Total 150 ml Output Total 320 ml 700 ml 400 ml Balance -170 ml -700 ml -400 ml Justifications for Admission TIA Indications Persistent neurologic signs?: Yes Justification for admission: There is persistence of patient's focal neurologic signs or symptoms or there is concern for recurrence of patient's neurological signs and symptoms. Other Justification Nutrition Consultation Dietary Evaluation: Recommendations by RD: Dietary education by RD, Increase Calorie Intake, Protein supplementation Comments: REC resume diet (ADA/cardiac w/glucerna supplements TID) within 24 - 48 hrs pending if pt is appropriate and less combative REC PPN for short-term nutrition support needs if unable to advance to oral diet within 24 -48 hrs Expected Outcomes/Goals: to meet >75% est nutr needs - not met, new goal established New goal 07/10: diet advancement s/p brain biopsy Malnutrition Findings: Food and Nutrition Intake (Mod: <75% est energy req 7days Malnutrition related to morbid: Yes Weight Status: Overweight 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
[2020-07-11] MEDS: AMINO AC 3%/ELECTROLYTE/GLYCER 1,000 ML IV SCH (12:08)
--- NOTE | 2020-07-11 13:11 | PDOC ---
PROGRESS NOTES Date of Service: DATE: 07/11/20 TIME: 13:09 Chief Complaint Chief Complaint acute toxic encephalopathy, from sedation, anethesia, new brain lesion Multifocal bilateral peripherally enhancing lesions. appears to be demyelinating, prob MS Status post craniotomy and brain biopsy History of diabetes mellitus type 2 Hearing impaired History of essential hypertension History of Present Illness History of Present Illness 07/11, more calm today, family and friends are here regularly to help off benzos, still not awake, a lot of zyprexa given for maintaining calm, he is compliant but confused, discussed x3 with RN, consider DC mendieta for safety and to limit agitation, pRN bladder scan and ISC change IV fluid to PPN admit reason Patient is a 70 year old male with past medical history of diabetes who was in his usual state of health until approximately 5 days prior to his admission when he started complaining of sensation of fogginess in his mind. Patient also complained of headache according to his daughter who is at bedside helping with the history taking. He also had some hearing loss worse than usual over his right ear and patient seeks attention to his doctor and had a cleanout done more or less 2 days prior to his admission and evaluation at [place]. Patient denies any headaches no loss of vision he recently had his prescription change and apparently his millinery teacher told him that they need to do some changes since its "too strong in "of a prescription. Patient denies any vision loss no dysphagia odynophagia no slurred speech no hemiparesis no hemiplegia, no chest pain palpitations or shortness of breath, no neck stiffness noticed no fever or chills no meningismus no abdominal pain nausea vomiting or diarrhea. The patient has had proper oral intake over the last couple days. Orthostatic at outside facility were recorded as folllows blood pressures as follows lying: Heart rate 70, 137/79, sitting: Heart rate 72, 131/80, standing: Heart rate 70, 113/73, trying to limit sedation, changed to zyprexa today, Neuro following, i agree with current plan, no change family and friend are here to help cont high dose steroids Vitals Vitals Vital Signs Date Time Temp Pulse Resp B/P (MAP) Pulse Ox O2 Delivery O2 Flow Rate FiO2 07/11/20 12:07 97 07/11/20 10:00 98.1 20 154/92 (112) 97 Room Air 98.1 Physical Exam General: Other (mildly agitated) Heart: Regular rate, Normal S1 Abdomen: Soft, Other (No splenomegaly) Extremities: No clubbing, No edema Skin: No rashes, Other (dressing C,D,I) Labs LABS Laboratory Tests Test 07/10/20 21:01 07/11/20 08:40 Glucose (Fingerstick) 172 mg/dL (70-99) 147 mg/dL (70-99) Comment Review of Relevant I have reviewed the following items bashir (where applicable) has been applied. Labs Laboratory Tests Test 07/09/20 17:11 07/09/20 21:24 07/10/20 04:05 07/10/20 11:55 Glucose (Fingerstick) 138 mg/dL (70-99) 194 mg/dL (70-99) 193 mg/dL (70-99) White Blood Count 21.4 x10^3/uL (4.0-11.0) Red Blood Count 4.27 x10^6/uL (4.30-5.70) Hemoglobin 14.1 g/dL (13.0-17.5) Hematocrit 39.9 % (39.0-53.0) Mean Corpuscular Volume 93 fL (79-100) Mean Corpuscular Hemoglobin 33 pg (25-35) Mean Corpuscular Hemoglobin Concent 36 g/dL (31-37) Red Cell Distribution Width 13.8 % (11.5-14.5) Platelet Count 299 x10^3/uL (140-400) Neutrophils (%) (Auto) 95 % (31-73) Lymphocytes (%) (Auto) 3 % (24-48) Monocytes (%) (Auto) 1 % (0-9) Eosinophils (%) (Auto) 0 % (0-3) Basophils (%) (Auto) 0 % (0-3) Neutrophils # (Auto) 20.3 x10^3/uL (1.8-7.7) Lymphocytes # (Auto) 0.7 x10^3/uL (1.0-4.8) Monocytes # (Auto) 0.3 x10^3/uL (0.0-1.1) Eosinophils # (Auto) 0.0 x10^3/uL (0.0-0.7) Basophils # (Auto) 0.0 x10^3/uL (0.0-0.2) Sodium Level 141 mmol/L (136-145) Potassium Level 3.8 mmol/L (3.5-5.1) Chloride Level 108 mmol/L (98-107) Carbon Dioxide Level 23 mmol/L (21-32) Anion Gap 10 (6-14) Blood Urea Nitrogen 29 mg/dL (8-26) Creatinine 1.1 mg/dL (0.7-1.3) Estimated GFR (Cockcroft-Gault) 66.6 BUN/Creatinine Ratio 26 (6-20) Glucose Level 217 mg/dL (70-99) Hemoglobin A1c 6.1 % (4.8-5.6) Calcium Level 8.3 mg/dL (8.5-10.1) Total Bilirubin 0.4 mg/dL (0.2-1.0) Aspartate Amino Transf (AST/SGOT) 18 U/L (15-37) Alanine Aminotransferase (ALT/SGPT) 36 U/L (16-63) Alkaline Phosphatase 61 U/L (46-116) C-Reactive Protein, Quantitative 5.2 mg/L (0-3.3) Total Protein 6.5 g/dL (6.4-8.2) Albumin 2.6 g/dL (3.4-5.0) Albumin/Globulin Ratio 0.7 (1.0-1.7) Treponema pallidum Antibody Nonreactive (Nonreactive) Test 07/10/20 21:01 07/11/20 08:40 Glucose (Fingerstick) 172 mg/dL (70-99) 147 mg/dL (70-99) Laboratory Tests Test 07/10/20 21:01 07/11/20 08:40 Glucose (Fingerstick) 172 mg/dL (70-99) 147 mg/dL (70-99) Medications Current Medications Ringer's Solution 1,000 ml @ 100 mls/hr Q10H IV Last administered on 06/30/20at 23:44; Start 06/30/20 at 22:30; Stop 07/01/20 at 08:29; Status DC Ondansetron HCl (Zofran) 4 mg PRN Q6HRS PRN IVP NAUSEA/VOMITING; Start 06/30/20 at 22:30 Calcium Carbonate/ Glycine (Tums) 500 mg PRN Q3HRS PRN PO UPSET STOMACH; Start 06/30/20 at 22:15 Acetaminophen (Tylenol) 650 mg PRN Q6HRS PRN PO Headaches, Temp > 101.5F; Start 06/30/20 at 22:15 Senna/Docusate Sodium (Senna Plus) 1 tab BID PO Last administered on 07/06/20at 08:45; Start 06/30/20 at 22:30 Bisacodyl (Dulcolax Supp) 10 mg PRN DAILY PRN [place] CONSTIPATION; Start 06/30/20 at 22:15 Atorvastatin Calcium (Lipitor) 80 mg QHS PO Last administered on 07/05/20at 22:16; Start 06/30/20 at 22:30 Famotidine (Pepcid) 20 mg BID PO Last administered on 07/06/20at 08:45; Start 06/30/20 at 22:30 Aspirin (Ecotrin) 325 mg DAILYWBKFT PO Last administered on 07/06/20at 08:45; Start 07/01/20 at 08:00 Aspirin (Aspirin Rectal Supp) 300 mg PRN DAILY PRN [place] IF UNABLE TO TAKE PO; Start 06/30/20 at 22:15 Metoprolol Tartrate (Lopressor) 25 mg BID PO Last administered on 07/09/20at 21:32; Start 06/30/20 at 22:30 Hydralazine HCl (Apresoline Inj) 10 mg PRN Q4HRS PRN IVP ELEVATED BP, SEE COMMENTS; Start 06/30/20 at 22:15 Insulin Human Lispro (HumaLOG) 0-7 UNITS [id number] SQ Last administered on 07/10/20at 12:01; Start 07/01/20 at 08:00 Dextrose (Dextrose 50%-Water Syringe) 12.5 gm PRN Q15MIN PRN IV SEE COMMENTS; Start 06/30/20 at 22:45 Gadoterate Meglumine (Clariscan) 10 ml 1X ONCE IVP ; Start 07/03/20 at 11:45; Stop 07/03/20 at 11:46; Status DC Gadoterate Meglumine (Clariscan) 8 ml 1X ONCE IVP ; Start 07/03/20 at 11:45; Stop 07/03/20 at 11:46; Status DC Gadoterate Meglumine (Clariscan) 10 ml 1X ONCE IVP Last administered on 05/13at 11:56; Start 07/03/20 at 11:45; Stop 07/03/20 at 11:48; Status DC Gadoterate Meglumine (Clariscan) 8 ml 1X ONCE IVP Last administered on 07/03/20at 11:56; Start 07/03/20 at 11:45; Stop 07/03/20 at 11:48; Status DC Iohexol (Omnipaque 300 Mg/ml) 75 ml 1X ONCE IV Last administered on 07/03/20at 15:51; Start 07/03/20 at 15:45; Stop 07/03/20 at 15:46; Status DC Iohexol (Omnipaque 240 Mg/ml) 50 ml 1X ONCE PO Last administered on 07/03/20at 15:51; Start 07/03/20 at 15:45; Stop 07/03/20 at 15:46; Status DC Info (CONTRAST GIVEN -- Rx MONITORING) 1 each PRN DAILY PRN MC SEE COMMENTS; Start 07/03/20 at 15:45; Stop 07/05/20 at 15:44; Status DC Bacitracin 38123 unit/Sodium Chloride 1,000 ml @ 1,000 mls/hr 1X ONCE IRR Last administered on 07/07/20at 11:28; Start 07/07/20 at 06:00; Stop 07/07/20 at 06:59; Status DC Cefazolin Sodium/ Dextrose 50 ml @ 100 mls/hr 1X PREOP PRN IV PRIOR TO PROCEDURE Last administered on 07/07/20at 10:30; Start 07/07/20 at 06:00; Stop 07/07/20 at 18:00; Status DC Ondansetron HCl (Zofran) 4 mg PRN Q6HRS PRN IV NAUSEA/VOMITING; Start 07/07/20 at 07:00; Stop 07/07/20 at 19:00; Status DC Fentanyl Citrate (Fentanyl 2ml Vial) 25 mcg PRN Q5MIN PRN IV MILD PAIN 1-3; Start 07/07/20 at 07:00; Stop 07/07/20 at 19:00; Status DC Fentanyl Citrate (Fentanyl 2ml Vial) 50 mcg PRN Q5MIN PRN IV MODERATE TO SEVERE PAIN; Start 07/07/20 at 07:00; Stop 07/07/20 at 19:00; Status DC Morphine Sulfate (Morphine Sulfate) 1 mg PRN Q10MIN PRN IV SEVERE PAIN 7-10; Start 07/07/20 at 07:00; Stop 07/07/20 at 19:00; Status DC Ringer's Solution 1,000 ml @ 30 mls/hr Q24H IV Last administered on 07/07/20at 09:45; Start 07/07/20 at 07:00; Stop 07/07/20 at 18:59; Status DC Lidocaine HCl (Xylocaine-Mpf 1% 2ml Vial) 2 ml PRN 1X PRN ID PRIOR TO IV START; Start 07/07/20 at 07:00; Stop 07/07/20 at 19:00; Status DC Hydromorphone HCl (Dilaudid) 0.5 mg PRN Q10MIN PRN IV SEV PAIN, Second choice; Start 07/07/20 at 07:00; Stop 07/07/20 at 19:00; Status DC Prochlorperazine Edisylate (Compazine) 5 mg PACU PRN PRN IV NAUSEA, MRX1; Start 07/07/20 at 07:00; Stop 07/07/20 at 19:00; Status DC Gelatin (Gelfoam Size 100) 1 each STK-MED ONCE .ROUTE Last administered on 07/07/20at 11:28; Start 07/07/20 at 07:37; Stop 07/07/20 at 07:37; Status DC Povidone Iodine (Betadine Oint) 28 nazario STK-MED ONCE TP ; Start 07/07/20 at 07:37; Stop 07/07/20 at 07:37; Status DC Lidocaine/ Epinephrine (LIDOCAINE 2%-EPI 1:100,000 multi-dose) 20 ml STK-MED ONCE .ROUTE ; Start 07/07/20 at 07:37; Stop 07/07/20 at 07:37; Status DC Cellulose (Surgicel Hemostat 4x8) 1 each STK-MED ONCE .ROUTE ; Start 07/07/20 at 07:37; Stop 07/07/20 at 07:37; Status DC Thrombin 20,000 unit STK-MED ONCE TP Last administered on 07/07/20at 11:28; Start 07/07/20 at 07:37; Stop 07/07/20 at 07:37; Status DC Gadoterate Meglumine (Clariscan) 10 ml 1X ONCE IVP Last administered on 07/07/20at 08:52; Start 07/07/20 at 08:30; Stop 07/07/20 at 08:31; Status DC Gadoterate Meglumine (Clariscan) 8 ml 1X ONCE IVP Last administered on 07/07/20at 08:52; Start 07/07/20 at 08:30; Stop 07/07/20 at 08:31; Status DC Dexamethasone Sodium Phosphate (Decadron) 4 mg Q6H IVP Last administered on 07/09/20at 12:08; Start 07/08/20 at 06:00; Stop 07/09/20 at 15:54; Status DC Rocuronium [place] (Zemuron) 50 mg STK-MED ONCE .ROUTE ; Start 07/07/20 at 08:57; Stop 07/07/20 at 08:57; Status DC Remifentanil HCl (Ultiva) 2 mg STK-MED ONCE IV ; Start 07/07/20 at 08:57; Stop 07/07/20 at 08:58; Status DC Propofol (Diprivan) 200 mg STK-MED ONCE IV ; Start 07/07/20 at 09:00; Stop 07/07/20 at 09:01; Status DC Dexamethasone Sodium Phosphate (Decadron) 20 mg STK-MED ONCE .ROUTE ; Start 07/07/20 at 09:00; Stop 07/07/20 at 09:01; Status DC Lidocaine HCl (Lidocaine Pf 2% Vial) 5 ml STK-MED ONCE .ROUTE ; Start 07/07/20 at 09:00; Stop 07/07/20 at 09:01; Status DC Ondansetron HCl (Zofran) 4 mg STK-MED ONCE .ROUTE ; Start 07/07/20 at 09:00; Stop 07/07/20 at 09:01; Status DC Phenylephrine HCl (Mamadou-Synephrine Inj) 10 mg STK-MED ONCE .ROUTE ; Start 07/07/20 at 09:01; Stop 07/07/20 at 09:01; Status DC Desflurane (Suprane) 90 ml STK-MED ONCE IH ; Start 07/07/20 at 09:04; Stop 07/07/20 at 09:04; Status DC Mannitol (Mannitol) 12.5 g STK-MED ONCE .ROUTE ; Start 07/07/20 at 09:17; Stop 07/07/20 at 09:17; Status DC Lidocaine HCl (Xylocaine 1% Pf 30ml Vial) 30 ml 1X ONCE INJ Last administered on 07/07/20at 11:28; Start 07/07/20 at 10:00; Stop 07/07/20 at 10:01; Status DC Epinephrine HCl (Adrenalin) 0.15 mg 1X ONCE INJ ; Start 07/07/20 at 10:00; Stop 07/07/20 at 10:01; Status DC Remifentanil HCl (Ultiva) 1 mg STK-MED ONCE IV ; Start 07/07/20 at 12:01; Stop 07/07/20 at 12:02; Status DC Glycopyrrolate (Robinul) 1 mg STK-MED ONCE .ROUTE ; Start 07/07/20 at 12:02; Stop 07/07/20 at 12:03; Status DC Neostigmine [place] (Neostigmine Methylsulfate) 5 mg STK-MED ONCE .ROUTE ; Start 07/07/20 at 12:03; Stop 07/07/20 at 12:03; Status DC Fentanyl Citrate (Fentanyl 2ml Vial) 100 mcg STK-MED ONCE .ROUTE ; Start 07/07/20 at 12:45; Stop 07/07/20 at 12:45; Status DC Nicardipine HCl (Cardene) 25 mg STK-MED ONCE IV ; Start 07/07/20 at 12:47; Stop 07/07/20 at 12:48; Status DC Lidocaine HCl (Lidocaine Pf 2% Vial) 5 ml STK-MED ONCE .ROUTE ; Start 07/07/20 at 13:06; Stop 07/07/20 at 13:07; Status DC Propofol 50 ml @ As Directed STK-MED ONCE IV ; Start 07/07/20 at 13:30; Stop 07/07/20 at 13:30; Status DC Lorazepam (Ativan Inj) 2 mg PRN Q4HRS PRN IVP ANXIETY / AGITATION Last administered on 07/09/20at 21:33; Start 07/07/20 at 14:15 Dexmedetomidine HCl 400 mcg/ Sodium Chloride 100 ml @ 0 mls/hr CONT PRN IV PER PROTOCOL Last administered on 07/10/20at 03:07; Start 07/07/20 at 14:45 Sodium Chloride 500 ml @ 500 mls/hr 1X PRN PRN IV SEE COMMENTS; Start 07/07/20 at 14:45 Atropine Sulfate (ATROPINE 0.5mg SYRINGE) 0.5 mg PRN Q5MIN PRN IV SEE COMMENTS; Start 07/07/20 at 14:45 Dextrose/Sodium Chloride 2,500 ml @ 50 mls/hr Q24H IV ; Start 07/07/20 at 15:00; Stop 07/09/20 at 17:00; Status UNV Dextrose/Sodium Chloride 0 ml @ 50 mls/hr Q0M IV ; Start 07/09/20 at 17:00; Stop 07/09/20 at 17:00; Status UNV Dextrose 1,000 ml @ 50 mls/hr Q20H IV Last administered on 07/07/20at 15:11; Start 07/07/20 at 16:00; Stop 07/07/20 at 17:39; Status DC Sodium Chloride 1,000 ml @ 50 mls/hr Q20H IV Last administered on 07/11/20at 03:00; Start 07/07/20 at 18:00 Insulin Glargine (Lantus Syringe) 10 unit QHS SQ Last administered on 07/09/20at 21:26; Start 07/09/20 at 21:00; Stop 07/10/20 at 14:17; Status DC Methylprednisolone Sodium Succinate 1000 mg/Sodium Chloride 100 ml @ 100 mls/hr DAILY IV Last administered on 07/11/20at 09:18; Start 07/09/20 at 16:00; Stop 07/13/20 at 22:00 Olanzapine (ZyPREXA IM) 10 mg 1X ONCE IM Last administered on 07/10/20at 09:09; Start 07/10/20 at 08:45; Stop 07/10/20 at 09:03; Status DC Insulin Glargine (Lantus Syringe) 15 unit QHS SQ Last administered on 07/10/20at 21:03; Start 07/10/20 at 21:00 Olanzapine (ZyPREXA IM) 10 mg Q6H IM Last administered on 07/11/20at 10:02; Start 07/10/20 at 15:30 Ziprasidone (Geodon Im) 20 mg 1X ONCE IM ; Start 07/10/20 at 15:30; Stop 07/10/20 at 15:33; Status DC Metoprolol Tartrate (Lopressor Vial) 5 mg Q6HRS IVP Last administered on 07/11/20at 12:07; Start 07/10/20 at 18:00 Amino Acids/ Glycerin/ Electrolytes 1,000 ml @ 80 mls/hr [id number] IV Last administered on 07/11/20at 12:08; Start 07/11/20 at 12:30 Active Scripts Active Reported Aspirin 81 Mg Tab.chew 81 Mg PO DAILY Metformin Hcl 500 Mg Tablet 500 Mg PO BIDWMEALS Atenolol 50 Mg Tablet 50 Mg PO DAILY Vitals/I & O Vital Sign - Last 24 Hours 07/10/20 07/10/20 07/10/20 07/10/20 14:00 15:00 16:00 16:22 Temp 97.6 97.6 Pulse 80 109 110 Resp 18 B/P (MAP) 160/85 (110) 164/ 159/89 (112) Pulse Ox 98 97 97 O2 Delivery Room Air Room Air Room Air 07/10/20 07/10/20 07/10/20 07/10/20 17:11 17:19 18:13 19:00 Temp 98.6 98.6 Pulse 116 97 106 117 Resp B/P (MAP) 159/89 158/82 (107) 163/78 (106) 149/90 (109) Pulse Ox 96 96 97 O2 Delivery Room Air Room Air Room Air 07/10/20 07/10/20 07/10/20 07/10/20 20:00 20:00 21:00 22:07 Pulse 105 110 105 Resp 20 B/P (MAP) 151/90 (110) 137/97 (110) 137/97 (110) Pulse Ox 97 96 96 O2 Delivery Room Air Room Air Room Air Room Air 07/10/20 07/10/20 07/11/20 07/11/20 23:04 23:36 00:00 00:21 Temp 98.5 98.5 Pulse 108 106 106 Resp B/P (MAP) 175/77 (109) 167/85 (112) 167/85 Pulse Ox 96 97 O2 Delivery Room Air Room Air Room Air 07/11/20 07/11/20 07/11/20 07/11/20 01:00 02:00 03:02 03:59 Temp 98.7 98.7 Pulse 99 95 93 Resp B/P (MAP) 167/85 (112) 144/79 (100) 160/70 (100) Pulse Ox 97 96 97 O2 Delivery Room Air Room Air Room Air Room Air 07/11/20 07/11/20 07/11/20 07/11/20 04:02 05:00 05:45 06:00 Pulse 97 93 93 85 Resp B/P (MAP) 162/81 (108) 159/80 (106) 159/80 163/82 (109) Pulse Ox 98 97 97 O2 Delivery Room Air Room Air Room Air 07/11/20 07/11/20 07/11/20 07/11/20 07:00 07:55 08:00 09:00 Pulse 85 94 93 Resp B/P (MAP) 165/85 (111) 163/96 (118) 166/80 (108) Pulse Ox 96 97 97 O2 Delivery Room Air Room Air Room Air Room Air 07/11/20 07/11/20 10:00 12:07 Temp 98.1 98.1 Pulse 97 97 Resp 20 B/P (MAP) 154/92 (112) Pulse Ox 97 O2 Delivery Room Air Intake and Output 07/10/20 07/10/20 07/11/20 15:00 23:00 07:00 Intake Total 150 ml Output Total 320 ml 700 ml 400 ml Balance -170 ml -700 ml -400 ml Nutrition Consultation Dietary Evaluation: Recommendations by RD: Dietary education by RD, Increase Calorie Intake, Protein supplementation Comments: REC resume diet (ADA/cardiac w/glucerna supplements TID) within 24 - 48 hrs pending if pt is appropriate and less combative REC PPN for short-term nutrition support needs if unable to advance to oral diet within 24 -48 hrs Expected Outcomes/Goals: to meet >75% est nutr needs - not met, new goal established New goal 07/10: diet advancement s/p brain biopsy Malnutrition Findings: Food and Nutrition Intake (Mod: <75% est energy req 7days Malnutrition related to morbid: Yes Weight Status: Overweight Justicifation of Admission Dx: Justifications for Admission: Justification of Admission Dx: Comment: (Higher level of care requested by [place] for neurology evaluation) JACQUE GAGNON MD Jul 11, 2020 13:11
--- NOTE | 2020-07-11 14:12 | NUR ---
SS following up with discharge planning. SS reviewed pt chart and discussed with pt RN. Pt is currently on room air. COVID19 negative. Pt on IV steroids, IV Zyprexa, and IV Metoprolol. Pt still confused. NPO and on PPN. Not stable. SS phoned and faxed [facility], ; fax [phone]. SS will continue to follow for discharge planning.
[2020-07-11 17:10] LABS: ANA INTERP Negative (.)
[2020-07-11] MEDS: INSULIN GLARGINE SYRINGE. SQ SCH (21:00)
[2020-07-11] MEDS: ATORVASTATIN CALCIUM 40 MG TABLET. PO SCH (21:00)
[2020-07-12] MEDS: METOPROLOL IV PUSH 5 MG/5 ML VIAL. IVP SCH
--- NOTE | 2020-07-12 00:10 | NUR ---
Metoprol not given. Patient not on telemetry.
[2020-07-12] MEDS: AMINO AC 3%/ELECTROLYTE/GLYCER 1,000 ML IV SCH ×3 (01:49→23:10)
[2020-07-12 03:06] VITALS: BP 155/89
[2020-07-12] MEDS: OLANZapine IM 10 MG VIAL. IM SCH ×3 (03:31→20:04)
[2020-07-12 06:44] VITALS: BP 144/79
[2020-07-12] MEDS: FAMOTIDINE 20 MG TABLET. PO SCH ×2 (06:44→19:01)
[2020-07-12] MEDS: METOPROLOL TART IMMED RELEASE 25 MG TABLET. PO SCH ×2 (06:44→19:01)
[2020-07-12] MEDS: SENNOSIDES/DOCUSATE 8.6/50MG TABLET. PO SCH ×2 (06:44→19:01)
[2020-07-12] MEDS: ASPIRIN ENTERIC COATED 325 MG TABLET.DR. PO SCH (06:44)
[2020-07-12 07:04] LABS: BASO % 0 % (0-3); EOS % 0 % (0-3); HEMATOCRIT 41.1 % (39.0-53.0); HEMOGLOBIN 14.1 g/dL (13.0-17.5); LYMPH # 0.7 x10^3/uL (1.0-4.8); LYMPH % 4 % (24-48); MEAN CORPUSCULAR HEMOGLOBIN 32 pg (25-35); MEAN CORPUSCULAR HGB CONC 34 g/dL (31-37); MEAN CORPUSCULAR VOLUME 94 fL (79-100); MONO # 0.8 x10^3/uL (0.0-1.1); MONO % 4 % (0-9); NEUT # 16.4 x10^3/uL (1.8-7.7); NEUT % 92 % (31-73); PLATELET COUNT 322 x10^3/uL (140-400); RED BLOOD COUNT 4.38 x10^6/uL (4.30-5.70); RED CELL DISTRIBUTION WIDTH 13.4 % (11.5-14.5); WHITE BLOOD COUNT 17.8 x10^3/uL (4.0-11.0)
[2020-07-12 07:05] LABS: ALBUMIN 2.7 g/dL (3.4-5.0); ALBUMIN/GLOBULIN RATIO 0.8 (1.0-1.7); CALCIUM 8.4 mg/dL (8.5-10.1); CREATININE 1.2 mg/dL (0.7-1.3); GFR 60.2; POTASSIUM 3.8 mmol/L (3.5-5.1); TOTAL BILIRUBIN 0.8 mg/dL (0.2-1.0); TOTAL PROTEIN 6.1 g/dL (6.4-8.2)
[2020-07-12] MEDS: INSULIN LISPRO 300 UNITS/3 ML VIAL. SQ SCH ×4 (07:31→20:03)
--- NOTE | 2020-07-12 07:37 | PDOC ---
[employer] PROGRESS NOTE Date of Service DOS: DATE: 07/12/20 TIME: 07:32 Chief Complaint Chief Complaint A/P: Acute toxic encephalopathy, from sedation, anesthesia, new brain lesions Multifocal bilateral peripherally enhancing lesions. appears to be demyelinating, poss MS, autoimmune or post infectious. Less likely lymphoma or infectious etiology Status post craniotomy and brain biopsy History of diabetes mellitus type 2 - A1c 6.1 Hearing impaired History of essential hypertension History of Present Illness History of Present Illness Mr Rodriguez is a 70 year old male with past medical history of diabetes who was in his usual state of health until approximately 5 days prior to his admission when he started complaining of mental fog and confusion. Patient also complained of headache according to his daughter who is at bedside helping with the history taking. He also had some hearing loss worse than usual over his right ear and did not improve after cerumen disimpaction. 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 Patient denies dysphagia odynophagia no slurred speech no hemiparesis no hemiplegia, no chest pain palpitations or shortness of breath, no neck stiffness noticed no fever or chills no meningismus no abdominal pain nausea vomiting or diarrhea. The patient has had proper oral intake over the last couple days. On 06/30/20 he experienced sudden onset dizziness, worsening fatigue and hearing loss. He was taken to the emergency room at [facility] where he received a CT head. This showed multiple brain lesions. He has been transferred to [facility] for further evaluation. He has received a CT of the chest, abdomen and pelvis which has not shown any additional signs of malignancy. He received brain MRI and MRA of the head and neck which showed multifocal brain lesions with reported differential diagnosis of malignancy, demyelinating disorder possibly infection. Consults: Neurology, Heme/Onc and neurosurgery 07/07: To brain biopsy. 07/11: trying to limit sedation, changed to zyprexa today, Neuro following, cont high dose steroids. Transferred from ICU. Still very confused. He is asking to contact [facility]. No shortness of breath or chest pain. Requiring mittens. Vitals/I&O Vitals/I&O: Vital Signs Date Time Temp Pulse Resp B/P (MAP) Pulse Ox O2 Delivery O2 Flow Rate FiO2 1/20/21 06:44 97.8 87 20 144/79 (100) 97 Room Air 97.8 I & O 07/11/20 07/11/20 07/12/20 15:00 23:00 07:00 Intake Total 0 ml 3120 ml Output Total 240 ml 250 ml 800 ml Balance -240 ml -250 ml 2320 ml Physical Exam General: Other (mildly agitated) Heart: Regular rate, Normal S1 Abdomen: Soft, Other (No splenomegaly) Extremities: No clubbing, No edema Skin: No rashes, Other (dressing C,D,I) Labs Labs: Laboratory Tests Test 07/11/20 08:40 07/11/20 16:55 07/11/20 21:06 07/12/20 06:11 Glucose (Fingerstick) 147 mg/dL (70-99) 211 mg/dL (70-99) 178 mg/dL (70-99) White Blood Count 17.8 x10^3/uL (4.0-11.0) Red Blood Count 4.38 x10^6/uL (4.30-5.70) Hemoglobin 14.1 g/dL (13.0-17.5) Hematocrit 41.1 % (39.0-53.0) Mean Corpuscular Volume 94 fL (79-100) Mean Corpuscular Hemoglobin 32 pg (25-35) Mean Corpuscular Hemoglobin Concent 34 g/dL (31-37) Red Cell Distribution Width 13.4 % (11.5-14.5) Platelet Count 322 x10^3/uL (140-400) Neutrophils (%) (Auto) 92 % (31-73) Lymphocytes (%) (Auto) 4 % (24-48) Monocytes (%) (Auto) 4 % (0-9) Eosinophils (%) (Auto) 0 % (0-3) Basophils (%) (Auto) 0 % (0-3) Neutrophils # (Auto) 16.4 x10^3/uL (1.8-7.7) Lymphocytes # (Auto) 0.7 x10^3/uL (1.0-4.8) Monocytes # (Auto) 0.8 x10^3/uL (0.0-1.1) Eosinophils # (Auto) 0.0 x10^3/uL (0.0-0.7) Basophils # (Auto) 0.0 x10^3/uL (0.0-0.2) Sodium Level 145 mmol/L (136-145) Potassium Level 3.8 mmol/L (3.5-5.1) Chloride Level 110 mmol/L (98-107) Carbon Dioxide Level 26 mmol/L (21-32) Anion Gap 9 (6-14) Blood Urea Nitrogen 37 mg/dL (8-26) Creatinine 1.2 mg/dL (0.7-1.3) Estimated GFR (Cockcroft-Gault) 60.2 BUN/Creatinine Ratio 31 (6-20) Glucose Level 180 mg/dL (70-99) Calcium Level 8.4 mg/dL (8.5-10.1) Total Bilirubin 0.8 mg/dL (0.2-1.0) Aspartate Amino Transf (AST/SGOT) 35 U/L (15-37) Alanine Aminotransferase (ALT/SGPT) 57 U/L (16-63) Alkaline Phosphatase 57 U/L (46-116) Total Protein 6.1 g/dL (6.4-8.2) Albumin 2.7 g/dL (3.4-5.0) Albumin/Globulin Ratio 0.8 (1.0-1.7) Test 07/12/20 07:25 Glucose (Fingerstick) 159 mg/dL (70-99) Comment Review of Relevant I have reviewed the following items bashir (where applicable) has been applied. Medications: Current Medications Medications (Trade) Dose Ordered Sig/Desiree Route PRN Reason Start Time Stop Time Status Last Admin Dose Admin Amino Acids/ Glycerin/ Electrolytes 1,000 ml @ 80 mls/hr [id number] IV 07/11/20 12:30 07/12/20 01:49 Justifications for Admission TIA Indications Persistent neurologic signs?: Yes Justification for admission: There is persistence of patient's focal neurologic signs or symptoms or there is concern for recurrence of patient's neurological signs and symptoms. Other Justification KEN MACIEL MD Jul 12, 2020 07:37
[2020-07-12] MEDS: methylPREDNISolone SOD SUCC 1,000 MG in IV NORMAL SALINE 100ML 100 ML IV SCH (08:56)
--- NOTE | 2020-07-12 09:33 | PATHOLOGY ---
[facility] Accession Number: [id number] . 01 Material submitted: . PART A: brain - BRAIN LESION PART B: brain - BRAIN LESION . 02 Frozen section diagnosis: . INTRAOPERATIVE CONSULTATION WITH FROZEN SECTION: FSA1. Brain lesion biopsy: - Demyelinating disease. . The results are reported to Dr. Muñoz in the operating room. (JPM:[facility] 07/07/2020) . FROZEN SECTION GROSS DESCRIPTION: A. The specimen is received fresh for intraoperative consultation and is designated "brain lesion". This consists of three small segments of sim-white and reddish-sim soft tissue, ranging from 0.1 cm up to 0.6 cm in greatest dimension. These are submitted for frozen section as FSA1. The tissue remaining from frozen section is submitted for permanent sections as A1. (JPM:[facility] 07/07/2020) . Frozen section performed at [facility], [address] [place] [id number]. GINA/LAYA . 02 Diagnosis: A. Brain tissue, image guided biopsy of brain lesion: - Demyelinating disease. . B. Brain tissue, image guided biopsy of brain lesion: - Demyelinating disease. LBQ 07/11/2020 1104 Local . 02 Comment: Sections of the image guided brain lesion biopsies appear similar and reveal a lesion involving white matter. The lesion is composed of sheets of cells having foamy cytoplasm and possessing rounded to ovoid bland appearing nuclei. The lesion is well demarcated from the surrounding normal white matter. The lesion contains reactive astrocytes and occasional Creutzfeldt cells. The latter cells have abundant eosinophilic cytoplasm containing multiple small irregular nuclear fragments. There is focal perivascular chronic inflammation within the lesion. . Immunoperoxidase stains are obtained on B1 and yield the following results: . CD68: Foamy cells within lesion positive indicative of macrophages GFAP: Large reactive astrocytes within lesion positive . The morphologic and immunophenotypic findings are supportive of the diagnosis of demyelinating disease. There is no evidence of malignancy. (JPM/db; 07/11/2020) . Special stains performed: Immunoperoxidase stains for CD68 and GFAP on B1 . 02 Electronically signed: . Renan Watters MD, Pathologist NPI- [id number] . 01 Gross description: . A. SEE FROZEN SECTION FOR GROSS DESCRIPTION . B. Received in formalin labeled "Jennifer Jr., Jean, brain lesion" is a 1.8 x 1.0 x 0.3 cm aggregate of sim-white neural tissue. The specimen is submitted entirely in cassette B1. ([facility] [place] 07/08/2020) [facility] 07/10/2020 0709 Local . 02 Pathologist provided ICD-10: G37.8 . 02 CPT . 203809, 750069, 270949, D85200, [id number] Specimen Comment: Report sent to Specimen Comment: A duplicate report has been generated due to demographic updates. Performed at: 01 [facility] [address] [facility] [address], [place] [id number] MD August Matson MD Phone: [phone] Performed at: 02 [facility] [address] [place], [place] [id number] MD Renan Watters MD Phone: [phone]
--- NOTE | 2020-07-12 09:52 | PDOC ---
FOLLOW UP Oncology Note: Noted biopsy results indicative of demyelinating disease. Neurology is already following. I will not be following but please call me at [phone] if oncology can be of assistance in the care of this patient. MARQUITA AMANDA MD Jul 12, 2020 09:52
--- NOTE | 2020-07-12 10:09 | NUR ---
SW following. Discussed with RN, pt on a 1:1, room air, NPO, PPN. Pt transferred from ICU. ALYSON discussed with Melissa (JONES), a referral was sent to [facility]. ALYSON verified with Ruth Ann at [facility], pt is accepted and they do have beds today. Dr. Thacker notified. ALYSON will continue to follow.
[2020-07-12 10:31] VITALS: BP 154/88
[2020-07-12] MEDS: IV NORMAL SALINE 1000ML BAG 1,000 ML IV SCH (11:01)
--- NOTE | 2020-07-12 12:35 | PDOC ---
PROGRESS NOTES Date of Service DATE: 07/12/20 TIME: 12:30 Assessment Multiple brain masses, demyelinating disease, no malignancy on final pathology. 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 Memory loss Diabetes, hypertension Plan Back off on Zyprexa to every 12 hours Solu-Medrol No need for prophylactic anticonvulsants Repeat brain MRI on 07/14 Discussed with daughter Subjective None Objective Vital Signs Date Time Temp Pulse Resp B/P (MAP) Pulse Ox O2 Delivery O2 Flow Rate FiO2 07/12/20 10:31 97.9 102 20 154/88 (110) 95 Room Air 97.9 Intake and Output 07/12/20 07:00 Intake Total 3120 ml Output Total 1290 ml Balance 1830 ml Intake Oral 0 ml IV Total 1560 ml Other 1560 ml Output Urine Total 1290 ml PHYSICAL EXAM Asleep, can mumble his name PERRL. EOMI. CN: Bilateral severe hearing loss, some dysarthria, otherwise no focal findings. Muscle tone: normal. Muscle strength: 5/5 DTR: 2+ Plantar reflex: Flexor Gait: not examined in bed. Sensory exam: no abnormal findings. No cerebellar signs elicited. Review of Relevant I have reviewed the following items bashir (where applicable) has been applied. Labs Pathology Diagnosis: A. Brain tissue, image guided biopsy of brain lesion: - Demyelinating disease. . B. Brain tissue, image guided biopsy of brain lesion: - Demyelinating disease. LBQ 07/11/2020 1104 Local . 02 Comment: Sections of the image guided brain lesion biopsies appear similar and reveal a lesion involving white matter. The lesion is composed of sheets of cells having foamy cytoplasm and possessing rounded to ovoid bland appearing nuclei. The lesion is well demarcated from the surrounding normal white matter. The lesion contains reactive astrocytes and occasional Creutzfeldt cells. The latter cells have abundant eosinophilic cytoplasm containing multiple small irregular nuclear fragments. There is focal perivascular chronic inflammation within the lesion. . Immunoperoxidase stains are obtained on B1 and yield the following results: . CD68: Foamy cells within lesion positive indicative of macrophages GFAP: Large reactive astrocytes within lesion positive . The morphologic and immunophenotypic findings are supportive of the diagnosis of demyelinating disease. There is no evidence of malignancy. (JPM/db; 07/11/2020) . Special stains performed: Immunoperoxidase stains for CD68 and GFAP on B Laboratory Tests Test 07/10/20 16:57 07/10/20 21:01 07/11/20 08:40 07/11/20 16:55 Glucose (Fingerstick) 171 mg/dL (70-99) 172 mg/dL (70-99) 147 mg/dL (70-99) 211 mg/dL (70-99) Test 07/11/20 21:06 07/12/20 06:11 07/12/20 07:25 07/12/20 11:35 Glucose (Fingerstick) 178 mg/dL (70-99) 159 mg/dL (70-99) 181 mg/dL (70-99) White Blood Count 17.8 x10^3/uL (4.0-11.0) Red Blood Count 4.38 x10^6/uL (4.30-5.70) Hemoglobin 14.1 g/dL (13.0-17.5) Hematocrit 41.1 % (39.0-53.0) Mean Corpuscular Volume 94 fL (79-100) Mean Corpuscular Hemoglobin 32 pg (25-35) Mean Corpuscular Hemoglobin Concent 34 g/dL (31-37) Red Cell Distribution Width 13.4 % (11.5-14.5) Platelet Count 322 x10^3/uL (140-400) Neutrophils (%) (Auto) 92 % (31-73) Lymphocytes (%) (Auto) 4 % (24-48) Monocytes (%) (Auto) 4 % (0-9) Eosinophils (%) (Auto) 0 % (0-3) Basophils (%) (Auto) 0 % (0-3) Neutrophils # (Auto) 16.4 x10^3/uL (1.8-7.7) Lymphocytes # (Auto) 0.7 x10^3/uL (1.0-4.8) Monocytes # (Auto) 0.8 x10^3/uL (0.0-1.1) Eosinophils # (Auto) 0.0 x10^3/uL (0.0-0.7) Basophils # (Auto) 0.0 x10^3/uL (0.0-0.2) Sodium Level 145 mmol/L (136-145) Potassium Level 3.8 mmol/L (3.5-5.1) Chloride Level 110 mmol/L (98-107) Carbon Dioxide Level 26 mmol/L (21-32) Anion Gap 9 (6-14) Blood Urea Nitrogen 37 mg/dL (8-26) Creatinine 1.2 mg/dL (0.7-1.3) Estimated GFR (Cockcroft-Gault) 60.2 BUN/Creatinine Ratio 31 (6-20) Glucose Level 180 mg/dL (70-99) Calcium Level 8.4 mg/dL (8.5-10.1) Total Bilirubin 0.8 mg/dL (0.2-1.0) Aspartate Amino Transf (AST/SGOT) 35 U/L (15-37) Alanine Aminotransferase (ALT/SGPT) 57 U/L (16-63) Alkaline Phosphatase 57 U/L (46-116) Total Protein 6.1 g/dL (6.4-8.2) Albumin 2.7 g/dL (3.4-5.0) Albumin/Globulin Ratio 0.8 (1.0-1.7) Laboratory Tests Test 07/11/20 16:55 07/11/20 21:06 07/12/20 06:11 07/12/20 07:25 Glucose (Fingerstick) 211 mg/dL (70-99) 178 mg/dL (70-99) 159 mg/dL (70-99) White Blood Count 17.8 x10^3/uL (4.0-11.0) Red Blood Count 4.38 x10^6/uL (4.30-5.70) Hemoglobin 14.1 g/dL (13.0-17.5) Hematocrit 41.1 % (39.0-53.0) Mean Corpuscular Volume 94 fL (79-100) Mean Corpuscular Hemoglobin 32 pg (25-35) Mean Corpuscular Hemoglobin Concent 34 g/dL (31-37) Red Cell Distribution Width 13.4 % (11.5-14.5) Platelet Count 322 x10^3/uL (140-400) Neutrophils (%) (Auto) 92 % (31-73) Lymphocytes (%) (Auto) 4 % (24-48) Monocytes (%) (Auto) 4 % (0-9) Eosinophils (%) (Auto) 0 % (0-3) Basophils (%) (Auto) 0 % (0-3) Neutrophils # (Auto) 16.4 x10^3/uL (1.8-7.7) Lymphocytes # (Auto) 0.7 x10^3/uL (1.0-4.8) Monocytes # (Auto) 0.8 x10^3/uL (0.0-1.1) Eosinophils # (Auto) 0.0 x10^3/uL (0.0-0.7) Basophils # (Auto) 0.0 x10^3/uL (0.0-0.2) Sodium Level 145 mmol/L (136-145) Potassium Level 3.8 mmol/L (3.5-5.1) Chloride Level 110 mmol/L (98-107) Carbon Dioxide Level 26 mmol/L (21-32) Anion Gap 9 (6-14) Blood Urea Nitrogen 37 mg/dL (8-26) Creatinine 1.2 mg/dL (0.7-1.3) Estimated GFR (Cockcroft-Gault) 60.2 BUN/Creatinine Ratio 31 (6-20) Glucose Level 180 mg/dL (70-99) Calcium Level 8.4 mg/dL (8.5-10.1) Total Bilirubin 0.8 mg/dL (0.2-1.0) Aspartate Amino Transf (AST/SGOT) 35 U/L (15-37) Alanine Aminotransferase (ALT/SGPT) 57 U/L (16-63) Alkaline Phosphatase 57 U/L (46-116) Total Protein 6.1 g/dL (6.4-8.2) Albumin 2.7 g/dL (3.4-5.0) Albumin/Globulin Ratio 0.8 (1.0-1.7) Test 07/12/20 11:35 Glucose (Fingerstick) 181 mg/dL (70-99) Medications Current Medications Ringer's Solution 1,000 ml @ 100 mls/hr Q10H IV Last administered on 06/30/20at 23:44; Start 06/30/20 at 22:30; Stop 07/01/20 at 08:29; Status DC Ondansetron HCl (Zofran) 4 mg PRN Q6HRS PRN IVP NAUSEA/VOMITING; Start 06/30/20 at 22:30 Calcium Carbonate/ Glycine (Tums) 500 mg PRN Q3HRS PRN PO UPSET STOMACH; Start 06/30/20 at 22:15 Acetaminophen (Tylenol) 650 mg PRN Q6HRS PRN PO Headaches, Temp > 101.5F; Start 06/30/20 at 22:15 Senna/Docusate Sodium (Senna Plus) 1 tab BID PO Last administered on 07/06/20at 08:45; Start 06/30/20 at 22:30 Bisacodyl (Dulcolax Supp) 10 mg PRN DAILY PRN NE CONSTIPATION; Start 06/30/20 at 22:15 Atorvastatin Calcium (Lipitor) 80 mg QHS PO Last administered on 07/05/20at 22:16; Start 06/30/20 at 22:30 Famotidine (Pepcid) 20 mg BID PO Last administered on 07/06/20at 08:45; Start 06/30/20 at 22:30 Aspirin (Ecotrin) 325 mg DAILYWBKFT PO Last administered on 07/06/20at 08:45; Start 07/01/20 at 08:00 Aspirin (Aspirin Rectal Supp) 300 mg PRN DAILY PRN NE IF UNABLE TO TAKE PO; Start 06/30/20 at 22:15 Metoprolol Tartrate (Lopressor) 25 mg BID PO Last administered on 07/09/20at 21:32; Start 06/30/20 at 22:30 Hydralazine HCl (Apresoline Inj) 10 mg PRN Q4HRS PRN IVP ELEVATED BP, SEE COMMENTS; Start 06/30/20 at 22:15 Insulin Human Lispro (HumaLOG) 0-7 UNITS TIDWMEALHC SQ Last administered on 07/11/20at 18:06; Start 07/01/20 at 08:00 Dextrose (Dextrose 50%-Water Syringe) 12.5 gm PRN Q15MIN PRN IV SEE COMMENTS; Start 06/30/20 at 22:45 Gadoterate Meglumine (Clariscan) 10 ml 1X ONCE IVP ; Start 07/03/20 at 11:45; Stop 07/03/20 at 11:46; Status DC Gadoterate Meglumine (Clariscan) 8 ml 1X ONCE IVP ; Start 07/03/20 at 11:45; Stop 07/03/20 at 11:46; Status DC Gadoterate Meglumine (Clariscan) 10 ml 1X ONCE IVP Last administered on 07/03/20at 11:56; Start 07/03/20 at 11:45; Stop 07/03/20 at 11:48; Status DC Gadoterate Meglumine (Clariscan) 8 ml 1X ONCE IVP Last administered on 07/03/20at 11:56; Start 07/03/20 at 11:45; Stop 07/03/20 at 11:48; Status DC Iohexol (Omnipaque 300 Mg/ml) 75 ml 1X ONCE IV Last administered on 07/03/20at 15:51; Start 07/03/20 at 15:45; Stop 07/03/20 at 15:46; Status DC Iohexol (Omnipaque 240 Mg/ml) 50 ml 1X ONCE PO Last administered on 07/03/20at 15:51; Start 07/03/20 at 15:45; Stop 07/03/20 at 15:46; Status DC Info (CONTRAST GIVEN -- Rx MONITORING) 1 each PRN DAILY PRN MC SEE COMMENTS; Start 07/03/20 at 15:45; Stop 07/05/20 at 15:44; Status DC Bacitracin 56007 unit/Sodium Chloride 1,000 ml @ 1,000 mls/hr 1X ONCE IRR Last administered on 07/07/20at 11:28; Start 07/07/20 at 06:00; Stop 07/07/20 at 06:59; Status DC Cefazolin Sodium/ Dextrose 50 ml @ 100 mls/hr 1X PREOP PRN IV PRIOR TO PROCEDURE Last administered on 07/07/20at 10:30; Start 07/07/20 at 06:00; Stop 07/07/20 at 18:00; Status DC Ondansetron HCl (Zofran) 4 mg PRN Q6HRS PRN IV NAUSEA/VOMITING; Start 07/07/20 at 07:00; Stop 07/07/20 at 19:00; Status DC Fentanyl Citrate (Fentanyl 2ml Vial) 25 mcg PRN Q5MIN PRN IV MILD PAIN 1-3; Start 07/07/20 at 07:00; Stop 07/07/20 at 19:00; Status DC Fentanyl Citrate (Fentanyl 2ml Vial) 50 mcg PRN Q5MIN PRN IV MODERATE TO SEVERE PAIN; Start 07/07/20 at 07:00; Stop 07/07/20 at 19:00; Status DC Morphine Sulfate (Morphine Sulfate) 1 mg PRN Q10MIN PRN IV SEVERE PAIN 7-10; Start 07/07/20 at 07:00; Stop 07/07/20 at 19:00; Status DC Ringer's Solution 1,000 ml @ 30 mls/hr Q24H IV Last administered on 07/07/20at 09:45; Start 07/07/20 at 07:00; Stop 07/07/20 at 18:59; Status DC Lidocaine HCl (Xylocaine-Mpf 1% 2ml Vial) 2 ml PRN 1X PRN ID PRIOR TO IV START; Start 07/07/20 at 07:00; Stop 07/07/20 at 19:00; Status DC Hydromorphone HCl (Dilaudid) 0.5 mg PRN Q10MIN PRN IV SEV PAIN, Second choice; Start 07/07/20 at 07:00; Stop 07/07/20 at 19:00; Status DC Prochlorperazine Edisylate (Compazine) 5 mg PACU PRN PRN IV NAUSEA, MRX1; Start 07/07/20 at 07:00; Stop 07/07/20 at 19:00; Status DC Gelatin (Gelfoam Size 100) 1 each STK-MED ONCE .ROUTE Last administered on 07/07/20at 11:28; Start 07/07/20 at 07:37; Stop 07/07/20 at 07:37; Status DC Povidone Iodine (Betadine Oint) 28 nazario STK-MED ONCE TP ; Start 07/07/20 at 07:37; Stop 07/07/20 at 07:37; Status DC Lidocaine/ Epinephrine (LIDOCAINE 2%-EPI 1:100,000 multi-dose) 20 ml STK-MED ONCE .ROUTE ; Start 07/07/20 at 07:37; Stop 07/07/20 at 07:37; Status DC Cellulose (Surgicel Hemostat 4x8) 1 each STK-MED ONCE .ROUTE ; Start 07/07/20 at 07:37; Stop 07/07/20 at 07:37; Status DC Thrombin 20,000 unit STK-MED ONCE TP Last administered on 07/07/20at 11:28; Start 07/07/20 at 07:37; Stop 07/07/20 at 07:37; Status DC Gadoterate Meglumine (Clariscan) 10 ml 1X ONCE IVP Last administered on 07/07/20at 08:52; Start 07/07/20 at 08:30; Stop 07/07/20 at 08:31; Status DC Gadoterate Meglumine (Clariscan) 8 ml 1X ONCE IVP Last administered on 07/07/20at 08:52; Start 07/07/20 at 08:30; Stop 07/07/20 at 08:31; Status DC Dexamethasone Sodium Phosphate (Decadron) 4 mg Q6H IVP Last administered on 07/09/20at 12:08; Start 07/08/20 at 06:00; Stop 07/09/20 at 15:54; Status DC Rocuronium Eloy (Zemuron) 50 mg STK-MED ONCE .ROUTE ; Start 07/07/20 at 08 :57; Stop 07/07/20 at 08:57; Status DC Remifentanil HCl (Ultiva) 2 mg STK-MED ONCE IV ; Start 07/07/20 at 08:57; Stop 07/07/20 at 08:58; Status DC Propofol (Diprivan) 200 mg STK-MED ONCE IV ; Start 07/07/20 at 09:00; Stop 07/07/20 at 09:01; Status DC Dexamethasone Sodium Phosphate (Decadron) 20 mg STK-MED ONCE .ROUTE ; Start 07/07/20 at 09:00; Stop 07/07/20 at 09:01; Status DC Lidocaine HCl (Lidocaine Pf 2% Vial) 5 ml STK-MED ONCE .ROUTE ; Start 07/07/20 at 09:00; Stop 07/07/20 at 09:01; Status DC Ondansetron HCl (Zofran) 4 mg STK-MED ONCE .ROUTE ; Start 07/07/20 at 09:00; Stop 07/07/20 at 09:01; Status DC Phenylephrine HCl (Mamadou-Synephrine Inj) 10 mg STK-MED ONCE .ROUTE ; Start 07/07/20 at 09:01; Stop 07/07/20 at 09:01; Status DC Desflurane (Suprane) 90 ml STK-MED ONCE IH ; Start 07/07/20 at 09:04; Stop 07/07/20 at 09:04; Status DC Mannitol (Mannitol) 12.5 g STK-MED ONCE .ROUTE ; Start 07/07/20 at 09:17; Stop 07/07/20 at 09:17; Status DC Lidocaine HCl (Xylocaine 1% Pf 30ml Vial) 30 ml 1X ONCE INJ Last administered on 07/07/20at 11:28; Start 07/07/20 at 10:00; Stop 07/07/20 at 10:01; Status DC Epinephrine HCl (Adrenalin) 0.15 mg 1X ONCE INJ ; Start 07/07/20 at 10:00; Stop 07/07/20 at 10:01; Status DC Remifentanil HCl (Ultiva) 1 mg STK-MED ONCE IV ; Start 07/07/20 at 12:01; Stop 07/07/20 at 12:02; Status DC Glycopyrrolate (Robinul) 1 mg STK-MED ONCE .ROUTE ; Start 07/07/20 at 12:02; Stop 07/07/20 at 12:03; Status DC Neostigmine Eloy (Neostigmine Methylsulfate) 5 mg STK-MED ONCE .ROUTE ; Start 07/07/20 at 12:03; Stop 07/07/20 at 12:03; Status DC Fentanyl Citrate (Fentanyl 2ml Vial) 100 mcg STK-MED ONCE .ROUTE ; Start at 12:45; Stop 07/07/20 at 12:45; Status DC Nicardipine HCl (Cardene) 25 mg STK-MED ONCE IV ; Start 07/07/20 at 12:47; Stop 07/07/20 at 12:48; Status DC Lidocaine HCl (Lidocaine Pf 2% Vial) 5 ml STK-MED ONCE .ROUTE ; Start 07/07/20 at 13:06; Stop 07/07/20 at 13:07; Status DC Propofol 50 ml @ As Directed STK-MED ONCE IV ; Start 07/07/20 at 13:30; Stop 07/07/20 at 13:30; Status DC Lorazepam (Ativan Inj) 2 mg PRN Q4HRS PRN IVP ANXIETY / AGITATION Last administered on 07/09/20at 21:33; Start 07/07/20 at 14:15 Dexmedetomidine HCl 400 mcg/ Sodium Chloride 100 ml @ 0 mls/hr CONT PRN IV PER PROTOCOL Last administered on 07/10/20at 03:07; Start 07/07/20 at 14:45; Stop 07/12/20 at 10:11; Status DC Sodium Chloride 500 ml @ 500 mls/hr 1X PRN PRN IV SEE COMMENTS; Start 07/07/20 at 14:45 Atropine Sulfate (ATROPINE 0.5mg SYRINGE) 0.5 mg PRN Q5MIN PRN IV SEE COMMENTS; Start 07/07/20 at 14:45; Stop 07/12/20 at 10:11; Status DC Dextrose/Sodium Chloride 2,500 ml @ 50 mls/hr Q24H IV ; Start 07/07/20 at 15:00; Stop 07/09/20 at 17:00; Status UNV Dextrose/Sodium Chloride 0 ml @ 50 mls/hr Q0M IV ; Start 07/09/20 at 17:00; Stop 07/09/20 at 17:00; Status UNV Dextrose 1,000 ml @ 50 mls/hr Q20H IV Last administered on 07/07/20at 15:11; Start 07/07/20 at 16:00; Stop 07/07/20 at 17:39; Status DC Sodium Chloride 1,000 ml @ 50 mls/hr Q20H IV Last administered on 07/12/20at 11:01; Start 07/07/20 at 18:00 Insulin Glargine (Lantus Syringe) 10 unit QHS SQ Last administered on 07/09/20at 21:26; Start 07/09/20 at 21:00; Stop 07/10/20 at 14:17; Status DC Methylprednisolone Sodium Succinate 1000 mg/Sodium Chloride 100 ml @ 100 mls/hr DAILY IV Last administered on 07/12/20at 08:56; Start 07/09/20 at 16:00; Stop 07/13/20 at 22:00 Olanzapine (ZyPREXA IM) 10 mg 1X ONCE IM Last administered on 07/10/20at 09:09; Start 07/10/20 at 08:45; Stop 07/10/20 at 09:03; Status DC Insulin Glargine (Lantus Syringe) 15 unit QHS SQ Last administered on 07/11/20at 21:00; Start 07/10/20 at 21:00 Olanzapine (ZyPREXA IM) 10 mg Q6H IM Last administered on 07/12/20at 08:58; Start 07/10/20 at 15:30; Stop 07/12/20 at 10:22; Status DC Ziprasidone (Geodon Im) 20 mg 1X ONCE IM ; Start 07/10/20 at 15:30; Stop 07/10/20 at 15:33; Status DC Metoprolol Tartrate (Lopressor Vial) 5 mg Q6HRS IVP Last administered on 07/11/20at 18:03; Start 07/10/20 at 18:00; Stop 07/12/20 at 06:19; Status DC Amino Acids/ Glycerin/ Electrolytes 1,000 ml @ 80 mls/hr [id number] IV Last administered on 07/12/20at 11:01; Start 07/11/20 at 12:30 Olanzapine (ZyPREXA IM) 10 mg Q12HR IM ; Start 07/12/20 at 21:00 Active Scripts Active Reported Aspirin 81 Mg Tab.chew 81 Mg PO DAILY Metformin Hcl 500 Mg Tablet 500 Mg PO BIDWMEALS Atenolol 50 Mg Tablet 50 Mg PO DAILY Vitals/I & O Vital Sign - Last 24 Hours 07/11/20 07/11/20 07/11/20 07/11/20 13:00 14:00 16:08 16:41 Pulse 82 82 87 Resp 22 22 20 B/P (MAP) 151/83 (105) 158/88 (111) 155/87 (109) Pulse Ox 97 97 96 O2 Delivery Room Air Room Air Room Air 07/11/20 07/11/20 07/11/20 07/11/20 18:03 19:15 19:30 23:07 Temp 98.5 97.9 98.5 97.9 Pulse 85 79 64 Resp 20 18 B/P (MAP) 149/80 (103) 129/75 (93) Pulse Ox 98 96 O2 Delivery Room Air Room Air Room Air 07/12/20 07/12/20 07/12/20 07/12/20 00:00 03:06 06:44 08:00 Temp 97.8 97.8 97.8 97.8 Pulse 64 92 87 Resp 20 20 B/P (MAP) 129/75 155/89 (111) 144/79 (100) Pulse Ox 98 97 O2 Delivery Room Air Room Air Room Air 07/12/20 10:31 Temp 97.9 97.9 Pulse 102 Resp 20 B/P (MAP) 154/88 (110) Pulse Ox 95 O2 Delivery Room Air Intake and Output 07/11/20 07/11/20 07/12/20 15:00 23:00 07:00 Intake Total 0 ml 3120 ml Output Total 240 ml 250 ml 800 ml Balance -240 ml -250 ml 2320 ml Justicifation of Admission Dx: Justifications for Admission: Justification of Admission Dx: Comment: (Higher level of care requested by [place] for neurology evaluation) MAURY SIMMS MD Jul 12, 2020 12:35
[2020-07-12 14:53] VITALS: BP 140/97
[2020-07-12 19:00] VITALS: BP 136/75
[2020-07-12] MEDS: ATORVASTATIN CALCIUM 40 MG TABLET. PO SCH (19:01)
[2020-07-12] MEDS ORDERED: LABETALOL 20 MG/4 ML DISP.SYRIN. IVP PRN (19:30)
--- NOTE | 2020-07-12 19:34 | NUR ---
Kathleen would like Social work to call her regarding placement. [phone]
[2020-07-12] MEDS: INSULIN GLARGINE SYRINGE. SQ SCH (22:00)
[2020-07-12 23:01] VITALS: BP 146/82
[2020-07-13 03:04] VITALS: BP 123/65
[2020-07-13 07:00] VITALS: BP 154/86
[2020-07-13] MEDS: ASPIRIN ENTERIC COATED 325 MG TABLET.DR. PO SCH (08:00)
[2020-07-13] MEDS: INSULIN LISPRO 300 UNITS/3 ML VIAL. SQ SCH ×4 (08:00→21:00)
[2020-07-13] MEDS: METOPROLOL TART IMMED RELEASE 25 MG TABLET. PO SCH ×2 (09:00→21:00)
[2020-07-13] MEDS: SENNOSIDES/DOCUSATE 8.6/50MG TABLET. PO SCH ×2 (09:00→21:00)
[2020-07-13] MEDS: FAMOTIDINE 20 MG TABLET. PO SCH ×2 (09:00→21:00)
[2020-07-13] MEDS: OLANZapine IM 10 MG VIAL. IM SCH ×2 (09:17→21:14)
[2020-07-13] MEDS: methylPREDNISolone SOD SUCC 1,000 MG in IV NORMAL SALINE 100ML 100 ML IV SCH (09:17)
--- NOTE | 2020-07-13 10:51 | NUR ---
ALYSON following. Discussed with RN, pt accepted at [facility] when medically ready for discharge. ALYSON had note to contact Kathleen ([phone]). ALYSON spoke with Kathleen, she expressed concern regarding [facility] and would prefer pt go to [facility]. ALYSON explained pt is not currently appropriate for acute rehab, but if things change before he is ready to discharge, then we can certainly send the referral there. Kathleen verbalized understanding. Plan remains [facility] when medically ready for discharge. ALYSON will continue to follow.
[2020-07-13 11:00] VITALS: BP 162/81
--- NOTE | 2020-07-13 11:29 | PDOC ---
[employer] PROGRESS NOTE Date of Service DOS: DATE: 07/13/20 TIME: 11:23 Chief Complaint Chief Complaint A/P: Acute toxic encephalopathy, from sedation, anesthesia, new brain lesions Multifocal bilateral peripherally enhancing lesions. appears to be demyelinating, poss MS, autoimmune or post infectious. Less likely lymphoma or infectious etiology Status post craniotomy and brain biopsy History of diabetes mellitus type 2 - A1c 6.1 Hearing impaired History of essential hypertension History of Present Illness History of Present Illness Mr Rodriguez is a 70 year old male with past medical history of diabetes who was in his usual state of health until approximately 5 days prior to his admission when he started complaining of mental fog and confusion. Patient also complained of headache according to his daughter who is at bedside helping with the history taking. He also had some hearing loss worse than usual over his right ear and did not improve after cerumen disimpaction. Patient denies any headaches no loss of vision he recently had his prescription change and apparently his mems integration engineer told him that they need to do some changes since its "too strong in "of a prescription. Patient denies dysphagia odynophagia no slurred speech no hemiparesis no hemiplegia, no chest pain palpitations or shortness of breath, no neck stiffness noticed no fever or chills no meningismus no abdominal pain nausea vomiting or diarrhea. The patient has had proper oral intake over the last couple days. On 06/30/20 he experienced sudden onset dizziness, worsening fatigue and hearing loss. He was taken to the emergency room at [facility] where he received a CT head. This showed multiple brain lesions. He has been transferred to [facility] for further evaluation. He has received a CT of the chest, abdomen and pelvis which has not shown any additional signs of malignancy. He received brain MRI and MRA of the head and neck which showed multifocal brain lesions with reported differential diagnosis of malignancy, demyelinating disorder possibly infection. Consults: Neurology, Heme/Onc and neurosurgery 07/07: To brain biopsy. 07/11: trying to limit sedation, changed to zyprexa today, Neuro following, cont high dose steroids. Transferred from ICU. 07/12: Still very confused. He is asking to contact [facility]. No shortness of breath or chest pain. Requiring mittens. Still very confused talking to people not the room. No pain complaints. Still with one-to-one sitter and requiring mittens. Discussed with neurology to repeat MRI to see if progression of disease on 07/14/2020 and will not be ready for discharge until 48 hours. Vitals/I&O Vitals/I&O: Vital Signs Date Time Temp Pulse Resp B/P (MAP) Pulse Ox O2 Delivery O2 Flow Rate FiO2 07/13/20 11:00 97.7 75 18 162/81 (108) 95 Room Air 97.7 I & O 07/12/20 07/12/20 07/13/20 15:00 23:00 07:00 Intake Total 0 ml Output Total 1400 ml 750 ml Balance -1400 ml -750 ml Physical Exam General: Other (mildly agitated) Heart: Regular rate, Normal S1 Abdomen: Soft, Other (No splenomegaly) Extremities: No clubbing, No edema Skin: No rashes, Other (dressing C,D,I) Labs Labs: Laboratory Tests Test 07/12/20 11:35 07/12/20 16:41 07/12/20 20:02 07/13/20 08:26 Glucose (Fingerstick) 181 mg/dL (70-99) 214 mg/dL (70-99) 178 mg/dL (70-99) 140 mg/dL (70-99) Comment Review of Relevant I have reviewed the following items bashir (where applicable) has been applied. Medications: Current Medications Medications (Trade) Dose Ordered Sig/Desiree Route PRN Reason Start Time Stop Time Status Last Admin Dose Admin Olanzapine (ZyPREXA IM) 10 mg Q12HR IM 07/12/20 21:00 07/13/20 09:17 Justifications for Admission TIA Indications Persistent neurologic signs?: Yes Justification for admission: There is persistence of patient's focal neurologic signs or symptoms or there is concern for recurrence of patient's neurological signs and symptoms. Other Justification KEN MACIEL MD Jul 13, 2020 11:28
[2020-07-13] MEDS: AMINO AC 3%/ELECTROLYTE/GLYCER 1,000 ML IV SCH (12:11)
[2020-07-13] MEDS: IV NORMAL SALINE 1000ML BAG 1,000 ML IV SCH (14:00)
[2020-07-13 15:00] VITALS: BP 132/61
--- NOTE | 2020-07-13 15:22 | PDOC ---
PROGRESS NOTES Date of Service DATE: 07/13/20 TIME: 15:21 Assessment Multiple brain masses, demyelinating disease, no malignancy on final pathology. 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 Memory loss Diabetes, hypertension Plan Backed off on Zyprexa to every 12 hours Solu-Medrol No need for prophylactic anticonvulsants Repeat brain MRI on 07/14 Discussed with close friend Under no circumstances should the patient be sent to long-term care until at least early next week. Discussed with Dr. Thacker Subjective None Objective Vital Signs Date Time Temp Pulse Resp B/P (MAP) Pulse Ox O2 Delivery O2 Flow Rate FiO2 07/13/20 11:00 97.7 75 18 162/81 (108) 95 Room Air 97.7 Intake and Output 07/13/20 07:00 Intake Total 0 ml Output Total 2150 ml Balance -2150 ml Intake Oral 0 ml Output Urine Total 2150 ml PHYSICAL EXAM Asleep, can mumble his name PERRL. EOMI. CN: Bilateral severe hearing loss, otherwise no focal findings. Muscle tone: normal. Muscle strength: 5/5 DTR: 2+ Plantar reflex: Flexor Gait: not examined in bed. Sensory exam: no abnormal findings. No cerebellar signs elicited. Review of Relevant I have reviewed the following items bashir (where applicable) has been applied. Labs Laboratory Tests Test 07/11/20 16:55 07/11/20 21:06 07/12/20 06:11 07/12/20 07:25 Glucose (Fingerstick) 211 mg/dL (70-99) 178 mg/dL (70-99) 159 mg/dL (70-99) White Blood Count 17.8 x10^3/uL (4.0-11.0) Red Blood Count 4.38 x10^6/uL (4.30-5.70) Hemoglobin 14.1 g/dL (13.0-17.5) Hematocrit 41.1 % (39.0-53.0) Mean Corpuscular Volume 94 fL (79-100) Mean Corpuscular Hemoglobin 32 pg (25-35) Mean Corpuscular Hemoglobin Concent 34 g/dL (31-37) Red Cell Distribution Width 13.4 % (11.5-14.5) Platelet Count 322 x10^3/uL (140-400) Neutrophils (%) (Auto) 92 % (31-73) Lymphocytes (%) (Auto) 4 % (24-48) Monocytes (%) (Auto) 4 % (0-9) Eosinophils (%) (Auto) 0 % (0-3) Basophils (%) (Auto) 0 % (0-3) Neutrophils # (Auto) 16.4 x10^3/uL (1.8-7.7) Lymphocytes # (Auto) 0.7 x10^3/uL (1.0-4.8) Monocytes # (Auto) 0.8 x10^3/uL (0.0-1.1) Eosinophils # (Auto) 0.0 x10^3/uL (0.0-0.7) Basophils # (Auto) 0.0 x10^3/uL (0.0-0.2) Sodium Level 145 mmol/L (136-145) Potassium Level 3.8 mmol/L (3.5-5.1) Chloride Level 110 mmol/L (98-107) Carbon Dioxide Level 26 mmol/L (21-32) Anion Gap 9 (6-14) Blood Urea Nitrogen 37 mg/dL (8-26) Creatinine 1.2 mg/dL (0.7-1.3) Estimated GFR (Cockcroft-Gault) 60.2 BUN/Creatinine Ratio 31 (6-20) Glucose Level 180 mg/dL (70-99) Calcium Level 8.4 mg/dL (8.5-10.1) Total Bilirubin 0.8 mg/dL (0.2-1.0) Aspartate Amino Transf (AST/SGOT) 35 U/L (15-37) Alanine Aminotransferase (ALT/SGPT) 57 U/L (16-63) Alkaline Phosphatase 57 U/L (46-116) Total Protein 6.1 g/dL (6.4-8.2) Albumin 2.7 g/dL (3.4-5.0) Albumin/Globulin Ratio 0.8 (1.0-1.7) Test 07/12/20 11:35 07/12/20 16:41 07/12/20 20:02 07/13/20 08:26 Glucose (Fingerstick) 181 mg/dL (70-99) 214 mg/dL (70-99) 178 mg/dL (70-99) 140 mg/dL (70-99) Test 07/13/20 12:26 Glucose (Fingerstick) 162 mg/dL (70-99) Laboratory Tests Test 07/12/20 16:41 07/12/20 20:02 07/13/20 08:26 07/13/20 12:26 Glucose (Fingerstick) 214 mg/dL (70-99) 178 mg/dL (70-99) 140 mg/dL (70-99) 162 mg/dL (70-99) Medications Current Medications Ringer's Solution 1,000 ml @ 100 mls/hr Q10H IV Last administered on 06/30/20at 23:44; Start 06/30/20 at 22:30; Stop 07/01/20 at 08:29; Status DC Ondansetron HCl (Zofran) 4 mg PRN Q6HRS PRN IVP NAUSEA/VOMITING; Start 06/30/20 at 22:30 Calcium Carbonate/ Glycine (Tums) 500 mg PRN Q3HRS PRN PO UPSET STOMACH; Start 06/30/20 at 22:15 Acetaminophen (Tylenol) 650 mg PRN Q6HRS PRN PO Headaches, Temp > 101.5F; Start 06/30/20 at 22:15 Senna/Docusate Sodium (Senna Plus) 1 tab BID PO Last administered on 07/06/20at 08:45; Start 06/30/20 at 22:30 Bisacodyl (Dulcolax Supp) 10 mg PRN DAILY PRN SC CONSTIPATION; Start 06/30/20 at 22:15 Atorvastatin Calcium (Lipitor) 80 mg QHS PO Last administered on 07/05/20at 22:16; Start 06/30/20 at 22:30 Famotidine (Pepcid) 20 mg BID PO Last administered on 07/06/20at 08:45; Start 06/30/20 at 22:30 Aspirin (Ecotrin) 325 mg DAILYWBKFT PO Last administered on 07/06/20at 08:45; Start 07/01/20 at 08:00 Aspirin (Aspirin Rectal Supp) 300 mg PRN DAILY PRN SC IF UNABLE TO TAKE PO; Start 06/30/20 at 22:15 Metoprolol Tartrate (Lopressor) 25 mg BID PO Last administered on 07/09/20at 21:32; Start 06/30/20 at 22:30 Hydralazine HCl (Apresoline Inj) 10 mg PRN Q4HRS PRN IVP ELEVATED BP, SEE COMMENTS; Start 06/30/20 at 22:15 Insulin Human Lispro (HumaLOG) 0-7 UNITS TIDWMEALHC SQ Last administered on 07/12/20at 17:03; Start 07/01/20 at 08:00 Dextrose (Dextrose 50%-Water Syringe) 12.5 gm PRN Q15MIN PRN IV SEE COMMENTS; Start 06/30/20 at 22:45 Gadoterate Meglumine (Clariscan) 10 ml 1X ONCE IVP ; Start 07/03/20 at 11:45; Stop 07/03/20 at 11:46; Status DC Gadoterate Meglumine (Clariscan) 8 ml 1X ONCE IVP ; Start 07/03/20 at 11:45; Stop 07/03/20 at 11:46; Status DC Gadoterate Meglumine (Clariscan) 10 ml 1X ONCE IVP Last administered on 07/03/20at 11:56; Start 07/03/20 at 11:45; Stop 07/03/20 at 11:48; Status DC Gadoterate Meglumine (Clariscan) 8 ml 1X ONCE IVP Last administered on 07/03/20at 11:56; Start 07/03/20 at 11:45; Stop 07/03/20 at 11:48; Status DC Iohexol (Omnipaque 300 Mg/ml) 75 ml 1X ONCE IV Last administered on 07/03/20at 15:51; Start 07/03/20 at 15:45; Stop 07/03/20 at 15:46; Status DC Iohexol (Omnipaque 240 Mg/ml) 50 ml 1X ONCE PO Last administered on 07/03/20at 15:51; Start 07/03/20 at 15:45; Stop 07/03/20 at 15:46; Status DC Info (CONTRAST GIVEN -- Rx MONITORING) 1 each PRN DAILY PRN MC SEE COMMENTS; Start 07/03/20 at 15:45; Stop 07/05/20 at 15:44; Status DC Bacitracin 48919 unit/Sodium Chloride 1,000 ml @ 1,000 mls/hr 1X ONCE IRR Last administered on 07/07/20at 11:28; Start 07/07/20 at 06:00; Stop 07/07/20 at 06:59; Status DC Cefazolin Sodium/ Dextrose 50 ml @ 100 mls/hr 1X PREOP PRN IV PRIOR TO PROCE DURE Last administered on 07/07/20at 10:30; Start 07/07/20 at 06:00; Stop 07/07/20 at 18:00; Status DC Ondansetron HCl (Zofran) 4 mg PRN Q6HRS PRN IV NAUSEA/VOMITING; Start 07/07/20 at 07:00; Stop 07/07/20 at 19:00; Status DC Fentanyl Citrate (Fentanyl 2ml Vial) 25 mcg PRN Q5MIN PRN IV MILD PAIN 1-3; Start 07/07/20 at 07:00; Stop 07/07/20 at 19:00; Status DC Fentanyl Citrate (Fentanyl 2ml Vial) 50 mcg PRN Q5MIN PRN IV MODERATE TO SEVERE PAIN; Start 07/07/20 at 07:00; Stop 07/07/20 at 19:00; Status DC Morphine Sulfate (Morphine Sulfate) 1 mg PRN Q10MIN PRN IV SEVERE PAIN 7-10; Start 07/07/20 at 07:00; Stop 07/07/20 at 19:00; Status DC Ringer's Solution 1,000 ml @ 30 mls/hr Q24H IV Last administered on 07/07/20at 09:45; Start 07/07/20 at 07:00; Stop 07/07/20 at 18:59; Status DC Lidocaine HCl (Xylocaine-Mpf 1% 2ml Vial) 2 ml PRN 1X PRN ID PRIOR TO IV START; Start 07/07/20 at 07:00; Stop 07/07/20 at 19:00; Status DC Hydromorphone HCl (Dilaudid) 0.5 mg PRN Q10MIN PRN IV SEV PAIN, Second choice; Start 07/07/20 at 07:00; Stop 07/07/20 at 19:00; Status DC Prochlorperazine Edisylate (Compazine) 5 mg PACU PRN PRN IV NAUSEA, MRX1; Start 07/07/20 at 07:00; Stop 07/07/20 at 19:00; Status DC Gelatin (Gelfoam Size 100) 1 each STK-MED ONCE .ROUTE Last administered on 07/07/20at 11:28; Start 07/07/20 at 07:37; Stop 07/07/20 at 07:37; Status DC Povidone Iodine (Betadine Oint) 28 nazario STK-MED ONCE TP ; Start 07/07/20 at 07:37; Stop 07/07/20 at 07:37; Status DC Lidocaine/ Epinephrine (LIDOCAINE 2%-EPI 1:100,000 multi-dose) 20 ml STK-MED ONCE .ROUTE ; Start 07/07/20 at 07:37; Stop 07/07/20 at 07:37; Status DC Cellulose (Surgicel Hemostat 4x8) 1 each STK-MED ONCE .ROUTE ; Start 07/07/20 at 07:37; Stop 07/07/20 at 07:37; Status DC Thrombin 20,000 unit STK-MED ONCE TP Last administered on 07/07/20at 11:28; Start 07/07/20 at 07:37; Stop 07/07/20 at 07:37; Status DC Gadoterate Meglumine (Clariscan) 10 ml 1X ONCE IVP Last administered on 07/07/20at 08:52; Start 07/07/20 at 08:30; Stop 07/07/20 at 08:31; Status DC Gadoterate Meglumine (Clariscan) 8 ml 1X ONCE IVP Last administered on 07/07/20at 08:52; Start 07/07/20 at 08:30; Stop 07/07/20 at 08:31; Status DC Dexamethasone Sodium Phosphate (Decadron) 4 mg Q6H IVP Last administered on 07/09/20at 12:08; Start 07/08/20 at 06:00; Stop 07/09/20 at 15:54; Status DC Rocuronium [place] (Zemuron) 50 mg STK-MED ONCE .ROUTE ; Start 07/07/20 at 08:57; Stop 07/07/20 at 08:57; Status DC Remifentanil HCl (Ultiva) 2 mg STK-MED ONCE IV ; Start 07/07/20 at 08:57; Stop 07/07/20 at 08:58; Status DC Propofol (Diprivan) 200 mg STK-MED ONCE IV ; Start 07/07/20 at 09:00; Stop 07/07/20 at 09:01; Status DC Dexamethasone Sodium Phosphate (Decadron) 20 mg STK-MED ONCE .ROUTE ; Start 07/07/20 at 09:00; Stop 07/07/20 at 09:01; Status DC Lidocaine HCl (Lidocaine Pf 2% Vial) 5 ml STK-MED ONCE .ROUTE ; Start 07/07/20 at 09:00; Stop 07/07/20 at 09:01; Status DC Ondansetron HCl (Zofran) 4 mg STK-MED ONCE .ROUTE ; Start 07/07/20 at 09:00; Stop 07/07/20 at 09:01; Status DC Phenylephrine HCl (Mamadou-Synephrine Inj) 10 mg STK-MED ONCE .ROUTE ; Start 07/07/20 at 09:01; Stop 07/07/20 at 09:01; Status DC Desflurane (Suprane) 90 ml STK-MED ONCE IH ; Start 07/07/20 at 09:04; Stop 07/07/20 at 09:04; Status DC Mannitol (Mannitol) 12.5 g STK-MED ONCE .ROUTE ; Start 07/07/20 at 09:17; Stop 07/07/20 at 09:17; Status DC Lidocaine HCl (Xylocaine 1% Pf 30ml Vial) 30 ml 1X ONCE INJ Last administered on 07/07/20at 11:28; Start 07/07/20 at 10:00; Stop 07/07/20 at 10:01; Status DC Epinephrine HCl (Adrenalin) 0.15 mg 1X ONCE INJ ; Start 07/07/20 at 10:00; Stop 07/07/20 at 10:01; Status DC Remifentanil HCl (Ultiva) 1 mg STK-MED ONCE IV ; Start 07/07/20 at 12:01; Stop 07/07/20 at 12:02; Status DC Glycopyrrolate (Robinul) 1 mg STK-MED ONCE .ROUTE ; Start 07/07/20 at 12:02; Stop 07/07/20 at 12:03; Status DC Neostigmine [place] (Neostigmine Methylsulfate) 5 mg STK-MED ONCE .ROUTE ; Start 07/07/20 at 12:03; Stop 07/07/20 at 12:03; Status DC Fentanyl Citrate (Fentanyl 2ml Vial) 100 mcg STK-MED ONCE .ROUTE ; Start 07/07/20 at 12:45; Stop 07/07/20 at 12:45; Status DC Nicardipine HCl (Cardene) 25 mg STK-MED ONCE IV ; Start 07/07/20 at 12:47; Stop 07/07/20 at 12:48; Status DC Lidocaine HCl (Lidocaine Pf 2% Vial) 5 ml STK-MED ONCE .ROUTE ; Start 07/07/20 at 13:06; Stop 07/07/20 at 13:07; Status DC Propofol 50 ml @ As Directed STK-MED ONCE IV ; Start 07/07/20 at 13:30; Stop 07/07/20 at 13:30; Status DC Lorazepam (Ativan Inj) 2 mg PRN Q4HRS PRN IVP ANXIETY / AGITATION Last administered on 07/13/20at 00:04; Start 07/07/20 at 14:15 Dexmedetomidine HCl 400 mcg/ Sodium Chloride 100 ml @ 0 mls/hr CONT PRN IV PER PROTOCOL Last administered on 07/10/20at 03:07; Start 07/07/20 at 14:45; Stop 07/12/20 at 10:11; Status DC Sodium Chloride 500 ml @ 500 mls/hr 1X PRN PRN IV SEE COMMENTS; Start 07/07/20 at 14:45 Atropine Sulfate (ATROPINE 0.5mg SYRINGE) 0.5 mg PRN Q5MIN PRN IV SEE COMMENTS; Start 07/07/20 at 14:45; Stop 07/12/20 at 10:11; Status DC Dextrose/Sodium Chloride 2,500 ml @ 50 mls/hr Q24H IV ; Start 07/07/20 at 15:00; Stop 07/09/20 at 17:00; Status UNV Dextrose/Sodium Chloride 0 ml @ 50 mls/hr Q0M IV ; Start 07/09/20 at 17:00; Stop 07/09/20 at 17:00; Status UNV Dextrose 1,000 ml @ 50 mls/hr Q20H IV Last administered on 07/07/20at 15:11; Start 07/07/20 at 16:00; Stop 07/07/20 at 17:39; Status DC Sodium Chloride 1,000 ml @ 50 mls/hr Q20H IV Last administered on 07/12/20at 11:01; Start 07/07/20 at 18:00 Insulin Glargine (Lantus Syringe) 10 unit QHS SQ Last administered on 07/09/20at 21:26; Start 07/09/20 at 21:00; Stop 07/10/20 at 14:17; Status DC Methylprednisolone Sodium Succinate 1000 mg/Sodium Chloride 100 ml @ 100 mls/hr DAILY IV Last administered on 07/13/20at 09:17; Start 07/09/20 at 16:00; Stop 07/13/20 at 22:00 Olanzapine (ZyPREXA IM) 10 mg 1X ONCE IM Last administered on 07/10/20at 09:09; Start 07/10/20 at 08:45; Stop 07/10/20 at 09:03; Status DC Insulin Glargine (Lantus Syringe) 15 unit QHS SQ Last administered on 07/12/20at 22:00; Start 07/10/20 at 21:00 Olanzapine (ZyPREXA IM) 10 mg Q6H IM Last administered on 07/12/20at 08:58; Start 07/10/20 at 15:30; Stop 07/12/20 at 10:22; Status DC Ziprasidone (Geodon Im) 20 mg 1X ONCE IM ; Start 07/10/20 at 15:30; Stop 07/10/20 at 15:33; Status DC Metoprolol Tartrate (Lopressor Vial) 5 mg Q6HRS IVP Last administered on at 18:03; Start 07/10/20 at 18:00; Stop 07/12/20 at 06:19; Status DC Amino Acids/ Glycerin/ Electrolytes 1,000 ml @ 80 mls/hr [id number] IV Last administered on 07/13/20at 12:11; Start 07/11/20 at 12:30 Olanzapine (ZyPREXA IM) 10 mg Q12HR IM Last administered on 07/13/20at 09:17; Start 07/12/20 at 21:00 Labetalol HCl (Normodyne Iv Push) 10 mg PRN Q2HR PRN IVP HYPERTENSION; Start 07/12/20 at 19:30 Active Scripts Active Reported Aspirin 81 Mg Tab.chew 81 Mg PO DAILY Metformin Hcl 500 Mg Tablet 500 Mg PO BIDWMEALS Atenolol 50 Mg Tablet 50 Mg PO DAILY Vitals/I & O Vital Sign - Last 24 Hours 07/12/20 07/12/20 07/12/20 07/12/20 19:00 19:28 20:00 23:01 Temp 98.1 98.2 98.1 98.2 Pulse 70 69 Resp 20 18 B/P (MAP) 136/75 (95) 146/82 (103) Pulse Ox 98 95 O2 Delivery Room Air Room Air Room Air Room Air 07/13/20 07/13/20 07/13/20 07/13/20 03:04 07:00 08:00 11:00 Temp 97.7 98.4 97.7 97.7 98.4 97.7 Pulse 58 107 75 Resp 16 18 18 B/P (MAP) 123/65 (84) 154/86 (108) 162/81 (108) Pulse Ox 93 97 95 O2 Delivery Room Air Room Air Room Air Room Air Intake and Output 07/12/20 07/12/20 07/13/20 15:00 23:00 07:00 Intake Total 0 ml Output Total 1400 ml 750 ml Balance -1400 ml -750 ml Justicifation of Admission Dx: Justifications for Admission: Justification of Admission Dx: Comment: (Higher level of care requested by [place] for neurology evaluation) MAURY SIMMS MD Jul 13, 2020 15:22
[2020-07-13 19:19] VITALS: BP 132/75
[2020-07-13] MEDS: ATORVASTATIN CALCIUM 40 MG TABLET. PO SCH (21:00)
[2020-07-13] MEDS: INSULIN GLARGINE SYRINGE. SQ SCH (21:26)
[2020-07-13 23:07] VITALS: BP 156/93
[2020-07-14] MEDS: IV NORMAL SALINE 1000ML BAG 1,000 ML IV SCH (00:16)
[2020-07-14] MEDS: AMINO AC 3%/ELECTROLYTE/GLYCER 1,000 ML IV SCH ×2 (00:16→12:35)
[2020-07-14 03:19] VITALS: BP 157/91
[2020-07-14 07:00] VITALS: BP 159/85
[2020-07-14] MEDS: ASPIRIN ENTERIC COATED 325 MG TABLET.DR. PO SCH (07:54)
[2020-07-14] MEDS: FAMOTIDINE 20 MG TABLET. PO SCH ×2 (07:55→21:00)
[2020-07-14] MEDS: METOPROLOL TART IMMED RELEASE 25 MG TABLET. PO SCH ×2 (07:55→21:00)
[2020-07-14] MEDS: SENNOSIDES/DOCUSATE 8.6/50MG TABLET. PO SCH ×2 (07:55→21:00)
[2020-07-14] MEDS: INSULIN LISPRO 300 UNITS/3 ML VIAL. SQ SCH ×4 (08:00→21:00)
[2020-07-14] MEDS: OLANZapine IM 10 MG VIAL. IM SCH ×2 (08:47→20:57)
--- NOTE | 2020-07-14 09:31 | PDOC ---
PROGRESS NOTES Date of Service DATE: 07/14/20 TIME: 09:26 Assessment Multiple brain masses, demyelinating disease, no malignancy on final pathology. 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 Lab work including B12, protein electrophoresis, TSH, all negative for other causes of demyelination. Antinuclear antibodies pending Encephalopathic, related to sedatives, steroids, and the brain demyelination. Memory loss preceding admission Diabetes, hypertension Plan MRI today Zyprexa to every 12 hours Solu-Medrol, aim to start taper No need for prophylactic anticonvulsants Under no circumstances should the patient be sent to long-term care until at least early next week. Subjective None Objective Vital Signs Date Time Temp Pulse Resp B/P (MAP) Pulse Ox O2 Delivery O2 Flow Rate FiO2 07/14/20 07:00 98.4 78 21 159/85 (109) 98 Room Air 98.4 Intake and Output 07/14/20 07:00 Intake Total 3120 ml Output Total 1950 ml Balance 1170 ml Intake Oral 0 ml IV Total 1560 ml Other 1560 ml Output Urine Total 1950 ml PHYSICAL EXAM Asleep, can mumble his name, says "quit that" when examiner moves the limbs PERRL. EOMI. CN: Bilateral severe hearing loss, otherwise no focal findings. Muscle tone: normal. Muscle strength: 5/5 DTR: 2+ Plantar reflex: Flexor Gait: not examined in bed. Sensory exam: no abnormal findings. No cerebellar signs elicited. Review of Relevant I have reviewed the following items bashir (where applicable) has been applied. Labs Laboratory Tests Test 07/12/20 11:35 07/12/20 16:41 07/12/20 20:02 07/13/20 08:26 Glucose (Fingerstick) 181 mg/dL (70-99) 214 mg/dL (70-99) 178 mg/dL (70-99) 140 mg/dL (70-99) Test 07/13/20 12:26 07/13/20 17:21 07/13/20 21:18 07/13/20 21:23 Glucose (Fingerstick) 162 mg/dL (70-99) 204 mg/dL (70-99) 205 mg/dL (70-99) 206 mg/dL (70-99) Laboratory Tests Test 07/13/20 12:26 1/21/21 17:21 07/13/20 21:18 07/13/20 21:23 Glucose (Fingerstick) 162 mg/dL (70-99) 204 mg/dL (70-99) 205 mg/dL (70-99) 206 mg/dL (70-99) Medications Current Medications Ringer's Solution 1,000 ml @ 100 mls/hr Q10H IV Last administered on 06/30/20at 23:44; Start 06/30/20 at 22:30; Stop 07/01/20 at 08:29; Status DC Ondansetron HCl (Zofran) 4 mg PRN Q6HRS PRN IVP NAUSEA/VOMITING; Start 06/30/20 at 22:30 Calcium Carbonate/ Glycine (Tums) 500 mg PRN Q3HRS PRN PO UPSET STOMACH; Start 06/30/20 at 22:15 Acetaminophen (Tylenol) 650 mg PRN Q6HRS PRN PO Headaches, Temp > 101.5F; Start 06/30/20 at 22:15 Senna/Docusate Sodium (Senna Plus) 1 tab BID PO Last administered on 07/06/20at 08:45; Start 06/30/20 at 22:30 Bisacodyl (Dulcolax Supp) 10 mg PRN DAILY PRN NM CONSTIPATION; Start 06/30/20 at 22:15 Atorvastatin Calcium (Lipitor) 80 mg QHS PO Last administered on 07/05/20at 22:16; Start 06/30/20 at 22:30 Famotidine (Pepcid) 20 mg BID PO Last administered on 07/06/20at 08:45; Start 06/30/20 at 22:30 Aspirin (Ecotrin) 325 mg DAILYWBKFT PO Last administered on 07/06/20at 08:45; Start 07/01/20 at 08:00 Aspirin (Aspirin Rectal Supp) 300 mg PRN DAILY PRN NM IF UNABLE TO TAKE PO; Start 06/30/20 at 22:15 Metoprolol Tartrate (Lopressor) 25 mg BID PO Last administered on 07/09/20at 21:32; Start 06/30/20 at 22:30 Hydralazine HCl (Apresoline Inj) 10 mg PRN Q4HRS PRN IVP ELEVATED BP, SEE COMMENTS; Start 06/30/20 at 22:15 Insulin Human Lispro (HumaLOG) 0-7 UNITS TIDWMEALHC SQ Last administered on 07/13/20at 17:40; Start 07/01/20 at 08:00 Dextrose (Dextrose 50%-Water Syringe) 12.5 gm PRN Q15MIN PRN IV SEE COMMENTS; Start 06/30/20 at 22:45 Gadoterate Meglumine (Clariscan) 10 ml 1X ONCE IVP ; Start 07/03/20 at 11:45; Stop 07/03/20 at 11:46; Status DC Gadoterate Meglumine (Clariscan) 8 ml 1X ONCE IVP ; Start 07/03/20 at 11:45; Stop 07/03/20 at 11:46; Status DC Gadoterate Meglumine (Clariscan) 10 ml 1X ONCE IVP Last administered on 07/03/20at 11:56; Start 07/03/20 at 11:45; Stop 07/03/20 at 11:48; Status DC Gadoterate Meglumine (Clariscan) 8 ml 1X ONCE IVP Last administered on 07/03/20at 11:56; Start 07/03/20 at 11:45; Stop 07/03/20 at 11:48; Status DC Iohexol (Omnipaque 300 Mg/ml) 75 ml 1X ONCE IV Last administered on 07/03/20at 15:51; Start 07/03/20 at 15:45; Stop 07/03/20 at 15:46; Status DC Iohexol (Omnipaque 240 Mg/ml) 50 ml 1X ONCE PO Last administered on 07/03/20at 15:51; Start 07/03/20 at 15:45; Stop 07/03/20 at 15:46; Status DC Info (CONTRAST GIVEN -- Rx MONITORING) 1 each PRN DAILY PRN MC SEE COMMENTS; Start 07/03/20 at 15:45; Stop 07/05/20 at 15:44; Status DC Bacitracin 10353 unit/Sodium Chloride 1,000 ml @ 1,000 mls/hr 1X ONCE IRR Last administered on 07/07/20at 11:28; Start 07/07/20 at 06:00; Stop 07/07/20 at 06:59; Status DC Cefazolin Sodium/ Dextrose 50 ml @ 100 mls/hr 1X PREOP PRN IV PRIOR TO PROCEDURE Last administered on 07/07/20at 10:30; Start 07/07/20 at 06:00; Stop 07/07/20 at 18:00; Status DC Ondansetron HCl (Zofran) 4 mg PRN Q6HRS PRN IV NAUSEA/VOMITING; Start 07/07/20 at 07:00; Stop 07/07/20 at 19:00; Status DC Fentanyl Citrate (Fentanyl 2ml Vial) 25 mcg PRN Q5MIN PRN IV MILD PAIN 1-3; Start 07/07/20 at 07:00; Stop 07/07/20 at 19:00; Status DC Fentanyl Citrate (Fentanyl 2ml Vial) 50 mcg PRN Q5MIN PRN IV MODERATE TO SEVERE PAIN; Start 07/07/20 at 07:00; Stop 07/07/20 at 19:00; Status DC Morphine Sulfate (Morphine Sulfate) 1 mg PRN Q10MIN PRN IV SEVERE PAIN 7-10; Start 07/07/20 at 07:00; Stop 07/07/20 at 19:00; Status DC Ringer's Solution 1,000 ml @ 30 mls/hr Q24H IV Last administered on 07/07/20at 09:45; Start 07/07/20 at 07:00; Stop 07/07/20 at 18:59; Status DC Lidocaine HCl (Xylocaine-Mpf 1% 2ml Vial) 2 ml PRN 1X PRN ID PRIOR TO IV START; Start 07/07/20 at 07:00; Stop 07/07/20 at 19:00; Status DC Hydromorphone HCl (Dilaudid) 0.5 mg PRN Q10MIN PRN IV SEV PAIN, Second choice; Start 07/07/20 at 07:00; Stop 07/07/20 at 19:00; Status DC Prochlorperazine Edisylate (Compazine) 5 mg PACU PRN PRN IV NAUSEA, MRX1; Start 07/07/20 at 07:00; Stop 07/07/20 at 19:00; Status DC Gelatin (Gelfoam Size 100) 1 each STK-MED ONCE .ROUTE Last administered on 07/07/20at 11:28; Start 07/07/20 at 07:37; Stop 07/07/20 at 07:37; Status DC Povidone Iodine (Betadine Oint) 28 nazario STK-MED ONCE TP ; Start 07/07/20 at 07:37; Stop 07/07/20 at 07:37; Status DC Lidocaine/ Epinephrine (LIDOCAINE 2%-EPI 1:100,000 multi-dose) 20 ml STK-MED ONCE .ROUTE ; Start 07/07/20 at 07:37; Stop 07/07/20 at 07:37; Status DC Cellulose (Surgicel Hemostat 4x8) 1 each STK-MED ONCE .ROUTE ; Start 07/07/20 at 07:37; Stop 07/07/20 at 07:37; Status DC Thrombin 20,000 unit STK-MED ONCE TP Last administered on 07/07/20at 11:28; Start 07/07/20 at 07:37; Stop 07/07/20 at 07:37; Status DC Gadoterate Meglumine (Clariscan) 10 ml 1X ONCE IVP Last administered on 07/07/20at 08:52; Start 07/07/20 at 08:30; Stop 07/07/20 at 08:31; Status DC Gadoterate Meglumine (Clariscan) 8 ml 1X ONCE IVP Last administered on 07/07/20at 08:52; Start 07/07/20 at 08:30; Stop 07/07/20 at 08:31; Status DC Dexamethasone Sodium Phosphate (Decadron) 4 mg Q6H IVP Last administered on 07/09/20at 12:08; Start 07/08/20 at 06:00; Stop 07/09/20 at 15:54; Status DC Rocuronium [place] (Zemuron) 50 mg STK-MED ONCE .ROUTE ; Start 07/07/20 at 08:57; Stop 07/07/20 at 08:57; Status DC Remifentanil HCl (Ultiva) 2 mg STK-MED ONCE IV ; Start 07/07/20 at 08:57; Stop 07/07/20 at 08:58; Status DC Propofol (Diprivan) 200 mg STK-MED ONCE IV ; Start 07/07/20 at 09:00; Stop 07/07/20 at 09:01; Status DC Dexamethasone Sodium Phosphate (Decadron) 20 mg STK-MED ONCE .ROUTE ; Start 07/07/20 at 09:00; Stop 07/07/20 at 09:01; Status DC Lidocaine HCl (Lidocaine Pf 2% Vial) 5 ml STK-MED ONCE .ROUTE ; Start 07/07/20 at 09:00; Stop 07/07/20 at 09:01; Status DC Ondansetron HCl (Zofran) 4 mg STK-MED ONCE .ROUTE ; Start 07/07/20 at 09:00; Stop 07/07/20 at 09:01; Status DC Phenylephrine HCl (Mamadou-Synephrine Inj) 10 mg STK-MED ONCE .ROUTE ; Start 07/07/20 at 09:01; Stop 07/07/20 at 09:01; Status DC Desflurane (Suprane) 90 ml STK-MED ONCE IH ; Start 07/07/20 at 09:04; Stop 07/07/20 at 09:04; Status DC Mannitol (Mannitol) 12.5 g STK-MED ONCE .ROUTE ; Start 07/07/20 at 09:17; Stop 07/07/20 at 09:17; Status DC Lidocaine HCl (Xylocaine 1% Pf 30ml Vial) 30 ml 1X ONCE INJ Last administered on 07/07/20at 11:28; Start 07/07/20 at 10:00; Stop 07/07/20 at 10:01; Status DC Epinephrine HCl (Adrenalin) 0.15 mg 1X ONCE INJ ; Start 07/07/20 at 10:00; Stop 07/07/20 at 10:01; Status DC Remifentanil HCl (Ultiva) 1 mg STK-MED ONCE IV ; Start 07/07/20 at 12:01; Stop 07/07/20 at 12:02; Status DC Glycopyrrolate (Robinul) 1 mg STK-MED ONCE .ROUTE ; Start 07/07/20 at 12:02; Stop 07/07/20 at 12:03; Status DC Neostigmine [place] (Neostigmine Methylsulfate) 5 mg STK-MED ONCE .ROUTE ; Start 07/07/20 at 12:03; Stop 07/07/20 at 12:03; Status DC Fentanyl Citrate (Fentanyl 2ml Vial) 100 mcg STK-MED ONCE .ROUTE ; Start 07/07/20 at 12:45; Stop 07/07/20 at 12:45; Status DC Nicardipine HCl (Cardene) 25 mg STK-MED ONCE IV ; Start 07/07/20 at 12:47; Stop 07/07/20 at 12:48; Status DC Lidocaine HCl (Lidocaine Pf 2% Vial) 5 ml STK-MED ONCE .ROUTE ; Start 07/07/20 at 13:06; Stop 07/07/20 at 13:07; Status DC Propofol 50 ml @ As Directed STK-MED ONCE IV ; Start 07/07/20 at 13:30; Stop 07/07/20 at 13:30; Status DC Lorazepam (Ativan Inj) 2 mg PRN Q4HRS PRN IVP ANXIETY / AGITATION Last administered on 07/13/20at 00:04; Start 07/07/20 at 14:15 Dexmedetomidine HCl 400 mcg/ Sodium Chloride 100 ml @ 0 mls/hr CONT PRN IV PER PROTOCOL Last administered on 07/10/20at 03:07; Start 07/07/20 at 14:45; Stop 07/12/20 at 10:11; Status DC Sodium Chloride 500 ml @ 500 mls/hr 1X PRN PRN IV SEE COMMENTS; Start 07/07/20 at 14:45 Atropine Sulfate (ATROPINE 0.5mg SYRINGE) 0.5 mg PRN Q5MIN PRN IV SEE COMMENTS; Start 07/07/20 at 14:45; Stop 07/12/20 at 10:11; Status DC Dextrose/Sodium Chloride 2,500 ml @ 50 mls/hr Q24H IV ; Start 07/07/20 at 15:00; Stop 07/09/20 at 17:00; Status UNV Dextrose/Sodium Chloride 0 ml @ 50 mls/hr Q0M IV ; Start 07/09/20 at 17:00; Stop 07/09/20 at 17:00; Status UNV Dextrose 1,000 ml @ 50 mls/hr Q20H IV Last administered on 07/07/20at 15:11; Start 07/07/20 at 16:00; Stop 07/07/20 at 17:39; Status DC Sodium Chloride 1,000 ml @ 50 mls/hr Q20H IV Last administered on 07/14/20at 00:16; Start 07/07/20 at 18:00 Insulin Glargine (Lantus Syringe) 10 unit QHS SQ Last administered on 07/09/20at 21:26; Start 07/09/20 at 21:00; Stop 07/10/20 at 14:17; Status DC Methylprednisolone Sodium Succinate 1000 mg/Sodium Chloride 100 ml @ 100 mls/hr DAILY IV Last administered on 07/13/20at 09:17; Start 07/09/20 at 16:00; Stop 07/13/20 at 22:00; Status DC Olanzapine (ZyPREXA IM) 10 mg 1X ONCE IM Last administered on 07/10/20at 09:09; Start 07/10/20 at 08:45; Stop 07/10/20 at 09:03; Status DC Insulin Glargine (Lantus Syringe) 15 unit QHS SQ Last administered on 07/13/20at 21:26; Start 07/10/20 at 21:00 Olanzapine (ZyPREXA IM) 10 mg Q6H IM Last administered on 07/12/20at 08:58; Start 07/10/20 at 15:30; Stop 07/12/20 at 10:22; Status DC Ziprasidone (Geodon Im) 20 mg 1X ONCE IM ; Start 07/10/20 at 15:30; Stop 07/10/20 at 15:33; Status DC Metoprolol Tartrate (Lopressor Vial) 5 mg Q6HRS IVP Last administered on 07/11/20at 18:03; Start 07/10/20 at 18:00; Stop 07/12/20 at 06:19; Status DC Amino Acids/ Glycerin/ Electrolytes 1,000 ml @ 80 mls/hr [id number] IV Last administered on 07/14/20at 00:16; Start 07/11/20 at 12:30 Olanzapine (ZyPREXA IM) 10 mg Q12HR IM Last administered on 07/14/20at 08:47; Start 07/12/20 at 21:00 Labetalol HCl (Normodyne Iv Push) 10 mg PRN Q2HR PRN IVP HYPERTENSION; Start 07/12/20 at 19:30 Active Scripts Active Reported Aspirin 81 Mg Tab.chew 81 Mg PO DAILY Metformin Hcl 500 Mg Tablet 500 Mg PO BIDWMEALS Atenolol 50 Mg Tablet 50 Mg PO DAILY Vitals/I & O Vital Sign - Last 24 Hours 07/13/20 07/13/20 07/13/20 07/13/20 11:00 15:00 19:19 19:55 Temp 97.7 99.2 97.9 97.7 99.2 97.9 Pulse 75 84 80 Resp B/P (MAP) 162/81 (108) 132/61 (84) 132/75 (94) Pulse Ox 95 96 91 O2 Delivery Room Air Room Air Room Air Room Air 07/13/20 07/14/20 07/14/20 07/14/20 23:07 03:19 07:00 07:00 Temp 97.6 97.7 98.4 97.6 97.7 98.4 Pulse 97 97 78 Resp B/P (MAP) 156/93 (114) 157/91 (113) 159/85 (109) Pulse Ox 95 95 98 O2 Delivery Room Air Room Air Room Air Room Air Intake and Output 07/13/20 07/13/20 07/14/20 15:00 23:00 07:00 Intake Total 0 ml 0 ml 3120 ml Output Total 850 ml 1100 ml Balance 0 ml -850 ml 2020 ml Justicifation of Admission Dx: Justifications for Admission: Justification of Admission Dx: Comment: (Higher level of care requested by [place] for neurology evaluation) MAURY SIMMS MD Jul 14, 2020 09:31
--- NOTE | 2020-07-14 09:41 | NUR ---
[facility] following. Discussed with RN, pt room air, NPO. Pt having a brain MRI today. Pt accepted at [facility], pt will not be ready for discharge over the weekend. Pt is still needing neurology care, which [facility] does not have. Discussed with Dr. Thacker. [facility] will continue to follow.
[2020-07-14 11:00] VITALS: BP 149/92
--- NOTE | 2020-07-14 11:59 | NUR ---
Pt. refusing BS taken. Combative while attempting to take BS.
--- NOTE | 2020-07-14 12:31 | PDOC ---
[employer] PROGRESS NOTE Date of Service DOS: DATE: 07/14/20 TIME: 12:28 Chief Complaint Chief Complaint A/P: Acute toxic encephalopathy, from sedation, anesthesia, new brain lesions Multifocal bilateral peripherally enhancing lesions. appears to be demyelinating, acute demyelinating encephalitis, MS, autoimmune or post infectious. Less likely lymphoma or infectious etiology Status post craniotomy and brain biopsy History of diabetes mellitus type 2 - A1c 6.1 Hearing impaired History of essential hypertension History of Present Illness History of Present Illness Mr Rodriguez is a 70 year old male with past medical history of diabetes who was in his usual state of health until approximately 5 days prior to his admission when he started complaining of mental fog and confusion. Patient also complained of headache according to his daughter who is at bedside helping with the history taking. He also had some hearing loss worse than usual over his right ear and did not improve after cerumen disimpaction. Patient denies any headaches no loss of vision he recently had his prescription change and apparently his spa consultant told him that they need to do some changes since its "too strong in "of a prescription. Patient denies dysphagia odynophagia no slurred speech no hemiparesis no hemiplegia, no chest pain palpitations or shortness of breath, no neck stiffness noticed no fever or chills no meningismus no abdominal pain nausea vomiting or diarrhea. The patient has had proper oral intake over the last couple days. On 06/30/20 he experienced sudden onset dizziness, worsening fatigue and hearing loss. He was taken to the emergency room at [facility] where he received a CT head. This showed multiple brain lesions. He has been transferred to [facility] for further evaluation. He has received a CT of the chest, abdomen and pelvis which has not shown any additional signs of malignancy. He received brain MRI and MRA of the head and neck which showed multifocal brain lesions with reported differential diagnosis of malignancy, demyelinating disorder possibly infection. Consults: Neurology, Heme/Onc and neurosurgery 07/07: To brain biopsy. 07/11: trying to limit sedation, changed to zyprexa today, Neuro following, cont high dose steroids. Transferred from ICU. 07/12: Still very confused. He is asking to contact [facility]. No shortness of breath or chest pain. Requiring mittens. 07/13: Still very confused talking to people not the room. No pain complaints. Still with one-to-one sitter and requiring mittens. Still hallucinating, only able to carry minimal conversation. No complaints. Still requiring 1-1 sitter, mittens. Plan for repeat MRI today. Vitals/I&O Vitals/I&O: Vital Signs Date Time Temp Pulse Resp B/P (MAP) Pulse Ox O2 Delivery O2 Flow Rate FiO2 07/14/20 11:00 95.6 67 20 149/92 (111) 97 Room Air 95.6 I & O 07/13/20 07/13/20 07/14/20 15:00 23:00 07:00 Intake Total 0 ml 0 ml 3120 ml Output Total 850 ml 1100 ml Balance 0 ml -850 ml 2020 ml Physical Exam General: Other (mildly agitated) Heart: Regular rate, Normal S1 Abdomen: Soft, Other (No splenomegaly) Extremities: No clubbing, No edema Skin: No rashes, Other (dressing C,D,I) Labs Labs: Laboratory Tests Test 07/13/20 17:21 07/13/20 21:18 07/13/20 21:23 Glucose (Fingerstick) 204 mg/dL (70-99) 205 mg/dL (70-99) 206 mg/dL (70-99) Comment Review of Relevant I have reviewed the following items bashir (where applicable) has been applied. Justifications for Admission TIA Indications Persistent neurologic signs?: Yes Justification for admission: There is persistence of patient's focal neurologic signs or symptoms or there is concern for recurrence of patient's neurological signs and symptoms. Other Justification KEN MACIEL MD Jul 14, 2020 12:31
[2020-07-14] MEDS ORDERED: GADOTERATE 5 MMOL/10ML VIAL. IVP ONE ×2 (13:30)
[2020-07-14 15:00] VITALS: BP 152/86
--- NOTE | 2020-07-14 15:15 | RAD ---
MRI of the Brain without and with Contrast 07/14/2020 Clinical History: Demyelinating disease. Technique: Unenhanced T1-weighted sagittal and axial and FLAIR, T2-weighted, gradient echo and diffus ion-weighted axial images of the brain were obtained. After the intravenous administration of 18 cc o f Clariscan, enhanced T1-weighted axial, sagittal and coronal images of the brain were obtained. Findings: Comparison study is dated 07/03/2020. The patient is post right posterior temporal craniotomy of a demyelinating lesion within the posterio r right temporal lobe. A small amount of hemorrhage is seen within the biopsy site. There is no signi ficant surrounding edema or associated mass effect. There is generalized parenchymal atrophy. Multiple areas of abnormally increased signal intensity are seen on the FLAIR and T2-weighted images involving predominantly the subcortical white matter of bot h cerebral hemispheres along with the splenium of the corpus callosum and the left superior cerebella r peduncle consistent with the patient's history of a demyelinating disorder. These lesions measure 1 .2 to 6.3 cm in size. The lesion involving the subcortical white matter of the right parietal lobe drake s increased in size since the previous study. It measures 2.2 cm in greatest diameter. On the previou s examination it measured 1.6 cm in size. A lesion within the left parietal lobe has increased in siz e since the previous study. It measures 2.5 cm in greatest diameter. On the previous study it measure d 1.7 cm in size. A lesion is seen within the left lateral occipital lobe white matter which measures 1.1 cm in size. This has increased since the previous study where it measured 0.5 cm in size. A lesi on within the left frontal lobe has decreased in size since the previous study. It measured 2.7 cm pr evious examination and measures 2.4 cm on today's study. The lesion within the left occipital lobe, m edially has decreased in size slightly since the previous study. It measured 3 cm on the previous exa mination and measures 2.7 cm today's study. The lesion involving the right occipital lobe appears dec reased in size slightly since the previous study. It measures 3.7 cm in size. On the previous examina tion it measured 4.2 cm in size. The lesion involving the left superior cerebellar peduncle appears t o have decreased in size slightly since the previous study where it measured 2.2 cm in size. On today 's study it measures 1.2 cm. No new lesion is seen. The areas of abnormal contrast enhancement seen o n the previous examination have largely resolved. No new area of abnormal contrast enhancement is see n. There is no MRI evidence of acute ischemia/infarction. No extra-axial fluid collection is seen. Mild mucosal thickening in seen scattered throughout the paranasal sinuses. A 1.4 cm mucous retention cyst is seen involving the right maxillary sinus. Mild to moderate mucosal thickening is seen involv ing the mastoid air cells bilaterally. Normal flow voids are seen within the major vascular structure s surrounding the brain parenchyma. IMPRESSION: 1. . 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 A small amount of hemorrhage is seen within the biopsy site. There is no sig nificant surrounding edema or associated mass effect. 2. Multiple areas of abnormally increased signal intensity are seen throughout the brain consistent w ith the patient's history of a demyelinating disorder. Three of these lesions have increased in size since the previous study as discussed above. Four of these lesions appear to have decreased in size s arminda the previous study. No new lesion is seen. The areas of abnormal contrast enhancement seen on th e previous examination have largely resolved. Electronically signed by: Elías Gaines MD (07/14/2020 3:13 PM) [id number]
--- NOTE | 2020-07-14 15:50 | NUR ---
Family/friend Kathleen at bedside. Notified of improved MRI and change in Solumedrol per Dr. Uriostegui.
[2020-07-14] MEDS: methylPREDNISolone SOD SUCC 250 MG in IV NORMAL SALINE 100ML 100 ML IV SCH (16:08)
[2020-07-14 19:03] VITALS: BP 160/103
[2020-07-14] MEDS: ATORVASTATIN CALCIUM 40 MG TABLET. PO SCH (21:00)
[2020-07-14] MEDS: INSULIN GLARGINE SYRINGE. SQ SCH (21:01)
[2020-07-14 23:04] VITALS: BP 138/79
[2020-07-15] MEDS: AMINO AC 3%/ELECTROLYTE/GLYCER 1,000 ML IV SCH ×2 (01:01→15:40)
[2020-07-15 03:00] VITALS: BP 145/76
[2020-07-15] MEDS: IV NORMAL SALINE 1000ML BAG 1,000 ML IV SCH ×2 (06:00→18:28)
[2020-07-15 07:00] VITALS: BP 139/76
--- NOTE | 2020-07-15 07:53 | PDOC ---
[employer] PROGRESS NOTE Date of Service DOS: DATE: 07/15/20 TIME: 07:52 Chief Complaint Chief Complaint A/P: Acute toxic encephalopathy, from sedation, anesthesia, new brain lesions Multifocal bilateral peripherally enhancing lesions. appears to be demyelinating, acute demyelinating encephalitis, MS, autoimmune or post infectious. Less likely lymphoma or infectious etiology Status post craniotomy and brain biopsy History of diabetes mellitus type 2 - A1c 6.1 Hearing impaired History of essential hypertension History of Present Illness History of Present Illness Mr Rodriguez is a 70 year old male [employer] with past medical history of diabetes who was in his usual state of health until approximately 5 days prior to his admission when he started complaining of mental fog and confusion. Patient also complained of headache according to his daughter who is at bedside helping with the history taking. He also had some hearing loss worse than usual over his right ear and did not improve after cerumen disimpaction. Patient d enies any headaches no loss of vision he recently had his prescription change and apparently his full stack developer told him that they need to do some changes since its "too strong in "of a prescription. Patient denies dysphagia odynophagia no slurred speech no hemiparesis no hemiplegia, no chest pain palpitations or shortness of breath, no neck stiffness noticed no fever or chills no meningismus no abdominal pain nausea vomiting or diarrhea. The patient has had proper oral intake over the last couple days. On 06/30/20 he experienced sudden onset dizziness, worsening fatigue and hearing loss. He was taken to the emergency room at [facility] where he received a CT head. This showed multiple brain lesions. He has been transferred to [facility] for further evaluation. He has received a CT of the chest, abdomen and pelvis which has not shown any additional signs of mal ignancy. He received brain MRI and MRA of the head and neck which showed multifocal brain lesions with reported differential diagnosis of malignancy, demyelinating disorder possibly infection. Consults: Neurology, Heme/Onc and neurosurgery 07/07: To brain biopsy. 07/11: trying to limit sedation, changed to zyprexa today, Neuro following, cont high dose steroids. Transferred from ICU. 07/12: Still very confused. He is asking to contact Tamar. No shortness of breath or chest pain. Requiring mittens. 07/13: Still very confused talking to people not the room. No pain complaints. Still with one-to-one sitter and requiring mittens. 07/14: Still hallucinating, only able to carry minimal conversation. No complaints. Still requiring 1-1 sitter, mittens. MRI with Multiple areas of abnormally increased signal intensity are seen throughout the brain consistent with the patient's history of a demyelinating disorder. Three of these lesions have increased in size since the previous study as discussed above. Four of the se lesions appear to have decreased in size since the previous study. No new lesion is seen. More drowsy today. Did receive 2 mg of Ativan overnight. Still requiring one-to-one sitter and mittens. Sildenafil has no indicates he wants his father to come home with him. However his twin sister would like family friends more involved. Vitals/I&O Vitals/I&O: Vital Signs Date Time Temp Pulse Resp B/P (MAP) Pulse Ox O2 Delivery O2 Flow Rate FiO2 07/15/20 07:00 98.7 60 16 139/76 (97) 93 Room Air 98.7 I & O 07/14/20 07/14/20 07/15/20 15:00 23:00 07:00 Intake Total 0 ml 0 ml 3120 ml Output Total 300 ml 1475 ml Balance 0 ml -300 ml 1645 ml Physical Exam General: Other (mildly agitated) Heart: Regular rate, Normal S1 Abdomen: Soft, Other (No splenomegaly) Extremities: No clubbing, No edema Skin: No rashes, Other (dressing C,D,I) Labs Labs: Laboratory Tests Test 07/14/20 16:10 07/14/20 20:32 07/15/20 07:49 Glucose (Fingerstick) 120 mg/dL (70-99) 192 mg/dL (70-99) 156 mg/dL (70-99) Comment Review of Relevant I have reviewed the following items bashir (where applicable) has been applied. Medications: Current Medications Medications (Trade) Dose Ordered Sig/Desiree Route PRN Reason Start Time Stop Time Status Last Admin Dose Admin Gadoterate Meglumine (Clariscan) 10 ml 1X ONCE IVP 07/14/20 13:30 07/14/20 13:33 DC 07/14/20 13:44 Gadoterate Meglumine (Clariscan) 8 ml 1X ONCE IVP 07/14/20 13:30 07/14/20 13:33 DC 07/14/20 13:44 Methylprednisolone Sodium Succinate 250 mg/Sodium Chloride 100 ml @ 100 mls/hr DAILY IV 07/14/20 16:00 07/14/20 16:08 Justifications for Admission TIA Indications Persistent neurologic signs?: Yes Justification for admission: There is persistence of patient's focal neurologic signs or symptoms or there is concern for recurrence of patient's neurological signs and symptoms. Other Justification KEN MACIEL MD Jul 15, 2020 07:53
[2020-07-15] MEDS: INSULIN LISPRO 300 UNITS/3 ML VIAL. SQ SCH ×4 (08:00→20:41)
[2020-07-15] MEDS: ASPIRIN ENTERIC COATED 325 MG TABLET.DR. PO SCH (08:00)
[2020-07-15] MEDS: METOPROLOL TART IMMED RELEASE 25 MG TABLET. PO SCH ×2 (09:00→20:31)
[2020-07-15] MEDS: SENNOSIDES/DOCUSATE 8.6/50MG TABLET. PO SCH ×2 (09:00→20:31)
[2020-07-15] MEDS: FAMOTIDINE 20 MG TABLET. PO SCH ×2 (09:00→20:31)
[2020-07-15] MEDS: methylPREDNISolone SOD SUCC 250 MG in IV NORMAL SALINE 100ML 100 ML IV SCH (10:05)
[2020-07-15] MEDS: OLANZapine IM 10 MG VIAL. IM SCH ×2 (10:05→20:31)
[2020-07-15 11:00] VITALS: BP 146/87
[2020-07-15 15:00] VITALS: BP 147/85
[2020-07-15 19:18] VITALS: BP 157/88
[2020-07-15] MEDS: ATORVASTATIN CALCIUM 40 MG TABLET. PO SCH (20:31)
[2020-07-15] MEDS: INSULIN GLARGINE SYRINGE. SQ SCH (20:54)
[2020-07-15 23:09] VITALS: BP 151/81
[2020-07-16 03:04] VITALS: BP 125/80
[2020-07-16] MEDS: AMINO AC 3%/ELECTROLYTE/GLYCER 1,000 ML IV SCH ×2 (03:07→15:25)
[2020-07-16 07:00] VITALS: BP 140/89
[2020-07-16] MEDS: INSULIN LISPRO 300 UNITS/3 ML VIAL. SQ SCH ×4 (08:00→20:51)
[2020-07-16] MEDS: ASPIRIN ENTERIC COATED 325 MG TABLET.DR. PO SCH (08:00)
--- NOTE | 2020-07-16 08:40 | PDOC ---
[employer] PROGRESS NOTE Date of Service DOS: DATE: 07/16/20 TIME: 08:39 Chief Complaint Chief Complaint A/P: Acute toxic encephalopathy, from sedation, anesthesia, new brain lesions Multifocal bilateral peripherally enhancing lesions. appears to be demyelinating, acute demyelinating encephalitis, MS, autoimmune or post infectious. Less likely lymphoma or infectious etiology Status post craniotomy and brain biopsy History of diabetes mellitus type 2 - A1c 6.1 Hearing impaired History of essential hypertension History of Present Illness History of Present Illness Mr Rodriguez is a 70 year old male [employer] with past medical history of diabetes who was in his usual state of health until approximately 5 days prior to his admission when he started complaining of mental fog and confusion. Patient also complained of headache according to his daughter who is at bedside helping with the history taking. He also had some hearing loss worse than usual over his right ear and did not improve after cerumen disimpaction. Patient d enies any headaches no loss of vision he recently had his prescription change and apparently his lapidary apprentice told him that they need to do some changes since its "too strong in "of a prescription. Patient denies dysphagia odynophagia no slurred speech no hemiparesis no hemiplegia, no chest pain palpitations or shortness of breath, no neck stiffness noticed no fever or chills no meningismus no abdominal pain nausea vomiting or diarrhea. The patient has had proper oral intake over the last couple days. On 06/30/20 he experienced sudden onset dizziness, worsening fatigue and hearing loss. He was taken to the emergency room at [facility] where he received a CT head. This showed multiple brain lesions. He has been transferred to [facility] for further evaluation. He has received a CT of the chest, abdomen and pelvis which has not shown any additional signs of mal ignancy. He received brain MRI and MRA of the head and neck which showed multifocal brain lesions with reported differential diagnosis of malignancy, demyelinating disorder possibly infection. Consults: Neurology, Heme/Onc and neurosurgery 07/07: To brain biopsy. 07/11: trying to limit sedation, changed to zyprexa today, Neuro following, cont high dose steroids. Transferred from ICU. 07/12: Still very confused. He is asking to contact Tamar. No shortness of breath or chest pain. Requiring mittens. 07/13: Still very confused talking to people not the room. No pain complaints. Still with one-to-one sitter and requiring mittens. 07/14: Still hallucinating, only able to carry minimal conversation. No complaints. Still requiring 1-1 sitter, mittens. MRI with Multiple areas of abnormally increased signal intensity are seen throughout the brain consistent with the patient's history of a demyelinating disorder. Three of these lesions have increased in size since the previous study as discussed above. Four of the se lesions appear to have decreased in size since the previous study. No new lesion is seen. 07/15: More drowsy today. Did receive 2 mg of Ativan overnight. Still requiring one-to-one sitter and mittens. Son has indicated he wants his father to come home with him. However his twin sister would like family friends more involved. Awake today. Did not sleep well last night. Still requiring 1-1, mittens. Cannot follow any commands or swallow. After lengthy discussion with his son and daughter they both would wish for a second opinion and Jean III has requested [facility]. Vitals/I&O Vitals/I&O: Vital Signs Date Time Temp Pulse Resp B/P (MAP) Pulse Ox O2 Delivery O2 Flow Rate FiO2 07/16/20 07:00 98.3 95 16 140/89 (106) 99 Room Air 98.3 I & O 07/15/20 07/15/20 07/16/20 15:00 23:00 07:00 Intake Total 100 ml 1150 ml Output Total 1125 ml 1025 ml 1750 ml Balance -1025 ml 125 ml -1750 ml Physical Exam General: Other (mildly agitated) Heart: Regular rate, Normal S1 Abdomen: Soft, Other (No splenomegaly) Extremities: No clubbing, No edema Skin: No rashes, Other (dressing C,D,I) Labs Labs: Laboratory Tests Test 07/15/20 12:16 07/15/20 17:16 07/15/20 20:41 07/16/20 07:02 Glucose (Fingerstick) 144 mg/dL (70-99) 203 mg/dL (70-99) 166 mg/dL (70-99) 109 mg/dL (70-99) Comment Review of Relevant I have reviewed the following items bashir (where applicable) has been applied. Justifications for Admission TIA Indications Persistent neurologic signs?: Yes Justification for admission: There is persistence of patient's focal neurologic signs or symptoms or there is concern for recurrence of patient's neurological signs and symptoms. Other Justification KEN MACIEL MD Jul 16, 2020 08:40
[2020-07-16] MEDS: FAMOTIDINE 20 MG TABLET. PO SCH ×2 (08:48→20:51)
[2020-07-16] MEDS: METOPROLOL TART IMMED RELEASE 25 MG TABLET. PO SCH ×2 (08:48→20:51)
[2020-07-16] MEDS: SENNOSIDES/DOCUSATE 8.6/50MG TABLET. PO SCH ×2 (08:49→20:51)
[2020-07-16] MEDS: OLANZapine IM 10 MG VIAL. IM SCH ×2 (09:18→20:38)
[2020-07-16] MEDS: methylPREDNISolone SOD SUCC 250 MG in IV NORMAL SALINE 100ML 100 ML IV SCH (09:18)
[2020-07-16 11:00] VITALS: BP 152/92
--- NOTE | 2020-07-16 11:08 | PDOC ---
PROGRESS NOTES DOS: DATE: 07/16/20 TIME: 11:07 Plan 70-year-old man with multiple medical problems, encephalopathy, memory decline Areas of abnormal signal intensity consistent with demyelinating disease, No malignancy on pathology, follow pending labs, no new clinical seizure activity, on Solu-Medrol, continue medical management Subjective The patient is more alert today no acute events. Objective Vital Signs Date Time Temp Pulse Resp B/P (MAP) Pulse Ox O2 Delivery O2 Flow Rate FiO2 07/16/20 08:00 Room Air 07/16/20 07:00 98.3 95 16 140/89 (106) 99 98.3 Intake and Output 07/16/20 07:00 Intake Total 1250 ml Output Total 3900 ml Balance -2650 ml IV Total 1250 ml Output Urine Total 3900 ml PHYSICAL EXAM General no acute distress. HEENT: Normocephalic and atraumatic. NECK: Supple without bruit Respiratory: Clear to auscultation bilaterally Heart: Regular rate and rhythm, S1S2 normal NEUROLOGIC: Mental status sleepy no meningeal signs Cranial nerve equally reactive pupils, No facial asymmetry. Palate elevates and tongue protrudes in midline. Reflexes are 1-2 with flexor plantar responses. Strength able to move all exts does not participate Sensory exam is intact for light touch and pinprick. Gait in bed. Review of Relevant I have reviewed the following items bashir (where applicable) has been applied. Labs Laboratory Tests Test 07/14/20 16:10 07/14/20 20:32 07/15/20 07:49 07/15/20 12:16 Glucose (Fingerstick) 120 mg/dL (70-99) 192 mg/dL (70-99) 156 mg/dL (70-99) 144 mg/dL (70-99) Test 07/15/20 17:16 07/15/20 20:41 07/16/20 07:02 Glucose (Fingerstick) 203 mg/dL (70-99) 166 mg/dL (70-99) 109 mg/dL (70-99) Laboratory Tests Test 07/15/20 12:16 07/15/20 17:16 07/15/20 20:41 07/16/20 07:02 Glucose (Fingerstick) 144 mg/dL (70-99) 203 mg/dL (70-99) 166 mg/dL (70-99) 109 mg/dL (70-99) Medications Current Medications Ringer's Solution 1,000 ml @ 100 mls/hr Q10H IV Last administered on 06/30/20at 23:44; Start 06/30/20 at 22:30; Stop 07/01/20 at 08:29; Status DC Ondansetron HCl (Zofran) 4 mg PRN Q6HRS PRN IVP NAUSEA/VOMITING; Start 06/30/20 at 22:30 Calcium Carbonate/ Glycine (Tums) 500 mg PRN Q3HRS PRN PO UPSET STOMACH; Start 06/30/20 at 22:15 Acetaminophen (Tylenol) 650 mg PRN Q6HRS PRN PO Headaches, Temp > 101.5F; Start 06/30/20 at 22:15 Senna/Docusate Sodium (Senna Plus) 1 tab BID PO Last administered on 07/06/20at 08:45; Start 06/30/20 at 22:30 Bisacodyl (Dulcolax Supp) 10 mg PRN DAILY PRN [place] CONSTIPATION Last administered on 07/15/20at 12:49; Start 06/30/20 at 22:15 Atorvastatin Calcium (Lipitor) 80 mg QHS PO Last administered on 07/05/20at 22:16; Start 06/30/20 at 22:30 Famotidine (Pepcid) 20 mg BID PO Last administered on 07/06/20at 08:45; Start 06/30/20 at 22:30 Aspirin (Ecotrin) 325 mg DAILYWBKFT PO Last administered on 07/06/20at 08:45; Start 07/01/20 at 08:00 Aspirin (Aspirin Rectal Supp) 300 mg PRN DAILY PRN [place] IF UNABLE TO TAKE PO Last administered on 07/15/20at 12:48; Start 06/30/20 at 22:15 Metoprolol Tartrate (Lopressor) 25 mg BID PO Last administered on 07/09/20at 21:32; Start 06/30/20 at 22:30 Hydralazine HCl (Apresoline Inj) 10 mg PRN Q4HRS PRN IVP ELEVATED BP, SEE COMMENTS; Start 06/30/20 at 22:15 Insulin Human Lispro (HumaLOG) 0-7 UNITS TIDWMEALHC SQ Last administered on 07/15/20at 18:27; Start 07/01/20 at 08:00 Dextrose (Dextrose 50%-Water Syringe) 12.5 gm PRN Q15MIN PRN IV SEE COMMENTS; Start 06/30/20 at 22:45 Gadoterate Meglumine (Clariscan) 10 ml 1X ONCE IVP ; Start 07/03/20 at 11:45; Stop 07/03/20 at 11:46; Status DC Gadoterate Meglumine (Clariscan) 8 ml 1X ONCE IVP ; Start 07/03/20 at 11:45; Stop 07/03/20 at 11:46; Status DC Gadoterate Meglumine (Clariscan) 10 ml 1X ONCE IVP Last administered on 07/03/20at 11:56; Start 07/03/20 at 11:45; Stop 07/03/20 at 11:48; Status DC Gadoterate Meglumine (Clariscan) 8 ml 1X ONCE IVP Last administered on 07/03/20at 11:56; Start 07/03/20 at 11:45; Stop 07/03/20 at 11:48; Status DC Iohexol (Omnipaque 300 Mg/ml) 75 ml 1X ONCE IV Last administered on 07/03/20at 15:51; Start 07/03/20 at 15:45; Stop 07/03/20 at 15:46; Status DC Iohexol (Omnipaque 240 Mg/ml) 50 ml 1X ONCE PO Last administered on 07/03/20at 15:51; Start 07/03/20 at 15:45; Stop 07/03/20 at 15:46; Status DC Info (CONTRAST GIVEN -- Rx MONITORING) 1 each PRN DAILY PRN MC SEE COMMENTS; Start 07/03/20 at 15:45; Stop 07/05/20 at 15:44; Status DC Bacitracin 13543 unit/Sodium Chloride 1,000 ml @ 1,000 mls/hr 1X ONCE IRR Last administered on 07/07/20at 11:28; Start 07/07/20 at 06:00; Stop 07/07/20 at 06:59; Status DC Cefazolin Sodium/ Dextrose 50 ml @ 100 mls/hr 1X PREOP PRN IV PRIOR TO PROCEDURE Last administered on 07/07/20at 10:30; Start 07/07/20 at 06:00; Stop 07/07/20 at 18:00; Status DC Ondansetron HCl (Zofran) 4 mg PRN Q6HRS PRN IV NAUSEA/VOMITING; Start 07/07/20 at 07:00; Stop 07/07/20 at 19:00; Status DC Fentanyl Citrate (Fentanyl 2ml Vial) 25 mcg PRN Q5MIN PRN IV MILD PAIN 1-3; Start 07/07/20 at 07:00; Stop 07/07/20 at 19:00; Status DC Fentanyl Citrate (Fentanyl 2ml Vial) 50 mcg PRN Q5MIN PRN IV MODERATE TO SEVERE PAIN; Start 07/07/20 at 07:00; Stop 07/07/20 at 19:00; Status DC Morphine Sulfate (Morphine Sulfate) 1 mg PRN Q10MIN PRN IV SEVERE PAIN 7-10; Start 07/07/20 at 07:00; Stop 07/07/20 at 19:00; Status DC Ringer's Solution 1,000 ml @ 30 mls/hr Q24H IV Last administered on 07/07/20at 09:45; Start 07/07/20 at 07:00; Stop 07/07/20 at 18:59; Status DC Lidocaine HCl (Xylocaine-Mpf 1% 2ml Vial) 2 ml PRN 1X PRN ID PRIOR TO IV START; Start 07/07/20 at 07:00; Stop 07/07/20 at 19:00; Status DC Hydromorphone HCl (Dilaudid) 0.5 mg PRN Q10MIN PRN IV SEV PAIN, Second choice; Start 07/07/20 at 07:00; Stop 07/07/20 at 19:00; Status DC Prochlorperazine Edisylate (Compazine) 5 mg PACU PRN PRN IV NAUSEA, MRX1; Start 07/07/20 at 07:00; Stop 07/07/20 at 19:00; Status DC Gelatin (Gelfoam Size 100) 1 each STK-MED ONCE .ROUTE Last administered on 07/07/20at 11:28; Start 07/07/20 at 07:37; Stop 07/07/20 at 07:37; Status DC Povidone Iodine (Betadine Oint) 28 nazario STK-MED ONCE TP ; Start 07/07/20 at 07:37; Stop 07/07/20 at 07:37; Status DC Lidocaine/ Epinephrine (LIDOCAINE 2%-EPI 1:100,000 multi-dose) 20 ml STK-MED ONCE .ROUTE ; Start 07/07/20 at 07:37; Stop 07/07/20 at 07:37; Status DC Cellulose (Surgicel Hemostat 4x8) 1 each STK-MED ONCE .ROUTE ; Start 07/07/20 at 07:37; Stop 07/07/20 at 07:37; Status DC Thrombin 20,000 unit STK-MED ONCE TP Last administered on 07/07/20at 11:28; Start 07/07/20 at 07:37; Stop 07/07/20 at 07:37; Status DC Gadoterate Meglumine (Clariscan) 10 ml 1X ONCE IVP Last administered on 07/07/20at 08:52; Start 07/07/20 at 08:30; Stop 07/07/20 at 08:31; Status DC Gadoterate Meglumine (Clariscan) 8 ml 1X ONCE IVP Last administered on 07/07/20at 08:52; Start 07/07/20 at 08:30; Stop 07/07/20 at 08:31; Status DC Dexamethasone Sodium Phosphate (Decadron) 4 mg Q6H IVP Last administered on 07/09/20at 12:08; Start 07/08/20 at 06:00; Stop 07/09/20 at 15:54; Status DC Rocuronium Edison (Zemuron) 50 mg STK-MED ONCE .ROUTE ; Start 07/07/20 at 08:57; Stop 07/07/20 at 08:57; Status DC Remifentanil HCl (Ultiva) 2 mg STK-MED ONCE IV ; Start 07/07/20 at 08:57; Stop 07/07/20 at 08:58; Status DC Propofol (Diprivan) 200 mg STK-MED ONCE IV ; Start 07/07/20 at 09:00; Stop 07/07/20 at 09:01; Status DC Dexamethasone Sodium Phosphate (Decadron) 20 mg STK-MED ONCE .ROUTE ; Start 07/07/20 at 09:00; Stop 07/07/20 at 09:01; Status DC Lidocaine HCl (Lidocaine Pf 2% Vial) 5 ml STK-MED ONCE .ROUTE ; Start 07/07/20 at 09:00; Stop 07/07/20 at 09:01; Status DC Ondansetron HCl (Zofran) 4 mg STK-MED ONCE .ROUTE ; Start 07/07/20 at 09:00; Stop 07/07/20 at 09:01; Status DC Phenylephrine HCl (Mamadou-Synephrine Inj) 10 mg STK-MED ONCE .ROUTE ; Start 07/07/20 at 09:01; Stop 07/07/20 at 09:01; Status DC Desflurane (Suprane) 90 ml STK-MED ONCE IH ; Start 07/07/20 at 09:04; Stop 07/07/20 at 09:04; Status DC Mannitol (Mannitol) 12.5 g STK-MED ONCE .ROUTE ; Start 07/07/20 at 09:17; Stop 07/07/20 at 09:17; Status DC Lidocaine HCl (Xylocaine 1% Pf 30ml Vial) 30 ml 1X ONCE INJ Last administered on 07/07/20at 11:28; Start 07/07/20 at 10:00; Stop 07/07/20 at 10:01; Status DC Epinephrine HCl (Adrenalin) 0.15 mg 1X ONCE INJ ; Start 07/07/20 at 10:00; Stop 07/07/20 at 10:01; Status DC Remifentanil HCl (Ultiva) 1 mg STK-MED ONCE IV ; Start 07/07/20 at 12:01; Stop 07/07/20 at 12:02; Status DC Glycopyrrolate (Robinul) 1 mg STK-MED ONCE .ROUTE ; Start 07/07/20 at 12:02; Stop 07/07/20 at 12:03; Status DC Neostigmine Edison (Neostigmine Methylsulfate) 5 mg STK-MED ONCE .ROUTE ; Start 07/07/20 at 12:03; Stop 07/07/20 at 12:03; Status DC Fentanyl Citrate (Fentanyl 2ml Vial) 100 mcg STK-MED ONCE .ROUTE ; Start 07/07/20 at 12:45; Stop 07/07/20 at 12:45; Status DC Nicardipine HCl (Cardene) 25 mg STK-MED ONCE IV ; Start 07/07/20 at 12:47; Stop 07/07/20 at 12:48; Status DC Lidocaine HCl (Lidocaine Pf 2% Vial) 5 ml STK-MED ONCE .ROUTE ; Start 07/07/20 at 13:06; Stop 07/07/20 at 13:07; Status DC Propofol 50 ml @ As Directed STK-MED ONCE IV ; Start 07/07/20 at 13:30; Stop 07/07/20 at 13:30; Status DC Lorazepam (Ativan Inj) 2 mg PRN Q4HRS PRN IVP ANXIETY / AGITATION Last administered on 07/14/20at 18:26; Start 07/07/20 at 14:15; Stop 07/15/20 at 11:51; Status DC Dexmedetomidine HCl 400 mcg/ Sodium Chloride 100 ml @ 0 mls/hr CONT PRN IV PER PROTOCOL Last administered on 07/10/20at 03:07; Start 07/07/20 at 14:45; Stop 07/12/20 at 10:11; Status DC Sodium Chloride 500 ml @ 500 mls/hr 1X PRN PRN IV SEE COMMENTS; Start 07/07/20 at 14:45 Atropine Sulfate (ATROPINE 0.5mg SYRINGE) 0.5 mg PRN Q5MIN PRN IV SEE COMMENTS; Start 07/07/20 at 14:45; Stop 07/12/20 at 10:11; Status DC Dextrose/Sodium Chloride 2,500 ml @ 50 mls/hr Q24H IV ; Start 07/07/20 at 15:00; Stop 07/09/20 at 17:00; Status UNV Dextrose/Sodium Chloride 0 ml @ 50 mls/hr Q0M IV ; Start 07/09/20 at 17:00; Stop 07/09/20 at 17:00; Status UNV Dextrose 1,000 ml @ 50 mls/hr Q20H IV Last administered on 07/07/20at 15:11; Start 07/07/20 at 16:00; Stop 07/07/20 at 17:39; Status DC Sodium Chloride 1,000 ml @ 50 mls/hr Q20H IV Last administered on 07/15/20at 18:28; Start 07/07/20 at 18:00 Insulin Glargine (Lantus Syringe) 10 unit QHS SQ Last administered on 07/09/20at 21:26; Start 07/09/20 at 21:00; Stop 07/10/20 at 14:17; Status DC Methylprednisolone Sodium Succinate 1000 mg/Sodium Chloride 100 ml @ 100 mls/hr DAILY IV Last administered on 07/13/20at 09:17; Start 07/09/20 at 16:00; Stop 07/13/20 at 22:00; Status DC Olanzapine (ZyPREXA IM) 10 mg 1X ONCE IM Last administered on 07/10/20at 09:09; Start 07/10/20 at 08:45; Stop 07/10/20 at 09:03; Status DC Insulin Glargine (Lantus Syringe) 15 unit QHS SQ Last administered on 07/15/20at 20:54; Start 07/10/20 at 21:00 Olanzapine (ZyPREXA IM) 10 mg Q6H IM Last administered on 07/12/20at 08:58; Start 07/10/20 at 15:30; Stop 07/12/20 at 10:22; Status DC Ziprasidone (Geodon Im) 20 mg 1X ONCE IM ; Start 07/10/20 at 15:30; Stop 07/10/20 at 15:33; Status DC Metoprolol Tartrate (Lopressor Vial) 5 mg Q6HRS IVP Last administered on 07/11/20at 18:03; Start 07/10/20 at 18:00; Stop 07/12/20 at 06:19; Status DC Amino Acids/ Glycerin/ Electrolytes 1,000 ml @ 80 mls/hr [id number] IV Last administered on 07/16/20at 03:07; Start 07/11/20 at 12:30 Olanzapine (ZyPREXA IM) 10 mg Q12HR IM Last administered on 07/16/20at 09:18; Start 07/12/20 at 21:00 Labetalol HCl (Normodyne Iv Push) 10 mg PRN Q2HR PRN IVP HYPERTENSION-1ST CHOICE; Start 07/12/20 at 19:30 Gadoterate Meglumine (Clariscan) 10 ml 1X ONCE IVP Last administered on 07/14/20at 13:44; Start 07/14/20 at 13:30; Stop 07/14/20 at 13:33; Status DC Gadoterate Meglumine (Clariscan) 8 ml 1X ONCE IVP Last administered on 07/14/20at 13:44; Start 07/14/20 at 13:30; Stop 07/14/20 at 13:33; Status DC Methylprednisolone Sodium Succinate 250 mg/Sodium Chloride 100 ml @ 100 mls/hr DAILY IV Last administered on 07/16/20at 09:18; Start 07/14/20 at 16:00 Active Scripts Active Reported Aspirin 81 Mg Tab.chew 81 Mg PO DAILY Metformin Hcl 500 Mg Tablet 500 Mg PO BIDWMEALS Atenolol 50 Mg Tablet 50 Mg PO DAILY Vitals/I & O Vital Sign - Last 24 Hours 07/15/20 07/15/20 07/15/20 07/15/20 15:00 19:18 19:30 23:09 Temp 98.7 99.1 98.5 98.7 99.1 98.5 Pulse 92 102 97 Resp B/P (MAP) 147/85 (105) 157/88 (111) 151/81 (104) Pulse Ox 94 95 95 O2 Delivery Room Air Room Air Room Air Room Air 07/16/20 07/16/20 07/16/20 03:04 07:00 08:00 Temp 98.4 98.3 98.4 98.3 Pulse 83 95 Resp B/P (MAP) 125/80 (95) 140/89 (106) Pulse Ox 95 99 O2 Delivery Room Air Room Air Room Air Intake and Output 07/15/20 07/15/20 07/16/20 15:00 23:00 07:00 Intake Total 100 ml 1150 ml Output Total 1125 ml 1025 ml 1750 ml Balance -1025 ml 125 ml -1750 ml Justicifation of Admission Dx: Justifications for Admission: Justification of Admission Dx: Comment: (Higher level of care requested by [place] for neurology evaluation) KANDY RIOS MD Jul 16, 2020 11:08
[2020-07-16 15:00] VITALS: BP 121/74
[2020-07-16 19:00] VITALS: BP 138/84
[2020-07-16] MEDS: ATORVASTATIN CALCIUM 40 MG TABLET. PO SCH (20:50)
[2020-07-16] MEDS: INSULIN GLARGINE SYRINGE. SQ SCH (21:25)
[2020-07-16 22:00] VITALS: BP 119/65
[2020-07-17 02:04] VITALS: BP 128/66
[2020-07-17] MEDS: AMINO AC 3%/ELECTROLYTE/GLYCER 1,000 ML IV SCH ×2 (06:20→13:28)
[2020-07-17 07:00] VITALS: BP 143/72
[2020-07-17] MEDS: INSULIN LISPRO 300 UNITS/3 ML VIAL. SQ SCH ×3 (08:00→17:15)
[2020-07-17] MEDS: ASPIRIN ENTERIC COATED 325 MG TABLET.DR. PO SCH (08:00)
[2020-07-17] MEDS: OLANZapine IM 10 MG VIAL. IM SCH (08:37)
[2020-07-17] MEDS: METOPROLOL TART IMMED RELEASE 25 MG TABLET. PO SCH ×2 (09:00→19:47)
[2020-07-17] MEDS: FAMOTIDINE 20 MG TABLET. PO SCH ×2 (09:00→19:47)
[2020-07-17] MEDS: SENNOSIDES/DOCUSATE 8.6/50MG TABLET. PO SCH ×2 (09:00→19:48)
[2020-07-17] MEDS: methylPREDNISolone SOD SUCC 250 MG in IV NORMAL SALINE 100ML 100 ML IV SCH (09:53)
[2020-07-17 11:00] VITALS: BP 131/82
--- NOTE | 2020-07-17 11:16 | SNU/HH DC ---
DISCHARGE ORDERS DISCHARGE INFORMATION: CONDITION ON DISCHARGE: Stable CODE STATUS: Code Status: Full JAIL: SNF STAY <30 DAYS: No HOSPICE: HOSPICE: No HOSPICE EVAL & TREAT: No LTAC: ADMIT TO LTAC: Yes POST DISCHARGE ORDERS: DIET AFTER DISCHARGE: Cardiac TREATMENT/EQUIPMENT ORDERS: Physical Therapy For: Evalulation/Treatment Occupational Therapy For: Evaluation/Treatment Speech Language Pathology For: Evaluation/Treatment DISCHARGE MEDICATIONS: Home Meds Reported Medications Aspirin (ASPIRIN) 81 Mg Tab.chew, 81 MG PO DAILY for heart, TAB.CHEW 07/01/18 Metformin Hcl (METFORMIN HCL) 500 Mg Tablet, 500 MG PO BIDWMEALS for ANTI- DIABETIC, TAB 0 Refills 07/01/18 Atenolol (ATENOLOL) 50 Mg Tablet, 50 MG PO DAILY for htn, TAB 07/01/18 JANELLE STYLES III, DO Jul 17, 2020 11:16
--- NOTE | 2020-07-17 11:16 | SNU/HH DC ---
DISCHARGE ORDERS DISCHARGE INFORMATION: CONDITION ON DISCHARGE: Stable CODE STATUS: Code Status: Full RETIREMENT: SNF STAY <30 DAYS: Yes HOSPICE: HOSPICE: No HOSPICE EVAL & TREAT: No LTAC: ADMIT TO LTAC: No POST DISCHARGE ORDERS: DIET AFTER DISCHARGE: Cardiac TREATMENT/EQUIPMENT ORDERS: Physical Therapy For: Evalulation/Treatment Occupational Therapy For: Evaluation/Treatment Speech Language Pathology For: Evaluation/Treatment DISCHARGE MEDICATIONS: Home Meds Reported Medications Aspirin (ASPIRIN) 81 Mg Tab.chew, 81 MG PO DAILY for heart, TAB.CHEW 07/01/18 Metformin Hcl (METFORMIN HCL) 500 Mg Tablet, 500 MG PO BIDWMEALS for ANTI- DIABETIC, TAB 0 Refills 07/01/18 Atenolol (ATENOLOL) 50 Mg Tablet, 50 MG PO DAILY for htn, TAB 07/01/18 JANELLE STYLES III, DO Jul 17, 2020 11:16
--- NOTE | 2020-07-17 11:20 | NUR ---
became agitated when vital signs attempted. resumes sleep.
--- NOTE | 2020-07-17 11:23 | PDOC ---
[employer] PROGRESS NOTE Date of Service DOS: DATE: 07/17/20 TIME: 11:17 Chief Complaint Chief Complaint Acute toxic encephalopathy Multifocal bilateral peripherally enhancing lesions. Status post craniotomy and brain biopsy History of diabetes mellitus type 2 - A1c 6.1 Hearing impaired History of essential hypertension History of Present Illness History of Present Illness Mr Rodriguez is a 70 year old male [employer] with past medical history of diabetes who was in his usual state of health until approximately 5 days prior to his admission when he started complaining of mental fog and confusion. Patient also complained of headache according to his daughter who is at bedside helping with the history taking. He also had some hearing loss worse than usual over his right ear and did not improve after cerumen disimpaction. Patient denies any headaches no loss of vision he recently had his prescription change and apparently his herpetologist told him that they need to do some changes since its "too strong in "of a prescription. Patient denies dysphagia odynophagia no slurred speech no hemiparesis no hemiplegia, no chest pain palpitations or shortness of breath, no neck stiffness noticed no fever or chills no meningismus no abdominal pain nausea vomiting or diarrhea. The patient has had proper oral intake over the last couple days. On 06/30/20 he experienced sudden onset dizziness, worsening fatigue and hearing loss. He was taken to the emergency room at [facility] where he received a CT head. This showed multiple brain lesions. He has been transferred to [facility] for further evaluation. He has received a CT of the chest, abdomen and pelvis which has not shown any additional signs of malignancy. He received brain MRI and MRA of the head and neck which showed multifocal brain lesions with reported differential diagnosis of malignancy, demyelinating disorder possibly infection. Consults: Neurology, Heme/Onc and neurosurgery 07/07: To brain biopsy. 07/11: trying to limit sedation, changed to zyprexa today, Neuro following, cont high dose steroids. Transferred from ICU. 07/12: Still very confused. He is asking to contact [facility]. No shortness of breath or chest pain. Requiring mittens. 07/13: Still very confused talking to people not the room. No pain complaints. Still with one-to-one sitter and requiring mittens. 07/14: Still hallucinating, only able to carry minimal conversation. No complaints. Still requiring 1-1 sitter, mittens. MRI with Multiple areas of abnormally increased signal intensity are seen throughout the brain consistent with the patient's history of a demyelinating disorder. Three of these lesions have increased in size since the previous study as discussed above. Four of these lesions appear to have decreased in size since the previous study. No new lesion is seen. 07/15: More drowsy today. Did receive 2 mg of Ativan overnight. Still requiring one-to-one sitter and mittens. Son has indicated he wants his father to come home with him. However his twin sister would like family friends more involved. Awake today. Did not sleep well last night. Still requiring 1-1, mittens. Cannot follow any commands or swallow. After lengthy discussion with his son and daughter they both would wish for a second opinion and Jean III has requested [facility]. 07/17/2020: -Patient seen and examined. Seems semi coherent in room today -Pravin lining caser. Pravin RN. -Chart reviewed. Vitals/I&O Vitals/I&O: Vital Signs Date Time Temp Pulse Resp B/P (MAP) Pulse Ox O2 Delivery O2 Flow Rate FiO2 07/17/20 11:00 98.5 98 18 131/82 (98) 95 Room Air 98.5 I & O 07/16/20 07/16/20 07/17/20 14:59 22:59 06:59 Intake Total 0 ml 0 ml Output Total 1745 ml 750 ml 1650 ml Balance -1745 ml -750 ml -1650 ml Physical Exam General: Other (mildly agitated) Heart: Regular rate, Normal S1 Abdomen: Soft, Other (No splenomegaly) Extremities: No clubbing, No edema Skin: No rashes, Other (dressing C,D,I) Labs Labs: Laboratory Tests Test 07/16/20 11:18 07/16/20 16:21 07/16/20 20:47 07/17/20 06:56 Glucose (Fingerstick) 114 mg/dL (70-99) 204 mg/dL (70-99) 166 mg/dL (70-99) 135 mg/dL (70-99) Review of Systems Review of Systems: Hero CP. Denies SOB. Assessment and Plan Assessmemt and Plan Acute toxic encephalopathy Multifocal bilateral peripherally enhancing lesions. Status post craniotomy and brain biopsy History of diabetes mellitus type 2 - A1c 6.1 Hearing impaired History of essential hypertension 07/17/2020: Plan 1. Clear liquid diet 2. Speech therapy to evaluate pt to assess swallowing 3. PT/OT 4. Labs ordered 5. Full code 6. DVT prophylaxis 7. Continue solumedrol 8. D/c disposition pending, awaiting decision on LTAC vs SNU Comment Review of Relevant I have reviewed the following items bashir (where applicable) has been applied. Justifications for Admission TIA Indications Persistent neurologic signs?: Yes Justification for admission: There is persistence of patient's focal neurologic signs or symptoms or there is concern for recurrence of patient's neurological signs and symptoms. Other Justification JANELLE STYLES III DO Jul 17, 2020 11:23
--- NOTE | 2020-07-17 11:48 | PDOC ---
PROGRESS NOTES Date of Service DATE: 07/17/20 TIME: 11:44 Assessment Multiple brain masses, demyelinating disease, no malignancy on final pathology. 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 Lab work including B12, protein electrophoresis, TSH, all negative for other causes of demyelination. Antinuclear antibodies pending MRI repeat on 07/14 shows three lesions increased in size, four decreased in size, no new, enhancement areas have mostly resolved Encephalopathic, related to sedatives, steroids, and the brain demyelination. He is better Memory loss preceding admission Diabetes, hypertension Plan Change zyprexa to every 12 hours as needed Solu-Medrol, taper to 100 mg daily for 3 days, then 60 mg daily for 3 days, 50 mg daily for 3 days, 40 mg daily for 3 days, 30 mg daily for 3 days, 20 mg daily for 3 days, 10 mg every other day for 3 days, then stop. If able to take or ally, will use prednisone No need for prophylactic anticonvulsants Ready to go to long-term rehabilitation in the next 2 or 3 days. I discussed with patient's daughter. Subjective He denies pain Objective Vital Signs Date Time Temp Pulse Resp B/P (MAP) Pulse Ox O2 Delivery O2 Flow Rate FiO2 07/17/20 11:00 98.5 98 18 131/82 (98) 95 Room Air 98.5 Intake and Output 07/17/20 07:00 Intake Total 0 ml Output Total 4145 ml Balance -4145 ml Intake Oral 0 ml Output Urine Total 4145 ml PHYSICAL EXAM Awake, tells me his name, hearing is much better than last week, follows a few commands PERRL. EOMI. CN: Bilateral hearing loss, otherwise no focal findings. Muscle tone: normal. Muscle strength: 5/5 DTR: 2+ Plantar reflex: Flexor Gait: not examined in bed. Sensory exam: no abnormal findings. No cerebellar signs elicited Review of Relevant I have reviewed the following items bashir (where applicable) has been applied. Labs Laboratory Tests Test 07/15/20 12:16 07/15/20 17:16 07/15/20 20:41 07/16/20 07:02 Glucose (Fingerstick) 144 mg/dL (70-99) 203 mg/dL (70-99) 166 mg/dL (70-99) 109 mg/dL (70-99) Test 07/16/20 11:18 07/16/20 16:21 07/16/20 20:47 07/17/20 06:56 Glucose (Fingerstick) 114 mg/dL (70-99) 204 mg/dL (70-99) 166 mg/dL (70-99) 135 mg/dL (70-99) Laboratory Tests Test 07/16/20 16:21 07/16/20 20:47 07/17/20 06:56 Glucose (Fingerstick) 204 mg/dL (70-99) 166 mg/dL (70-99) 135 mg/dL (70-99) Medications Current Medications Ringer's Solution 1,000 ml @ 100 mls/hr Q10H IV Last administered on 06/30/20at 23:44; Start 06/30/20 at 22:30; Stop 07/01/20 at 08:29; Status DC Ondansetron HCl (Zofran) 4 mg PRN Q6HRS PRN IVP NAUSEA/VOMITING; Start 06/30/20 at 22:30 Calcium Carbonate/ Glycine (Tums) 500 mg PRN Q3HRS PRN PO UPSET STOMACH; Start 06/30/20 at 22:15 Acetaminophen (Tylenol) 650 mg PRN Q6HRS PRN PO Headaches, Temp > 101.5F; Start 06/30/20 at 22:15 Senna/Docusate Sodium (Senna Plus) 1 tab BID PO Last administered on 07/06/20at 08:45; Start 06/30/20 at 22:30 Bisacodyl (Dulcolax Supp) 10 mg PRN DAILY PRN UT CONSTIPATION Last administered on 07/15/20at 12:49; Start 06/30/20 at 22:15 Atorvastatin Calcium (Lipitor) 80 mg QHS PO Last administered on 07/05/20at 22:16; Start 06/30/20 at 22:30 Famotidine (Pepcid) 20 mg BID PO Last administered on 07/06/20at 08:45; Start 06/30/20 at 22:30 Aspirin (Ecotrin) 325 mg DAILYWBKFT PO Last administered on 07/06/20at 08:45; Start 07/01/20 at 08:00 Aspirin (Aspirin Rectal Supp) 300 mg PRN DAILY PRN UT IF UNABLE TO TAKE PO Last administered on 07/15/20at 12:48; Start 06/30/20 at 22:15 Metoprolol Tartrate (Lopressor) 25 mg BID PO Last administered on 07/09/20at 21:32; Start 06/30/20 at 22:30 Hydralazine HCl (Apresoline Inj) 10 mg PRN Q4HRS PRN IVP ELEVATED BP, SEE COMMENTS; Start 06/30/20 at 22:15 Insulin Human Lispro (HumaLOG) 0-7 UNITS TIDWMEALHC SQ Last administered on 07/16/20at 16:53; Start 07/01/20 at 08:00 Dextrose (Dextrose 50%-Water Syringe) 12.5 gm PRN Q15MIN PRN IV SEE COMMENTS; Start 06/30/20 at 22:45 Gadoterate Meglumine (Clariscan) 10 ml 1X ONCE IVP ; Start 07/03/20 at 11:45; Stop 07/03/20 at 11:46; Status DC Gadoterate Meglumine (Clariscan) 8 ml 1X ONCE IVP ; Start 07/03/20 at 11:45; Stop 07/03/20 at 11:46; Status DC Gadoterate Meglumine (Clariscan) 10 ml 1X ONCE IVP Last administered on 07/03/20at 11:56; Start 07/03/20 at 11:45; Stop 07/03/20 at 11:48; Status DC Gadoterate Meglumine (Clariscan) 8 ml 1X ONCE IVP Last administered on 07/03/20at 11:56; Start 07/03/20 at 11:45; Stop 07/03/20 at 11:48; Status DC Iohexol (Omnipaque 300 Mg/ml) 75 ml 1X ONCE IV Last administered on 07/03/20at 15:51; Start 07/03/20 at 15:45; Stop 07/03/20 at 15:46; Status DC Iohexol (Omnipaque 240 Mg/ml) 50 ml 1X ONCE PO Last administered on 07/03/20at 15:51; Start 07/03/20 at 15:45; Stop 07/03/20 at 15:46; Status DC Info (CONTRAST GIVEN -- Rx MONITORING) 1 each PRN DAILY PRN MC SEE COMMENTS; Start 07/03/20 at 15:45; Stop 07/05/20 at 15:44; Status DC Bacitracin 97704 unit/Sodium Chloride 1,000 ml @ 1,000 mls/hr 1X ONCE IRR Last administered on 07/07/20at 11:28; Start 07/07/20 at 06:00; Stop 07/07/20 at 06:59; Status DC Cefazolin Sodium/ Dextrose 50 ml @ 100 mls/hr 1X PREOP PRN IV PRIOR TO PROCEDURE Last administered on 07/07/20at 10:30; Start 07/07/20 at 06:00; Stop 07/07/20 at 18:00; Status DC Ondansetron HCl (Zofran) 4 mg PRN Q6HRS PRN IV NAUSEA/VOMITING; Start 07/07/20 at 07:00; Stop 07/07/20 at 19:00; Status DC Fentanyl Citrate (Fentanyl 2ml Vial) 25 mcg PRN Q5MIN PRN IV MILD PAIN 1-3; St art 07/07/20 at 07:00; Stop 07/07/20 at 19:00; Status DC Fentanyl Citrate (Fentanyl 2ml Vial) 50 mcg PRN Q5MIN PRN IV MODERATE TO SEVERE PAIN; Start 07/07/20 at 07:00; Stop 07/07/20 at 19:00; Status DC Morphine Sulfate (Morphine Sulfate) 1 mg PRN Q10MIN PRN IV SEVERE PAIN 7-10; Start 07/07/20 at 07:00; Stop 07/07/20 at 19:00; Status DC Ringer's Solution 1,000 ml @ 30 mls/hr Q24H IV Last administered on 07/07/20at 09:45; Start 07/07/20 at 07:00; Stop 07/07/20 at 18:59; Status DC Lidocaine HCl (Xylocaine-Mpf 1% 2ml Vial) 2 ml PRN 1X PRN ID PRIOR TO IV START; Start 07/07/20 at 07:00; Stop 07/07/20 at 19:00; Status DC Hydromorphone HCl (Dilaudid) 0.5 mg PRN Q10MIN PRN IV SEV PAIN, Second choice; Start 07/07/20 at 07:00; Stop 07/07/20 at 19:00; Status DC Prochlorperazine Edisylate (Compazine) 5 mg PACU PRN PRN IV NAUSEA, MRX1; Start 07/07/20 at 07:00; Stop 07/07/20 at 19:00; Status DC Gelatin (Gelfoam Size 100) 1 each STK-MED ONCE .ROUTE Last administered on 07/07/20at 11:28; Start 07/07/20 at 07:37; Stop 07/07/20 at 07:37; Status DC Povidone Iodine (Betadine Oint) 28 nazario STK-MED ONCE TP ; Start 07/07/20 at 07:37; Stop 07/07/20 at 07:37; Status DC Lidocaine/ Epinephrine (LIDOCAINE 2%-EPI 1:100,000 multi-dose) 20 ml STK-MED ONCE .ROUTE ; Start 07/07/20 at 07:37; Stop 07/07/20 at 07:37; Status DC Cellulose (Surgicel Hemostat 4x8) 1 each STK-MED ONCE .ROUTE ; Start 07/07/20 at 07:37; Stop 07/07/20 at 07:37; Status DC Thrombin 20,000 unit STK-MED ONCE TP Last administered on 07/07/20at 11:28; Start 07/07/20 at 07:37; Stop 07/07/20 at 07:37; Status DC Gadoterate Meglumine (Clariscan) 10 ml 1X ONCE IVP Last administered on 07/07at 08:52; Start 07/07/20 at 08:30; Stop 07/07/20 at 08:31; Status DC Gadoterate Meglumine (Clariscan) 8 ml 1X ONCE IVP Last administered on 07/07/20at 08:52; Start 07/07/20 at 08:30; Stop 07/07/20 at 08:31; Status DC Dexamethasone Sodium Phosphate (Decadron) 4 mg Q6H IVP Last administered on 07/09/20at 12:08; Start 07/08/20 at 06:00; Stop 07/09/20 at 15:54; Status DC Rocuronium [place] (Zemuron) 50 mg STK-MED ONCE .ROUTE ; Start 07/07/20 at 08:57; Stop 07/07/20 at 08:57; Status DC Remifentanil HCl (Ultiva) 2 mg STK-MED ONCE IV ; Start 07/07/20 at 08:57; Stop 07/07/20 at 08:58; Status DC Propofol (Diprivan) 200 mg STK-MED ONCE IV ; Start 07/07/20 at 09:00; Stop 07/07/20 at 09:01; Status DC Dexamethasone Sodium Phosphate (Decadron) 20 mg STK-MED ONCE .ROUTE ; Start 07/07/20 at 09:00; Stop 07/07/20 at 09:01; Status DC Lidocaine HCl (Lidocaine Pf 2% Vial) 5 ml STK-MED ONCE .ROUTE ; Start 07/07/20 at 09:00; Stop 07/07/20 at 09:01; Status DC Ondansetron HCl (Zofran) 4 mg STK-MED ONCE .ROUTE ; Start 07/07/20 at 09:00; Stop 07/07/20 at 09:01; Status DC Phenylephrine HCl (Mamadou-Synephrine Inj) 10 mg STK-MED ONCE .ROUTE ; Start 07/07 at 09:01; Stop 07/07/20 at 09:01; Status DC Desflurane (Suprane) 90 ml STK-MED ONCE IH ; Start 07/07/20 at 09:04; Stop 06/23 11/10 at 09:04; Status DC Mannitol (Mannitol) 12.5 g STK-MED ONCE .ROUTE ; Start 07/07/20 at 09:17; Stop 07/07/20 at 09:17; Status DC Lidocaine HCl (Xylocaine 1% Pf 30ml Vial) 30 ml 1X ONCE INJ Last administered on 07/07/20at 11:28; Start 07/07/20 at 10:00; Stop 07/07/20 at 10:01; Status DC Epinephrine HCl (Adrenalin) 0.15 mg 1X ONCE INJ ; Start 07/07/20 at 10:00; Stop 07/07/20 at 10:01; Status DC Remifentanil HCl (Ultiva) 1 mg STK-MED ONCE IV ; Start 07/07/20 at 12:01; Stop 07/07/20 at 12:02; Status DC Glycopyrrolate (Robinul) 1 mg STK-MED ONCE .ROUTE ; Start 07/07/20 at 12:02; Stop 07/07/20 at 12:03; Status DC Neostigmine [place] (Neostigmine Methylsulfate) 5 mg STK-MED ONCE .ROUTE ; Start 07/07/20 at 12:03; Stop 07/07/20 at 12:03; Status DC Fentanyl Citrate (Fentanyl 2ml Vial) 100 mcg STK-MED ONCE .ROUTE ; Start 07/07/20 at 12:45; Stop 07/07/20 at 12:45; Status DC Nicardipine HCl (Cardene) 25 mg STK-MED ONCE IV ; Start 07/07/20 at 12:47; Stop 07/07/20 at 12:48; Status DC Lidocaine HCl (Lidocaine Pf 2% Vial) 5 ml STK-MED ONCE .ROUTE ; Start 07/07/20 at 13:06; Stop 07/07/20 at 13:07; Status DC Propofol 50 ml @ As Directed STK-MED ONCE IV ; Start 07/07/20 at 13:30; Stop 07/07/20 at 13:30; Status DC Lorazepam (Ativan Inj) 2 mg PRN Q4HRS PRN IVP ANXIETY / AGITATION Last administered on 07/14/20at 18:26; Start 07/07/20 at 14:15; Stop 07/15/20 at 11:51; Status DC Dexmedetomidine HCl 400 mcg/ Sodium Chloride 100 ml @ 0 mls/hr CONT PRN IV PER PROTOCOL Last administered on 07/10/20at 03:07; Start 07/07/20 at 14:45; Stop 07/12/20 at 10:11; Status DC Sodium Chloride 500 ml @ 500 mls/hr 1X PRN PRN IV SEE COMMENTS; Start 07/07/20 at 14:45 Atropine Sulfate (ATROPINE 0.5mg SYRINGE) 0.5 mg PRN Q5MIN PRN IV SEE COMMENTS; Start 07/07/20 at 14:45; Stop 07/12/20 at 10:11; Status DC Dextrose/Sodium Chloride 2,500 ml @ 50 mls/hr Q24H IV ; Start 07/07/20 at 15:00; Stop 07/09/20 at 17:00; Status UNV Dextrose/Sodium Chloride 0 ml @ 50 mls/hr Q0M IV ; Start 07/09/20 at 17:00; Stop 07/09/20 at 17:00; Status UNV Dextrose 1,000 ml @ 50 mls/hr Q20H IV Last administered on 07/07/20at 15:11; Start 07/07/20 at 16:00; Stop 07/07/20 at 17:39; Status DC Sodium Chloride 1,000 ml @ 50 mls/hr Q20H IV Last administered on 07/15/20at 18:28; Start 07/07/20 at 18:00 Insulin Glargine (Lantus Syringe) 10 unit QHS SQ Last administered on 07/09/20at 21:26; Start 07/09/20 at 21:00; Stop 07/10/20 at 14:17; Status DC Methylprednisolone Sodium Succinate 1000 mg/Sodium Chloride 100 ml @ 100 mls/hr DAILY IV Last administered on 07/13/20at 09:17; Start 07/09/20 at 16:00; Stop 07/13/20 at 22:00; Status DC Olanzapine (ZyPREXA IM) 10 mg 1X ONCE IM Last administered on 07/10/20at 09:09; Start 07/10/20 at 08:45; Stop 07/10/20 at 09:03; Status DC Insulin Glargine (Lantus Syringe) 15 unit QHS SQ Last administered on 07/16/20at 21:25; Start 07/10/20 at 21:00 Olanzapine (ZyPREXA IM) 10 mg Q6H IM Last administered on 07/12/20at 08:58; Start 07/10/20 at 15:30; Stop 07/12/20 at 10:22; Status DC Ziprasidone (Geodon Im) 20 mg 1X ONCE IM ; Start 07/10/20 at 15:30; Stop 07/10/20 at 15:33; Status DC Metoprolol Tartrate (Lopressor Vial) 5 mg Q6HRS IVP Last administered on 1at 18:03; Start 07/10/20 at 18:00; Stop 07/12/20 at 06:19; Status DC Amino Acids/ Glycerin/ Electrolytes 1,000 ml @ 80 mls/hr [id number] IV Last administered on 07/17/20at 06:20; Start 07/11/20 at 12:30 Olanzapine (ZyPREXA IM) 10 mg Q12HR IM Last administered on 07/17/20at 08:37; Start 07/12/20 at 21:00; Stop 07/17/20 at 08:40; Status DC Labetalol HCl (Normodyne Iv Push) 10 mg PRN Q2HR PRN IVP HYPERTENSION; Start 07/12/20 at 19:30 Gadoterate Meglumine (Clariscan) 10 ml 1X ONCE IVP Last administered on at 13:44; Start 07/14/20 at 13:30; Stop 07/14/20 at 13:33; Status DC Gadoterate Meglumine (Clariscan) 8 ml 1X ONCE IVP Last administered on 07/14/20at 13:44; Start 07/14/20 at 13:30; Stop 07/14/20 at 13:33; Status DC Methylprednisolone Sodium Succinate 250 mg/Sodium Chloride 100 ml @ 100 mls/hr DAILY IV Last administered on 07/17/20at 09:53; Start 07/14/20 at 16:00; Stop 07/17/20 at 09:00; Status DC Methylprednisolone Sodium Succinate 100 mg/Sodium Chloride 100 ml @ 100 mls/hr DAILY IV ; Start 07/18/20 at 11:00; Status Cancel Olanzapine (ZyPREXA IM) 10 mg PRN Q12HR PRN IM AGITATION; Start 07/17/20 at 09:00 Methylprednisolone Sodium Succinate (SOLU-Medrol 125MG VIAL) 100 mg DAILY IV ; Start 07/18/20 at 09:00 Active Scripts Active Reported Aspirin 81 Mg Tab.chew 81 Mg PO DAILY Metformin Hcl 500 Mg Tablet 500 Mg PO BIDWMEALS Atenolol 50 Mg Tablet 50 Mg PO DAILY Vitals/I & O Vital Sign - Last 24 Hours 07/16/20 07/16/20 07/16/20 07/16/20 15:00 19:00 19:45 22:00 Temp 98.0 99.4 98.7 98.0 99.4 98.7 Pulse 101 108 65 Resp 14 20 18 B/P (MAP) 121/74 (90) 138/84 (102) 119/65 (83) Pulse Ox 97 95 O2 Delivery Room Air Room Air Room Air Room Air 07/17/20 07/17/20 07/17/20 07/17/20 00:02 02:04 07:00 11:00 Temp 97.8 98.0 98.5 97.8 98.0 98.5 Pulse 59 56 98 Resp 16 16 18 B/P (MAP) 128/66 (86) 143/72 (95) 131/82 (98) Pulse Ox 96 95 O2 Delivery Room Air Room Air Room Air Room Air Intake and Output 07/16/20 07/16/20 07/17/20 15:00 23:00 07:00 Intake Total 0 ml 0 ml Output Total 1745 ml 750 ml 1650 ml Balance -1745 ml -750 ml -1650 ml Images MRI of the Brain without and with Contrast 07/14/2020 Clinical History: Demyelinating disease. Technique: Unenhanced T1-weighted sagittal and axial and FLAIR, T2-weighted, gradient echo and diffusion-weighted axial images of the brain were obtained. After the intravenous administration of 18 cc of Clariscan, enhanced T1-weighted axial, sagittal and coronal images of the brain were obtained. Findings: Comparison study is dated 07/03/2020. The patient is post right posterior temporal craniotomy of a demyelinating lesion within the posterior right temporal lobe. A small amount of hemorrhage is seen within the biopsy site. There is no significant surrounding edema or associated mass effect. There is generalized parenchymal atrophy. Multiple areas of abnormally increased signal intensity are seen on the FLAIR and T2-weighted images involving predominantly the subcortical white matter of both cerebral hemispheres along with the splenium of the corpus callosum and the left superior cerebellar peduncle consistent with the patient's history of a demyelinating disorder. These lesions measure 1.2 to 6.3 cm in size. The lesion involving the subcortical white matter of the right parietal lobe has increased in size since the previous study. It measures 2.2 cm in greatest diameter. On the previous examination it measured 1.6 cm in size. A lesion within the left parietal lobe has increased in size since the previous study. It measures 2.5 cm in greatest diameter. On the previous study it measured 1.7 cm in size. A lesion is seen within the left lateral occipital lobe white matter which measures 1.1 cm in size. This has increased since the previous study where it measured 0.5 cm in s ize. A lesion within the left frontal lobe has decreased in size since the previous study. It measured 2.7 cm previous examination and measures 2.4 cm on today's study. The lesion within the left occipital lobe, medially has decreased in size slightly since the previous study. It measured 3 cm on the previous examination and measures 2.7 cm today's study. The lesion involving the right occipital lobe appears decreased in size slightly since the previous study. It measures 3.7 cm in size. On the previous examination it measured 4.2 cm in size. The lesion involving the left superior cerebellar peduncle appears to have decreased in size slightly since the previous study where it measured 2.2 cm in size. On today's study it measures 1.2 cm. No new lesion is seen. The areas of abnormal contrast enhancement seen on the previous examination have largely resolved. No new area of abnormal contrast enhancement is seen. There is no MRI evidence of acute ischemia/infarction. No extra-axial fluid collection is seen. Mild mucosal thickening in seen scattered throughout the paranasal sinuses. A 1.4 cm mucous retention cyst is seen involving the right maxillary sinus. Mild to moderate mucosal thickening is seen involving the mastoid air cells bilaterally. Normal flow voids are seen within the major vascular structures surrounding the brain parenchyma. IMPRESSION: 1. . Post right posterior temporal craniotomy with biopsy of a demyelinating lesion within the posterior right temporal lobe. A small amount of hemorrhage is seen within the biopsy site. There is no significant surrounding edema or associated mass effect. 2. Multiple areas of abnormally increased signal intensity are seen throughout the brain consistent with the patient's history of a demyelinating disorder. Three of these lesions have increased in size since the previous study as discussed above. Four of these lesions appear to have decreased in size since the previous study. No new lesion is seen. The areas of abnormal contrast enhancement seen on the previous examination have largely resolved. Justicifation of Admission Dx: Justifications for Admission: Justification of Admission Dx: Comment: (Higher level of care requested by [facility] for neurology evaluation) MAURY SIMMS MD Jul 17, 2020 11:48
--- NOTE | 2020-07-17 12:50 | DS ---
DATE OF DISCHARGE: 07/17/2020 ADMISSION DIAGNOSIS: Mental status change. DISCHARGE DIAGNOSES: 1. Multiple brain masses suspicious for demyelinating disease, status post brain biopsy. 2. Resolving encephalopathy. 3. Diabetes. 4. Hypertension. CONSULTATIONS: Neurology and Neurosurgery. Dr. Rossi. PROCEDURE: Brain biopsy. HOSPITAL COURSE: The patient is a pleasant middle-aged male who basically presented with mental status change. He was admitted. The above consults were obtained. He did go for a brain biopsy. Per Dr. Uriostegui's notes, he feels like this is most likely a demyelinating disease, but no malignancy. 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 Basically over the past couple of weeks, the patient has done better. Today, I saw and examined him. He is up in the bed. He is wanting to eat. His dressing on the right side of his skull is clean, dry and intact. He is working with physical therapy and overall looks pretty good. I discussed the case with the case management social worker and the nurses and physical therapy and occupational therapy. We plan to discharge him to long[facility] acute care or [facility], whichever he qualifies for. DISPOSITION: Long-term acute care. ACTIVITY: As tolerated. DIET: Low sodium. MEDICATIONS: Please see the MRAD. TOTAL TIME: 34 minutes. CRISSL Alex STYLES DO DR: ALEJANDRO/kathy JOB#: [id number] / [id number]
--- NOTE | 2020-07-17 12:50 | NUR ---
ALYSON following. Discussed with RN, pt on room air, NPO. ALYSON faxed clinical updates to [facility]. ALYSON also faxed referral to [facility] to determine if pt is appropriate. Pt's friend, Kathleen advised they want to do a DPOA for healthcare decisions. ALYSON explained the pt will have to be deemed able to make that decision, Kathleen stated pt isn't able to, that is why they need the DPOA. ALYSON explained this would have to be done through a interior design assistant. Discharge orders for LTAC today. ALYSON following up with Ruth Ann at [facility] to ensure pt is still qualifying for LTAC. ALYSON will continue to follow. Addendum: 07/17/20 at 1429 by YAIMA SHIELDS Pt no longer qualifies for LTAC per Ruth Ann at [facility]. Pt remains on 1:1. [facility] received referral, they are reviewing, 1:1 will be a problem for placement. RN notified. ALYSON will continue to follow.
[2020-07-17] MEDS: IV NORMAL SALINE 1000ML BAG 1,000 ML IV SCH ×2 (13:28→18:00)
--- NOTE | 2020-07-17 13:52 | NUR ---
became more confused this afternoon. returned to bed from recliner with assist of 4 people and lift.. bilateral gloves applied to assist with transfer.
--- NOTE | 2020-07-17 13:54 | NUR ---
when speech therapy was here earlier; attempted to give water. it was unsuccessful. continues to fight oral care
[2020-07-17 15:00] VITALS: BP 122/75
[2020-07-17 19:00] VITALS: BP 143/98
[2020-07-17] MEDS: ATORVASTATIN CALCIUM 40 MG TABLET. PO SCH (19:47)
[2020-07-18] VITALS (7 sets, daily range): BP systolic 112–187; BP diastolic 60–106
[2020-07-18] MEDS: OLANZapine IM 10 MG VIAL. IM PRN ×2 (00:44→11:47)
[2020-07-18] MEDS: INSULIN GLARGINE SYRINGE. SQ SCH ×2 (00:55→21:14)
[2020-07-18] MEDS: INSULIN LISPRO 300 UNITS/3 ML VIAL. SQ SCH ×5 (01:07→21:00)
[2020-07-18] MEDS: AMINO AC 3%/ELECTROLYTE/GLYCER 1,000 ML IV SCH ×2 (02:06→17:35)
[2020-07-18] MEDS: HALOPERIDOL LACTATE 5 MG/ML VIAL. IVP PRN ×3 (03:28→18:36)
[2020-07-18] MEDS ORDERED: HALOPERIDOL LACTATE 5 MG/ML VIAL. IVP ONE (03:30)
[2020-07-18] MEDS: ASPIRIN ENTERIC COATED 325 MG TABLET.DR. PO SCH (08:00)
[2020-07-18] MEDS: SENNOSIDES/DOCUSATE 8.6/50MG TABLET. PO SCH ×2 (09:00→19:12)
[2020-07-18] MEDS: FAMOTIDINE 20 MG TABLET. PO SCH ×2 (09:00→19:12)
[2020-07-18] MEDS: METOPROLOL TART IMMED RELEASE 25 MG TABLET. PO SCH ×2 (09:00→19:11)
[2020-07-18 09:35] LABS: BASO % 0 % (0-3); EOS # 0.1 x10^3/uL (0.0-0.7); EOS % 0 % (0-3); HEMATOCRIT 43.7 % (39.0-53.0); HEMOGLOBIN 14.7 g/dL (13.0-17.5); LYMPH # 1.2 x10^3/uL (1.0-4.8); LYMPH % 4 % (24-48); MEAN CORPUSCULAR HEMOGLOBIN 32 pg (25-35); MEAN CORPUSCULAR HGB CONC 34 g/dL (31-37); MEAN CORPUSCULAR VOLUME 95 fL (79-100); MONO # 1.4 x10^3/uL (0.0-1.1); MONO % 4 % (0-9); NEUT % 92 % (31-73); PLATELET COUNT 216 x10^3/uL (140-400); RED BLOOD COUNT 4.63 x10^6/uL (4.30-5.70); RED CELL DISTRIBUTION WIDTH 13.6 % (11.5-14.5); WHITE BLOOD COUNT 32.8 x10^3/uL (4.0-11.0)
[2020-07-18 10:02] LABS: CALCIUM 8.3 mg/dL (8.5-10.1); GFR 74.3
--- NOTE | 2020-07-18 10:19 | NUR ---
ALYSON following. Discussed with RN, pt no longer qualifies for LTAC, still on a 1:1 so placement at rehab is also not currently possible. ALYSON left voicemail for pt's daughter, Tamar to discuss discharge planning. Pt's son Jean Arambula is in class until 1300 and then will come to [facility] today. SW to meet with him when he arrives. ALYSON discussed with [facility] RE 1:1 - they typically require pt to be off 1:1 for 24 hours. Possibility of [facility] doing a bedside eval today. RN notified. ALYSON will continue to follow. Addendum: 07/18/20 at 1117 by YAIMA SHIELDS Pt's daughterTamar contacted ALYSON back. Tamar is reporting there is no way patient can go home, as the house is not set up for the care pt needs. Tamar is agreeable to [facility] bedside assessment. ALYSON discussed with Tamar the possibility of not being able to find rehab placement for pt without having a plan for after. Tamar is not sure what coverage patient has with the PA, but gave permission for ALYSON to reach out to the PA to determine. 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 ALYSON provided [facility] Law contact details to see if they can be of any help. ALYSON will continue to follow. Addendum: 07/18/20 at 1339 by YAIMA GRIMM SW ALYSON contacted the [facility]- per medical records there, pt is ineligible and is not currently enrolled. Pt has never been seen at the [facility] - needs to get scheduled and should contact eligibility. ALYSON notified pt's daughter, Tamar. [facility] is unable to take pt in his current state. Pt has been agitated today, and has been attempting to hit staff. ALYSON will continue to follow.
[2020-07-18] MEDS: methylPREDNISolone SOD SUCC PF 125 MG/2 ML VIAL. IV SCH (10:28)
[2020-07-18 10:34] LABS: % BANDS 2 % (0-9); % EOS 1 % (0-5); % LYMPHS 2 % (24-48); % MONOS 3 % (0-10); % SEGS 92 % (35-66)
[2020-07-18 10:35] LABS: PLT ESTIMATE ADEQUATE (ADEQUATE)
[2020-07-18 10:45] LABS: POTASSIUM 4.2 mmol/L (3.5-5.1)
[2020-07-18] MEDS ORDERED: NORMAL SALINE IV SCH (11:00)
[2020-07-18] MEDS ORDERED: METHYLPREDNISOLONE SOD SUCC IV SCH (11:00)
--- NOTE | 2020-07-18 11:15 | PDOC ---
[employer] PROGRESS NOTE Date of Service DOS: DATE: 07/18/20 TIME: 11:12 Chief Complaint Chief Complaint Acute toxic encephalopathy Multifocal bilateral peripherally enhancing lesions. Status post craniotomy and brain biopsy History of diabetes mellitus type 2 - A1c 6.1 Hearing impaired History of essential hypertension History of Present Illness History of Present Illness Mr Rodriguez is a 70 year old male [employer] with past medical history of diabetes who was in his usual state of health until approximately 5 days prior to his admission when he started complaining of mental fog and confusion. Patient also complained of headache according to his daughter who is at bedside helping with the history taking. He also had some hearing loss worse than usual over his right ear and did not improve after cerumen disimpaction. Patient denies any headaches no loss of vision he recently had his prescription change and apparently his clay molder told him that they need to do some changes since its "too strong in "of a prescription. Patient denies dysphagia odynophagia no slurred speech no hemiparesis no hemiplegia, no chest pain palpitations or shortness of breath, no neck stiffness noticed no fever or chills no meningismus no abdominal pain nausea vomiting or diarrhea. The patient has had proper oral intake over the last couple days. On 06/30/20 he experienced sudden onset dizziness, worsening fatigue and hearing loss. He was taken to the emergency room at [facility] where he received a CT head. This showed multiple brain lesions. He has been transferred to [facility] for further evaluation. He has received a CT of the chest, abdomen and pelvis which has not shown any additional signs of malignancy. He received brain MRI and MRA of the head and neck which showed multifocal brain lesions with reported differential diagnosis of malignancy, demyelinating disorder possibly infection. Consults: Neurology, Heme/Onc and neurosurgery 07/07: To brain biopsy. 07/11: trying to limit sedation, changed to zyprexa today, Neuro following, cont high dose steroids. Transferred from ICU. 07/12: Still very confused. He is asking to contact Tamar. No shortness of breath or chest pain. Requiring mittens. 07/13: Still very confused talking to people not the room. No pain complaints. Still with one-to-one sitter and requiring mittens. 07/14: Still hallucinating, only able to carry minimal conversation. No complaints. Still requiring 1-1 sitter, mittens. MRI with Multiple areas of abnormally increased signal intensity are seen throughout the brain consistent with the patient's history of a demyelinating disorder. Three of these lesions have increased in size since the previous study as discussed above. Four of these lesions appear to have decreased in size since the previous study. No new lesion is seen. 07/15: More drowsy today. Did receive 2 mg of Ativan overnight. Still requiring one-to-one sitter and mittens. Son has indicated he wants his father to come home with him. However his twin sister would like family friends more involved. Awake today. Did not sleep well last night. Still requiring 1-1, mittens. Cannot follow any commands or swallow. After lengthy discussion with his son and daughter they both would wish for a second opinion and Jean DUMONT has requested [facility]. 07/17/2020: -Patient seen and examined. Seems semi coherent in room today -Pravin social work case manager. Pravin RN. -Chart reviewed. 07/18/2020 -Patient seen and examined. Patient is pleasantly confused. In [facility] patient safety. Valentina DIANA. -Pravin social work case manager. Pravin RN. -Chart reviewed. Vitals/I&O Vitals/I&O: Vital Signs Date Time Temp Pulse Resp B/P (MAP) Pulse Ox O2 Delivery O2 Flow Rate FiO2 07/18/20 07:00 97.7 102 18 136/92 (107) 95 Room Air 97.7 I & O 07/17/20 07/17/20 07/18/20 15:00 23:00 07:00 Output Total 675 ml 350 ml 1000 ml Balance -675 ml -350 ml -1000 ml Physical Exam General: Other (mildly agitated) Heart: Regular rate, Normal S1 Abdomen: Soft, Other (No splenomegaly) Extremities: No clubbing, No edema Skin: No rashes, Other (dressing C,D,I) Labs Labs: Laboratory Tests Test 07/17/20 11:56 07/17/20 17:09 07/17/20 18:56 07/18/20 01:02 Glucose (Fingerstick) 148 mg/dL (70-99) 257 mg/dL (70-99) 257 mg/dL (70-99) 215 mg/dL (70-99) Test 07/18/20 07:12 07/18/20 08:40 07/18/20 11:10 Glucose (Fingerstick) 96 mg/dL (70-99) 120 mg/dL (70-99) White Blood Count 32.8 x10^3/uL (4.0-11.0) Red Blood Count 4.63 x10^6/uL (4.30-5.70) Hemoglobin 14.7 g/dL (13.0-17.5) Hematocrit 43.7 % (39.0-53.0) Mean Corpuscular Volume 95 fL (79-100) Mean Corpuscular Hemoglobin 32 pg (25-35) Mean Corpuscular Hemoglobin Concent 34 g/dL (31-37) Red Cell Distribution Width 13.6 % (11.5-14.5) Platelet Count 216 x10^3/uL (140-400) Neutrophils (%) (Auto) 92 % (31-73) Lymphocytes (%) (Auto) 4 % (24-48) Monocytes (%) (Auto) 4 % (0-9) Eosinophils (%) (Auto) 0 % (0-3) Basophils (%) (Auto) 0 % (0-3) Neutrophils # (Auto) 30.0 x10^3/uL (1.8-7.7) Lymphocytes # (Auto) 1.2 x10^3/uL (1.0-4.8) Monocytes # (Auto) 1.4 x10^3/uL (0.0-1.1) Eosinophils # (Auto) 0.1 x10^3/uL (0.0-0.7) Basophils # (Auto) 0.0 x10^3/uL (0.0-0.2) Segmented Neutrophils % 92 % (35-66) Band Neutrophils % 2 % (0-9) Lymphocytes % 2 % (24-48) Monocytes % 3 % (0-10) Eosinophils % 1 % (0-5) Platelet Estimate Adequate (ADEQUATE) Sodium Level 141 mmol/L (136-145) Potassium Level 4.2 mmol/L (3.5-5.1) Chloride Level 106 mmol/L (98-107) Carbon Dioxide Level 28 mmol/L (21-32) Anion Gap 7 (6-14) Blood Urea Nitrogen 32 mg/dL (8-26) Creatinine 1.0 mg/dL (0.7-1.3) Estimated GFR (Cockcroft-Gault) 74.3 Glucose Level 91 mg/dL (70-99) Calcium Level 8.3 mg/dL (8.5-10.1) Review of Systems Review of Systems: Denies pain. Denies fever. Assessment and Plan Assessmemt and Plan Acute toxic encephalopathy Multifocal bilateral peripherally enhancing lesions. Status post craniotomy and brain biopsy History of diabetes mellitus type 2 - A1c 6.1 Hearing impaired History of essential hypertension 07/18/2020 Plan 1. Continue mitts 2. IV ProcalAmine 3. Continue mendieta BSD 4. Full code 5. Trend labs 6. PT/OT 7. DVT prophylaxis 8. Continue solumedrol taper 9. Continue zyprexa 10. Appreciate subspecialist input 11. Discharge planning in progress Comment Review of Relevant I have reviewed the following items bashir (where applicable) has been applied. Medications: Current Medications Medications (Trade) Dose Ordered Sig/Desiree Route PRN Reason Start Time Stop Time Status Last Admin Dose Admin Methylprednisolone Sodium Succinate (SOLU-Medrol 125MG VIAL) 100 mg DAILY IV 07/18/20 09:00 07/18/20 10:28 Haloperidol Lactate (Haldol Inj) 3 mg PRN Q4HRS PRN IVP AGITATION 07/18/20 03:30 07/18/20 03:28 Haloperidol Lactate (Haldol Inj) 1 mg 1X ONCE IVP 07/18/20 03:30 07/18/20 03:31 DC 07/18/20 03:57 Justifications for Admission TIA Indications Persistent neurologic signs?: Yes Justification for admission: There is persistence of patient's focal neurologic signs or symptoms or there is concern for recurrence of patient's neurological signs and symptoms. Other Justification JANELLE STYLES III DO Jul 18, 2020 11:15
--- NOTE | 2020-07-18 11:52 | NUR ---
Patient was more agitated around 11am today. Patient yelling, screaming, trying to take the mint out, and try to clime out off the bed. When the aid tried to get his finger stick, to check his blood sugar, he tried to hit and kick and took 3 of us to hold him down. I had to give him the Haldol to calm him down. However, patient wasn't calm down after the medication, and still climbing out of the bed. Then, he pulled his IV out. Since the Haldol was not helping, I then give him the zyprexa IM prn and took the charged nurse, aid, and this nurse to get him back to bed. Patient was left bed with 1 on 1 and Will continue to monitor patient .
--- NOTE | 2020-07-18 11:55 | PDOC ---
PROGRESS NOTES Date of Service DATE: 07/18/20 TIME: 11:54 Assessment Multiple brain masses, demyelinating disease, no malignancy on final pathology. 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 Lab work including B12, protein electrophoresis, TSH, all negative for other causes of demyelination. Antinuclear antibodies pending MRI repeat on 07/14 shows three lesions increased in size, four decreased in size, no new, enhancement areas have mostly resolved Encephalopathic, related to sedatives, steroids, and the brain demyelination. He is better Memory loss preceding admission Diabetes, hypertension Still not cooperating with speech evaluation Plan Change zyprexa to every 12 hours as needed Solu-Medrol, taper to 100 mg daily for 3 days, then 60 mg daily for 3 days, 50 mg daily for 3 days, 40 mg daily for 3 days, 30 mg daily for 3 days, 20 mg daily for 3 days, 10 mg every other day for 3 days, then stop. If able to take orally, will use prednisone No need for prophylactic anticonvulsants Ready to go to long-term rehabilitation in the next 2 or 3 days. We will need to make a decision regarding nutrition, perhaps we will need to put in a PEG tube Subjective None Objective Vital Signs Date Time Temp Pulse Resp B/P (MAP) Pulse Ox O2 Delivery O2 Flow Rate FiO2 07/18/20 11:00 98.1 91 18 141/76 (97) 95 Room Air 98.1 Intake and Output 07/18/20 07:00 Output Total 2025 ml Balance -2025 ml Output Urine Total 2025 ml PHYSICAL EXAM Awake, tells me his name, hearing is much better than last week, follows a few commands PERRL. EOMI. CN: Bilateral hearing loss, otherwise no focal findings. Muscle tone: normal. Muscle strength: 5/5 DTR: 2+ Plantar reflex: Flexor Gait: not examined in bed. Sensory exam: no abnormal findings. No cerebellar signs elicited Review of Relevant I have reviewed the following items bashir (where applicable) has been applied. Labs Laboratory Tests Test 07/16/20 16:21 07/16/20 20:47 07/17/20 06:56 07/17/20 11:56 Glucose (Fingerstick) 204 mg/dL (70-99) 166 mg/dL (70-99) 135 mg/dL (70-99) 148 mg/dL (70-99) Test 07/17/20 17:09 07/17/20 18:56 07/18/20 01:02 07/18/20 07:12 Glucose (Fingerstick) 257 mg/dL (70-99) 257 mg/dL (70-99) 215 mg/dL (70-99) 96 mg/dL (70-99) Test 07/18/20 08:40 07/18/20 11:10 White Blood Count 32.8 x10^3/uL (4.0-11.0) Red Blood Count 4.63 x10^6/uL (4.30-5.70) Hemoglobin 14.7 g/dL (13.0-17.5) Hematocrit 43.7 % (39.0-53.0) Mean Corpuscular Volume 95 fL (79-100) Mean Corpuscular Hemoglobin 32 pg (25-35) Mean Corpuscular Hemoglobin Concent 34 g/dL (31-37) Red Cell Distribution Width 13.6 % (11.5-14.5) Platelet Count 216 x10^3/uL (140-400) Neutrophils (%) (Auto) 92 % (31-73) Lymphocytes (%) (Auto) 4 % (24-48) Monocytes (%) (Auto) 4 % (0-9) Eosinophils (%) (Auto) 0 % (0-3) Basophils (%) (Auto) 0 % (0-3) Neutrophils # (Auto) 30.0 x10^3/uL (1.8-7.7) Lymphocytes # (Auto) 1.2 x10^3/uL (1.0-4.8) Monocytes # (Auto) 1.4 x10^3/uL (0.0-1.1) Eosinophils # (Auto) 0.1 x10^3/uL (0.0-0.7) Basophils # (Auto) 0.0 x10^3/uL (0.0-0.2) Segmented Neutrophils % 92 % (35-66) Band Neutrophils % 2 % (0-9) Lymphocytes % 2 % (24-48) Monocytes % 3 % (0-10) Eosinophils % 1 % (0-5) Platelet Estimate Adequate (ADEQUATE) Sodium Level 141 mmol/L (136-145) Potassium Level 4.2 mmol/L (3.5-5.1) Chloride Level 106 mmol/L (98-107) Carbon Dioxide Level 28 mmol/L (21-32) Anion Gap 7 (6-14) Blood Urea Nitrogen 32 mg/dL (8-26) Creatinine 1.0 mg/dL (0.7-1.3) Estimated GFR (Cockcroft-Gault) 74.3 Glucose Level 91 mg/dL (70-99) Calcium Level 8.3 mg/dL (8.5-10.1) Glucose (Fingerstick) 120 mg/dL (70-99) Laboratory Tests Test 07/17/20 11:56 07/17/20 17:09 07/17/20 18:56 07/18/20 01:02 Glucose (Fingerstick) 148 mg/dL (70-99) 257 mg/dL (70-99) 257 mg/dL (70-99) 215 mg/dL (70-99) Test 07/18/20 07:12 07/18/20 08:40 07/18/20 11:10 Glucose (Fingerstick) 96 mg/dL (70-99) 120 mg/dL (70-99) White Blood Count 32.8 x10^3/uL (4.0-11.0) Red Blood Count 4.63 x10^6/uL (4.30-5.70) Hemoglobin 14.7 g/dL (13.0-17.5) Hematocrit 43.7 % (39.0-53.0) Mean Corpuscular Volume 95 fL (79-100) Mean Corpuscular Hemoglobin 32 pg (25-35) Mean Corpuscular Hemoglobin Concent 34 g/dL (31-37) Red Cell Distribution Width 13.6 % (11.5-14.5) Platelet Count 216 x10^3/uL (140-400) Neutrophils (%) (Auto) 92 % (31-73) Lymphocytes (%) (Auto) 4 % (24-48) Monocytes (%) (Auto) 4 % (0-9) Eosinophils (%) (Auto) 0 % (0-3) Basophils (%) (Auto) 0 % (0-3) Neutrophils # (Auto) 30.0 x10^3/uL (1.8-7.7) Lymphocytes # (Auto) 1.2 x10^3/uL (1.0-4.8) Monocytes # (Auto) 1.4 x10^3/uL (0.0-1.1) Eosinophils # (Auto) 0.1 x10^3/uL (0.0-0.7) Basophils # (Auto) 0.0 x10^3/uL (0.0-0.2) Segmented Neutrophils % 92 % (35-66) Band Neutrophils % 2 % (0-9) Lymphocytes % 2 % (24-48) Monocytes % 3 % (0-10) Eosinophils % 1 % (0-5) Platelet Estimate Adequate (ADEQUATE) Sodium Level 141 mmol/L (136-145) Potassium Level 4.2 mmol/L (3.5-5.1) Chloride Level 106 mmol/L (98-107) Carbon Dioxide Level 28 mmol/L (21-32) Anion Gap 7 (6-14) Blood Urea Nitrogen 32 mg/dL (8-26) Creatinine 1.0 mg/dL (0.7-1.3) Estimated GFR (Cockcroft-Gault) 74.3 Glucose Level 91 mg/dL (70-99) Calcium Level 8.3 mg/dL (8.5-10.1) Medications Current Medications Ringer's Solution 1,000 ml @ 100 mls/hr Q10H IV Last administered on 06/30/20at 23:44; Start 06/30/20 at 22:30; Stop 07/01/20 at 08:29; Status DC Ondansetron HCl (Zofran) 4 mg PRN Q6HRS PRN IVP NAUSEA/VOMITING; Start 06/30/20 at 22:30 Calcium Carbonate/ Glycine (Tums) 500 mg PRN Q3HRS PRN PO UPSET STOMACH; Start 06/30/20 at 22:15 Acetaminophen (Tylenol) 650 mg PRN Q6HRS PRN PO Headaches, Temp > 101.5F; Start 06/30/20 at 22:15 Senna/Docusate Sodium (Senna Plus) 1 tab BID PO Last administered on 07/06/20at 08:45; Start 06/30/20 at 22:30 Bisacodyl (Dulcolax Supp) [address] CONSTIPATION Last administered on 07/15/20at 12:49; Start 06/30/20 at 22:15 Atorvastatin Calcium (Lipitor) 80 mg QHS PO Last administered on 07/05/20at 22:16; Start 06/30/20 at 22:30 Famotidine (Pepcid) 20 mg BID PO Last administered on 07/06/20at 08:45; Start 06/30/20 at 22:30 Aspirin (Ecotrin) 325 mg [id number] PO Last administered on 07/06/20at 08:45; Start 07/01/20 at 08:00 Aspirin (Aspirin Rectal Supp) [address] IF UNABLE TO TAKE PO Last administered on 07/15/20at 12:48; Start 06/30/20 at 22:15 Metoprolol Tartrate (Lopressor) 25 mg BID PO Last administered on 07/09/20at 21:32; Start 06/30/20 at 22:30 Hydralazine HCl (Apresoline Inj) 10 mg PRN Q4HRS PRN IVP ELEVATED BP, 1ST CHOICE; Start 06/30/20 at 22:15 Insulin Human Lispro (HumaLOG) 0-7 UNITS TIDWMEALHC SQ Last administered on 07/18/20at 01:07; Start 07/01/20 at 08:00 Dextrose (Dextrose 50%-Water Syringe) 12.5 gm PRN Q15MIN PRN IV SEE COMMENTS; Start 06/30/20 at 22:45 Gadoterate Meglumine (Clariscan) 10 ml 1X ONCE IVP ; Start 07/03/20 at 11:45; Stop 07/03/20 at 11:46; Status DC Gadoterate Meglumine (Clariscan) 8 ml 1X ONCE IVP ; Start 07/03/20 at 11:45; Stop 07/03/20 at 11:46; Status DC Gadoterate Meglumine (Clariscan) 10 ml 1X ONCE IVP Last administered on 07/03/20at 11:56; Start 07/03/20 at 11:45; Stop 07/03/20 at 11:48; Status DC Gadoterate Meglumine (Clariscan) 8 ml 1X ONCE IVP Last administered on 07/03/20at 11:56; Start 07/03/20 at 11:45; Stop 07/03/20 at 11:48; Status DC Iohexol (Omnipaque 300 Mg/ml) 75 ml 1X ONCE IV Last administered on 07/03/20at 15:51; Start 07/03/20 at 15:45; Stop 07/03/20 at 15:46; Status DC Iohexol (Omnipaque 240 Mg/ml) 50 ml 1X ONCE PO Last administered on 07/03/20at 15:51; Start 07/03/20 at 15:45; Stop 07/03/20 at 15:46; Status DC Info (CONTRAST GIVEN -- Rx MONITORING) 1 each PRN DAILY PRN MC SEE COMMENTS; Start 07/03/20 at 15:45; Stop 07/05/20 at 15:44; Status DC Bacitracin 39238 unit/Sodium Chloride 1,000 ml @ 1,000 mls/hr 1X ONCE IRR Last administered on 07/07/20at 11:28; Start 07/07/20 at 06:00; Stop 07/07/20 at 06:59; Status DC Cefazolin Sodium/ Dextrose 50 ml @ 100 mls/hr 1X PREOP PRN IV PRIOR TO PROCEDURE Last administered on 07/07/20at 10:30; Start 07/07/20 at 06:00; Stop 07/07/20 at 18:00; Status DC Ondansetron HCl (Zofran) 4 mg PRN Q6HRS PRN IV NAUSEA/VOMITING; Start 07/07/20 at 07:00; Stop 07/07/20 at 19:00; Status DC Fentanyl Citrate (Fentanyl 2ml Vial) 25 mcg PRN Q5MIN PRN IV MILD PAIN 1-3; Start 07/07/20 at 07:00; Stop 07/07/20 at 19:00; Status DC Fentanyl Citrate (Fentanyl 2ml Vial) 50 mcg PRN Q5MIN PRN IV MODERATE TO SEVERE PAIN; Start 07/07/20 at 07:00; Stop 07/07/20 at 19:00; Status DC Morphine Sulfate (Morphine Sulfate) 1 mg PRN Q10MIN PRN IV SEVERE PAIN 7-10; Start 07/07/20 at 07:00; Stop 07/07/20 at 19:00; Status DC Ringer's Solution 1,000 ml @ 30 mls/hr Q24H IV Last administered on 07/07/20at 09:45; Start 07/07/20 at 07:00; Stop 07/07/20 at 18:59; Status DC Lidocaine HCl (Xylocaine-Mpf 1% 2ml Vial) 2 ml PRN 1X PRN ID PRIOR TO IV START; Start 07/07/20 at 07:00; Stop 07/07/20 at 19:00; Status DC Hydromorphone HCl (Dilaudid) 0.5 mg PRN Q10MIN PRN IV SEV PAIN, Second choice; Start 07/07/20 at 07:00; Stop 07/07/20 at 19:00; Status DC Prochlorperazine Edisylate (Compazine) 5 mg PACU PRN PRN IV NAUSEA, MRX1; Start 07/07/20 at 07:00; Stop 07/07/20 at 19:00; Status DC Gelatin (Gelfoam Size 100) 1 each STK-MED ONCE .ROUTE Last administered on 07/07/20at 11:28; Start 07/07/20 at 07:37; Stop 07/07/20 at 07:37; Status DC Povidone Iodine (Betadine Oint) 28 nazario STK-MED ONCE TP ; Start 07/07/20 at 07:37; Stop 07/07/20 at 07:37; Status DC Lidocaine/ Epinephrine (LIDOCAINE 2%-EPI 1:100,000 multi-dose) 20 ml STK-MED ONCE .ROUTE ; Start 07/07/20 at 07:37; Stop 07/07/20 at 07:37; Status DC Cellulose (Surgicel Hemostat 4x8) 1 each STK-MED ONCE .ROUTE ; Start 07/07/20 at 07:37; Stop 07/07/20 at 07:37; Status DC Thrombin 20,000 unit STK-MED ONCE TP Last administered on 07/07/20at 11:28; Start 07/07/20 at 07:37; Stop 07/07/20 at 07:37; Status DC Gadoterate Meglumine (Clariscan) 10 ml 1X ONCE IVP Last administered on 07/07/20at 08:52; Start 07/07/20 at 08:30; Stop 07/07/20 at 08:31; Status DC Gadoterate Meglumine (Clariscan) 8 ml 1X ONCE IVP Last administered on 07/07/20at 08:52; Start 07/07/20 at 08:30; Stop 07/07/20 at 08:31; Status DC Dexamethasone Sodium Phosphate (Decadron) 4 mg Q6H IVP Last administered on 07/09/20at 12:08; Start 07/08/20 at 06:00; Stop 07/09/20 at 15:54; Status DC Rocuronium [place] (Zemuron) 50 mg STK-MED ONCE .ROUTE ; Start 07/07/20 at 08:57; Stop 07/07/20 at 08:57; Status DC Remifentanil HCl (Ultiva) 2 mg STK-MED ONCE IV ; Start 07/07/20 at 08:57; Stop 07/07/20 at 08:58; Status DC Propofol (Diprivan) 200 mg STK-MED ONCE IV ; Start 07/07/20 at 09:00; Stop 07/07/20 at 09:01; Status DC Dexamethasone Sodium Phosphate (Decadron) 20 mg STK-MED ONCE .ROUTE ; Start 07/07/20 at 09:00; Stop 07/07/20 at 09:01; Status DC Lidocaine HCl (Lidocaine Pf 2% Vial) 5 ml STK-MED ONCE .ROUTE ; Start 07/07/20 at 09:00; Stop 07/07/20 at 09:01; Status DC Ondansetron HCl (Zofran) 4 mg STK-MED ONCE .ROUTE ; Start 07/07/20 at 09:00; Stop 07/07/20 at 09:01; Status DC Phenylephrine HCl (Mamadou-Synephrine Inj) 10 mg STK-MED ONCE .ROUTE ; Start 07/07/20 at 09:01; Stop 07/07/20 at 09:01; Status DC Desflurane (Suprane) 90 ml STK-MED ONCE IH ; Start 07/07/20 at 09:04; Stop 07/07/20 at 09:04; Status DC Mannitol (Mannitol) 12.5 g STK-MED ONCE .ROUTE ; Start 07/07/20 at 09:17; Stop 07/07/20 at 09:17; Status DC Lidocaine HCl (Xylocaine 1% Pf 30ml Vial) 30 ml 1X ONCE INJ Last administered on 07/07/20at 11:28; Start 07/07/20 at 10:00; Stop 07/07/20 at 10:01; Status DC Epinephrine HCl (Adrenalin) 0.15 mg 1X ONCE INJ ; Start 07/07/20 at 10:00; Stop 07/07/20 at 10:01; Status DC Remifentanil HCl (Ultiva) 1 mg STK-MED ONCE IV ; Start 07/07/20 at 12:01; Stop 07/07/20 at 12:02; Status DC Glycopyrrolate (Robinul) 1 mg STK-MED ONCE .ROUTE ; Start 07/07/20 at 12:02; Stop 07/07/20 at 12:03; Status DC Neostigmine [place] (Neostigmine Methylsulfate) 5 mg STK-MED ONCE .ROUTE ; Start 07/07/20 at 12:03; Stop 07/07/20 at 12:03; Status DC Fentanyl Citrate (Fentanyl 2ml Vial) 100 mcg STK-MED ONCE .ROUTE ; Start 07/07/20 at 12:45; Stop 07/07/20 at 12:45; Status DC Nicardipine HCl (Cardene) 25 mg STK-MED ONCE IV ; Start 07/07/20 at 12:47; Stop 07/07/20 at 12:48; Status DC Lidocaine HCl (Lidocaine Pf 2% Vial) 5 ml STK-MED ONCE .ROUTE ; Start 07/07/20 at 13:06; Stop 07/07/20 at 13:07; Status DC Propofol 50 ml @ As Directed STK-MED ONCE IV ; Start 07/07/20 at 13:30; Stop 07/07/20 at 13:30; Status DC Lorazepam (Ativan Inj) 2 mg PRN Q4HRS PRN IVP ANXIETY / AGITATION Last administered on 07/14/20at 18:26; Start 07/07/20 at 14:15; Stop 07/15/20 at 11:51; Status DC Dexmedetomidine HCl 400 mcg/ Sodium Chloride 100 ml @ 0 mls/hr CONT PRN IV PER PROTOCOL Last administered on 07/10/20at 03:07; Start 07/07/20 at 14:45; Stop 07/12/20 at 10:11; Status DC Sodium Chloride 500 ml @ 500 mls/hr 1X PRN PRN IV SEE COMMENTS; Start 07/07/20 at 14:45 Atropine Sulfate (ATROPINE 0.5mg SYRINGE) 0.5 mg PRN Q5MIN PRN IV SEE COMMENTS; Start 07/07/20 at 14:45; Stop 07/12/20 at 10:11; Status DC Dextrose/Sodium Chloride 2,500 ml @ 50 mls/hr Q24H IV ; Start 07/07/20 at 15:00; Stop 07/09/20 at 17:00; Status UNV Dextrose/Sodium Chloride 0 ml @ 50 mls/hr Q0M IV ; Start 07/09/20 at 17:00; Stop 07/09/20 at 17:00; Status UNV Dextrose 1,000 ml @ 50 mls/hr Q20H IV Last administered on 07/07/20at 15:11; Start 07/07/20 at 16:00; Stop 07/07/20 at 17:39; Status DC Sodium Chloride 1,000 ml @ 50 mls/hr Q20H IV Last administered on 07/17/20at 13:28; Start 07/07/20 at 18:00 Insulin Glargine (Lantus Syringe) 10 unit QHS SQ Last administered on 07/09/20at 21:26; Start 07/09/20 at 21:00; Stop 07/10/20 at 14:17; Status DC Methylprednisolone Sodium Succinate 1000 mg/Sodium Chloride 100 ml @ 100 mls/hr DAILY IV Last administered on 07/13/20at 09:17; Start 07/09/20 at 16:00; Stop 07/13/20 at 22:00; Status DC Olanzapine (ZyPREXA IM) 10 mg 1X ONCE IM Last administered on 07/10/20at 09:09; Start 07/10/20 at 08:45; Stop 07/10/20 at 09:03; Status DC Insulin Glargine (Lantus Syringe) 15 unit QHS SQ Last administered on 07/18/20at 00:55; Start 07/10/20 at 21:00 Olanzapine (ZyPREXA IM) 10 mg Q6H IM Last administered on 07/12/20at 08:58; Start 07/10/20 at 15:30; Stop 07/12/20 at 10:22; Status DC Ziprasidone (Geodon Im) 20 mg 1X ONCE IM ; Start 07/10/20 at 15:30; Stop 07/10/20 at 15:33; Status DC Metoprolol Tartrate (Lopressor Vial) 5 mg Q6HRS IVP Last administered on 07/11/20at 18:03; Start 07/10/20 at 18:00; Stop 07/12/20 at 06:19; Status DC Amino Acids/ Glycerin/ Electrolytes 1,000 ml @ 80 mls/hr [id number] IV Last administered on 07/18/20at 02:06; Start 07/11/20 at 12:30 Olanzapine (ZyPREXA IM) 10 mg Q12HR IM Last administered on 07/17/20at 08:37; Start 07/12/20 at 21:00; Stop 07/17/20 at 08:40; Status DC Labetalol HCl (Normodyne Iv Push) 10 mg PRN Q2HR PRN IVP HYPERTENSION, 2ND CHOICE; Start 07/12/20 at 19:30 Gadoterate Meglumine (Clariscan) 10 ml 1X ONCE IVP Last administered on 07/14/20at 13:44; Start 07/14/20 at 13:30; Stop 07/14/20 at 13:33; Status DC Gadoterate Meglumine (Clariscan) 8 ml 1X ONCE IVP Last administered on 07/14/20at 13:44; Start 07/14/20 at 13:30; Stop 07/14/20 at 13:33; Status DC Methylprednisolone Sodium Succinate 250 mg/Sodium Chloride 100 ml @ 100 mls/hr DAILY IV Last administered on 07/17/20at 09:53; Start 07/14/20 at 16:00; Stop 07/17/20 at 09:00; Status DC Methylprednisolone Sodium Succinate 100 mg/Sodium Chloride 100 ml @ 100 mls/hr DAILY IV ; Start 07/18/20 at 11:00; Status Cancel Olanzapine (ZyPREXA IM) 10 mg PRN Q12HR PRN IM AGITATION Last administered on 07/18/20at 11:47; Start 07/17/20 at 09:00 Methylprednisolone Sodium Succinate (SOLU-Medrol 125MG VIAL) 100 mg DAILY IV Last administered on 07/18/20at 10:28; Start 07/18/20 at 09:00 Haloperidol Lactate (Haldol Inj) 3 mg PRN Q4HRS PRN IVP AGITATION Last administered on 07/18/20at 11:11; Start 07/18/20 at 03:30 Haloperidol Lactate (Haldol Inj) 1 mg 1X ONCE IVP Last administered on 07/18/20at 03:57; Start 07/18/20 at 03:30; Stop 07/18/20 at 03:31; Status DC Active Scripts Active Reported Aspirin 81 Mg Tab.chew 81 Mg PO DAILY Metformin Hcl 500 Mg Tablet 500 Mg PO BIDWMEALS Atenolol 50 Mg Tablet 50 Mg PO DAILY Vitals/I & O Vital Sign - Last 24 Hours 07/17/20 07/17/20 07/17/20 07/18/20 15:00 19:00 19:45 00:00 Temp 98.1 97.4 97.5 98.1 97.4 97.5 Pulse 78 111 109 Resp 16 18 18 B/P (MAP) 122/75 (91) 143/98 (113) 148/96 (113) Pulse Ox 95 94 96 O2 Delivery Room Air Room Air Room Air Room Air 07/18/20 07/18/20 07:00 11:00 Temp 97.7 98.1 97.7 98.1 Pulse 102 91 Resp 18 18 B/P (MAP) 136/92 (107) 141/76 (97) Pulse Ox 95 95 O2 Delivery Room Air Room Air Intake and Output 07/17/20 07/17/20 07/18/20 15:00 23:00 07:00 Output Total 675 ml 350 ml 1000 ml Balance -675 ml -350 ml -1000 ml Justicifation of Admission Dx: Justifications for Admission: Justification of Admission Dx: Comment: (Higher level of care requested by [facility] for neurology evaluation) MAURY SIMMS MD Jul 18, 2020 11:55
[2020-07-18] MEDS: IV NORMAL SALINE 1000ML BAG 1,000 ML IV SCH (14:00)
[2020-07-18] MEDS: ATORVASTATIN CALCIUM 40 MG TABLET. PO SCH (19:11)
[2020-07-19] MEDS: HALOPERIDOL LACTATE 5 MG/ML VIAL. IVP PRN (02:07)
[2020-07-19 02:57] VITALS: BP 137/82
[2020-07-19] MEDS: AMINO AC 3%/ELECTROLYTE/GLYCER 1,000 ML IV SCH ×2 (06:28→21:28)
[2020-07-19] MEDS: IV NORMAL SALINE 1000ML BAG 1,000 ML IV SCH ×2 (06:29→21:33)
[2020-07-19 07:00] VITALS: BP 124/76
[2020-07-19] MEDS: INSULIN LISPRO 300 UNITS/3 ML VIAL. SQ SCH ×4 (08:00→21:31)
[2020-07-19] MEDS: ASPIRIN ENTERIC COATED 325 MG TABLET.DR. PO SCH (08:00)
--- NOTE | 2020-07-19 08:10 | PDOC ---
PROGRESS NOTES Date of Service: DATE: 07/19/20 TIME: 08:08 Chief Complaint Chief Complaint impression Acute toxic encephalopathy disseminated encephalomyelitis, attack form of multiple sclerosis. Lab work including B12, protein electrophoresis, TSH, SUZI all negative for other causes of demyelination. Elevated free kappa light chains MRI repeat on 07/14 shows three lesions increased in size, four decreased SIZE Encephalopathic, related to sedatives, steroids, and the brain demyelination. Multifocal bilateral peripherally enhancing lesions. Post right posterior temporal craniotomy with biopsy of a demyelinating lesion within the posterior right temporal lobe Status post craniotomy and brain biopsy History of diabetes mellitus type 2 - A1c 6.1 Hearing impaired History of essential hypertension History of Present Illness History of Present Illness Mr Rodriguez is a 70 year old male [employer] with past medical history of diabetes who was in his usual state of health until approximately 5 days prior to his admission when he started complaining of mental fog and confusion. Patient also complained of headache according to his daughter who is at bedside helping with the history taking. He also had some hearing loss worse than usual over his right ear and did not improve after cerumen disimpaction. Patient denies any headaches no loss of vision he recently had his prescription change and apparently his utilization coordinator told him that they need to do some changes since its "too strong in "of a prescription. Patient denies dysphagia odynophagia no slurred speech no hemiparesis no hemiplegia, no chest pain palpitations or shortness of breath, no neck stiffness noticed no fever or chills no meningismus no abdominal pain nausea vomiting or diarrhea. The patient has had proper oral intake over the last couple days. On 06/30/20 he experienced sudden onset dizziness, worsening fatigue and hearing loss. He was taken to the emergency room at [facility] where he received a CT head. This showed multiple brain lesions. He has been transferred to [facility] for further evaluation. He has received a CT of the chest, abdomen and pelvis which has not shown any additional signs of malignancy. He received brain MRI and MRA of the head and neck which showed multifocal brain lesions with reported differential diagnosis of malignancy, demyelinating disorder possibly infection. Consults: Neurology, Heme/Onc and neurosurgery 07/07: To brain biopsy. 07/11: trying to limit sedation, changed to zyprexa today, Neuro following, cont high dose steroids. Transferred from ICU. 07/12: Still very confused. He is asking to contact Tamar. No shortness of breath or chest pain. Requiring mittens. 07/13: Still very confused talking to people not the room. No pain complaints. Still with one-to-one sitter and requiring mittens. 07/14: Still hallucinating, only able to carry minimal conversation. No complaints. Still requiring 1-1 sitter, mittens. MRI with Multiple areas of abnormally increased signal intensity are seen throughout the brain consistent with the patient's history of a demyelinating disorder. Three of these lesions have increased in size since the previous study as discussed above. Four of these lesions appear to have decreased in size since the previous study. No new lesion is seen. 07/15: More drowsy today. Did receive 2 mg of Ativan overnight. Still requiring one-to-one sitter and mittens. Son has indicated he wants his father to come home with him. However his twin sister would like family friends more involved. Awake today. Did not sleep well last night. Still requiring 1-1, mittens. Cannot follow any commands or swallow. After lengthy discussion with his son and daughter they both would wish for a second opinion and Jean DUMONT has requested [facility]. 07/17/2020: -Patient seen and examined. Seems semi coherent in room today -Pravin case resolution specialist. Pravin RN. -Chart reviewed. 07/19/2020 -Patient seen and examined.pleasantly confused. In mitts for patient safety. Valentina DIANA. -Pravin case resolution specialist. Pravin RN. -Chart reviewed. Acute disseminated encephalomyelitis, a single-attack form of multiple sclerosis. Lab work including B12, protein electrophoresis, TSH, SUZI all negative for other causes of demyelination. Elevated free kappa light chains MRI repeat on 07/14 shows three lesions increased in size, four decreased in size, no new, enhancement areas have mostly resolved Encephalopathic, related to sedatives, steroids, and the brain demyelination. SITTER IN ROOM NEEDED Vitals Vitals Vital Signs Date Time Temp Pulse Resp B/P (MAP) Pulse Ox O2 Delivery O2 Flow Rate FiO2 07/19/20 07:00 97.7 81 19 124/76 (92) 94 Room Air 97.7 Physical Exam General: Other (mildly agitated) Heart: Regular rate, Normal S1 Abdomen: Soft, Other (No splenomegaly) Extremities: No clubbing, No edema Skin: No rashes, Other (dressing C,D,I) Labs LABS PATIENT: AL COOPERCOUNT: [id number] : 1950 LOCATION: [address] [place] [address] AGE: 70 SEX: M EXAM STATUS: ADM IN ORD. PHYSICIAN: MAURY SIMMS MD REASON: Follow-up demyelinating disease as shown on brain biopsy pathology PROCEDURE: BRAIN WO/W CONTRAST MRI of the Brain without and with Contrast 07/14/2020 Clinical History: Demyelinating disease. Technique: Unenhanced T1-weighted sagittal and axial and FLAIR, T2-weighted, gradient echo and diffusion-weighted axial images of the brain were obtained. After the intravenous administration of 18 cc of Clariscan, enhanced T1-weighted axial, sagittal and coronal images of the brain were obtained. Findings: Comparison study is dated 07/03/2020. The patient is post right posterior temporal craniotomy of a demyelinating lesion within the posterior right temporal lobe. A small amount of hemorrhage is seen within the biopsy site. There is no significant surrounding edema or associated mass effect. There is generalized parenchymal atrophy. Multiple areas of abnormally increased signal intensity are seen on the FLAIR and T2-weighted images involving predominantly the subcortical white matter of both cerebral hemispheres along with the splenium of the corpus callosum and the left superior cerebellar peduncle consistent with the patient's history of a demyelinating disorder. These lesions measure 1.2 to 6.3 cm in size. The lesion involving the subcortical white matter of the right parietal lobe has increased in size since the previous study. It measures 2.2 cm in greatest diameter. On the previous examination it measured 1.6 cm in size. A lesion within the left parietal lobe has increased in size since the previous study. It measures 2.5 cm in greatest diameter. On the previous study it measured 1.7 cm in size. A lesion is seen within the left lateral occipital lobe white matter which measures 1.1 cm in size. This has increased since the previous study where it measured 0.5 cm in size. A lesion within the left frontal lobe has decreased in size since the previous study. It measured 2.7 cm previous examination and measures 2.4 cm on today's study. The lesion within the left occipital lobe, medially has decreased in size slightly since the previous study. It measured 3 cm on the previous examination and measures 2.7 cm today's study. The lesion involving the right occipital lobe appears decreased in size slightly since the previous study. It measures 3.7 cm in size. On the previous examination it measured 4.2 cm in size. The lesion involving the left superior cerebellar peduncle appears to have decreased in size slightly since the previous study where it measured 2.2 cm in size. On today's study it measures 1.2 cm. No new lesion is seen. The areas of abnormal contrast enhancement seen on the previous examination have largely resolved. No new area of abnormal contrast enhancement is seen. There is no MRI evidence of acute ischemia/infarction. No extra-axial fluid collection is seen. Mild mucosal thickening in seen scattered throughout the paranasal sinuses. A 1.4 cm mucous retention cyst is seen involving the right maxillary sinus. Mild to moderate mucosal thickening is seen involving the mastoid air cells bilaterally. Normal flow voids are seen within the major vascular structures surrounding the brain parenchyma. IMPRESSION: 1. . Post right posterior temporal craniotomy with biopsy of a demyelinating lesion within the posterior right temporal lobe. A small amount of hemorrhage is seen within the biopsy site. There is no significant surrounding edema or associated mass effect. 2. Multiple areas of abnormally increased signal intensity are seen throughout the brain consistent with the patient's history of a demyelinating disorder. Three of these lesions have increased in size since the previous study as discussed above. Four of these lesions appear to have decreased in size since the previous study. No new lesion is seen. The areas of abnormal contrast enhancement seen on the previous examination have largely resolved. Electronically signed by: Elías Gaines MD (07/14/2020 3:13 PM) [id number] DICTATED and SIGNED BY: ELÍAS GAINES MD DATE: 07/14/20 [id number] Laboratory Tests Test 07/18/20 08:40 07/18/20 11:10 07/18/20 21:00 White Blood Count 32.8 x10^3/uL (4.0-11.0) Red Blood Count 4.63 x10^6/uL (4.30-5.70) Hemoglobin 14.7 g/dL (13.0-17.5) Hematocrit 43.7 % (39.0-53.0) Mean Corpuscular Volume 95 fL (79-100) Mean Corpuscular Hemoglobin 32 pg (25-35) Mean Corpuscular Hemoglobin Concent 34 g/dL (31-37) Red Cell Distribution Width 13.6 % (11.5-14.5) Platelet Count 216 x10^3/uL (140-400) Neutrophils (%) (Auto) 92 % (31-73) Lymphocytes (%) (Auto) 4 % (24-48) Monocytes (%) (Auto) 4 % (0-9) Eosinophils (%) (Auto) 0 % (0-3) Basophils (%) (Auto) 0 % (0-3) Neutrophils # (Auto) 30.0 x10^3/uL (1.8-7.7) Lymphocytes # (Auto) 1.2 x10^3/uL (1.0-4.8) Monocytes # (Auto) 1.4 x10^3/uL (0.0-1.1) Eosinophils # (Auto) 0.1 x10^3/uL (0.0-0.7) Basophils # (Auto) 0.0 x10^3/uL (0.0-0.2) Segmented Neutrophils % 92 % (35-66) Band Neutrophils % 2 % (0-9) Lymphocytes % 2 % (24-48) Monocytes % 3 % (0-10) Eosinophils % 1 % (0-5) Platelet Estimate Adequate (ADEQUATE) Sodium Level 141 mmol/L (136-145) Potassium Level 4.2 mmol/L (3.5-5.1) Chloride Level 106 mmol/L (98-107) Carbon Dioxide Level 28 mmol/L (21-32) Anion Gap 7 (6-14) Blood Urea Nitrogen 32 mg/dL (8-26) Creatinine 1.0 mg/dL (0.7-1.3) Estimated GFR (Cockcroft-Gault) 74.3 Glucose Level 91 mg/dL (70-99) Calcium Level 8.3 mg/dL (8.5-10.1) Glucose (Fingerstick) 120 mg/dL (70-99) 196 mg/dL (70-99) Comment Review of Relevant I have reviewed the following items bashir (where applicable) has been applied. Labs Laboratory Tests Test 07/17/20 11:56 07/17/20 17:09 07/17/20 18:56 07/18/20 01:02 Glucose (Fingerstick) 148 mg/dL (70-99) 257 mg/dL (70-99) 257 mg/dL (70-99) 215 mg/dL (70-99) Test 07/18/20 07:12 07/18/20 08:40 07/18/20 11:10 07/18/20 21:00 Glucose (Fingerstick) 96 mg/dL (70-99) 120 mg/dL (70-99) 196 mg/dL (70-99) White Blood Count 32.8 x10^3/uL (4.0-11.0) Red Blood Count 4.63 x10^6/uL (4.30-5.70) Hemoglobin 14.7 g/dL (13.0-17.5) Hematocrit 43.7 % (39.0-53.0) Mean Corpuscular Volume 95 fL (79-100) Mean Corpuscular Hemoglobin 32 pg (25-35) Mean Corpuscular Hemoglobin Concent 34 g/dL (31-37) Red Cell Distribution Width 13.6 % (11.5-14.5) Platelet Count 216 x10^3/uL (140-400) Neutrophils (%) (Auto) 92 % (31-73) Lymphocytes (%) (Auto) 4 % (24-48) Monocytes (%) (Auto) 4 % (0-9) Eosinophils (%) (Auto) 0 % (0-3) Basophils (%) (Auto) 0 % (0-3) Neutrophils # (Auto) 30.0 x10^3/uL (1.8-7.7) Lymphocytes # (Auto) 1.2 x10^3/uL (1.0-4.8) Monocytes # (Auto) 1.4 x10^3/uL (0.0-1.1) Eosinophils # (Auto) 0.1 x10^3/uL (0.0-0.7) Basophils # (Auto) 0.0 x10^3/uL (0.0-0.2) Segmented Neutrophils % 92 % (35-66) Band Neutrophils % 2 % (0-9) Lymphocytes % 2 % (24-48) Monocytes % 3 % (0-10) Eosinophils % 1 % (0-5) Platelet Estimate Adequate (ADEQUATE) Sodium Level 141 mmol/L (136-145) Potassium Level 4.2 mmol/L (3.5-5.1) Chloride Level 106 mmol/L (98-107) Carbon Dioxide Level 28 mmol/L (21-32) Anion Gap 7 (6-14) Blood Urea Nitrogen 32 mg/dL (8-26) Creatinine 1.0 mg/dL (0.7-1.3) Estimated GFR (Cockcroft-Gault) 74.3 Glucose Level 91 mg/dL (70-99) Calcium Level 8.3 mg/dL (8.5-10.1) Laboratory Tests Test 07/18/20 08:40 07/18/20 11:10 07/18/20 21:00 White Blood Count 32.8 x10^3/uL (4.0-11.0) Red Blood Count 4.63 x10^6/uL (4.30-5.70) Hemoglobin 14.7 g/dL (13.0-17.5) Hematocrit 43.7 % (39.0-53.0) Mean Corpuscular Volume 95 fL (79-100) Mean Corpuscular Hemoglobin 32 pg (25-35) Mean Corpuscular Hemoglobin Concent 34 g/dL (31-37) Red Cell Distribution Width 13.6 % (11.5-14.5) Platelet Count 216 x10^3/uL (140-400) Neutrophils (%) (Auto) 92 % (31-73) Lymphocytes (%) (Auto) 4 % (24-48) Monocytes (%) (Auto) 4 % (0-9) Eosinophils (%) (Auto) 0 % (0-3) Basophils (%) (Auto) 0 % (0-3) Neutrophils # (Auto) 30.0 x10^3/uL (1.8-7.7) Lymphocytes # (Auto) 1.2 x10^3/uL (1.0-4.8) Monocytes # (Auto) 1.4 x10^3/uL (0.0-1.1) Eosinophils # (Auto) 0.1 x10^3/uL (0.0-0.7) Basophils # (Auto) 0.0 x10^3/uL (0.0-0.2) Segmented Neutrophils % 92 % (35-66) Band Neutrophils % 2 % (0-9) Lymphocytes % 2 % (24-48) Monocytes % 3 % (0-10) Eosinophils % 1 % (0-5) Platelet Estimate Adequate (ADEQUATE) Sodium Level 141 mmol/L (136-145) Potassium Level 4.2 mmol/L (3.5-5.1) Chloride Level 106 mmol/L (98-107) Carbon Dioxide Level 28 mmol/L (21-32) Anion Gap 7 (6-14) Blood Urea Nitrogen 32 mg/dL (8-26) Creatinine 1.0 mg/dL (0.7-1.3) Estimated GFR (Cockcroft-Gault) 74.3 Glucose Level 91 mg/dL (70-99) Calcium Level 8.3 mg/dL (8.5-10.1) Glucose (Fingerstick) 120 mg/dL (70-99) 196 mg/dL (70-99) Medications Current Medications Ringer's Solution 1,000 ml @ 100 mls/hr Q10H IV Last administered on 06/30/20at 23:44; Start 06/30/20 at 22:30; Stop 07/01/20 at 08:29; Status DC Ondansetron HCl (Zofran) 4 mg PRN Q6HRS PRN IVP NAUSEA/VOMITING; Start 06/30/20 at 22:30 Calcium Carbonate/ Glycine (Tums) 500 mg PRN Q3HRS PRN PO UPSET STOMACH; Start 06/30/20 at 22:15 Acetaminophen (Tylenol) 650 mg PRN Q6HRS PRN PO Headaches, Temp > 101.5F; Start 06/30/20 at 22:15 Senna/Docusate Sodium (Senna Plus) 1 tab BID PO Last administered on 07/06/20at 08:45; Start 06/30/20 at 22:30 Bisacodyl (Dulcolax Supp) 10 mg PRN DAILY PRN DE CONSTIPATION Last administered on 07/15/20at 12:49; Start 06/30/20 at 22:15 Atorvastatin Calcium (Lipitor) 80 mg QHS PO Last administered on 07/05/20at 22:16; Start 06/30/20 at 22:30 Famotidine (Pepcid) 20 mg BID PO Last administered on 07/06/20at 08:45; Start 06/30/20 at 22:30 Aspirin (Ecotrin) 325 mg [id number] PO Last administered on 07/06/20at 08:45; Start 07/01/20 at 08:00 Aspirin (Aspirin Rectal Supp) 300 mg PRN DAILY PRN DE IF UNABLE TO TAKE PO Last administered on 07/15/20at 12:48; Start 06/30/20 at 22:15 Metoprolol Tartrate (Lopressor) 25 mg BID PO Last administered on 07/09/20at 21:32; Start 06/30/20 at 22:30 Hydralazine HCl (Apresoline Inj) 10 mg PRN Q4HRS PRN IVP ELEVATED BP, 1ST CHOICE; Start 06/30/20 at 22:15 Insulin Human Lispro (HumaLOG) 0-7 UNITS TIDWMEALHC SQ Last administered on at 01:07; Start 07/01/20 at 08:00 Dextrose (Dextrose 50%-Water Syringe) 12.5 gm PRN Q15MIN PRN IV SEE COMMENTS; Start 06/30/20 at 22:45 Gadoterate Meglumine (Clariscan) 10 ml 1X ONCE IVP ; Start 07/03/20 at 11:45; Stop 07/03/20 at 11:46; Status DC Gadoterate Meglumine (Clariscan) 8 ml 1X ONCE IVP ; Start 07/03/20 at 11:45; Stop 07/03/20 at 11:46; Status DC Gadoterate Meglumine (Clariscan) 10 ml 1X ONCE IVP Last administered on 07/03/20at 11:56; Start 07/03/20 at 11:45; Stop 07/03/20 at 11:48; Status DC Gadoterate Meglumine (Clariscan) 8 ml 1X ONCE IVP Last administered on 07/03/20at 11:56; Start 07/03/20 at 11:45; Stop 07/03/20 at 11:48; Status DC Iohexol (Omnipaque 300 Mg/ml) 75 ml 1X ONCE IV Last administered on 07/03/20at 15:51; Start 07/03/20 at 15:45; Stop 07/03/20 at 15:46; Status DC Iohexol (Omnipaque 240 Mg/ml) 50 ml 1X ONCE PO Last administered on 07/03/20at 15:51; Start 07/03/20 at 15:45; Stop 07/03/20 at 15:46; Status DC Info (CONTRAST GIVEN -- Rx MONITORING) 1 each PRN DAILY PRN MC SEE COMMENTS; Start 07/03/20 at 15:45; Stop 07/05/20 at 15:44; Status DC Bacitracin 62592 unit/Sodium Chloride 1,000 ml @ 1,000 mls/hr 1X ONCE IRR Last administered on 07/07/20at 11:28; Start 07/07/20 at 06:00; Stop 07/07/20 at 06:59; Status DC Cefazolin Sodium/ Dextrose 50 ml @ 100 mls/hr 1X PREOP PRN IV PRIOR TO PROCEDURE Last administered on 07/07/20at 10:30; Start 07/07/20 at 06:00; Stop 07/07/20 at 18:00; Status DC Ondansetron HCl (Zofran) 4 mg PRN Q6HRS PRN IV NAUSEA/VOMITING; Start 07/07/20 at 07:00; Stop 07/07/20 at 19:00; Status DC Fentanyl Citrate (Fentanyl 2ml Vial) 25 mcg PRN Q5MIN PRN IV MILD PAIN 1-3; Start 07/07/20 at 07:00; Stop 07/07/20 at 19:00; Status DC Fentanyl Citrate (Fentanyl 2ml Vial) 50 mcg PRN Q5MIN PRN IV MODERATE TO SEVERE PAIN; Start 07/07/20 at 07:00; Stop 07/07/20 at 19:00; Status DC Morphine Sulfate (Morphine Sulfate) 1 mg PRN Q10MIN PRN IV SEVERE PAIN 7-10; Start 07/07/20 at 07:00; Stop 07/07/20 at 19:00; Status DC Ringer's Solution 1,000 ml @ 30 mls/hr Q24H IV Last administered on 07/07/20at 09:45; Start 07/07/20 at 07:00; Stop 07/07/20 at 18:59; Status DC Lidocaine HCl (Xylocaine-Mpf 1% 2ml Vial) 2 ml PRN 1X PRN ID PRIOR TO IV START; Start 07/07/20 at 07:00; Stop 07/07/20 at 19:00; Status DC Hydromorphone HCl (Dilaudid) 0.5 mg PRN Q10MIN PRN IV SEV PAIN, Second choice; Start 07/07/20 at 07:00; Stop 07/07/20 at 19:00; Status DC Prochlorperazine Edisylate (Compazine) 5 mg PACU PRN PRN IV NAUSEA, MRX1; Start 07/07/20 at 07:00; Stop 07/07/20 at 19:00; Status DC Gelatin (Gelfoam Size 100) 1 each STK-MED ONCE .ROUTE Last administered on 07/07/20at 11:28; Start 07/07/20 at 07:37; Stop 07/07/20 at 07:37; Status DC Povidone Iodine (Betadine Oint) 28 nazario STK-MED ONCE TP ; Start 07/07/20 at 07:37; Stop 07/07/20 at 07:37; Status DC Lidocaine/ Epinephrine (LIDOCAINE 2%-EPI 1:100,000 multi-dose) 20 ml STK-MED ONCE .ROUTE ; Start 07/07/20 at 07:37; Stop 07/07/20 at 07:37; Status DC Cellulose (Surgicel Hemostat 4x8) 1 each STK-MED ONCE .ROUTE ; Start 07/07/20 at 07:37; Stop 07/07/20 at 07:37; Status DC Thrombin 20,000 unit STK-MED ONCE TP Last administered on 07/07/20at 11:28; Start 07/07/20 at 07:37; Stop 07/07/20 at 07:37; Status DC Gadoterate Meglumine (Clariscan) 10 ml 1X ONCE IVP Last administered on 07/07/20at 08:52; Start 07/07/20 at 08:30; Stop 07/07/20 at 08:31; Status DC Gadoterate Meglumine (Clariscan) 8 ml 1X ONCE IVP Last administered on 07/07/20at 08:52; Start 07/07/20 at 08:30; Stop 07/07/20 at 08:31; Status DC Dexamethasone Sodium Phosphate (Decadron) 4 mg Q6H IVP Last administered on 07/09/20at 12:08; Start 07/08/20 at 06:00; Stop 07/09/20 at 15:54; Status DC Rocuronium [place] (Zemuron) 50 mg STK-MED ONCE .ROUTE ; Start 07/07/20 at 08:57; Stop 07/07/20 at 08:57; Status DC Remifentanil HCl (Ultiva) 2 mg STK-MED ONCE IV ; Start 07/07/20 at 08:57; Stop 07/07/20 at 08:58; Status DC Propofol (Diprivan) 200 mg STK-MED ONCE IV ; Start 07/07/20 at 09:00; Stop 07/07/20 at 09:01; Status DC Dexamethasone Sodium Phosphate (Decadron) 20 mg STK-MED ONCE .ROUTE ; Start 07/07/20 at 09:00; Stop 07/07/20 at 09:01; Status DC Lidocaine HCl (Lidocaine Pf 2% Vial) 5 ml STK-MED ONCE .ROUTE ; Start 07/07/20 at 09:00; Stop 07/07/20 at 09:01; Status DC Ondansetron HCl (Zofran) 4 mg STK-MED ONCE .ROUTE ; Start 07/07/20 at 09:00; Stop 07/07/20 at 09:01; Status DC Phenylephrine HCl (Mamadou-Synephrine Inj) 10 mg STK-MED ONCE .ROUTE ; Start 07/07/20 at 09:01; Stop 07/07/20 at 09:01; Status DC Desflurane (Suprane) 90 ml STK-MED ONCE IH ; Start 07/07/20 at 09:04; Stop 07/07/20 at 09:04; Status DC Mannitol (Mannitol) 12.5 g STK-MED ONCE .ROUTE ; Start 07/07/20 at 09:17; Stop 07/07/20 at 09:17; Status DC Lidocaine HCl (Xylocaine 1% Pf 30ml Vial) 30 ml 1X ONCE INJ Last administered on 07/07/20at 11:28; Start 07/07/20 at 10:00; Stop 07/07/20 at 10:01; Status DC Epinephrine HCl (Adrenalin) 0.15 mg 1X ONCE INJ ; Start 07/07/20 at 10:00; Stop 07/07/20 at 10:01; Status DC Remifentanil HCl (Ultiva) 1 mg STK-MED ONCE IV ; Start 07/07/20 at 12:01; Stop 07/07/20 at 12:02; Status DC Glycopyrrolate (Robinul) 1 mg STK-MED ONCE .ROUTE ; Start 07/07/20 at 12:02; Stop 07/07/20 at 12:03; Status DC Neostigmine [place] (Neostigmine Methylsulfate) 5 mg STK-MED ONCE .ROUTE ; Start 07/07/20 at 12:03; Stop 07/07/20 at 12:03; Status DC Fentanyl Citrate (Fentanyl 2ml Vial) 100 mcg STK-MED ONCE .ROUTE ; Start 07/07/20 at 12:45; Stop 07/07/20 at 12:45; Status DC Nicardipine HCl (Cardene) 25 mg STK-MED ONCE IV ; Start 07/07/20 at 12:47; Stop 07/07/20 at 12:48; Status DC Lidocaine HCl (Lidocaine Pf 2% Vial) 5 ml STK-MED ONCE .ROUTE ; Start 07/07/20 at 13:06; Stop 07/07/20 at 13:07; Status DC Propofol 50 ml @ As Directed STK-MED ONCE IV ; Start 07/07/20 at 13:30; Stop 07/07/20 at 13:30; Status DC Lorazepam (Ativan Inj) 2 mg PRN Q4HRS PRN IVP ANXIETY / AGITATION Last administered on 07/14/20at 18:26; Start 07/07/20 at 14:15; Stop 07/15/20 at 11:51; Status DC Dexmedetomidine HCl 400 mcg/ Sodium Chloride 100 ml @ 0 mls/hr CONT PRN IV PER PROTOCOL Last administered on 07/10/20at 03:07; Start 07/07/20 at 14:45; Stop 07/12/20 at 10:11; Status DC Sodium Chloride 500 ml @ 500 mls/hr 1X PRN PRN IV SEE COMMENTS; Start 07/07/20 at 14:45 Atropine Sulfate (ATROPINE 0.5mg SYRINGE) 0.5 mg PRN Q5MIN PRN IV SEE COMMENTS; Start 07/07/20 at 14:45; Stop 07/12/20 at 10:11; Status DC Dextrose/Sodium Chloride 2,500 ml @ 50 mls/hr Q24H IV ; Start 07/07/20 at 15:00; Stop 07/09/20 at 17:00; Status UNV Dextrose/Sodium Chloride 0 ml @ 50 mls/hr Q0M IV ; Start 07/09/20 at 17:00; Stop 07/09/20 at 17:00; Status UNV Dextrose 1,000 ml @ 50 mls/hr Q20H IV Last administered on 07/07/20at 15:11; Start 07/07/20 at 16:00; Stop 07/07/20 at 17:39; Status DC Sodium Chloride 1,000 ml @ 50 mls/hr Q20H IV Last administered on 07/19/20at 06:29; Start 07/07/20 at 18:00 Insulin Glargine (Lantus Syringe) 10 unit QHS SQ Last administered on 07/09/20at 21:26; Start 07/09/20 at 21:00; Stop 07/10/20 at 14:17; Status DC Methylprednisolone Sodium Succinate 1000 mg/Sodium Chloride 100 ml @ 100 mls/hr DAILY IV Last administered on 07/13/20at 09:17; Start 07/09/20 at 16:00; Stop 07/13/20 at 22:00; Status DC Olanzapine (ZyPREXA IM) 10 mg 1X ONCE IM Last administered on 07/10/20at 09:09; Start 07/10/20 at 08:45; Stop 07/10/20 at 09:03; Status DC Insulin Glargine (Lantus Syringe) 15 unit QHS SQ Last administered on 07/18/20at 21:14; Start 07/10/20 at 21:00 Olanzapine (ZyPREXA IM) 10 mg Q6H IM Last administered on 07/12/20at 08:58; Start 07/10/20 at 15:30; Stop 07/12/20 at 10:22; Status DC Ziprasidone (Geodon Im) 20 mg 1X ONCE IM ; Start 07/10/20 at 15:30; Stop 07/10/20 at 15:33; Status DC Metoprolol Tartrate (Lopressor Vial) 5 mg Q6HRS IVP Last administered on 07/11/20at 18:03; Start 07/10/20 at 18:00; Stop 07/12/20 at 06:19; Status DC Amino Acids/ Glycerin/ Electrolytes 1,000 ml @ 80 mls/hr [id number] IV Last administered on 07/19/20at 06:28; Start 07/11/20 at 12:30 Olanzapine (ZyPREXA IM) 10 mg Q12HR IM Last administered on 07/17/20at 08:37; Start 07/12/20 at 21:00; Stop 07/17/20 at 08:40; Status DC Labetalol HCl (Normodyne Iv Push) 10 mg PRN Q2HR PRN IVP HYPERTENSION, 2ND CHOICE; Start 07/12/20 at 19:30 Gadoterate Meglumine (Clariscan) 10 ml 1X ONCE IVP Last administered on 07/14/20at 13:44; Start 07/14/20 at 13:30; Stop 07/14/20 at 13:33; Status DC Gadoterate Meglumine (Clariscan) 8 ml 1X ONCE IVP Last administered on 07/14/20at 13:44; Start 07/14/20 at 13:30; Stop 07/14/20 at 13:33; Status DC Methylprednisolone Sodium Succinate 250 mg/Sodium Chloride 100 ml @ 100 mls/hr DAILY IV Last administered on 07/17/20at 09:53; Start 07/14/20 at 16:00; Stop 07/17/20 at 09:00; Status DC Methylprednisolone Sodium Succinate 100 mg/Sodium Chloride 100 ml @ 100 mls/hr DAILY IV ; Start 07/18/20 at 11:00; Status Cancel Olanzapine (ZyPREXA IM) 10 mg PRN Q12HR PRN IM AGITATION Last administered on 07/18/20at 11:47; Start 07/17/20 at 09:00 Methylprednisolone Sodium Succinate (SOLU-Medrol 125MG VIAL) 100 mg DAILY IV Last administered on 07/18/20at 10:28; Start 07/18/20 at 09:00 Haloperidol Lactate (Haldol Inj) 3 mg PRN Q4HRS PRN IVP AGITATION Last administered on 07/19/20at 02:07; Start 07/18/20 at 03:30 Haloperidol Lactate (Haldol Inj) 1 mg 1X ONCE IVP Last administered on 07/18/20at 03:57; Start 07/18/20 at 03:30; Stop 07/18/20 at 03:31; Status DC Active Scripts Active Reported Aspirin 81 Mg Tab.chew 81 Mg PO DAILY Metformin Hcl 500 Mg Tablet 500 Mg PO BIDWMEALS Atenolol 50 Mg Tablet 50 Mg PO DAILY Vitals/I & O Vital Sign - Last 24 Hours 07/18/20 07/18/20 07/18/20 07/18/20 11:00 15:00 19:20 19:40 Temp 98.1 97.8 97.7 98.1 97.8 97.7 Pulse 91 93 113 Resp 18 18 22 B/P (MAP) 141/76 (97) 132/81 (98) 187/106 (133) Pulse Ox 95 96 91 O2 Delivery Room Air Room Air Room Air Room Air 07/18/20 07/18/20 07/19/20 07/19/20 21:32 23:11 02:57 07:00 Temp 97.9 97.9 97.7 97.9 97.9 97.7 Pulse 83 65 81 Resp 20 22 19 B/P (MAP) 112/60 (77) 117/65 (82) 137/82 (100) 124/76 (92) Pulse Ox 95 93 94 O2 Delivery Room Air Room Air Room Air Intake and Output 07/18/20 07/18/20 07/19/20 15:00 23:00 07:00 Output Total 1050 ml 300 ml 1650 ml Balance -1050 ml -300 ml -1650 ml Nutrition Consultation Dietary Evaluation: Recommendations by RD: Dietary education by RD, Increase Calorie Intake, Protein supplementation, PPN/TPN Comments: REC continue PPN for short-term nutrition support until unable to advance to oral diet 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
--- NOTE | 2020-07-19 08:44 | PDOC ---
PROGRESS NOTES Date of Service DATE: 07/19/20 TIME: 08:38 Assessment Acute disseminated encephalomyelitis, a single-attack form of multiple sclerosis. Lab work including B12, protein electrophoresis, TSH, SUZI all negative for other causes of demyelination. Elevated free kappa light chains MRI repeat on 07/14 shows three lesions increased in size, four decreased in size, no new, enhancement areas have mostly resolved Encephalopathic, related to sedatives, steroids, and the brain demyelination. He is better Memory loss preceding admission Diabetes, hypertension Still not cooperating with speech evaluation Plan He's going to need a PEG Change zyprexa to every 12 hours as needed Solu-Medrol, tapered to 100 mg daily for 3 days (07/18-), then 60 mg daily for 3 days (07/21-), 50 mg daily for 3 days (07/24-), 40 mg daily for 3 days (07/27- ), 30 mg daily for 3 days (07/30-), 20 mg daily for 3 days (08/02-), 10 mg every other day for 3 days (08/05-), then stop. If able to take orally, will use prednisone No need for prophylactic anticonvulsants Ready to go to long-term rehabilitation in the next 2 or 3 days, after PEG. Discussed with son yesterday and left a message today Repeat MRI after steroids tapered Subjective None Objective Vital Signs Date Time Temp Pulse Resp B/P (MAP) Pulse Ox O2 Delivery O2 Flow Rate FiO2 07/19/20 07:00 97.7 81 19 124/76 (92) 94 Room Air 97.7 Intake and Output 07/19/20 07:00 Output Total 3000 ml Balance -3000 ml Output Urine Total 3000 ml PHYSICAL EXAM Asleep, snoring PERRL. EOMI. CN: no focal findings. Muscle tone: normal. Muscle strength: moves all extremities to stimulation DTR: 2+ Plantar reflex: Flexor Gait: not examined in bed. Sensory exam: no abnormal findings. No cerebellar signs elicited Review of Relevant I have reviewed the following items bashir (where applicable) has been applied. Labs Laboratory Tests Test 07/17/20 11:56 07/17/20 17:09 07/17/20 18:56 07/18/20 01:02 Glucose (Fingerstick) 148 mg/dL (70-99) 257 mg/dL (70-99) 257 mg/dL (70-99) 215 mg/dL (70-99) Test 07/18/20 07:12 07/18/20 08:40 07/18/20 11:10 07/18/20 21:00 Glucose (Fingerstick) 96 mg/dL (70-99) 120 mg/dL (70-99) 196 mg/dL (70-99) White Blood Count 32.8 x10^3/uL (4.0-11.0) Red Blood Count 4.63 x10^6/uL (4.30-5.70) Hemoglobin 14.7 g/dL (13.0-17.5) Hematocrit 43.7 % (39.0-53.0) Mean Corpuscular Volume 95 fL (79-100) Mean Corpuscular Hemoglobin 32 pg (25-35) Mean Corpuscular Hemoglobin Concent 34 g/dL (31-37) Red Cell Distribution Width 13.6 % (11.5-14.5) Platelet Count 216 x10^3/uL (140-400) Neutrophils (%) (Auto) 92 % (31-73) Lymphocytes (%) (Auto) 4 % (24-48) Monocytes (%) (Auto) 4 % (0-9) Eosinophils (%) (Auto) 0 % (0-3) Basophils (%) (Auto) 0 % (0-3) Neutrophils # (Auto) 30.0 x10^3/uL (1.8-7.7) Lymphocytes # (Auto) 1.2 x10^3/uL (1.0-4.8) Monocytes # (Auto) 1.4 x10^3/uL (0.0-1.1) Eosinophils # (Auto) 0.1 x10^3/uL (0.0-0.7) Basophils # (Auto) 0.0 x10^3/uL (0.0-0.2) Segmented Neutrophils % 92 % (35-66) Band Neutrophils % 2 % (0-9) Lymphocytes % 2 % (24-48) Monocytes % 3 % (0-10) Eosinophils % 1 % (0-5) Platelet Estimate Adequate (ADEQUATE) Sodium Level 141 mmol/L (136-145) Potassium Level 4.2 mmol/L (3.5-5.1) Chloride Level 106 mmol/L (98-107) Carbon Dioxide Level 28 mmol/L (21-32) Anion Gap 7 (6-14) Blood Urea Nitrogen 32 mg/dL (8-26) Creatinine 1.0 mg/dL (0.7-1.3) Estimated GFR (Cockcroft-Gault) 74.3 Glucose Level 91 mg/dL (70-99) Calcium Level 8.3 mg/dL (8.5-10.1) Test 07/19/20 08:13 Glucose (Fingerstick) 86 mg/dL (70-99) Laboratory Tests Test 07/18/20 08:40 07/18/20 11:10 07/18/20 21:00 07/19/20 08:13 White Blood Count 32.8 x10^3/uL (4.0-11.0) Red Blood Count 4.63 x10^6/uL (4.30-5.70) Hemoglobin 14.7 g/dL (13.0-17.5) Hematocrit 43.7 % (39.0-53.0) Mean Corpuscular Volume 95 fL (79-100) Mean Corpuscular Hemoglobin 32 pg (25-35) Mean Corpuscular Hemoglobin Concent 34 g/dL (31-37) Red Cell Distribution Width 13.6 % (11.5-14.5) Platelet Count 216 x10^3/uL (140-400) Neutrophils (%) (Auto) 92 % (31-73) Lymphocytes (%) (Auto) 4 % (24-48) Monocytes (%) (Auto) 4 % (0-9) Eosinophils (%) (Auto) 0 % (0-3) Basophils (%) (Auto) 0 % (0-3) Neutrophils # (Auto) 30.0 x10^3/uL (1.8-7.7) Lymphocytes # (Auto) 1.2 x10^3/uL (1.0-4.8) Monocytes # (Auto) 1.4 x10^3/uL (0.0-1.1) Eosinophils # (Auto) 0.1 x10^3/uL (0.0-0.7) Basophils # (Auto) 0.0 x10^3/uL (0.0-0.2) Segmented Neutrophils % 92 % (35-66) Band Neutrophils % 2 % (0-9) Lymphocytes % 2 % (24-48) Monocytes % 3 % (0-10) Eosinophils % 1 % (0-5) Platelet Estimate Adequate (ADEQUATE) Sodium Level 141 mmol/L (136-145) Potassium Level 4.2 mmol/L (3.5-5.1) Chloride Level 106 mmol/L (98-107) Carbon Dioxide Level 28 mmol/L (21-32) Anion Gap 7 (6-14) Blood Urea Nitrogen 32 mg/dL (8-26) Creatinine 1.0 mg/dL (0.7-1.3) Estimated GFR (Cockcroft-Gault) 74.3 Glucose Level 91 mg/dL (70-99) Calcium Level 8.3 mg/dL (8.5-10.1) Glucose (Fingerstick) 120 mg/dL (70-99) 196 mg/dL (70-99) 86 mg/dL (70-99) Medications Current Medications Ringer's Solution 1,000 ml @ 100 mls/hr Q10H IV Last administered on 06/30/20at 23:44; Start 06/30/20 at 22:30; Stop 07/01/20 at 08:29; Status DC Ondansetron HCl (Zofran) 4 mg PRN Q6HRS PRN IVP NAUSEA/VOMITING; Start 06/30/20 at 22:30 Calcium Carbonate/ Glycine (Tums) 500 mg PRN Q3HRS PRN PO UPSET STOMACH; Start 06/30/20 at 22:15 Acetaminophen (Tylenol) 650 mg PRN Q6HRS PRN PO Headaches, Temp > 101.5F; Start 06/30/20 at 22:15 Senna/Docusate Sodium (Senna Plus) 1 tab BID PO Last administered on 07/06/20at 08:45; Start 06/30/20 at 22:30 Bisacodyl (Dulcolax Supp) 10 mg PRN DAILY PRN SD CONSTIPATION Last administered on 07/15/20at 12:49; Start 06/30/20 at 22:15 Atorvastatin Calcium (Lipitor) 80 mg QHS PO Last administered on 07/05/20at 22:16; Start 06/30/20 at 22:30 Famotidine (Pepcid) 20 mg BID PO Last administered on 07/06/20at 08:45; Start 06/30/20 at 22:30 Aspirin (Ecotrin) 325 mg DAILYWBKFT PO Last administered on 07/06/20at 08:45; Start 07/01/20 at 08:00 Aspirin (Aspirin Rectal Supp) 300 mg PRN DAILY PRN SD IF UNABLE TO TAKE PO Last administered on 07/15/20at 12:48; Start 06/30/20 at 22:15 Metoprolol Tartrate (Lopressor) 25 mg BID PO Last administered on 07/09/20at 21:32; Start 06/30/20 at 22:30 Hydralazine HCl (Apresoline Inj) 10 mg PRN Q4HRS PRN IVP ELEVATED BP, 1ST CHOICE; Start 06/30/20 at 22:15 Insulin Human Lispro (HumaLOG) 0-7 UNITS TIDWMEALHC SQ Last administered on 07/18/20at 01:07; Start 07/01/20 at 08:00 Dextrose (Dextrose 50%-Water Syringe) 12.5 gm PRN Q15MIN PRN IV SEE COMMENTS; Start 06/30/20 at 22:45 Gadoterate Meglumine (Clariscan) 10 ml 1X ONCE IVP ; Start 07/03/20 at 11:45; Stop 07/03/20 at 11:46; Status DC Gadoterate Meglumine (Clariscan) 8 ml 1X ONCE IVP ; Start 07/03/20 at 11:45; Stop 07/03/20 at 11:46; Status DC Gadoterate Meglumine (Clariscan) 10 ml 1X ONCE IVP Last administered on 07/03/20at 11:56; Start 07/03/20 at 11:45; Stop 07/03/20 at 11:48; Status DC Gadoterate Meglumine (Clariscan) 8 ml 1X ONCE IVP Last administered on 07/03/20at 11:56; Start 07/03/20 at 11:45; Stop 07/03/20 at 11:48; Status DC Iohexol (Omnipaque 300 Mg/ml) 75 ml 1X ONCE IV Last administered on 07/03/20at 15:51; Start 07/03/20 at 15:45; Stop 07/03/20 at 15:46; Status DC Iohexol (Omnipaque 240 Mg/ml) 50 ml 1X ONCE PO Last administered on 07/03/20at 15:51; Start 07/03/20 at 15:45; Stop 07/03/20 at 15:46; Status DC Info (CONTRAST GIVEN -- Rx MONITORING) 1 each PRN DAILY PRN MC SEE COMMENTS; Start 07/03/20 at 15:45; Stop 07/05/20 at 15:44; Status DC Bacitracin 24933 unit/Sodium Chloride 1,000 ml @ 1,000 mls/hr 1X ONCE IRR Last administered on 07/07/20at 11:28; Start 07/07/20 at 06:00; Stop 07/07/20 at 06:59; Status DC Cefazolin Sodium/ Dextrose 50 ml @ 100 mls/hr 1X PREOP PRN IV PRIOR TO PROCE DURE Last administered on 07/07/20at 10:30; Start 07/07/20 at 06:00; Stop 07/07/20 at 18:00; Status DC Ondansetron HCl (Zofran) 4 mg PRN Q6HRS PRN IV NAUSEA/VOMITING; Start 07/07/20 at 07:00; Stop 07/07/20 at 19:00; Status DC Fentanyl Citrate (Fentanyl 2ml Vial) 25 mcg PRN Q5MIN PRN IV MILD PAIN 1-3; Start 07/07/20 at 07:00; Stop 07/07/20 at 19:00; Status DC Fentanyl Citrate (Fentanyl 2ml Vial) 50 mcg PRN Q5MIN PRN IV MODERATE TO SEVERE PAIN; Start 07/07/20 at 07:00; Stop 07/07/20 at 19:00; Status DC Morphine Sulfate (Morphine Sulfate) 1 mg PRN Q10MIN PRN IV SEVERE PAIN 7-10; Start 07/07/20 at 07:00; Stop 07/07/20 at 19:00; Status DC Ringer's Solution 1,000 ml @ 30 mls/hr Q24H IV Last administered on 07/07/20at 09:45; Start 07/07/20 at 07:00; Stop 07/07/20 at 18:59; Status DC Lidocaine HCl (Xylocaine-Mpf 1% 2ml Vial) 2 ml PRN 1X PRN ID PRIOR TO IV START; Start 07/07/20 at 07:00; Stop 07/07/20 at 19:00; Status DC Hydromorphone HCl (Dilaudid) 0.5 mg PRN Q10MIN PRN IV SEV PAIN, Second choice; Start 07/07/20 at 07:00; Stop 07/07/20 at 19:00; Status DC Prochlorperazine Edisylate (Compazine) 5 mg PACU PRN PRN IV NAUSEA, MRX1; Start 07/07/20 at 07:00; Stop 07/07/20 at 19:00; Status DC Gelatin (Gelfoam Size 100) 1 each STK-MED ONCE .ROUTE Last administered on 07/07/20at 11:28; Start 07/07/20 at 07:37; Stop 07/07/20 at 07:37; Status DC Povidone Iodine (Betadine Oint) 28 nazario STK-MED ONCE TP ; Start 07/07/20 at 07:37; Stop 07/07/20 at 07:37; Status DC Lidocaine/ Epinephrine (LIDOCAINE 2%-EPI 1:100,000 multi-dose) 20 ml STK-MED ONCE .ROUTE ; Start 07/07/20 at 07:37; Stop 07/07/20 at 07:37; Status DC Cellulose (Surgicel Hemostat 4x8) 1 each STK-MED ONCE .ROUTE ; Start 07/07/20 at 07:37; Stop 07/07/20 at 07:37; Status DC Thrombin 20,000 unit STK-MED ONCE TP Last administered on 07/07/20at 11:28; Start 07/07/20 at 07:37; Stop 07/07/20 at 07:37; Status DC Gadoterate Meglumine (Clariscan) 10 ml 1X ONCE IVP Last administered on 07/07/20at 08:52; Start 07/07/20 at 08:30; Stop 07/07/20 at 08:31; Status DC Gadoterate Meglumine (Clariscan) 8 ml 1X ONCE IVP Last administered on 07/07/20at 08:52; Start 07/07/20 at 08:30; Stop 07/07/20 at 08:31; Status DC Dexamethasone Sodium Phosphate (Decadron) 4 mg Q6H IVP Last administered on 07/09/20at 12:08; Start 07/08/20 at 06:00; Stop 07/09/20 at 15:54; Status DC Rocuronium [place] (Zemuron) 50 mg STK-MED ONCE .ROUTE ; Start 07/07/20 at 08:57; Stop 07/07/20 at 08:57; Status DC Remifentanil HCl (Ultiva) 2 mg STK-MED ONCE IV ; Start 07/07/20 at 08:57; Stop 07/07/20 at 08:58; Status DC Propofol (Diprivan) 200 mg STK-MED ONCE IV ; Start 07/07/20 at 09:00; Stop 07/07/20 at 09:01; Status DC Dexamethasone Sodium Phosphate (Decadron) 20 mg STK-MED ONCE .ROUTE ; Start 07/07/20 at 09:00; Stop 07/07/20 at 09:01; Status DC Lidocaine HCl (Lidocaine Pf 2% Vial) 5 ml STK-MED ONCE .ROUTE ; Start 07/07/20 at 09:00; Stop 07/07/20 at 09:01; Status DC Ondansetron HCl (Zofran) 4 mg STK-MED ONCE .ROUTE ; Start 07/07/20 at 09:00; Stop 07/07/20 at 09:01; Status DC Phenylephrine HCl (Mamadou-Synephrine Inj) 10 mg STK-MED ONCE .ROUTE ; Start 07/07/20 at 09:01; Stop 07/07/20 at 09:01; Status DC Desflurane (Suprane) 90 ml STK-MED ONCE IH ; Start 07/07/20 at 09:04; Stop 07/07/20 at 09:04; Status DC Mannitol (Mannitol) 12.5 g STK-MED ONCE .ROUTE ; Start 07/07/20 at 09:17; Stop 07/07/20 at 09:17; Status DC Lidocaine HCl (Xylocaine 1% Pf 30ml Vial) 30 ml 1X ONCE INJ Last administered on 07/07/20at 11:28; Start 07/07/20 at 10:00; Stop 07/07/20 at 10:01; Status DC Epinephrine HCl (Adrenalin) 0.15 mg 1X ONCE INJ ; Start 07/07/20 at 10:00; Stop 07/07/20 at 10:01; Status DC Remifentanil HCl (Ultiva) 1 mg STK-MED ONCE IV ; Start 07/07/20 at 12:01; Stop 07/07/20 at 12:02; Status DC Glycopyrrolate (Robinul) 1 mg STK-MED ONCE .ROUTE ; Start 07/07/20 at 12:02; Stop 07/07/20 at 12:03; Status DC Neostigmine [place] (Neostigmine Methylsulfate) 5 mg STK-MED ONCE .ROUTE ; Start 07/07/20 at 12:03; Stop 07/07/20 at 12:03; Status DC Fentanyl Citrate (Fentanyl 2ml Vial) 100 mcg STK-MED ONCE .ROUTE ; Start 07/07/20 at 12:45; Stop 07/07/20 at 12:45; Status DC Nicardipine HCl (Cardene) 25 mg STK-MED ONCE IV ; Start 07/07/20 at 12:47; Stop 07/07/20 at 12:48; Status DC Lidocaine HCl (Lidocaine Pf 2% Vial) 5 ml STK-MED ONCE .ROUTE ; Start 07/07/20 at 13:06; Stop 07/07/20 at 13:07; Status DC Propofol 50 ml @ As Directed STK-MED ONCE IV ; Start 07/07/20 at 13:30; Stop 07/07/20 at 13:30; Status DC Lorazepam (Ativan Inj) 2 mg PRN Q4HRS PRN IVP ANXIETY / AGITATION Last administered on 07/14/20at 18:26; Start 07/07/20 at 14:15; Stop 07/15/20 at 11:51; Status DC Dexmedetomidine HCl 400 mcg/ Sodium Chloride 100 ml @ 0 mls/hr CONT PRN IV PER PROTOCOL Last administered on 07/10/20at 03:07; Start 07/07/20 at 14:45; Stop 07/12/20 at 10:11; Status DC Sodium Chloride 500 ml @ 500 mls/hr 1X PRN PRN IV SEE COMMENTS; Start 07/07/20 at 14:45 Atropine Sulfate (ATROPINE 0.5mg SYRINGE) 0.5 mg PRN Q5MIN PRN IV SEE COMMENTS; Start 07/07/20 at 14:45; Stop 07/12/20 at 10:11; Status DC Dextrose/Sodium Chloride 2,500 ml @ 50 mls/hr Q24H IV ; Start 07/07/20 at 15:00; Stop 07/09/20 at 17:00; Status UNV Dextrose/Sodium Chloride 0 ml @ 50 mls/hr Q0M IV ; Start 07/09/20 at 17:00; Stop 07/09/20 at 17:00; Status UNV Dextrose 1,000 ml @ 50 mls/hr Q20H IV Last administered on 07/07/20at 15:11; Start 07/07/20 at 16:00; Stop 07/07/20 at 17:39; Status DC Sodium Chloride 1,000 ml @ 50 mls/hr Q20H IV Last administered on 07/19/20at 06:29; Start 07/07/20 at 18:00 Insulin Glargine (Lantus Syringe) 10 unit QHS SQ Last administered on 07/09/20at 21:26; Start 07/09/20 at 21:00; Stop 07/10/20 at 14:17; Status DC Methylprednisolone Sodium Succinate 1000 mg/Sodium Chloride 100 ml @ 100 mls/hr DAILY IV Last administered on 07/13/20at 09:17; Start 07/09/20 at 16:00; Stop 07/13/20 at 22:00; Status DC Olanzapine (ZyPREXA IM) 10 mg 1X ONCE IM Last administered on 07/10/20at 09:09; Start 07/10/20 at 08:45; Stop 07/10/20 at 09:03; Status DC Insulin Glargine (Lantus Syringe) 15 unit QHS SQ Last administered on 07/18/20at 21:14; Start 07/10/20 at 21:00 Olanzapine (ZyPREXA IM) 10 mg Q6H IM Last administered on 07/12/20at 08:58; Start 07/10/20 at 15:30; Stop 07/12/20 at 10:22; Status DC Ziprasidone (Geodon Im) 20 mg 1X ONCE IM ; Start 07/10/20 at 15:30; Stop 07/10/20 at 15:33; Status DC Metoprolol Tartrate (Lopressor Vial) 5 mg Q6HRS IVP Last administered on 07/11/20at 18:03; Start 07/10/20 at 18:00; Stop 07/12/20 at 06:19; Status DC Amino Acids/ Glycerin/ Electrolytes 1,000 ml @ 80 mls/hr [id number] IV Last administered on 07/19/20at 06:28; Start 07/11/20 at 12:30 Olanzapine (ZyPREXA IM) 10 mg Q12HR IM Last administered on 07/17/20at 08:37; Start 07/12/20 at 21:00; Stop 07/17/20 at 08:40; Status DC Labetalol HCl (Normodyne Iv Push) 10 mg PRN Q2HR PRN IVP HYPERTENSION, 2ND CHOICE; Start 07/12/20 at 19:30 Gadoterate Meglumine (Clariscan) 10 ml 1X ONCE IVP Last administered on 07/14/20at 13:44; Start 07/14/20 at 13:30; Stop 07/14/20 at 13:33; Status DC Gadoterate Meglumine (Clariscan) 8 ml 1X ONCE IVP Last administered on 07/14/20at 13:44; Start 07/14/20 at 13:30; Stop 07/14/20 at 13:33; Status DC Methylprednisolone Sodium Succinate 250 mg/Sodium Chloride 100 ml @ 100 mls/hr DAILY IV Last administered on 07/17/20at 09:53; Start 07/14/20 at 16:00; Stop 07/17/20 at 09:00; Status DC Methylprednisolone Sodium Succinate 100 mg/Sodium Chloride 100 ml @ 100 mls/hr DAILY IV ; Start 07/18/20 at 11:00; Status Cancel Olanzapine (ZyPREXA IM) 10 mg PRN Q12HR PRN IM AGITATION Last administered on 07/18/20at 11:47; Start 07/17/20 at 09:00 Methylprednisolone Sodium Succinate (SOLU-Medrol 125MG VIAL) 100 mg DAILY IV Last administered on 07/18/20at 10:28; Start 07/18/20 at 09:00 Haloperidol Lactate (Haldol Inj) 3 mg PRN Q4HRS PRN IVP AGITATION Last administered on 07/19/20at 02:07; Start 07/18/20 at 03:30 Haloperidol Lactate (Haldol Inj) 1 mg 1X ONCE IVP Last administered on 07/18/20at 03:57; Start 07/18/20 at 03:30; Stop 07/18/20 at 03:31; Status DC Active Scripts Active Reported Aspirin 81 Mg Tab.chew 81 Mg PO DAILY Metformin Hcl 500 Mg Tablet 500 Mg PO BIDWMEALS Atenolol 50 Mg Tablet 50 Mg PO DAILY Vitals/I & O Vital Sign - Last 24 Hours 07/18/20 07/18/20 07/18/20 07/18/20 11:00 15:00 19:20 19:40 Temp 98.1 97.8 97.7 98.1 97.8 97.7 Pulse 91 93 113 Resp 18 18 22 B/P (MAP) 141/76 (97) 132/81 (98) 187/106 (133) Pulse Ox 95 96 91 O2 Delivery Room Air Room Air Room Air Room Air 07/18/20 07/18/20 07/19/20 07/19/20 21:32 23:11 02:57 07:00 Temp 97.9 97.9 97.7 97.9 97.9 97.7 Pulse 83 65 81 Resp 22 19 B/P (MAP) 112/60 (77) 117/65 (82) 137/82 (100) 124/76 (92) Pulse Ox 95 93 94 O2 Delivery Room Air Room Air Room Air Intake and Output 07/18/20 07/18/20 07/19/20 15:00 23:00 07:00 Output Total 1050 ml 300 ml 1650 ml Balance -1050 ml -300 ml -1650 ml Justicifation of Admission Dx: Justifications for Admission: Justification of Admission Dx: Comment: (Higher level of care requested by [place] for neurology evaluation) MAURY SIMMS MD Jul 19, 2020 08:44
[2020-07-19 08:49] LABS: BASO % 0 % (0-3); EOS # 0.2 x10^3/uL (0.0-0.7); EOS % 1 % (0-3); HEMOGLOBIN 14.8 g/dL (13.0-17.5); LYMPH # 1.2 x10^3/uL (1.0-4.8); LYMPH % 5 % (24-48); MEAN CORPUSCULAR HEMOGLOBIN 33 pg (25-35); MEAN CORPUSCULAR HGB CONC 35 g/dL (31-37); MEAN CORPUSCULAR VOLUME 95 fL (79-100); MONO # 1.1 x10^3/uL (0.0-1.1); MONO % 5 % (0-9); NEUT # 20.2 x10^3/uL (1.8-7.7); NEUT % 89 % (31-73); PLATELET COUNT 188 x10^3/uL (140-400); RED BLOOD COUNT 4.54 x10^6/uL (4.30-5.70); RED CELL DISTRIBUTION WIDTH 13.2 % (11.5-14.5); WHITE BLOOD COUNT 22.7 x10^3/uL (4.0-11.0)
[2020-07-19 08:55] LABS: CALCIUM 8.1 mg/dL (8.5-10.1); GFR 74.3; POTASSIUM 4.1 mmol/L (3.5-5.1)
[2020-07-19] MEDS: METOPROLOL TART IMMED RELEASE 25 MG TABLET. PO SCH ×2 (09:00→21:00)
[2020-07-19] MEDS: FAMOTIDINE 20 MG TABLET. PO SCH ×2 (09:00→21:00)
[2020-07-19] MEDS: SENNOSIDES/DOCUSATE 8.6/50MG TABLET. PO SCH ×2 (09:00→21:00)
--- NOTE | 2020-07-19 09:28 | PDOC2 ---
GI CONSULT Date of Service: DATE: 07/19/20 TIME: 09:28 Reason For Consult: PEG HPI: HPI: 70 y/o male admitted 06/30/20 w/ acute disseminated encephalomyelitis. D/w neurology - not cooperating for speech evals, needs rehab, would benefit from PEG. Reviewed nursing notes - agitation yesterday, getting Haldol and Zyprexa. Also d/w 1:1 sitter - pulled out IV yesterday, tries to get out of bed, has been sleeping this morning. [employer] notes as below. On PPN, rectal ASA. Had colonoscopy (cannot view procedure report) for screening (h/o polyps, FH colon cancer) in 2019. PMH: PMH: HTN, DM, HLD FH: Family History: Cancer (colon - father) Social History: Smoke: No ALCOHOL: none Drugs: None ROS: unable to obtain Vitals: Vitals: Vital Signs Date Time Temp Pulse Resp B/P (MAP) Pulse Ox O2 Delivery O2 Flow Rate FiO2 07/19/20 07:00 97.7 81 19 124/76 (92) 94 Room Air 97.7 Labs: Labs: Laboratory Tests Test 07/18/20 11:10 07/18/20 21:00 07/19/20 08:13 07/19/20 08:20 Glucose (Fingerstick) 120 mg/dL (70-99) 196 mg/dL (70-99) 86 mg/dL (70-99) White Blood Count 22.7 x10^3/uL (4.0-11.0) Red Blood Count 4.54 x10^6/uL (4.30-5.70) Hemoglobin 14.8 g/dL (13.0-17.5) Hematocrit 43.0 % (39.0-53.0) Mean Corpuscular Volume 95 fL (79-100) Mean Corpuscular Hemoglobin 33 pg (25-35) Mean Corpuscular Hemoglobin Concent 35 g/dL (31-37) Red Cell Distribution Width 13.2 % (11.5-14.5) Platelet Count 188 x10^3/uL (140-400) Neutrophils (%) (Auto) 89 % (31-73) Lymphocytes (%) (Auto) 5 % (24-48) Monocytes (%) (Auto) 5 % (0-9) Eosinophils (%) (Auto) 1 % (0-3) Basophils (%) (Auto) 0 % (0-3) Neutrophils # (Auto) 20.2 x10^3/uL (1.8-7.7) Lymphocytes # (Auto) 1.2 x10^3/uL (1.0-4.8) Monocytes # (Auto) 1.1 x10^3/uL (0.0-1.1) Eosinophils # (Auto) 0.2 x10^3/uL (0.0-0.7) Basophils # (Auto) 0.0 x10^3/uL (0.0-0.2) Sodium Level 139 mmol/L (136-145) Potassium Level 4.1 mmol/L (3.5-5.1) Chloride Level 103 mmol/L (98-107) Carbon Dioxide Level 29 mmol/L (21-32) Anion Gap 7 (6-14) Blood Urea Nitrogen 30 mg/dL (8-26) Creatinine 1.0 mg/dL (0.7-1.3) Estimated GFR (Cockcroft-Gault) 74.3 Glucose Level 96 mg/dL (70-99) Calcium Level 8.1 mg/dL (8.5-10.1) Allergies: Coded Allergies: No Known Drug Allergies (Unverified , 07/01/18) Imaging: Imaging: Speech Path 07/18 Pt con't unable to participate in swallow eval. Has either been altered in alertness or agitated at each attempt. Fluctuating status, but consistent inability to take po, highlights con't need for non-oral nutrition. May need long-term non-oral. However, given agitation suspect pt would be at risk of pulling PEG. IMPRESSIONS: No progress toward safe po intake. Pt remains unable to participate in assessment. RECOMMENDATIONS: NPO meds and nutrition. Oral care as pt will allow. NPO remains posted. Speech Path 07/14 Pt con't unable to participate in swallow eval. Resists tsp and ice chip placed to lips, swings at friend and [employer] when po offered. Keeps eyes closed. Confusional verbalizations. Brain MRI 07/14 IMPRESSION: 1. . Post right posterior temporal craniotomy with biopsy of a demyelinating lesion within the posterior right temporal lobe. A small amount of hemorrhage is seen within the biopsy site. There is no significant surrounding edema or associated mass effect. 2. Multiple areas of abnormally increased signal intensity are seen throughout the brain consistent with the patient's history of a demyelinating disorder. Three of these lesions have increased in size since the previous study as discussed above. Four of these lesions appear to have decreased in size since the previous study. No new lesion is seen. The areas of abnormal contrast enhancement seen on the previous examination have largely resolved. Head CT 07/09 IMPRESSION: 1. Pneumocephalus and a small amount of hemorrhage along the right-sided biopsy tract. These findings in addition to more pronounced mass effect on the posterior aspect of the right lateral ventricle are not beyond what would be expected given proximity to the biopsy. No midline shift or increase in volume of the ventricular system to suggest hydrocephalus. If there is ongoing concern consider short-term follow-up. 2. Numerous parenchymal lesions fully characterized on the recent MRI. Brain MRI 07/07 IMPRESSION: There is increase in size of left periatrial white matter lesion and right splenial lesion as described in detail above. Otherwise, no enhancing masses are stable with similar degree of vasogenic edema. Brain MRI 07/03 IMPRESSION: 1. Multifocal bilateral peripherally enhancing lesions. Primary considerations would be metastatic disease or multicentric glioblastoma multiforme. Other less common entities which can have a similar appearance would include an aggressive/tumefactive demyelinating process and CO[employer] SHOP ATTENDANT lymphoma (if the patient were immunocompromised). No acute hemorrhage or midline shift. Patent basilar cisterns. 2. No intracranial stenosis, aneurysm or arteriovenous malformation. MRI Angio 07/03 IMPRESSION: 1. Multifocal bilateral peripherally enhancing lesions. Primary considerations would be metastatic disease or multicentric glioblastoma multiforme. Other less common entities which can have a similar appearance would include an aggressive/tumefactive demyelinating process and COFFEE SHOP ATTENDANT lymphoma (if the patient were immunocompromised). No acute hemorrhage or midline shift. Patent basilar cisterns. 2. No intracranial stenosis, aneurysm or arteriovenous malformation. C/A/P CT 07/03 IMPRESSION: A primary malignancy in the chest abdomen or pelvis is not clearly apparent to explain the multiple ring-enhancing lesions seen intracranially on same day brain MRI. Although involvement of large white matter tracts is more classically associated with gliomas and COFFEE SHOP ATTENDANT lymphoma than with metastatic disease, mets are still possible. Consider correlation with CSF sampling. Carotid Doppler 07/03 IMPRESSION: 1. No hemodynamically significant stenosis noted at the carotid bifurcations. 2. Antegrade flow in each vertebral. 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 Mental status problematic for swallow eval; however, has been agitated w/ staff - increased risk of pulling PEG. Will review w/ Dr. Smith. INR normal 07/06. FLORENTIN POPE Jul 19, 2020 09:28
[2020-07-19 11:00] VITALS: BP 131/72
[2020-07-19 11:49] LABS: PROTHROMBIN TIME PATIENT 17.1 SEC (11.7-14.0)
[2020-07-19] MEDS ORDERED: PHYTONADIONE 10 MG/ML AMPUL. SQ ONE (13:30)
[2020-07-19] MEDS: methylPREDNISolone SOD SUCC PF 125 MG/2 ML VIAL. IV SCH (14:00)
[2020-07-19 15:00] VITALS: BP 121/74
[2020-07-19 19:00] VITALS: BP 124/82
[2020-07-19] MEDS: ATORVASTATIN CALCIUM 40 MG TABLET. PO SCH (21:00)
[2020-07-19] MEDS: INSULIN GLARGINE SYRINGE. SQ SCH (21:32)
[2020-07-20] VITALS (7 sets, daily range): BP systolic 106–179; BP diastolic 72–90
[2020-07-20] MEDS ORDERED: IV RINGERS,LACTATED 1000ML 1,000 ML IV SCH (07:00)
[2020-07-20] MEDS: INSULIN LISPRO 300 UNITS/3 ML VIAL. SQ SCH ×3 (08:00→16:54)
[2020-07-20] MEDS: ASPIRIN ENTERIC COATED 325 MG TABLET.DR. PO SCH (08:00)
[2020-07-20] MEDS: SENNOSIDES/DOCUSATE 8.6/50MG TABLET. PO SCH (08:25)
[2020-07-20] MEDS: FAMOTIDINE 20 MG TABLET. PO SCH (08:25)
[2020-07-20] MEDS: METOPROLOL TART IMMED RELEASE 25 MG TABLET. PO SCH (08:25)
[2020-07-20] MEDS: AMINO AC 3%/ELECTROLYTE/GLYCER 1,000 ML IV SCH (08:44)
[2020-07-20] MEDS ORDERED: IV RINGERS,LACTATED 1000ML 1,000 ML IV ONE (08:45)
[2020-07-20] MEDS: methylPREDNISolone SOD SUCC PF 125 MG/2 ML VIAL. IV SCH (08:47)
--- NOTE | 2020-07-20 09:42 | NUR ---
ALYSON following. Discussed with RN, pt on room air, NPO. Plans for PEG placement potentially today. Pt not able to be accepted anywhere for SNF or LTC with mitts and 1:1. ALYSON will continue to follow. Addendum: 07/20/20 at 1127 by YAIMA SHIELDS ALYSON spoke with Bridgett at the [facility] - pt is not service connected for care home placement, but family can call the [place] Commission on Veterans affairs to determine if his new dx would make him eligible for anything. Bridgett advised [facility] and [facility] has soldier home (like nursing homes) which would need to be applied through the same commission as above. ALYSON notified pt's daughter, Tamar of this information and provided phone number for [facility] Bridgett Restrepo in case Tamar has any [facility] specific questions. ALYSON will continue to follow.
[2020-07-20 10:15] LABS: CALCIUM 8.2 mg/dL (8.5-10.1); CREATININE 0.8 mg/dL (0.7-1.3); GFR 96.1
--- NOTE | 2020-07-20 11:20 | PDOC ---
[facility] [facility] PROGRESS NOTE Date of Service DOS: DATE: 07/20/20 TIME: 11:14 Chief Complaint Chief Complaint impression Acute toxic encephalopathy disseminated encephalomyelitis, attack form of multiple sclerosis. Lab work including B12, protein electrophoresis, TSH, SUZI all negative for other causes o f demyelination. Elevated free kappa light chains MRI repeat on 07/14 shows three lesions increased in size, four decreased SIZE Encephalopathic, related to sedatives, steroids, and the brain demyelination. Multifocal bilateral peripherally enhancing lesions. Post right posterior temporal craniotomy with biopsy of a demyelinating lesion within the posterior right temporal lobe Status post craniotomy and brain biopsy History of diabetes mellitus type 2 - A1c 6.1 Hearing impaired History of essential hypertension History of Present Illness History of Present Illness Mr Rodriguez is a 70 year old male [employer] with past medical history of diabetes who was in his usual state of health until approximately 5 days prior to his admission when he started complaining of mental fog and confusion. Patient also complained of headache according to his daughter who is at bedside helping with the history taking. He also had some hearing loss worse than usual over his right ear and did not improve after cerumen disimpaction. Patient denies any headaches no loss of vision he recently had his prescription change and apparently his bottling equipment sales representative told him that they need to do some changes since its "too strong in "of a prescription. Patient denies dysphagia odynophagia no slurred speech no hemiparesis no hemiplegia, no chest pain palpitations or shortness of breath, no neck stiffness noticed no fever or chills no meningismus no abdominal pain nausea vomiting or diarrhea. The patient has had proper oral intake over the last couple days. On 06/30/20 he experienced sudden onset dizziness, worsening fatigue and hearing l oss. He was taken to the emergency room at [facility] where he received a CT head. This showed multiple brain lesions. He has been transferred to [facility] for further evaluation. He has received a CT of the chest, abdomen and pelvis which has not shown any additional signs of malignancy. He received brain MRI and MRA of the head and neck which showed mu ltifocal brain lesions with reported differential diagnosis of malignancy, demyelinating disorder possibly infection. Consults: Neurology, Heme/Onc and neurosurgery 07/07: To brain biopsy. 07/11: trying to limit sedation, changed to zyprexa today, Neuro following, cont high dose steroids. Transferred from ICU. 07/12: Still very confused. He is asking to contact Tamar. No shortness of breath or chest pain. Requiring mittens. 07/13: Still very confused talking to people not the room. No pain complaints. Still with one-to-one sitter and requiring mittens. 07/14: Still hallucinating, only able to carry minimal conversation. No compl aints. Still requiring 1-1 sitter, mittens. MRI with Multiple areas of abnormally increased signal intensity are seen throughout the brain consistent with the patient's history of a demyelinating disorder. Three of these lesions have increased in size since the previous study as discussed above. Four of these lesions appear to have decreased in size since the previous study. No new lesion is seen. 07/15: More drowsy today. Did receive 2 mg of Ativan overnight. Still requiring one-to-one sitter and mittens. Son has indicated he wants his father to come home with him. However his twin sister would like family friends more involved. Awake today. Did not sleep well last night. Still requiring 1-1, mittens. Cannot follow any commands or swallow. After lengthy discussion with his son and daughter they both would wish for a second opinion and Jean III has requested [facility]. 07/17/2020: -Patient seen and examined. Seems semi coherent in room today -Pravin porter sample case. Pravin RN. -Chart reviewed. 07/19/2020 -Patient seen and examined.pleasantly confused. In mitts for patient safety. Valentina DIANA. -Pravin porter sample case. Pravin RN. -Chart reviewed. Acute disseminated encephalomyelitis, a single-attack form of multiple sclerosis. Lab work including B12, protein electrophoresis, TSH, SUZI all negative for other causes of demyelination. Elevated free kappa light chains MRI repeat on 07/14 shows three lesions increased in size, four decreased in size, no new, enhancement areas have mostly resolved Encephalopathic, related to sedatives, steroids, and the brain demyelination. SITTER IN ROOM NEEDED 07/20/2020 -friends present in room with pt, discussed pt care with pt and friends. friends expressed interest in [facility] experimental treatment -Patient seen and examined.pleasantly confused. In mitts for patient safety. Valentina DIANA. -Pravin porter sample case. -Pravin RN. -Chart reviewed. -Acute disseminated encephalomyelitis, a single-attack form of multiple sclerosis. Lab work including B12, protein electrophoresis, TSH, SUZI all neg ative for other causes of demyelination. Elevated free kappa light chains MRI repeat on 07/14 shows three lesions increased in size, four decreased in size, no new, enhancement areas have mostly resolved Encephalopathic, related to sedatives, steroids, and the brain demyelination. Vitals/I&O Vitals/I&O: Vital Signs Date Time Temp Pulse Resp B/P (MAP) Pulse Ox O2 Delivery O2 Flow Rate FiO2 07/20/20 10:18 100.1 88 18 161/72 (101) 93 Room Air 100.1 07/19/20 08:00 6.0 I & O 07/19/20 07/19/20 07/20/20 15:00 23:00 07:00 Intake Total 2000 ml Output Total 750 ml 800 ml 1350 ml Balance -750 ml 1200 ml -1350 ml Physical Exam General: Other (mildly agitated) Heart: Regular rate, Normal S1 Abdomen: Soft, Other (No splenomegaly) Extremities: No clubbing, No edema Skin: No rashes, Other (dressing C,D,I) Labs Labs: Laboratory Tests Test 07/19/20 11:15 07/19/20 16:29 07/19/20 20:27 07/20/20 06:36 Glucose (Fingerstick) 127 mg/dL (70-99) 169 mg/dL (70-99) 221 mg/dL (70-99) 148 mg/dL (70-99) Test 07/20/20 08:26 Sodium Level 129 mmol/L (136-145) Potassium Level 5.0 mmol/L (3.5-5.1) Chloride Level 97 mmol/L (98-107) Carbon Dioxide Level 23 mmol/L (21-32) Anion Gap 9 (6-14) Blood Urea Nitrogen 29 mg/dL (8-26) Creatinine 0.8 mg/dL (0.7-1.3) Estimated GFR (Cockcroft-Gault) 96.1 Glucose Level 149 mg/dL (70-99) Calcium Level 8.2 mg/dL (8.5-10.1) Review of Systems Review of Systems: pt confused and no abnormal GI sx noted Assessment and Plan Assessmemt and Plan 07/20/2020 Assessment Acute toxic encephalopathy disseminated encephalomyelitis, attack form of multiple sclerosis. Lab work including B12, protein electrophoresis, TSH, SUZI all negative for other causes of demyelination. Elevated free kappa light chains MRI repeat on 07/14 shows three lesions increased in size, four decreased SIZE Encephalopathic, related to sedatives, steroids, and the brain demyelination. Multifocal bilateral peripherally enhancing lesions. Post right posterior temporal craniotomy with biopsy of a demyelinating lesion within the posterior right temporal lobe Status post craniotomy and brain biopsy History of diabetes mellitus type 2 - A1c 6.1 Hearing impaired History of essential hypertension Plan - pt will get PEG today - continue with mittens on hands for pt's safety - trend labs - appreciate subspecialist input - continue to monitor mendieta to BSD Comment Review of Relevant I have reviewed the following items bashir (where applicable) has been applied. Medications: Current Medications Medications (Trade) Dose Ordered Sig/Desiree Route PRN Reason Start Time Stop Time Status Last Admin Dose Admin Phytonadione (Vitamin K Ampule) 5 mg 1X ONCE SQ 07/19/20 13:30 07/19/20 13:31 DC 07/19/20 14:04 Justifications for Admission TIA Indications Persistent neurologic signs?: Yes Justification for admission: There is persistence of patient's focal neurologic signs or symptoms or there is concern for recurrence of patient's neurological signs and symptoms. Other Justification JANELLE STYLES III DO Jul 20, 2020 11:20
--- NOTE | 2020-07-20 13:00 | RAD ---
INDICATION: Reason: AMS, demyelinating disease / Spl. Instructions: / History: . COMPARISON: July 09 and July 14, 2020 TECHNIQUE: Axial CT images obtained through the head. One or more of the following individualized dose reduction techniques were utilized for this examinat ion: 1. Automated exposure control; 2. Adjustment of the mA and/or kV according to patient size; 3 . Use of iterative reconstruction technique. FINDINGS: Postoperative changes on the right again seen with overlying staple line. There is low density within the brain at the operative site which could be from edema. This appears increased from prior. There is also hemorrhage at the biopsy site again seen within the parenchyma. There has been interval devel opment of intraventricular hemorrhage filling a large portion of the right lateral ventricle but hemo rrhage is also seen within the left lateral ventricle as well as the third and fourth ventricle. Ther e is multifocal regions of low density throughout the white matter. There is also low density at the corpus callosum again seen and low-density within posterior circulation bilaterally again seen disten tion of the ventricles. Appears increased from prior. 2 mm of midline shift to the left. IMPRESSION: * Large amount of intraventricular hemorrhage most severe in the right lateral ventricle has develop ed since prior examination. There is associated hydrocephalus and mass effect with 2 mm of midline sh ift to the left. * There is again low density as well as some blood within the right cerebral hemisphere at the biops y site. * Repeat demonstration of multifocal regions of low density including within the corpus callosum and bilateral occipital region. This could be secondary to edema at these sites. There is multifocal reg ions of low density seen elsewhere within the brain as well. Report was called to the patient's nurse Bridgett at 12:55 PM on date of exam. Electronically signed by: Saji Panchal MD (07/20/2020 12:58 PM) [id number]
[2020-07-20 13:08] LABS: BASO # 0.1 x10^3/uL (0.0-0.2); BASO % 1 % (0-3); EOS # 0.1 x10^3/uL (0.0-0.7); EOS % 0 % (0-3); HEMATOCRIT 43.1 % (39.0-53.0); HEMOGLOBIN 15.1 g/dL (13.0-17.5); LYMPH # 0.3 x10^3/uL (1.0-4.8); LYMPH % 1 % (24-48); MEAN CORPUSCULAR HEMOGLOBIN 33 pg (25-35); MEAN CORPUSCULAR HGB CONC 35 g/dL (31-37); MEAN CORPUSCULAR VOLUME 93 fL (79-100); MONO # 0.4 x10^3/uL (0.0-1.1); MONO % 1 % (0-9); NEUT # 29.3 x10^3/uL (1.8-7.7); NEUT % 97 % (31-73); PLATELET COUNT 177 x10^3/uL (140-400); RED BLOOD COUNT 4.63 x10^6/uL (4.30-5.70); RED CELL DISTRIBUTION WIDTH 12.9 % (11.5-14.5); WHITE BLOOD COUNT 30.2 x10^3/uL (4.0-11.0)
--- NOTE | 2020-07-20 13:13 | PDOC ---
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 Smith checked it, he gave the patient some vitamin K. Patient is not on any anticoagulation. Acute disseminated encephalomyelitis, a single-attack form of multiple sclerosis. Lab work including B12, protein electrophoresis, TSH, SUZI all negative for other causes of demyelination. Elevated free kappa light chains MRI repeat on 07/14 shows three lesions increased in size, four decreased in size, no new, enhancement areas have mostly resolved Encephalopathic, related to sedatives, steroids, and the brain demyelination. He is better Memory loss preceding admission Diabetes, hypertension Plan I discussed the findings with the patient's daughter and left a message with the patient's son. I do not think he is going to survive. She would like to keep him a full code as she is going to need 2 or 3 hours to get up here from school, and would like to see him before he passes. On the other hand, I do not see a need to transfer the patient to the ICU as I do not think any intervention will help Dr. Muñoz is notified of the findings Solu-Medrol, tapered to 100 mg daily for 3 days (07/18-), then 60 mg daily for 3 days (07/21-), 50 mg daily for 3 days (07/24-), 40 mg daily for 3 days (07/27- ), 30 mg daily for 3 days (07/30-), 20 mg daily for 3 days (08/02-), 10 mg every other day for 3 days (08/05-), then stop. If able to take orally, will use prednisone Subjective None Objective Vital Signs Date Time Temp Pulse Resp B/P (MAP) Pulse Ox O2 Delivery O2 Flow Rate FiO2 07/20/20 10:18 100.1 88 18 161/72 (101) 93 Room Air 100.1 07/19/20 08:00 6.0 Intake and Output 07/20/20 07:00 Intake Total 2000 ml Output Total 2900 ml Balance -900 ml IV Total 2000 ml Output Urine Total 2900 ml PHYSICAL EXAM Asleep, snoring PERRL. EOMI. CN: no focal findings. Muscle tone: normal. Muscle strength: minimal movement of extremities to stimulation DTR: 2+ Plantar reflex: Flexor Gait: not examined in bed. Sensory exam: no abnormal findings. No cerebellar signs elicited Review of Relevant I have reviewed the following items bashir (where applicable) has been applied. Labs Laboratory Tests Test 07/18/20 21:00 07/19/20 08:13 07/19/20 08:20 07/19/20 11:15 Glucose (Fingerstick) 196 mg/dL (70-99) 86 mg/dL (70-99) 127 mg/dL (70-99) White Blood Count 22.7 x10^3/uL (4.0-11.0) Red Blood Count 4.54 x10^6/uL (4.30-5.70) Hemoglobin 14.8 g/dL (13.0-17.5) Hematocrit 43.0 % (39.0-53.0) Mean Corpuscular Volume 95 fL (79-100) Mean Corpuscular Hemoglobin 33 pg (25-35) Mean Corpuscular Hemoglobin Concent 35 g/dL (31-37) Red Cell Distribution Width 13.2 % (11.5-14.5) Platelet Count 188 x10^3/uL (140-400) Neutrophils (%) (Auto) 89 % (31-73) Lymphocytes (%) (Auto) 5 % (24-48) Monocytes (%) (Auto) 5 % (0-9) Eosinophils (%) (Auto) 1 % (0-3) Basophils (%) (Auto) 0 % (0-3) Neutrophils # (Auto) 20.2 x10^3/uL (1.8-7.7) Lymphocytes # (Auto) 1.2 x10^3/uL (1.0-4.8) Monocytes # (Auto) 1.1 x10^3/uL (0.0-1.1) Eosinophils # (Auto) 0.2 x10^3/uL (0.0-0.7) Basophils # (Auto) 0.0 x10^3/uL (0.0-0.2) Prothrombin Time 17.1 SEC (11.7-14.0) Prothromb Time International Ratio 1.4 (0.8-1.1) Sodium Level 139 mmol/L (136-145) Potassium Level 4.1 mmol/L (3.5-5.1) Chloride Level 103 mmol/L (98-107) Carbon Dioxide Level 29 mmol/L (21-32) Anion Gap 7 (6-14) Blood Urea Nitrogen 30 mg/dL (8-26) Creatinine 1.0 mg/dL (0.7-1.3) Estimated GFR (Cockcroft-Gault) 74.3 Glucose Level 96 mg/dL (70-99) Calcium Level 8.1 mg/dL (8.5-10.1) Test 07/19/20 16:29 07/19/20 20:27 07/20/20 06:36 07/20/20 08:26 Glucose (Fingerstick) 169 mg/dL (70-99) 221 mg/dL (70-99) 148 mg/dL (70-99) Sodium Level 129 mmol/L (136-145) Potassium Level 5.0 mmol/L (3.5-5.1) Chloride Level 97 mmol/L (98-107) Carbon Dioxide Level 23 mmol/L (21-32) Anion Gap 9 (6-14) Blood Urea Nitrogen 29 mg/dL (8-26) Creatinine 0.8 mg/dL (0.7-1.3) Estimated GFR (Cockcroft-Gault) 96.1 Glucose Level 149 mg/dL (70-99) Calcium Level 8.2 mg/dL (8.5-10.1) Test 07/20/20 11:25 Glucose (Fingerstick) 177 mg/dL (70-99) Laboratory Tests Test 07/19/20 16:29 07/19/20 20:27 07/20/20 06:36 07/20/20 08:26 Glucose (Fingerstick) 169 mg/dL (70-99) 221 mg/dL (70-99) 148 mg/dL (70-99) Sodium Level 129 mmol/L (136-145) Potassium Level 5.0 mmol/L (3.5-5.1) Chloride Level 97 mmol/L (98-107) Carbon Dioxide Level 23 mmol/L (21-32) Anion Gap 9 (6-14) Blood Urea Nitrogen 29 mg/dL (8-26) Creatinine 0.8 mg/dL (0.7-1.3) Estimated GFR (Cockcroft-Gault) 96.1 Glucose Level 149 mg/dL (70-99) Calcium Level 8.2 mg/dL (8.5-10.1) Test 07/20/20 11:25 Glucose (Fingerstick) 177 mg/dL (70-99) Medications Current Medications Ringer's Solution 1,000 ml @ 100 mls/hr Q10H IV Last administered on 06/30/20at 23:44; Start 06/30/20 at 22:30; Stop 07/01/20 at 08:29; Status DC Ondansetron HCl (Zofran) 4 mg PRN Q6HRS PRN IVP NAUSEA/VOMITING; Start 06/30/20 at 22:30 Calcium Carbonate/ Glycine (Tums) 500 mg PRN Q3HRS PRN PO UPSET STOMACH; Start 06/30/20 at 22:15 Acetaminophen (Tylenol) 650 mg PRN Q6HRS PRN PO Headaches, Temp > 101.5F; Start 06/30/20 at 22:15 Senna/Docusate Sodium (Senna Plus) 1 tab BID PO Last administered on 07/06/20at 08:45; Start 06/30/20 at 22:30 Bisacodyl (Dulcolax Supp) 10 mg PRN DAILY PRN [place] CONSTIPATION Last administered on 07/15/20at 12:49; Start 06/30/20 at 22:15 Atorvastatin Calcium (Lipitor) 80 mg QHS PO Last administered on 07/05/20at 22:16; Start 06/30/20 at 22:30 Famotidine (Pepcid) 20 mg BID PO Last administered on 07/06/20at 08:45; Start 06/30/20 at 22:30 Aspirin (Ecotrin) 325 mg [id number] PO Last administered on 07/06/20at 08:45; Start 07/01/20 at 08:00 Aspirin (Aspirin Rectal Supp) 300 mg PRN DAILY PRN OH IF UNABLE TO TAKE PO Last administered on 07/15/20at 12:48; Start 06/30/20 at 22:15 Metoprolol Tartrate (Lopressor) 25 mg BID PO Last administered on 07/09/20at 21:32; Start 06/30/20 at 22:30 Hydralazine HCl (Apresoline Inj) 10 mg PRN Q4HRS PRN IVP ELEVATED BP, 1ST CHOICE; Start 06/30/20 at 22:15 Insulin Human Lispro (HumaLOG) 0-7 UNITS TIDWMEALHC SQ Last administered on 07/19/20at 21:31; Start 07/01/20 at 08:00 Dextrose (Dextrose 50%-Water Syringe) 12.5 gm PRN Q15MIN PRN IV SEE COMMENTS; Start 06/30/20 at 22:45 Gadoterate Meglumine (Clariscan) 10 ml 1X ONCE IVP ; Start 07/03/20 at 11:45; Stop 07/03/20 at 11:46; Status DC Gadoterate Meglumine (Clariscan) 8 ml 1X ONCE IVP ; Start 07/03/20 at 11:45; Stop 07/03/20 at 11:46; Status DC Gadoterate Meglumine (Clariscan) 10 ml 1X ONCE IVP Last administered on 07/03/20at 11:56; Start 07/03/20 at 11:45; Stop 07/03/20 at 11:48; Status DC Gadoterate Meglumine (Clariscan) 8 ml 1X ONCE IVP Last administered on 07/03/20at 11:56; Start 07/03/20 at 11:45; Stop 07/03/20 at 11:48; Status DC Iohexol (Omnipaque 300 Mg/ml) 75 ml 1X ONCE IV Last administered on 07/03/20at 15:51; Start 07/03/20 at 15:45; Stop 07/03/20 at 15:46; Status DC Iohexol (Omnipaque 240 Mg/ml) 50 ml 1X ONCE PO Last administered on 07/03/20at 15:51; Start 07/03/20 at 15:45; Stop 07/03/20 at 15:46; Status DC Info (CONTRAST GIVEN -- Rx MONITORING) 1 each PRN DAILY PRN MC SEE COMMENTS; Start 07/03/20 at 15:45; Stop 07/05/20 at 15:44; Status DC Bacitracin 81974 unit/Sodium Chloride 1,000 ml @ 1,000 mls/hr 1X ONCE IRR Last administered on 07/07/20at 11:28; Start 07/07/20 at 06:00; Stop 07/07/20 at 06:59; Status DC Cefazolin Sodium/ Dextrose 50 ml @ 100 mls/hr 1X PREOP PRN IV PRIOR TO PROCEDURE Last administered on 07/07/20at 10:30; Start 07/07/20 at 06:00; Stop 07/07/20 at 18:00; Status DC Ondansetron HCl (Zofran) 4 mg PRN Q6HRS PRN IV NAUSEA/VOMITING; Start 07/07/20 at 07:00; Stop 07/07/20 at 19:00; Status DC Fentanyl Citrate (Fentanyl 2ml Vial) 25 mcg PRN Q5MIN PRN IV MILD PAIN 1-3; Start 07/07/20 at 07:00; Stop 07/07/20 at 19:00; Status DC Fentanyl Citrate (Fentanyl 2ml Vial) 50 mcg PRN Q5MIN PRN IV MODERATE TO SEVERE PAIN; Start 07/07/20 at 07:00; Stop 07/07/20 at 19:00; Status DC Morphine Sulfate (Morphine Sulfate) 1 mg PRN Q10MIN PRN IV SEVERE PAIN 7-10; Start 07/07/20 at 07:00; Stop 07/07/20 at 19:00; Status DC Ringer's Solution 1,000 ml @ 30 mls/hr Q24H IV Last administered on 07/07/20at 09:45; Start 07/07/20 at 07:00; Stop 07/07/20 at 18:59; Status DC Lidocaine HCl (Xylocaine-Mpf 1% 2ml Vial) 2 ml PRN 1X PRN ID PRIOR TO IV START; Start 07/07/20 at 07:00; Stop 07/07/20 at 19:00; Status DC Hydromorphone HCl (Dilaudid) 0.5 mg PRN Q10MIN PRN IV SEV PAIN, Second choice; Start 07/07/20 at 07:00; Stop 07/07/20 at 19:00; Status DC Prochlorperazine Edisylate (Compazine) 5 mg PACU PRN PRN IV NAUSEA, MRX1; Start 07/07/20 at 07:00; Stop 07/07/20 at 19:00; Status DC Gelatin (Gelfoam Size 100) 1 each STK-MED ONCE .ROUTE Last administered on 07/07/20at 11:28; Start 07/07/20 at 07:37; Stop 07/07/20 at 07:37; Status DC Povidone Iodine (Betadine Oint) 28 nazario STK-MED ONCE TP ; Start 07/07/20 at 07:37; Stop 07/07/20 at 07:37; Status DC Lidocaine/ Epinephrine (LIDOCAINE 2%-EPI 1:100,000 multi-dose) 20 ml STK-MED ONCE .ROUTE ; Start 07/07/20 at 07:37; Stop 07/07/20 at 07:37; Status DC Cellulose (Surgicel Hemostat 4x8) 1 each STK-MED ONCE .ROUTE ; Start 07/07/20 at 07:37; Stop 07/07/20 at 07:37; Status DC Thrombin 20,000 unit STK-MED ONCE TP Last administered on 07/07/20at 11:28; Start 07/07/20 at 07:37; Stop 07/07/20 at 07:37; Status DC Gadoterate Meglumine (Clariscan) 10 ml 1X ONCE IVP Last administered on 07/07/20at 08:52; Start 07/07/20 at 08:30; Stop 07/07/20 at 08:31; Status DC Gadoterate Meglumine (Clariscan) 8 ml 1X ONCE IVP Last administered on 07/07/20at 08:52; Start 07/07/20 at 08:30; Stop 07/07/20 at 08:31; Status DC Dexamethasone Sodium Phosphate (Decadron) 4 mg Q6H IVP Last administered on 07/09/20at 12:08; Start 07/08/20 at 06:00; Stop 07/09/20 at 15:54; Status DC Rocuronium [place] (Zemuron) 50 mg STK-MED ONCE .ROUTE ; Start 07/07/20 at 08:57; Stop 07/07/20 at 08:57; Status DC Remifentanil HCl (Ultiva) 2 mg STK-MED ONCE IV ; Start 07/07/20 at 08:57; Stop 07/07/20 at 08:58; Status DC Propofol (Diprivan) 200 mg STK-MED ONCE IV ; Start 07/07/20 at 09:00; Stop 07/07/20 at 09:01; Status DC Dexamethasone Sodium Phosphate (Decadron) 20 mg STK-MED ONCE .ROUTE ; Start 07/07/20 at 09:00; Stop 07/07/20 at 09:01; Status DC Lidocaine HCl (Lidocaine Pf 2% Vial) 5 ml STK-MED ONCE .ROUTE ; Start 07/07/20 at 09:00; Stop 07/07/20 at 09:01; Status DC Ondansetron HCl (Zofran) 4 mg STK-MED ONCE .ROUTE ; Start 07/07/20 at 09:00; Stop 07/07/20 at 09:01; Status DC Phenylephrine HCl (Mamadou-Synephrine Inj) 10 mg STK-MED ONCE .ROUTE ; Start 07/07/20 at 09:01; Stop 07/07/20 at 09:01; Status DC Desflurane (Suprane) 90 ml STK-MED ONCE IH ; Start 07/07/20 at 09:04; Stop 07/07/20 at 09:04; Status DC Mannitol (Mannitol) 12.5 g STK-MED ONCE .ROUTE ; Start 07/07/20 at 09:17; Stop 07/07/20 at 09:17; Status DC Lidocaine HCl (Xylocaine 1% Pf 30ml Vial) 30 ml 1X ONCE INJ Last administered on 07/07/20at 11:28; Start 07/07/20 at 10:00; Stop 07/07/20 at 10:01; Status DC Epinephrine HCl (Adrenalin) 0.15 mg 1X ONCE INJ ; Start 07/07/20 at 10:00; Stop 07/07/20 at 10:01; Status DC Remifentanil HCl (Ultiva) 1 mg STK-MED ONCE IV ; Start 07/07/20 at 12:01; Stop 07/07/20 at 12:02; Status DC Glycopyrrolate (Robinul) 1 mg STK-MED ONCE .ROUTE ; Start 07/07/20 at 12:02; Stop 07/07/20 at 12:03; Status DC Neostigmine [place] (Neostigmine Methylsulfate) 5 mg STK-MED ONCE .ROUTE ; Start 07/07/20 at 12:03; Stop 07/07/20 at 12:03; Status DC Fentanyl Citrate (Fentanyl 2ml Vial) 100 mcg STK-MED ONCE .ROUTE ; Start 07/07/20 at 12:45; Stop 07/07/20 at 12:45; Status DC Nicardipine HCl (Cardene) 25 mg STK-MED ONCE IV ; Start 07/07/20 at 12:47; Stop 07/07/20 at 12:48; Status DC Lidocaine HCl (Lidocaine Pf 2% Vial) 5 ml STK-MED ONCE .ROUTE ; Start 07/07/20 at 13:06; Stop 07/07/20 at 13:07; Status DC Propofol 50 ml @ As Directed STK-MED ONCE IV ; Start 07/07/20 at 13:30; Stop 07/07/20 at 13:30; Status DC Lorazepam (Ativan Inj) 2 mg PRN Q4HRS PRN IVP ANXIETY / AGITATION Last administered on 07/14/20at 18:26; Start 07/07/20 at 14:15; Stop 07/15/20 at 11:51; Status DC Dexmedetomidine HCl 400 mcg/ Sodium Chloride 100 ml @ 0 mls/hr CONT PRN IV PER PROTOCOL Last administered on 07/10/20at 03:07; Start 07/07/20 at 14:45; Stop 07/12/20 at 10:11; Status DC Sodium Chloride 500 ml @ 500 mls/hr 1X PRN PRN IV SEE COMMENTS; Start 07/07/20 at 14:45 Atropine Sulfate (ATROPINE 0.5mg SYRINGE) 0.5 mg PRN Q5MIN PRN IV SEE COMMENTS; Start 07/07/20 at 14:45; Stop 07/12/20 at 10:11; Status DC Dextrose/Sodium Chloride 2,500 ml @ 50 mls/hr Q24H IV ; Start 07/07/20 at 15:00; Stop 07/09/20 at 17:00; Status UNV Dextrose/Sodium Chloride 0 ml @ 50 mls/hr Q0M IV ; Start 07/09/20 at 17:00; Stop 07/09/20 at 17:00; Status UNV Dextrose 1,000 ml @ 50 mls/hr Q20H IV Last administered on 07/07/20at 15:11; Start 07/07/20 at 16:00; Stop 07/07/20 at 17:39; Status DC Sodium Chloride 1,000 ml @ 50 mls/hr Q20H IV Last administered on 07/19/20at 21:33; Start 07/07/20 at 18:00 Insulin Glargine (Lantus Syringe) 10 unit QHS SQ Last administered on 07/09/20at 21:26; Start 07/09/20 at 21:00; Stop 07/10/20 at 14:17; Status DC Methylprednisolone Sodium Succinate 1000 mg/Sodium Chloride 100 ml @ 100 mls/hr DAILY IV Last administered on 07/13/20at 09:17; Start 07/09/20 at 16:00; Stop 07/13/20 at 22:00; Status DC Olanzapine (ZyPREXA IM) 10 mg 1X ONCE IM Last administered on 07/10/20at 09:09; Start 07/10/20 at 08:45; Stop 07/10/20 at 09:03; Status DC Insulin Glargine (Lantus Syringe) 15 unit QHS SQ Last administered on 07/19/20at 21:32; Start 07/10/20 at 21:00 Olanzapine (ZyPREXA IM) 10 mg Q6H IM Last administered on 07/12/20at 08:58; Start 07/10/20 at 15:30; Stop 07/12/20 at 10:22; Status DC Ziprasidone (Geodon Im) 20 mg 1X ONCE IM ; Start 07/10/20 at 15:30; Stop 07/10/20 at 15:33; Status DC Metoprolol Tartrate (Lopressor Vial) 5 mg Q6HRS IVP Last administered on at 18:03; Start 07/10/20 at 18:00; Stop 07/12/20 at 06:19; Status DC Amino Acids/ Glycerin/ Electrolytes 1,000 ml @ 80 mls/hr [id number] IV Last administered on 07/20/20at 08:44; Start 07/11/20 at 12:30 Olanzapine (ZyPREXA IM) 10 mg Q12HR IM Last administered on 07/17/20at 08:37; Start 07/12/20 at 21:00; Stop 07/17/20 at 08:40; Status DC Labetalol HCl (Normodyne Iv Push) 10 mg PRN Q2HR PRN IVP HYPERTENSION, 2ND CHOICE; Start 07/12/20 at 19:30 Gadoterate Meglumine (Clariscan) 10 ml 1X ONCE IVP Last administered on 07/14/20at 13:44; Start 07/14/20 at 13:30; Stop 07/14/20 at 13:33; Status DC Gadoterate Meglumine (Clariscan) 8 ml 1X ONCE IVP Last administered on 07/14/20at 13:44; Start 07/14/20 at 13:30; Stop 07/14/20 at 13:33; Status DC Methylprednisolone Sodium Succinate 250 mg/Sodium Chloride 100 ml @ 100 mls/hr DAILY IV Last administered on 07/17/20at 09:53; Start 07/14/20 at 16:00; Stop 07/17/20 at 09:00; Status DC Methylprednisolone Sodium Succinate 100 mg/Sodium Chloride 100 ml @ 100 mls/hr DAILY IV ; Start 07/18/20 at 11:00; Status Cancel Olanzapine (ZyPREXA IM) 10 mg PRN Q12HR PRN IM AGITATION Last administered on 07/18/20at 11:47; Start 07/17/20 at 09:00 Methylprednisolone Sodium Succinate (SOLU-Medrol 125MG VIAL) 100 mg DAILY IV Last administered on 07/20/20at 08:47; Start 07/18/20 at 09:00 Haloperidol Lactate (Haldol Inj) 3 mg PRN Q4HRS PRN IVP AGITATION Last ad ministered on 07/19/20at 02:07; Start 07/18/20 at 03:30 Haloperidol Lactate (Haldol Inj) 1 mg 1X ONCE IVP Last administered on 07/18/20at 03:57; Start 07/18/20 at 03:30; Stop 07/18/20 at 03:31; Status DC Cefazolin Sodium/ Dextrose 50 ml @ 100 mls/hr 1X PREOP ONCE IV ; Start 07/20/20 at 12:30; Stop 07/20/20 at 12:59; Status DC Phytonadione (Vitamin K Ampule) 5 mg 1X ONCE SQ Last administered on 07/19/20at 14:04; Start 07/19/20 at 13:30; Stop 07/19/20 at 13:31; Status DC Ringer's Solution 1,000 ml @ 50 mls/hr Q20H IV ; Start 07/20/20 at 07:00; Stop 07/20/20 at 18:59 Ringer's Solution 1,000 ml @ 75 mls/hr 1X ONCE IV ; Start 07/20/20 at 08:45; Stop 07/20/20 at 22:04 Active Scripts Active Reported Aspirin 81 Mg Tab.chew 81 Mg PO DAILY Metformin Hcl 500 Mg Tablet 500 Mg PO BIDWMEALS Atenolol 50 Mg Tablet 50 Mg PO DAILY Vitals/I & O Vital Sign - Last 24 Hours 07/19/20 07/19/20 07/19/20 07/20/20 15:00 19:00 20:00 00:10 Temp 97.9 99.0 97.9 99.0 Pulse 73 54 89 Resp 18 18 18 B/P (MAP) 121/74 (90) 124/82 (96) 133/90 (104) Pulse Ox 95 97 96 O2 Delivery Room Air Room Air Room Air Room Air 07/20/20 07/20/20 07/20/20 07/20/20 00:15 03:00 06:39 08:00 Temp 98.9 97.8 100.1 98.9 97.8 100.1 Pulse 82 82 Resp 18 18 B/P (MAP) 125/76 (92) 152/73 (99) Pulse Ox 96 98 O2 Delivery Room Air Room Air Room Air 07/20/20 07/20/20 09:45 10:18 Temp 99.1 100.1 99.1 100.1 Pulse 88 Resp 18 B/P (MAP) 161/72 (101) Pulse Ox 93 O2 Delivery Room Air Intake and Output0 07/19/20 07/19/20 07/20/20 15:00 23:00 07:00 Intake Total 2000 ml Output Total 750 ml 800 ml 1350 ml Balance -750 ml 1200 ml -[address] head Postoperative changes on the right again seen with overlying staple line. There is low density within the brain at the operative site which could be from edema. This appears increased from prior. There is also hemorrhage at the biopsy site again seen within the parenchyma. There has been interval development of intraventricular hemorrhage filling a large portion of the right lateral ventricle but hemorrhage is also seen within the left lateral ventricle as well as the third and fourth ventricle. There is multifocal regions of low density throughout the white matter. There is also low density at the corpus callosum again seen and low-density within posterior circulation bilaterally again seen distention of the ventricles. Appears increased from prior. 2 mm of midline shift to the left. IMPRESSION: * Large amount of intraventricular hemorrhage most severe in the right lateral ventricle has developed since prior examination. There is associated hydrocephalus and mass effect with 2 mm of midline shift to the left. * There is again low density as well as some blood within the right cerebral hemisphere at the biopsy site. * Repeat demonstration of multifocal regions of low density including within the corpus callosum and bilateral occipital region. This could be secondary to edema at these sites. There is multifocal regions of low density seen elsewhere within the brain as well. Report was called to the patient's nurse Bridgett at 12:55 PM on date of exam. Justicifation of Admission Dx: Justifications for Admission: Justification of Admission Dx: Comment: (Higher level of care requested by [facility] for neurology evaluation) MAURY SIMMS MD Jul 20, 2020 13:13
--- NOTE | 2020-07-20 13:15 | NUR ---
Received stat CT of head results, Notified Dr. Uriostegui and Jessica LASSITER in [facility] office. Per Dr. Uriostegui, he spoke to daughter Tamar and patient is to remain on [facility] and not to be transferred to ICU, and patient is to remain a Full code.
[2020-07-20 13:58] LABS: PROTHROMBIN TIME PATIENT 14.4 SEC (11.7-14.0)
--- NOTE | 2020-07-20 14:30 | PDOC ---
Date of Service: DATE: 07/20/20 TIME: 14:26 Objective: Objective: PEG cancelled. Vital Signs: Vital Signs Date Time Temp Pulse Resp B/P (MAP) Pulse Ox O2 Delivery O2 Flow Rate FiO2 07/20/20 14:25 99.8 97 18 106/80 (89) 92 Room Air 99.8 07/19/20 08:00 6.0 Labs: Laboratory Tests Test 07/19/20 16:29 07/19/20 20:27 07/20/20 06:36 07/20/20 08:26 Glucose (Fingerstick) 169 mg/dL 221 mg/dL 148 mg/dL Sodium Level 129 mmol/L Potassium Level 5.0 mmol/L Chloride Level 97 mmol/L Carbon Dioxide Level 23 mmol/L Anion Gap 9 Blood Urea Nitrogen 29 mg/dL Creatinine 0.8 mg/dL Estimated GFR (Cockcroft-Gault) 96.1 Glucose Level 149 mg/dL Calcium Level 8.2 mg/dL Test 07/20/20 11:25 07/20/20 12:48 07/20/20 13:35 Glucose (Fingerstick) 177 mg/dL White Blood Count 30.2 x10^3/uL Red Blood Count 4.63 x10^6/uL Hemoglobin 15.1 g/dL Hematocrit 43.1 % Mean Corpuscular Volume 93 fL Mean Corpuscular Hemoglobin 33 pg Mean Corpuscular Hemoglobin Concent 35 g/dL Red Cell Distribution Width 12.9 % Platelet Count 177 x10^3/uL Neutrophils (%) (Auto) 97 % Lymphocytes (%) (Auto) 1 % Monocytes (%) (Auto) 1 % Eosinophils (%) (Auto) 0 % Basophils (%) (Auto) 1 % Neutrophils # (Auto) 29.3 x10^3/uL Lymphocytes # (Auto) 0.3 x10^3/uL Monocytes # (Auto) 0.4 x10^3/uL Eosinophils # (Auto) 0.1 x10^3/uL Basophils # (Auto) 0.1 x10^3/uL Prothrombin Time 14.4 SEC Prothromb Time International Ratio 1.2 Imaging: Head CT IMPRESSION: * Large amount of intraventricular hemorrhage most severe in the right lateral ventricle has developed since prior examination. There is associated hydrocephalus and mass effect with 2 mm of midline shift to the left. * There is again low density as well as some blood within the right cerebral hemisphere at the biopsy site. * Repeat demonstration of multifocal regions of low density including within the corpus callosum and bilateral occipital region. This could be secondary to edema at these sites. There is multifocal regions of low density seen elsewhere within the brain as well. Report was called to the patient's nurse Bridgett at 12:55 PM on date of exam. PE: GEN: chronically ill NEURO/PSYCH: difficult to rouse A/P: Acute disseminated encephalomyelitis COVID negative 07/06 -- Head CT as above w/ large intraventricular hemorrhage , neurology note reviewed. Will follow. Justicifation of Admission Dx: Justifications for Admission: Justification of Admission Dx: Comment: (Higher level of care requested by [facility] for neurology evaluation) FLORENTIN POPE Jul 20, 2020 14:30
--- NOTE | 2020-07-20 17:18 | NUR ---
Spoke to daughter Vikas, daughter would like to change code status to DNR from Full Code. Notified Dr. Rivera, order changed. Family also requesting to begin the process for [facility], notified Joan nursing supervisor packing, she is to call and set up meeting. 1:1 observation also discontinued. Also received order for Morphine PRN.
[2020-07-20] MEDS ORDERED: MORPHINE SULFATE 2 MG/ML VIAL. IV PRN ×2 (17:30→17:45)
--- NOTE | 2020-07-20 21:42 | NUR ---
Patient to discharge to inpatient hospice at this time.
== END 2020-07-20 21:44 | disposition hospice, inpatient (51) | DRG 23 ==
LOC: 5 NORTH 22:00 → 1 WEST ICU 07-07 10:02 → 4 NORTH 07-11 19:11
PROVIDERS: ADMIT Internal Medicine; ATTEND Internal Medicine
PROC: 00B70ZX Excision of Cerebral Hemisphere, Open Approach, Diagnostic (ICD-10-PCS; principal; 2020-07-07 09:30)
DX: G04.00 Acute disseminated encephalitis and encephalomyelitis, unspecified (principal); I61.5 Nontraumatic intracerebral hemorrhage, intraventricular; G37.9 Demyelinating disease of central nervous system, unspecified; G92 Toxic encephalopathy; G35 Multiple sclerosis; H91.91 Unspecified hearing loss, right ear; E66.3 Overweight; Z20.822 Contact with and (suspected) exposure to COVID-19; I10 Essential (primary) hypertension; E78.5 Hyperlipidemia, unspecified; E11.9 Type 2 diabetes mellitus without complications; H91.93 Unspecified hearing loss, bilateral; G93.89 Other specified disorders of brain; Z86.16 Personal history of COVID-19; Z68.29 Body mass index [BMI] 29.0-29.9, adult; Z80.0 Family history of malignant neoplasm of digestive organs; Z79.84 Long term (current) use of oral hypoglycemic drugs
CPT/HCPCS: 36415; 70450; 70544; 70552; 70553; 71260; 74177; 80048; 80053; 80061; 82607; 82962; 83036; 83520; 83615; 84165; 84443; 84550; 85007; 85025; 85610; 86038; 86140; 86592; 86703; 87426; 88307; 88331; 88341; 88342; 93306; 93880; A9575; C1713; J0690; J1100; J1630; J1815; J2060; J2150; J2270; J2370; J2405; J2704; J2710; J2930; J3010; J3430; J3490; J7030; J7060; J7120; Q9966; Q9967; U0003; 92610-GN; 97110-GO; 97110-GP; 97116-GP; 97530-GO; 97530-GP; 97535-GO; G0378

== ENCOUNTER 2020-07-20 21:44 | Inpatient (IN) | payer OTHER ==
[~2020-07-20] VITALS: Ht 177.8 cm; Wt 93.5 kg
[~2020-07-20 21:44] MED LIST changes: -ceFAZolin 2GM PREMIX 2 GM/50 ML BAG IV ONE
--- NOTE | 2020-07-20 21:44 | NUR ---
Patient admitted to inpatient Hospice via [facility]. MD notified and orders received. Patient resting and family at remains at bedside
[2020-07-20] MEDS ORDERED: ACETAMINOPHEN 650 MG SUPP.RECT. PR PRN (22:15)
[2020-07-20] MEDS ORDERED: BISACODYL 10 MG SUPP.RECT. PR PRN (22:15)
[2020-07-20] MEDS: MORPHINE SULFATE 2 MG/ML VIAL. IV PRN (22:26)
[2020-07-20 23:00] VITALS: BP 179/89
[2020-07-20] MEDS ORDERED: SCOPOLAMINE 1.5MG PATCH. TD SCH (23:00)
[2020-07-21] MEDS: MORPHINE SULFATE 2 MG/ML VIAL. IV PRN ×4 (00:40→06:48)
--- NOTE | 2020-07-21 08:31 | PDOC1 ---
History and Physical Date of Admission Date of Admission DATE: 07/21/20 TIME: 08:31 Identification/Chief Complaint Chief Complaint HOSPITAL COURSE: The patient is a pleasant middle-aged male who presented with mental status change. admitted. consults were obtained. He did go for a brain biopsy. Per Dr. Uriostegui's notes, he feels like this is most likely a demyelinating disease, but no malignancy. 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 over the past couple of weeks, the patient has done better. HE CONTINUED TO DECLINE, WAS PLACED ON HOSPICE AND Past Medical History Endocrine: Diabetes Family History Family History: No Significant, Hypertension Social History ALCOHOL: none Drugs: None Current Medications Current Medications Current Medications Lorazepam (Ativan Inj) 2 mg PRN Q2HRS PRN IVP ANXIETY / AGITATION Last administered on 07/20/20at 23:05; Start 07/20/20 at 22:15 Bisacodyl (Dulcolax Supp) [address]ILY [address]N [address] CONSTIPATION; Start 07/20/20 at 22:15 Acetaminophen (Tylenol Supp) 650 [address]N Q6HRS PRN CT MILD PAIN / TEMP > 100.3'F; Start 07/20/20 at 22:15 Scopolamine (Transderm-Scop) 1 patch Q3DAYS TD Last administered on 07/20/20at 22:17; Start 07/20/20 at 23:00 Morphine Sulfate (Morphine Sulfate) 2 mg PRN Q2HR PRN IV SEVERE PAIN 7-10 Last administered on 07/21/20at 06:48; Start 07/20/20 at 22:15 Active Scripts Active Reported Aspirin 81 Mg Tab.chew 81 Mg PO DAILY Metformin Hcl 500 Mg Tablet 500 Mg PO BIDWMEALS Atenolol 50 Mg Tablet 50 Mg PO DAILY Allergies Allergies: Coded Allergies: No Known Drug Allergies (Unverified , 07/01/18) ROS Review of System PT Physical Exam Physical Exam Vitals Vitals Vital Signs Date Time Temp Pulse Resp B/P (MAP) Pulse Ox O2 Delivery O2 Flow Rate FiO2 07/21/20 08:00 Room Air 07/21/20 06:48 18 94 07/20/20 23:00 98.0 80 179/89 (119) 98.0 Images Images Brain MRI 07/14 IMPRESSION: 1. . Post right posterior temporal craniotomy with biopsy of a demyelinating lesion within the posterior right temporal lobe. A small amount of hemorrhage is seen within the biopsy site. There is no significant surrounding edema or associated mass effect. 2. Multiple areas of abnormally increased signal intensity are seen throughout the brain consistent with the patient's history of a demyelinating disorder. Three of these lesions have increased in size since the previous study as discussed above. Four of these lesions appear to have decreased in size since the previous study. No new lesion is seen. The areas of abnormal contrast enhancement seen on the previous examination have largely resolved. Head CT 07/09 IMPRESSION: 1. Pneumocephalus and a small amount of hemorrhage along the right-sided biopsy tract. These findings in addition to more pronounced mass effect on the posterior aspect of the right lateral ventricle are not beyond what would be expected given proximity to the biopsy. No midline shift or increase in volume of the ventricular system to suggest hydrocephalus. If there is ongoing concern consider short-term follow-up. 2. Numerous parenchymal lesions fully characterized on the recent MRI. Brain MRI 07/07 IMPRESSION: There is increase in size of left periatrial white matter lesion and right splenial lesion as described in detail above. Otherwise, no enhancing masses are stable with similar degree of vasogenic edema. Brain MRI 07/03 IMPRESSION: 1. Multifocal bilateral peripherally enhancing lesions. Primary considerations would be metastatic disease or multicentric glioblastoma multiforme. Other less common entities which can have a similar appearance would include an aggressive/tumefactive demyelinating process and [employer] lymphoma (if the patient were immunocompromised). No acute hemorrhage or midline shift. Patent basilar cisterns. 2. No intracranial stenosis, aneurysm or arteriovenous malformation. VTE Prophylaxis Ordered VTE Prophylaxis Devices: No VTE Pharmacological Prophylaxi: No Assessment/Plan Assessment/Plan CAUSE OF : 1. Multiple brain masses ACUTE demyelinating disease, status post brain biopsy. 2. encephalopathy. 3. Diabetes. 4. Hypertension. 5. mental status charge CONSULTATIONS: Neurology and Neurosurgery. Dr. Zepeda PROCEDURE: Brain biopsy. DATE OF 07-21 D/C PLANNING 35 MIN Justifications for Admission Other Justification DELBERT HOPKINS MD Jul 21, 2020 08:31
--- NOTE | 2020-07-21 12:55 | NUR ---
Patient at 0845. Family, [facility], [facility] [employer], and Dr. Esteban notified. Patient taken to [facility] at 1255.
--- NOTE | 2020-07-21 13:11 | PDOC3 ---
Discharge Summary Date of Admission: Jul 20, 2020 Date of Discharge: Jul 21, 2020 Follow-Up: Other () Admitting Diagnosis comment: Identification/Chief Complaint Chief Complaint HOSPITAL COURSE: The patient is a pleasant middle-aged male who presented with mental status change. admitted. consults were obtained. He did go for a brain biopsy. Per Dr. Uriostegui's notes, he feels like this is most likely a demyelinating disease, but no malignancy. 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 over the past couple of weeks, the patient has done better. HE CONTINUED TO DECLINE, WAS PLACED ON HOSPICE AND Past Medical History Endocrine: Diabetes Family History Family History: No Significant, Hypertension Social History ALCOHOL: none Drugs: None Current Medications Current Medications Current Medications Lorazepam (Ativan Inj) 2 mg PRN Q2HRS PRN IVP ANXIETY / AGITATION Last administered on 07/20/20at 23:05; Start 07/20/20 at 22:15 Bisacodyl (Dulcolax Supp) 10 mg PRN DAILY PRN [place] CONSTIPATION; Start 07/20/20 at 22:15 Acetaminophen (Tylenol Supp) 650 mg PRN Q6HRS PRN [place] MILD PAIN / TEMP > 1 00.3'F; Start 07/20/20 at 22:15 Scopolamine (Transderm-Scop) 1 patch Q3DAYS TD Last administered on 07/20/20at 22:17; Start 07/20/20 at 23:00 Morphine Sulfate (Morphine Sulfate) 2 mg PRN Q2HR PRN IV SEVERE PAIN 7-10 Last administered on 07/21/20at 06:48; Start 07/20/20 at 22:15 Active Scripts Active Reported Aspirin 81 Mg Tab.chew 81 Mg PO DAILY Metformin Hcl 500 Mg Tablet 500 Mg PO BIDWMEALS Atenolol 50 Mg Tablet 50 Mg PO DAILY Allergies Allergies: Coded Allergies: No Known Drug Allergies (Unverified , 07/01/18) ROS Review of System PT Physical Exam Physical Exam Vitals Vitals Vital Signs Date Time Temp Pulse Resp B/P (MAP) Pulse Ox O2 Delivery O2 Flow Rate FiO2 07/21/20 08:00 Room Air 07/21/20 06:48 18 94 07/20/20 23:00 98.0 80 179/89 (119) 98.0 Images Images Brain MRI 07/14 IMPRESSION: 1. . Post right posterior temporal craniotomy with biopsy of a demyelinating lesion within the posterior right temporal lobe. A small amount of hemorrhage is seen within the biopsy site. There is no significant surrounding edema or associated mass effect. 2. Multiple areas of abnormally increased signal intensity are seen throughout the brain consistent with the patient's history of a demyelinating disorder. Three of these lesions have increased in size since the previous study as discussed above. Four of these lesions appear to have decreased in size since the previous study. No new lesion is seen. The areas of abnormal contrast enhancement seen on the previous examination have largely resolved. Head CT 07/09 IMPRESSION: 1. Pneumocephalus and a small amount of hemorrhage along the right-sided biopsy tract. These findings in addition to more pronounced mass effect on the posterior aspect of the right lateral ventricle are not beyond what would be expected given proximity to the biopsy. No midline shift or increase in volume of the ventricular system to suggest hydrocephalus. If there is ongoing concern consider short-term follow-up. 2. Numerous parenchymal lesions fully characterized on the recent MRI. Brain MRI 07/07 IMPRESSION: There is increase in size of left periatrial white matter lesion and right splenial lesion as described in detail above. Otherwise, no enhancing masses are stable with similar degree of vasogenic edema. Brain MRI 07/03 IMPRESSION: 1. Multifocal bilateral peripherally enhancing lesions. Primary considerations would be metastatic disease or multicentric glioblastoma multiforme. Other less common entities which can have a similar appearance would include an aggressive/ tumefactive demyelinating process and [employer] lymphoma (if the patient were immunocompromised). No acute hemorrhage or midline shift. Patent basilar cisterns. 2. No intracranial stenosis, aneurysm or arteriovenous malformation. Imaging: Head CT IMPRESSION: * Large amount of intraventricular hemorrhage most severe in the right lateral ventricle has developed since prior examination. There is associated hydrocephalus and mass effect with 2 mm of midline shift to the left. * There is again low density as well as some blood within the right cerebral hemisphere at the biopsy site. * Repeat demonstration of multifocal regions of low density including within the corpus callosum and bilateral occipital region. This could be secondary to edema at these sites. There is multifocal regions of low density seen elsewhere within the brain as well. Report was called to the patient's nurse Bridgett at 12:55 PM on date of exam. PE: GEN: chronically ill NEURO/PSYCH: difficult to rouse A/P: Acute disseminated encephalomyelitis COVID negative 07/06 -- Head CT as above w/ large intraventricular hemorrhage , neurology note reviewed. Will follow. Justicifation of Admission Dx: Justifications for Admission: Justification of Admission Dx: Comment: (Higher level of care requested by [facility] for neurology evaluation) VTE Prophylaxis Ordered VTE Prophylaxis Devices: No VTE Pharmacological Prophylaxi: No Assessment/Plan Assessment/Plan CAUSE OF : 1. Multiple brain masses ACUTE demyelinating disease, status post brain biopsy. 2. encephalopathy. 3. Diabetes. 4. Hypertension. 5. mental status charge CONSULTATIONS: Neurology and Neurosurgery. Dr. Zepeda PROCEDURE: Brain biopsy. DATE OF 07-21 D/C PLANNING 35 MIN Brief Hospital Course Mr. Rodarte is a 70 old [sex] who presented with [ACUTE MENTAL STATUS CHANGE ] CONDITION AT DISCHARGE: / Discharge Medications Current Medications Lorazepam (Ativan Inj) 2 mg PRN Q2HRS PRN IVP ANXIETY / AGITATION Last ad ministered on 07/20/20at 23:05; Start 07/20/20 at 22:15; Stop 07/21/20 at 12:57; Status DC Bisacodyl (Dulcolax Supp) 10 mg PRN DAILY PRN [place] CONSTIPATION; Start 07/20/20 at 22:15; Stop 07/21/20 at 12:57; Status DC Acetaminophen (Tylenol Supp) 650 mg PRN Q6HRS PRN [place] MILD PAIN / TEMP > 100.3'F; Start 07/20/20 at 22:15; Stop 07/21/20 at 12:57; Status DC Scopolamine (Transderm-Scop) 1 patch Q3DAYS TD Last administered on 07/20/20at 22:17; Start 07/20/20 at 23:00; Stop 07/21/20 at 12:57; Status DC Morphine Sulfate (Morphine Sulfate) 2 mg PRN Q2HR PRN IV SOA / PAIN Last administered on 07/21/20at 06:48; Start 07/20/20 at 22:15; Stop 07/21/20 at 12:57; Status DC Active Scripts Active Reported Aspirin 81 Mg Tab.chew 81 Mg PO DAILY Metformin Hcl 500 Mg Tablet 500 Mg PO BIDWMEALS Atenolol 50 Mg Tablet 50 Mg PO DAILY Vital Signs Vital Signs Date Time Temp Pulse Resp B/P (MAP) Pulse Ox O2 Delivery O2 Flow Rate FiO2 07/21/20 08:00 Room Air 07/21/20 06:48 18 94 07/20/20 23:00 98.0 80 179/89 (119) 98.0 Allergies Allergies Coded Allergies Type Severity Reaction Last Updated Verified No Known Drug Allergies 07/01/18 No Disposition/Orders: Justicifation of Admission Dx: Justifications for Admission: Justification of Admission Dx: Comment: DELBERT HOPKINS MD Jul 21, 2020 13:11
== END 2020-07-21 12:55 | DRG 98 ==
LOC: 4 NORTH 21:44
PROVIDERS: ADMIT Internal Medicine; ATTEND Internal Medicine
DX: G04.00 Acute disseminated encephalitis and encephalomyelitis, unspecified (principal); G37.9 Demyelinating disease of central nervous system, unspecified; E11.9 Type 2 diabetes mellitus without complications; G93.89 Other specified disorders of brain; I10 Essential (primary) hypertension; K59.00 Constipation, unspecified; Z51.5 Encounter for palliative care; Z79.82 Long term (current) use of aspirin; Z79.84 Long term (current) use of oral hypoglycemic drugs; Z79.899 Other long term (current) drug therapy; Z82.49 Family history of ischemic heart disease and other diseases of the circulatory system; F41.9 Anxiety disorder, unspecified; G35 Multiple sclerosis
CPT/HCPCS: J2060; J2270; G0378